=== PATIENT | male | born 1985 | race Hispanic/Latino ===

== ENCOUNTER 2017-07-29 07:05 | Emergency (ER) | payer MEDICARE ==
[~2017-07-29] VITALS: Ht 180.3 cm; Wt 61.2 kg
[2017-07-29] MEDS ORDERED: SODIUM CHLORIDE 0.9% 1000ML 1,000 ML IV STA (07:06)
[2017-07-29] MEDS ORDERED: MORPHINE SULFATE 4 MG/ML SYR IV STA (07:06)
[2017-07-29 07:41] LABS: BASOPHILS # (AUTO) 0.1 (0.0-0.1); BASOPHILS % 0.6 % (0.0-1.0); EOSINOPHILS % 0.3 % (0.0-6.0); HEMATOCRIT 44.7 % (38.2-49.6); HEMOGLOBIN 15.7 g/dL (14.0-18.0); LYMPHOCYTES # (AUTO) 1.5 (1.0-3.2); LYMPHOCYTES % 14.9 % (18.0-39.1); MEAN CORPUSCULAR HEMOGLOBIN 33.2 pg (28-32); MEAN CORPUSCULAR HGB CONC 35.1 g/dL (31-35); MEAN CORPUSCULAR VOLUME 94.5 fL (81-99); MONOCYTES # (AUTO) 1.9 (0.2-0.8); NEUTROPHILS # (AUTO) 6.8 (2.1-6.9); NEUTROPHILS % 65.9 % (38.7-80.0); PLATELET COUNT 186 x10e3/uL (140-360); RED BLOOD COUNT 4.73 x10e6/uL (4.3-5.7)
[2017-07-29 07:46] LABS: INR 0.96; PROTHROMBIN TIME 13.3 seconds (11.9-14.5)
[2017-07-29 07:47] LABS: PARTIAL THROMBOPLASTIN TIME 27.9 seconds (23.8-35.5)
[2017-07-29 07:57] LABS: ALANINE AMINOTRANSFERASE 18 IU/L (0-55); ALBUMIN 3.5 g/dL (3.5-5.0); ALBUMIN/GLOBULIN RATIO 1.2 (0.8-2.0); ALKALINE PHOSPHATASE 110 IU/L (40-150); ANION GAP 13.7 mmol/L (8-16); BLOOD UREA NITROGEN < 5 mg/dL (7-26); CALCIUM 9.2 mg/dL (8.4-10.2); CARBON DIOXIDE 27 mmol/L (22-29); CHLORIDE 101 mmol/L (98-107); CREATINE KINASE 33 IU/L (30-200); EST GLOMERULAR FILTRATION RATE > 60 ML/MIN (60-); GLUCOSE 108 mg/dL (74-118); MAGNESIUM 1.6 MG/DL (1.3-2.1); POTASSIUM 3.7 mmol/L (3.5-5.1); SODIUM 138 mmol/L (136-145)
--- NOTE | 2017-07-29 07:59 | Diagnostic Imaging Report ---
Exam: Head CT without contrast History: Headache Comparison studies: Head CT 10/24/2016 Technique: Axial images were obtained from the skull base to the vertex. Coronal and sagittal images reconstructed from the axial data. Intravenous contrast: None Findings: Scalp: No abnormalities. Bones: No fractures, blastic or lytic lesions. Brain sulci: Appropriate for age. Ventricles: Normal in size and configuration. No hydrocephalus. Extra-axial spaces: No masses, no fluid collection. Parenchyma: Incidental unchanged 3 mm calcification without surrounding edema or mass effect in the right lateral cerebellum is nonspecific but may be sequela of previous infection/inflammation. No other mass. No acute hemorrhage or acute cortical vascular insults. Sellar/suprasellar region: No abnormalities. Craniocervical junction: Patent foramen magnum. No Chiari one malformation. Incidental findings: Previously described nonspecific left lacrimal gland mass/enlargement has resolved. IMPRESSION: 1. No acute abnormalities. 2. Previously described left lacrimal gland mass/enlargement has resolved. 3. No other changes from the previous head CT of 10/24/2016. 4. Unchanged dystrophic right cerebellar calcification. Signed by: Dr. Gopi Murphy M.D. on 07/29/2017 7:55 AM
[2017-07-29 08:03] LABS: BUN/CREATININE RATIO 8 (6-25); TROPONIN I 0.007 ng/mL (0-0.300)
[2017-07-29] MEDS ORDERED: MORPHINE SULFATE 2 MG/ML SYR ONE (08:44)
[2017-07-29] MEDS ORDERED: CEFEPIME HCL 2 GM VIAL IV STA (09:15)
[2017-07-29] MEDS ORDERED: DEXAMETHASONE SOD PHOS 10 MG/1 ML VIAL IV ONE (09:15)
[2017-07-29] MEDS ORDERED: VANCOMYCIN 1GM/NS 250 ML 250 ML IV STA (09:15)
[2017-07-29] MEDS ORDERED: SODIUM CHLORIDE 0.9% 1000ML 1,000 ML IV SCH (10:45)
== END 2017-07-29 11:05 | disposition designated cancer center or children's hospital (05) ==
LOC: ER 07:05
DX: A41.9 Sepsis, unspecified organism (principal); R51 Headache; M62.838 Other muscle spasm
CPT/HCPCS: 36415; 70450; 80053; 82550; 82553; 83605; 83735; 84484; 85025; 85610; 85730; 87040; 87400; 99284; J0692; J1100; J2270; J3370; J7030

== ENCOUNTER 2018-05-18 03:15 | Observation (INO) | payer MEDICARE, OTHER ==
[~2018-05-18] VITALS: Ht 180.3 cm; Wt 71.0 kg
--- OUTSIDE RECORDS SUMMARY | 2018-05-18 03:18 | XMS REPORT | Clinical Summary ---
Author Author [facility] Address Unknown Phone Unavailable Care Team Providers Care Digital Sales Assistant Name Role Phone PCP Unavailable Allergies No Known Allergies Current Medications Prescription Sig. Disp. Refills Start End Date Status Date famotidine (PEPCID) 20 MG Take 1 tablet (20 mg 60 tablet 12/08/19 Active tablet total) by mouth 2 (two) 17 times daily. allopurinol (ZYLOPRIM) Take 1 tablet (100 mg 30 tablet 12/08/19 12/08/19 100 MG tablet total) by mouth daily. 17 18 metoprolol (LOPRESSOR) 25 Take 0.5 tablets (12.5 mg 30 tablet 12/08/19 12/08/19 MG tablet total) by mouth 2 (two) 17 18 times daily. 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 Transfer from OSH 11/05/2016 neutropenia + sepsis. Acute calculus cholecystitis s/p cholecystostomy tube placement (11/07/16). S/p L foot debridement (11/28/16).] Pancytopenia (HCC) 11/05/2016 Septic shock(785.52) 11/05/2016 Severe sepsis(995.92) 11/05/2016 Hypovolemic shock (HCC) 11/05/2016 Pancytopenia due to chemotherapy (HCC) 11/05/2016 Severe anemia 11/05/2016 Family History Medical History Relation Name Comments Cancer Cousin Alcohol abuse Father Hypertension Maternal Grandmother Hypertension Mother Cancer Paternal Aunt Relation Name Status Comments Cousin Father Maternal Grandmother Mother Paternal Aunt Social History Tobacco Use Types Packs/Day Years Used Date Never Smoker Smokeless Tobacco: Never Used Alcohol Use Drinks/Week oz/Week Comments No socially Sex Assigned at Date Recorded Not on file Last Filed Vital Signs Not on file Plan of Treatment Not on file Results Not on fileafter 05/17/2017
--- OUTSIDE RECORDS SUMMARY | 2018-05-18 03:18 | XMS REPORT | Clinical Summary ---
Author Author [facility] Organization [facility] Address Unknown Phone Unavailable Care Team Providers Care Auditor Supervisor Name Role Phone Asked, No Pcp PCP Unavailable Allergies No Known Allergies Current Medications Prescription Sig. Disp. Refills Start End Date Status Date famotidine (PEPCID) 20 MG Take 20 mg by mouth 2 12/08/19 Active tablet (two) times a day. 17 allopurinol (ZYLOPRIM) Take 100 mg by mouth 12/08/19 12/08/19 100 MG tablet daily. 17 18 metoprolol tartrate Take 12.5 mg by mouth 2 12/08/19 06/12/20 Discontin (LOPRESSOR) 25 mg tablet (two) times a day. 17 17 ued pregabalin (LYRICA) 150 Take 1 capsule (150 mg 42 capsule 0 06/12/20 06/26/20 MG capsule total) by mouth 3 (three) 17 17 times a day for 14 days. ondansetron ODT Take 1 tablet (8 mg 30 tablet 0 06/12/20 07/12/20 (ZOFRAN-ODT) 8 MG total) by mouth every 8 17 17 disintegrating tablet (eight) hours as needed for nausea or vomiting for up to 30 days. naloxegol (MOVANTIK) 12.5 Take 1 tablet (12.5 mg 30 tablet 0 06/12/20 07/12/20 mg tablet tablet total) by mouth daily 17 17 before breakfast for 30 days. methocarbamol (ROBAXIN) Take 1 tablet (500 mg 90 tablet 0 06/12/20 07/12/20 500 MG tablet total) by mouth 3 (three) 17 17 times a day for 30 days. lidocaine (LIDODERM) 5 % Place 1 patch on the skin 30 patch 0 06/12/20 07/12/20 daily for 30 days. Remove 17 17 & Discard patch within 12 hours or as directed by MD Active Problems Problem Noted Date Intractable pain 05/30/2017 Pancytopenia (HCC) 10/25/2016 ALL (acute lymphoblastic leukemia) (HCC) Encounters Date Type Specialty Care Team Description 06/16/2017 Documentation Hematology Hawa Shaikh MD 06/02/2017 Procedure Pass General Internal Medicine 06/02/2017 Procedure Pass General Internal Medicine 06/02/2017 Procedure Pass General Internal Medicine 06/02/2017 Procedure Pass General Internal Medicine 06/01/2017 Procedure Pass General Internal Medicine 06/01/2017 Procedure Pass General Internal Medicine 05/29/2017 [facility] Internal Medicine Rehrer, Altaf Abarca, Intractable pain (Primary - Encounter Channing Francisco MD Dx); 06/12/2017 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 Orders Only Hematology Kassie Powers MA Other specified diseases of blood and blood-forming organs (Primary Dx) after 05/17/2017 Social History Tobacco Use Types Packs/Day Years Used Date Never Assessed Sex Assigned at Date Recorded Not on file Last Filed Vital Signs Vital Sign Reading Time Taken Blood Pressure 96/69 06/12/2017 12:22 PM [employer] Pulse 68 06/12/2017 12:22 PM [employer] Temperature 37.1 C (98.7 F) 06/12/2017 12:22 PM [employer] Respiratory Rate 13 06/12/2017 12:22 PM [employer] Oxygen Saturation 97% 06/12/2017 12:22 PM [employer] Inhaled Oxygen - - Concentration Weight 59 kg (130 lb) 06/02/2017 8:21 PM [employer] Height 180.3 cm (5' 11") 05/29/2017 7:12 PM CDT Body Mass Index 18.13 06/02/2017 8:21 PM [employer] Plan of Treatment Health Maintenance Due Date Last Done Comments INFLUENZA VACCINE 02/23/2018 Procedures Procedure Name Priority Date/Time Associated Diagnosis Comments CELL COUNT AND Routine 06/08/2017 Results for this DIFFERENTIAL, BODY FLUID 5:35 PM [employer] procedure are in the results section. CRYSTAL ANALYSIS Routine 06/08/2017 Results for this 5:35 PM [employer] procedure are in the results section. FUNGUS SMEAR Routine 06/08/2017 Results for this 5:13 PM [employer] procedure are in the results section. GRAM STAIN Routine 06/08/2017 Results for this 5:13 PM [employer] procedure are in the results section. AFB STAIN Routine 06/08/2017 Results for this 5:13 PM [employer] procedure are in the results section. FUNGUS CULTURE Routine 06/08/2017 Results for this 5:13 PM [employer] procedure are in the results section. ANAEROBIC CULTURE Routine 06/08/2017 Results for this 5:13 PM [employer] procedure are in the results section. AFB CULTURE Routine 06/08/2017 Results for this 5:13 PM [employer] procedure are in the results section. AEROBIC CULTURE Routine 06/08/2017 Results for this 5:13 PM [employer] procedure are in the results section. IMAGE GUIDANCE ASPIRATION Routine 06/08/2017 Results for this 5:05 PM [employer] procedure are in the results section. US DUPLEX VENOUS LOWER Routine 06/04/2017 Results for this EXTREMITY LEFT 8:34 PM [employer] procedure are in the results section. HC COMPLETE BLD COUNT Routine 06/04/2017 Results for this W/AUTO DIFF 4:45 AM [employer] procedure are in the results section. ZZESTIMATED GFR Routine 06/04/2017 Results for this 4:00 AM [employer] procedure are in the results section. PHOSPHORUS LEVEL Routine 06/04/2017 Results for this 4:00 AM [employer] procedure are in the results section. MAGNESIUM LEVEL Routine 06/04/2017 Results for this 4:00 AM [employer] procedure are in the results section. BASIC METABOLIC PANEL Routine 06/04/2017 Results for this 4:00 AM [employer] procedure are in the results section. FLOW CYTOMETRY EVALUATION Routine 06/03/2017 Results for this 4:45 PM [employer] procedure are in the results section. GLUCOSE LEVEL, CSF Routine 06/03/2017 Results for this 4:45 PM [employer] procedure are in the results section. PROTEIN, CSF Routine 06/03/2017 Results for this 4:45 PM [employer] procedure are in the results section. CSF CELL COUNT WITH Routine 06/03/2017 Results for this DIFFERENTIAL 4:45 PM [employer] procedure are in the results section. GRAM STAIN Routine 06/03/2017 Results for this 4:45 PM [employer] procedure are in the results section. FUNGUS CULTURE Routine 06/03/2017 Results for this 4:45 PM [employer] procedure are in the results section. AFB CULTURE Routine 06/03/2017 Results for this 4:45 PM [employer] procedure are in the results section. CSF CULTURE Routine 06/03/2017 Results for this 4:45 PM [employer] procedure are in the results section. IR LUMBAR PUNCTURE Routine 06/03/2017 Results for this 3:14 PM [employer] procedure are in the results section. SEQUENCE BASED TYPING Routine 06/03/2017 Results for this 2:02 PM [employer] procedure are in the results section. HC COMPLETE BLD COUNT Routine 06/03/2017 Results for this W/AUTO DIFF 5:35 AM [employer] procedure are in the results section. ZZESTIMATED GFR Routine 06/03/2017 Results for this 4:00 AM [employer] procedure are in the results section. PHOSPHORUS LEVEL Routine 06/03/2017 Results for this 4:00 AM [employer] procedure are in the results section. MAGNESIUM LEVEL Routine 06/03/2017 Results for this 4:00 AM [employer] procedure are in the results section. BASIC METABOLIC PANEL Routine 06/03/2017 Results for this 4:00 AM [employer] procedure are in the results section. MRI LUMBAR SPINE W WO Routine 06/02/2017 Results for this CONTRAST 9:52 PM [employer] procedure are in the results section. MRI CERVICAL SPINE W WO Routine 06/02/2017 Results for this CONTRAST 9:51 PM [employer] procedure are in the results section. MRI BRAIN W WO CONTRAST Routine 06/02/2017 Results for this 9:51 PM [employer] procedure are in the results section. MRI THORACIC SPINE W WO Routine 06/02/2017 Results for this CONTRAST 9:34 PM [employer] procedure are in the results section. SURGICAL PATHOLOGY Routine 06/02/2017 Results for this REQUEST 5:10 PM [employer] procedure are in the results section. MRI LOWER EXTREMITY W WO Routine 06/01/2017 Results for this CONTRAST LEFT 7:50 PM [employer] procedure are in the results section. MRI UPPER EXTREMITY JOINT Routine 06/01/2017 Results for this W WO CONTRAST RIGHT 8:20 AM [employer] procedure are in the results section. HC COMPLETE BLD COUNT Routine 06/01/2017 Results for this W/AUTO DIFF 5:00 AM [employer] procedure are in the results section. ZZESTIMATED GFR Routine 06/01/2017 Results for this 4:00 AM [employer] procedure are in the results section. PHOSPHORUS LEVEL Routine 06/01/2017 Results for this 4:00 AM [employer] procedure are in the results section. MAGNESIUM LEVEL Routine 06/01/2017 Results for this 4:00 AM [employer] procedure are in the results section. BASIC METABOLIC PANEL Routine 06/01/2017 Results for this 4:00 AM [employer] procedure are in the results section. XR ANKLE 2 VW LEFT Routine 05/31/2017 Results for this 6:23 PM [employer] procedure are in the results section. XR SHOULDER 2+ VW RIGHT Routine 05/31/2017 Results for this 6:23 PM [employer] procedure are in the results section. SURGICAL PATHOLOGY Routine 05/31/2017 Results for this REQUEST 4:11 PM [employer] procedure are in the results section. BIOPSY BONE MARROW Routine 05/31/2017 Acute lymphoblastic Results for this 3:05 PM [employer] leukemia (ALL) in relapse procedure are in the results section. MISCELLANEOUS REFERRAL Routine 05/31/2017 Results for this TEST 2:55 PM [employer]IT[employer] procedure are in the results section. MISCELLANEOUS REFERRAL Routine 05/31/2017 Results for this TEST 2:55 PM H[employer] procedure are in the results section. FLOW CYTOMETRY EVALUATION Routine 05/31/2017 Results for this 2:55 PM [employer] procedure are in the results section. BONE MARROW TRAY Routine 05/31/2017 Results for this 2:55 PM [employer] procedure are in the results section. PERIPHERAL SMEAR Routine 05/31/2017 Results for this 5:00 AM [employer] procedure are in the results section. HC COMPLETE BLD COUNT Routine 05/31/2017 Results for this W/AUTO DIFF 5:00 AM H[employer]IES [employer] procedure are in the results section. ZZESTIMATED GFR Routine 05/31/2017 Results for this 4:00 AM [employer] procedure are in the results section. PHOSPHORUS LEVEL Routine 05/31/2017 Results for this 4:00 AM H[employer] procedure are in the results section. MAGNESIUM LEVEL Routine 05/31/2017 Results for this 4:00 AM H[employer] procedure are in the results section. BASIC METABOLIC PANEL Routine 05/31/2017 Results for this 4:00 AM [employer] procedure are in the results section. ZZESTIMATED GFR Routine 05/30/2017 Results for this 3:32 AM [employer] procedure are in the results section. IONIZED CALCIUM Routine 05/30/2017 Results for this 3:32 AM [employer] procedure are in the results section. URIC ACID LEVEL Routine 05/30/2017 Results for this 3:32 AM H[employer]IT[employer] procedure are in the results section. PHOSPHORUS LEVEL Routine 05/30/2017 Results for this 3:32 AM H[employer] procedure are in the results section. MAGNESIUM LEVEL Routine 05/30/2017 Results for this 3:32 AM HUM[employer]ITIES IN[employer] procedure are in the results section. TROPONIN Routine 05/30/2017 Results for this 3:32 AM HUM[employer]ITIES [employer] procedure are in the results section. COMPREHENSIVE METABOLIC Routine 05/30/2017 Results for this PANEL 3:32 AM HUM[employer]ITIES IN[employer] procedure are in the results section. HC COMPLETE BLD COUNT Routine 05/30/2017 Results for this W/AUTO DIFF 3:20 AM H[employer]ITIES IN[employer] procedure are in the results section. STREP SCREEN CULTURE Routine 05/29/2017 Results for this 11:14 PM CDT procedure are in the results section. GROUP A STREP, RAPID Routine 05/29/2017 Results for this ANTIGEN 11:14 PM CDT procedure are in the results section. RESPIRATORY PATHOGEN Routine 05/29/2017 Results for this PANEL 11:14 PM CDT procedure are in the results section. BLOOD CULTURE, AEROBIC & Routine 05/29/2017 Results for this ANAEROBIC 10:39 PM CDT procedure are in the results section. XR CHEST 1 VW PORTABLE STAT 05/29/2017 Results for this 10:23 PM CDT procedure are in the results section. BLOOD CULTURE, AEROBIC & Routine 05/29/2017 Results for this ANAEROBIC 10:00 PM CDT procedure are in the results section. ZZESTIMATED GFR STAT 05/29/2017 Results for this 9:00 PM CDT procedure are in the results section. TYPE AND SCREEN Routine 05/29/2017 Results for this 9:00 PM CDT procedure are in the results section. LACTIC ACID LEVEL STAT 05/29/2017 Results for this 9:00 PM CDT procedure are in the results section. COMPREHENSIVE METABOLIC STAT 05/29/2017 Results for this PANEL 9:00 PM CDT procedure are in the results section. PARTIAL THROMBOPLASTIN STAT 05/29/2017 Results for this TIME (PTT) 9:00 PM CDT procedure are in the results section. PROTHROMBIN TIME WITH INR STAT 05/29/2017 Results for this 9:00 PM CDT procedure are in the results section. HC COMPLETE BLD COUNT STAT 05/29/2017 Results for this W/AUTO DIFF 9:00 PM CDT procedure are in the results section. after 05/17/2017 Results * Crystal analysis (06/08/2017 5:35 PM) Crystal analysis specimen JointComment: RIGHT SHOULDER [facility] DEPARTMENT OF type PATHOLOGY AND GENOMIC MEDICINE Monosodium urate None seen None seen [facility] DEPARTMENT OF PATHOLOGY AND GENOMIC MEDICINE CPPD crystals None seen None seen [facility] DEPARTMENT OF PATHOLOGY AND GENOMIC MEDICINE Specimen Fluid Narrative Performed At RT SHOULDER JOINT [facility] DEPARTMENT OF PATHOLOGY AND GENOMIC MEDICINE Performing Organization Address City/[facility] Phone Number [facility] [place] [address] PATHOLOGY AND GENOMIC MEDICINE * Cell count and differential, body fluid (06/08/2017 5:35 PM) [facility] [place], [place] fluid type FootnoteComment: Right [facility] DEPARTMENT OF shoulder joint PATHOLOGY AND GENOMIC MEDICINE Color, fluid Pale yellow [facility] DEPARTMENT OF PATHOLOGY AND GENOMIC MEDICINE Appearance, fluid Hazy [facility] DEPARTMENT OF PATHOLOGY AND GENOMIC MEDICINE RBC, fluid SEE COMMENTComment: 2+ (500 - /CMM [facility] DEPARTMENT OF 10,000 RBC/CMM) PATHOLOGY AND GENOMIC MEDICINE Nucleated cells, fluid 14,300 /CMM [facility] DEPARTMENT OF PATHOLOGY AND GENOMIC MEDICINE Fluid mononuclear cell See Diff [facility] DEPARTMENT OF PATHOLOGY AND GENOMIC MEDICINE Neutrophils, fluid 87 % [facility] DEPARTMENT OF PATHOLOGY AND GENOMIC MEDICINE Lymphocytes, fluid 5 % [facility] DEPARTMENT OF PATHOLOGY AND GENOMIC MEDICINE Macrophages, fluid 8 % [facility] DEPARTMENT OF PATHOLOGY AND GENOMIC MEDICINE Specimen Fluid Narrative Performed At RT SHOULDER JOINT [facility] DEPARTMENT OF PATHOLOGY AND GENOMIC MEDICINE Performing Organization Address [facility]alscode Phone Number [facility] [place] [address] PATHOLOGY AND GENOMIC MEDICINE * Fungus smear (06/08/2017 5:13 PM) Fungus smear No fungi observed. [facility] DEPARTMENT OF Comment: PATHOLOGY AND Specimen Information GENOMIC MEDICINE Specimen Source: Fluid Specimen Site: Right shoulder Performing Organization Address [facility]alscomt Phone Number [facility] [place] [address] PATHOLOGY AND GENOMIC MEDICINE * AFB culture (06/08/2017 5:13 PM) Only the most recent of 2 results within the time period is included. AFB culture isolate No growth after [address] [facility] DEPARTMENT OF incubation. PATHOLOGY AND Comment: GENOMIC MEDICINE Specimen Information Specimen Source: Fluid Specimen Site: Right shoulder Performing Organization Address City/[facility]/Zipcode Phone Number [facility] [place] [address] PATHOLOGY AND GENOMIC MEDICINE * Aerobic culture (06/08/2017 5:13 PM) Aerobic culture isolate No growth after [address] [facility] DEPARTMENT OF Comment: PATHOLOGY AND Specimen Information GENOMIC MEDICINE Specimen Source: Fluid Specimen Site: Right shoulder Performing Organization Address City/[facility]/Zipcode Phone Number [facility] [place] [address] PATHOLOGY AND GENOMIC MEDICINE * Gram stain (06/08/2017 5:13 PM) Only the most recent of 2 results within the time period is included. Gram stain isolate Few WBC's [facility] DEPARTMENT OF No organisms seen PATHOLOGY AND Comment: GENOMIC MEDICINE Specimen Information Specimen Source: Fluid Specimen Site: Right shoulder Performing Organization Address City/[facility] Phone Number [facility] DEPARTMENT OF [address] [place] [address] PATHOLOGY AND GENOMIC MEDICINE * AFB stain (06/08/2017 5:13 PM) AFB stain No acid fast bacilli (AFB) [facility] DEPARTMENT OF seen. PATHOLOGY AND Comment: GENOMIC MEDICINE Specimen Information Specimen Source: Fluid Specimen Site: Right shoulder Performing Organization Address [facility] Phone Number [facility] [place] [address] PATHOLOGY AND GENOMIC MEDICINE * Fungus culture (06/08/2017 5:13 PM) Only the most recent of 2 results within the time period is included. Fungus culture isolate No growth after [address] [facility] DEPARTMENT OF incubation. PATHOLOGY AND Comment: GENOMIC MEDICINE Specimen Information Specimen Source: Fluid Specimen Site: Right shoulder Performing Organization Address [facility] Phone Number [facility] DEPARTMENT OF [address] [place] [address] PATHOLOGY AND GENOMIC MEDICINE * Anaerobic culture (06/08/2017 5:13 PM) Anaerobic culture isolate No anaerobic organisms [facility] DEPARTMENT OF isolated. PATHOLOGY AND Comment: GENOMIC MEDICINE Specimen Information Specimen Source: Fluid Specimen Site: Right shoulder Performing Organization Address [facility] Phone Number [facility] DEPARTMENT OF [address] [place] [address] PATHOLOGY AND GENOMIC MEDICINE * Image Guidance Aspiration (06/08/2017 5:05 PM) Narrative Performed At EXAMINATION:IMAGE GUIDANCE ASPIRATION [facility] CLINICAL HISTORY:Fluoroscopically guided aspiration of the right shoulder ruling out infection COMPARISON:None. IMPRESSION: After informed consent was obtained, patient was prepped and draped in usual sterile fashion. Under fluoroscopic guidance, a needle was placed into the right shoulder joint. A small amount of straw-colored fluid was aspirated and sent for requested laboratory tests. Patient tolerated the procedure well. Radiation exposure: [address] [facility]-[id number] Procedure Note Interface, Radiology Results Incoming - 06/08/2017 5:12 PM [employer]IT[employer] EXAMINATION: IMAGE GUIDANCE ASPIRATION CLINICAL HISTORY: Fluoroscopically guided aspiration of the right shoulder ruling out infection COMPARISON: None. IMPRESSION: After informed consent was obtained, patient was prepped and draped in usual sterile fashion. Under fluoroscopic guidance, a needle was placed into the right shoulder joint. A small amount of straw-colored fluid was aspirated and sent for requested laboratory tests. Patient tolerated the procedure well. Radiation exposure: [address] [facility]-[id number] Performing Organization Address City/State/Zipcode Phone Number [facility] [address] [place] [address] * PV duplex venous lower extremity (06/04/2017 8:34 PM) Narrative Performed At [facility] Vascular Ultrasound Laboratory Lower Extremity Venous Report [id number] [place] [address] Pat.Name:Lázaro MAHONEY.ID:[id number] .Date: 06/04/2017Refer.MD:ELIZA ABEL MD Exam Time: 8:08:00 PMStudy Type:LE Venous Height:71inDOBAge: 986,31Y Sex: MALESonogrphr: Dale Mata RVT Pat. Stat.:Inpatient Room:[facility] TapeVol: , CPT - 4: 40702 Echo Event ID:[id number] Order ID:[id number] Reason for Study:Hx. of acute lymphoblastic leukemia. Left leg pain and swelling. Race:C SUMMARY: DUPLEX SCAN OBSERVATIONS Deep VeinsSuperficial Veins RightLeft RightLeft EIVGSV (prox) Normal CFV Normal Normal (above knee) Femoral Normal GSV (dist)Normal Profunda Normal (below knee) Popliteal Normal PT (prox) NormalSSV PT (dist) Normal Peroneal Normal LEFT: There is normal compressibility with no evidence of echogenic material noted within the lumen of the visualized veins. Colorflow and Doppler signals are normal. PRELIMINARY FINDINGS 1. Normal venous duplex exam of the visualized veins. PHYSICIAN INTERPRETATION 1.Venous examination of the left lower extremity and right groin demonstrates no evidence of venous thrombosis. Signed 06/05/2017 06:54 AM Shaheen Stuart MD Procedure Note Interface, Radiology Results In - 06/05/2017 6:54 AM [facility] Vascular Ultrasound Laboratory Lower Extremity Venous Report [id number] [place] [address] Pat.Name: CODI MAHONEY Pat.ID: [id number] .Date: 06/04/2017 Refer.MD: ELIZA ABEL MD Exam Time: 8:08:00 PM Study Type:LE Venous Height: 71in Age: 2 1985,31Y Sex: MALE Sonogrphr: Dale Mata RVT Pat. Stat.:Inpatient Room: [address] Vol: VB, CPT - 4: 43107 Echo Event ID:[id number] Order ID: [id number] Reason for Study:Hx. of acute lymphoblastic leukemia. Left leg pain and swelling. Race: C SUMMARY: DUPLEX SCAN OBSERVATIONS Deep Veins Superficial Veins Right Left Right Left EIV GSV (prox) Normal CFV Normal Normal (above knee) Femoral Normal GSV (dist) Normal Profunda Normal (below knee) Popliteal Normal PT (prox) Normal SSV PT (dist) Normal Peroneal Normal LEFT: There is normal compressibility with no evidence of echogenic material noted within the lumen of the visualized veins. Colorflow and Doppler signals are normal. PRELIMINARY FINDINGS 1. Normal venous duplex exam of the visualized veins. PHYSICIAN INTERPRETATION 1. Venous examination of the left lower extremity and right groin demonstrates no evidence of venous thrombosis. Signed 06/05/2017 06:54 AM Shaheen Stuart MD Performing Organization Address City/State/Zipcode Phone Number [facility] [address] [place] [phone] * CBC with platelet and differential (06/04/2017 4:45 AM) Only the most recent of 6 results within the time period is included. WBC 3.39 (L) 4.50 - 11.00 k/uL [facility] DEPARTMENT OF PATHOLOGY AND GENOMIC MEDICINE RBC 4.04 (L) 4.40 - 6.00 m/uL [facility] DEPARTMENT OF PATHOLOGY AND GENOMIC MEDICINE HGB 12.8 (L) 14.0 - 18.0 g/dL [facility] DEPARTMENT OF PATHOLOGY AND GENOMIC MEDICINE HCT 38.4 (L) 41.0 - 51.0 % [facility] DEPARTMENT OF PATHOLOGY AND GENOMIC MEDICINE MCV 95.0 82.0 - 100.[address] [facility] DEPARTMENT OF PATHOLOGY AND GENOMIC MEDICINE MCH 31.7 27.0 - 34.[address] [facility] DEPARTMENT OF PATHOLOGY AND GENOMIC MEDICINE MCHC 33.3 31.0 - 37.0 g/dL [facility] DEPARTMENT OF PATHOLOGY AND GENOMIC MEDICINE RDW - SD 53.1 37.0 - 55.[address] [facility] DEPARTMENT OF PATHOLOGY AND GENOMIC MEDICINE MPV 11.5 8.8 - 13.[address] [facility] DEPARTMENT OF PATHOLOGY AND GENOMIC MEDICINE Platelet count 140 (L) 150 - 400 k/uL [facility] DEPARTMENT OF PATHOLOGY AND GENOMIC MEDICINE Nucleated RBC 0.00 /[address] [facility] DEPARTMENT OF PATHOLOGY AND GENOMIC MEDICINE Neutrophils 36.6 (L) 39.0 - 69.0 % [facility] DEPARTMENT OF PATHOLOGY AND GENOMIC MEDICINE Lymphocytes 44.8 25.0 - 45.0 % [facility] DEPARTMENT OF PATHOLOGY AND GENOMIC MEDICINE Monocytes 11.2 (H) 0.0 - 10.0 % [facility] DEPARTMENT OF PATHOLOGY AND GENOMIC MEDICINE Eosinophils 6.2 (H) 0.0 - 5.0 % [facility] [facility] DEPARTMENT OF PATHOLOGY AND GENOMIC MEDICINE Basophils 0.9 0.0 - 1.0 % [facility] DEPARTMENT OF PATHOLOGY AND GENOMIC MEDICINE Immature granulocytes 0.3Comment: "Immature 0.0 - 1.0 % [facility] DEPARTMENT OF granulocytes" (promyelocytes, PATHOLOGY AND myelocytes, metamyelocytes) [facility] MEDICINE Specimen Blood Performing Organization Address City/State/Zipcode Phone Number [address] [address] PATHOLOGY AND GENOMIC MEDICINE * Estimated GFR (06/04/2017 4:00 AM) Only the most recent of 6 results within the time period is included. GFR Non Af Amer >90 mL/min/1.[address] [facility] DEPARTMENT OF PATHOLOGY AND GENOMIC MEDICINE GFR Af Amer >90 mL/min/1.[address] [facility] DEPARTMENT OF Comment: PATHOLOGY AND Chronic kidney disease: <60 GENOMIC MEDICINE mL/min/1.73m2 Kidney failure: <15 mL/min/1.73m2 The estimated GFR is calculated from the IDMS-traceable Modification of Diet in Renal Disease Equation. The accuracy of the calculation is poor when the creatinine is normal. Calculated values >90 mL/min/1.73m2 are not reported. This equation has not been validated in children (<18 years), women, the elderly (>70 years), or ethnic groups other than Caucasians and Americans. Specimen Plasma specimen Performing Organization Address City/[facility] [place] [address] PATHOLOGY AND [facility] MEDICINE * Phosphorus level (06/04/2017 4:00 AM) Only the most recent of 5 results within the time period is included. Phosphorus 4.2 2.4 - 4.5 mg/dL [facility] DEPARTMENT OF PATHOLOGY AND [facility] MEDICINE Specimen Plasma specimen Performing Organization Address City/[facility] [place] [address] PATHOLOGY AND [facility] * Magnesium level (06/04/2017 4:00 AM) Only the most recent of 5 results within the time period is included. Magnesium 1.8 1.6 - 2.6 mg/dL [facility] DEPARTMENT OF PATHOLOGY AND [facility] MEDICINE Specimen Plasma specimen Performing Organization Address City/[facility] [place] [address] PATHOLOGY AND [facility] * Basic metabolic panel (06/04/2017 4:00 AM) Only the most recent of 4 results within the time period is included. Sodium 144 135 - 148 mEq/L [facility] DEPARTMENT OF PATHOLOGY AND GENOMIC MEDICINE Potassium 3.9 3.5 - 5.0 mEq/L [facility] DEPARTMENT OF PATHOLOGY AND GENOMIC MEDICINE Chloride 106 98 - 112 mEq/L [facility] DEPARTMENT OF PATHOLOGY AND GENOMIC MEDICINE CO2 27 24 - 31 mEq/L [facility] DEPARTMENT OF PATHOLOGY AND GENOMIC MEDICINE Anion gap 11 7 - 15 mEq/L [facility] DEPARTMENT OF Comment: PATHOLOGY AND Starting from October GENOMIC MEDICINE , anion gap calculation no longer incorporates potassium. Please note the change. BUN 8 6 - 20 mg/dL [facility] DEPARTMENT OF PATHOLOGY AND GENOMIC MEDICINE Creatinine 0.5 (L) 0.7 - 1.2 mg/dL [facility] DEPARTMENT OF PATHOLOGY AND GENOMIC MEDICINE Glucose 85 65 - 99 mg/dL [facility] DEPARTMENT OF PATHOLOGY AND GENOMIC MEDICINE Calcium 8.8 8.3 - 10.2 mg/dL [facility] DEPARTMENT OF PATHOLOGY AND GENOMIC MEDICINE Specimen Plasma specimen Performing Organization Address City/[facility] Phone Number [facility] DEPARTMENT [address] [address] PATHOLOGY AND GENOMIC MEDICINE * Flow cytometry evaluation (06/03/2017 4:45 PM) Only the most recent of 2 results within the time period is included. [facility] DEPARTMENT OF PATHOLOGY AND GENOMIC MEDICINE Flow cytometry evaluation See link below for PDF Lab [facility] DEPARTMENT OF Report PATHOLOGY AND GENOMIC MEDICINE Performing Organization Address [facility] Phone Number [facility] DEPARTMENT [address] [address] PATHOLOGY AND GENOMIC MEDICINE * CSF culture (06/03/2017 4:45 PM) CSF culture isolate Staphylococcus, coagulase [facility] DEPARTMENT OF negative PATHOLOGY AND Recovered in Broth only: GENOMIC MEDICINE susceptibility to follow (A) Comment: Specimen Information Specimen Source: CSF (Spinal Fluid) Specimen Site: No tube number noted Colorless Specimen Cerebrospinal fluid Organism Antibiotic Method Susceptibility Staphylococcus coagulase Clindamycin GISSELL <=0.5 mcg/mL: Susceptible negative Staphylococcus coagulase Erythromycin GISSELL <=0.5 mcg/mL: Susceptible negative Staphylococcus coagulase Linezolid GISSELL 2 mcg/mL: Susceptible negative Staphylococcus coagulase Minocycline GISSELL <=1 mcg/mL: Susceptible negative Staphylococcus coagulase Oxacillin GISSELL <=0.25 mcg/mL: negative Susceptible Staphylococcus coagulase Penicillin G GISSELL <=0.125 mcg/mL: negative Susceptible Staphylococcus coagulase Rifampin GISSELL <=0.5 mcg/mL: Susceptible negative Staphylococcus coagulase Tetracycline GISSELL <=0.5 mcg/mL: Susceptible negative Staphylococcus coagulase Vancomycin GISSELL 1 mcg/mL: Susceptible negative Staphylococcus coagulase Trimethoprim/Sulfamethoxa GISSELL <=0.5/9.5 mcg/mL: negative zole Susceptible Performing Organization Address [facility] Phone Number [facility] [place] [address] PATHOLOGY AND GENOMIC MEDICINE * CSF cell count with differential (06/03/2017 4:45 PM) Color, CSF Colorless [facility] DEPARTMENT OF PATHOLOGY AND GENOMIC MEDICINE Appearance, CSF Clear [facility] DEPARTMENT OF PATHOLOGY AND GENOMIC MEDICINE RBC, CSF 3 (H) 0 - 1 /CMM [facility] DEPARTMENT OF PATHOLOGY AND GENOMIC MEDICINE WBC, CSF 7 (H) 0 - 5 /CMM [facility] DEPARTMENT OF PATHOLOGY AND GENOMIC MEDICINE CSF mononuclear cell See Diff [facility] DEPARTMENT OF PATHOLOGY AND GENOMIC MEDICINE Lymphocytes, CSF 89 % [facility] DEPARTMENT OF PATHOLOGY AND GENOMIC MEDICINE Monocytes, CSF 11 % [facility] DEPARTMENT OF PATHOLOGY AND GENOMIC MEDICINE Specimen Cerebrospinal fluid Performing Organization Address City/[facility]/Zipcode Phone Number [facility] [place] [address] PATHOLOGY AND [facility] * Protein, CSF (06/03/2017 4:45 PM) Protein, CSF 30 15 - 45 mg/dL [facility] DEPARTMENT OF PATHOLOGY AND GENOMIC MEDICINE Specimen Cerebrospinal fluid Performing Organization Address City/[facility]/Zipcode [place] [address] PATHOLOGY AND [facility] * Glucose level, CSF (06/03/2017 4:45 PM) Glucose, CSF 49 40 - 70 mg/dL 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 Total fluoroscopy time was 13 seconds. 0 images were obtained although 3 images were stored during fluoroscopy to document the site of needle placement. Utilizing fluoroscopic guidance, a 22-gauge needle was placed into the subarachnoid space at the L3-4 level. Only 3 mL of cerebrospinal fluid could be withdrawn at this level. The needle was then placed into the subarachnoid space at the L4-5 level. A total of 15 mL of cerebrospinal fluid was withdrawn. 50 mg of cytarabine in 2.5 mm total normal saline was injected intrathecal as ordered by the referring physician and prepared by the pharmacy department. The needle was removed and the patient was bandaged in sterile fashion. There were no complications. The primary surgeon was Dr. Ferreira. There were no assistants. There was no significant blood loss. The patient was sent to the recovery room after the procedure and discharged back to the floor after he met discharge criteria. IMPRESSION: Successful fluoroscopic-guided lumbar puncture for intrathecal injection of chemotherapy for treatment of acute lymphoblastic leukemia. 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 Total fluoroscopy time was 13 seconds. 0 images were obtained although 3 images were stored during fluoroscopy to document the site of needle placement. Utilizing fluoroscopic guidance, a 22-gauge needle was placed into the subarachnoid space at the L3-4 level. Only 3 mL of cerebrospinal fluid could be withdrawn at this level. The needle was then placed into the subarachnoid space at the L4-5 level. A total of 15 mL of cerebrospinal fluid was withdrawn. 50 mg of cytarabine in 2.5 mm total normal saline was injected intrathecal as ordered by the referring physician and prepared by the pharmacy department. The needle was removed and the patient was bandaged in sterile fashion. There were no complications. The primary surgeon was Dr. Ferreira. There were no assistants. There was no significant blood loss. The patient was sent to the recovery room after the procedure and discharged back to the floor after he met discharge criteria. IMPRESSION: Successful fluoroscopic-guided lumbar puncture for intrathecal injection of chemotherapy for treatment of acute lymphoblastic leukemia. [facility]-[id number] Performing Organization Address City/State/Zipcode Phone Number [facility] [address] [place] [address] * Sequence based typing (06/03/2017 2:02 PM) [facility] DEPARTMENT OF PATHOLOGY AND GENOMIC MEDICINE Sequence based typing See link below for PDF Lab [facility] DEPARTMENT OF Report PATHOLOGY AND GENOMIC MEDICINE Performing Organization Address City/State/Zipcode Phone Number [facility] DEPARTMENT OF [address] [place] [address] PATHOLOGY AND GENOMIC MEDICINE * MRI Lumbar Spine W Wo Contrast (06/02/2017 9:52 PM) Narrative Performed At EXAMINATION:MRI LUMBAR SPINE W WO CONTRAST [facility] CLINICAL HISTORY:History of ALL ruling out leptomeningeal disease COMPARISON: MRI lumbar spine dated 06/25/2015. FINDINGS: Pre and postcontrast MRI lumbar spine is interpreted. Motion artifact degrades the postcontrast sequences. Lowest fully formed disc space is designated L5-S1. The conus terminates in a normal position and is normal in signal intensity. There is a mildly decreased T1 signal in the bone marrow which can be seen with reconversion. Vertebral heights preserved. L1-2 through L4-5: Unremarkable. L5-S1: Mild disc degenerative change with asymmetric disc bulge is most pronounced in the left. No abnormal intraspinal enhancement is identified within the limits of the study. IMPRESSION: Somewhat limited exam due to motion artifact. No abnormal leptomeningeal enhancement is seen. [facility]-[id number] Procedure Note Interface, Radiology Results Incoming - 06/02/2017 10:08 PM HUMANITIES INSTRUCTOR EXAMINATION: MRI LUMBAR SPINE W WO CONTRAST CLINICAL HISTORY: History of ALL ruling out leptomeningeal disease COMPARISON: MRI lumbar spine dated 06/25/2015. FINDINGS: Pre and postcontrast MRI lumbar spine is interpreted. Motion artifact degrades the postcontrast sequences. Lowest fully formed disc space is designated L5-S1. The conus terminates in a normal position and is normal in signal intensity. There is a mildly decreased T1 signal in the bone marrow which can be seen with reconversion. Vertebral heights preserved. L1-2 through L4-5: Unremarkable. L5-S1: Mild disc degenerative change with asymmetric disc bulge is most pronounced in the left. No abnormal intraspinal enhancement is identified within the limits of the study. IMPRESSION: Somewhat limited exam due to motion artifact. No abnormal leptomeningeal enhancement is seen. [facility]-[id number] Performing Organization Address City/State/Zipcode Phone Number [facility] [address] [place] [address] * MRI Cervical Spine W Wo Contrast (06/02/2017 9:51 PM) Narrative Performed At EXAMINATION:MRI CERVICAL SPINE W WO CONTRAST [facility] CLINICAL HISTORY:history of all r o leptomeningeal disease COMPARISON: None FINDINGS: Pre and postcontrast MRI of the cervical spine is interpreted. Motion degrades the exam. The cervical cord is normal in volume and signal intensity. There is mildly diminished T1 signal and bone marrow which can be seen with reconversion and myeloproliferative processes. No abnormal enhancement is seen. C2-3: Unremarkable C3-4: Unremarkable. C4-5: Unremarkable. C5-6: Unremarkable. C6-7: Unremarkable C7-T1: Unremarkable. No worrisome intraspinal enhancement is identified within the limits the study. IMPRESSION: Somewhat limited exam. No evidence of leptomeningeal disease is seen. [facility]-[id number] Procedure Note Interface, Radiology Results Incoming - 06/02/2017 9:57 PM HUMANITIES INSTRUCTOR EXAMINATION: MRI CERVICAL SPINE W WO CONTRAST CLINICAL HISTORY: history of all r o leptomeningeal disease COMPARISON: None FINDINGS: Pre and postcontrast MRI of the cervical spine is interpreted. Motion degrades the exam. The cervical cord is normal in volume and signal intensity. There is mildly diminished T1 signal and bone marrow which can be seen with reconversion and myeloproliferative processes. No abnormal enhancement is seen. C2-3: Unremarkable C3-4: Unremarkable. C4-5: Unremarkable. C5-6: Unremarkable. C6-7: Unremarkable C7-T1: Unremarkable. No worrisome intraspinal enhancement is identified within the limits the study. IMPRESSION: Somewhat limited exam. No evidence of leptomeningeal disease is seen. [facility]-[id number] Performing Organization Address City/State/Zipcode Phone Number [facility] [address] [place] [address] * MRI Brain W Wo Contrast (06/02/2017 9:51 PM) Addenda Addendum by Ho Funez MD on 06/02/2017 10:14 PM ADDENDUM #1 The postcontrast sequences are suboptimal due to poor enhancement. Repeat injection was not performed due to patient discomfort. Repeat postcontrast imaging may be considered. Narrative Performed At EXAMINATION:MRI BRAIN W WO CONTRAST [facility] CLINICAL HISTORY:history of all r o leptomeningeal disease COMPARISON: CT brain exam dated 01/11/2015. FINDINGS: Pre and postcontrast MRI of brain is interpreted. Diffusion imaging demonstrates no abnormal restricted diffusion. The brain is normal in morphology and in signal intensity. No abnormal parenchymal or leptomeningeal enhancement is seen. No extra-axial collection or mass effect is seen. No hemorrhage is identified. Major vascular flow-voids are preserved. IMPRESSION: Unremarkable MRI of the brain. [facility]-[id number] Procedure Note Interface, Radiology Results 06/02/2017 10:01 PM HUMANITIES INSTRUCTOR EXAMINATION: MRI BRAIN W WO CONTRAST CLINICAL HISTORY: history of all r o leptomeningeal disease COMPARISON: CT brain exam dated 01/11/2015. FINDINGS: Pre and postcontrast MRI of brain is interpreted. Diffusion imaging demonstrates no abnormal restricted diffusion. The brain is normal in morphology and in signal intensity. No abnormal parenchymal or leptomeningeal enhancement is seen. No extra-axial collection or mass effect is seen. No hemorrhage is identified. Major vascular flow-voids are preserved. IMPRESSION: Unremarkable MRI of the brain. [facility]-[id number] Performing Organization Address City/State/Zipcode Phone Number [facility] [address] [place] [address] * MRI Thoracic Spine W Wo Contrast (06/02/2017 9:34 PM) Narrative Performed At EXAMINATION:MRI THORACIC SPINE W WO CONTRAST [facility]:History of all r o leptomeningeal disease COMPARISON: MRI of the thoracic spine dated 05/24/2015. FINDINGS: Postcontrast MRI of the thoracic spine is interpreted. The thoracic cord is normal in volume and signal intensity. T1 signal in the bone marrow is slightly less than that seen previously which could be related reconversion of marrow. No abnormal enhancement is seen. No worrisome interspinal enhancement is identified. No cervical spondylosis is seen. No canal or foraminal stenosis is identified. IMPRESSION: Fairly unremarkable MRI of the thoracic spine. [facility]-[id number] Procedure Note Interface, Radiology Results 06/02/2017 9:42 PM HUMANITIES INSTRUCTOR EXAMINATION: MRI THORACIC SPINE W WO CONTRAST CLINICAL HISTORY: History of all r o leptomeningeal disease COMPARISON: MRI of the thoracic spine dated 05/24/2015. FINDINGS: Postcontrast MRI of the thoracic spine is interpreted. The thoracic cord is normal in volume and signal intensity. T1 signal in the bone marrow is slightly less than that seen previously which could be related reconversion of marrow. No abnormal enhancement is seen. No worrisome interspinal enhancement is identified. No cervical spondylosis is seen. No canal or foraminal stenosis is identified. IMPRESSION: Fairly unremarkable MRI of the thoracic spine. [facility]-[id number] Performing Organization Address City/State/Zipcode Phone Number [facility] [address] [place] [address] * Surgical pathology request (06/02/2017 5:10 PM) Only the most recent of 2 results within the time period is included. [facility] DEPARTMENT OF PATHOLOGY AND GENOMIC MEDICINE Surgical pathology report See link below for PDF Lab [facility] DEPARTMENT OF Report PATHOLOGY AND GENOMIC MEDICINE Performing Organization Address [facility] Phone Number [facility] DEPARTMENT OF [address] [place] [phone] PATHOLOGY AND GENOMIC MEDICINE * MRI Lower Extremity W Wo Contrast Left (06/01/2017 7:50 PM) Narrative Performed At [facility] EXAMINATION:MRI LOWER EXTREMITY W WO CONTRAST LEFT CLINICAL HISTORY:Evaluate for osteomyelitis. COMPARISON:None TECHNIQUE: Multiplanar, multisequence MR imaging examination of the left forefoot was performed without and with IV contrast. FINDINGS:No evidence of osteomyelitis, septic arthritis, or infectious tenosynovitis. Trace fluid in the first intermetatarsal bursa. Joint spaces are maintained. No degenerative changes. 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 Moderate dorsal subcutaneous edema and swelling. No fluid collection. IMPRESSION: No osteomyelitis. Please see above for other findings. [facility]-[id number] Procedure Note Interface, Radiology Results Incoming - 06/01/2017 8:54 PM HUMANITIES INSTRUCTOR EXAMINATION: MRI LOWER EXTREMITY W WO CONTRAST LEFT CLINICAL HISTORY: Evaluate for osteomyelitis. COMPARISON: None TECHNIQUE: Multiplanar, multisequence MR imaging examination of the left forefoot was performed without and with IV contrast. FINDINGS: No evidence of osteomyelitis, septic arthritis, or infectious tenosynovitis. Trace fluid in the first intermetatarsal bursa. Joint spaces are maintained. No degenerative changes. 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 Moderate dorsal subcutaneous edema and swelling. No fluid collection. IMPRESSION: No osteomyelitis. Please see above for other findings. [facility]-[id number] Performing Organization Address City/[facility]/Zipcode Phone Number [facility] [address] [place] [address] * MRI Upper Extremity Joint W Wo Contrast Right (06/01/2017 8:20 AM) Narrative Performed At EXAMINATION:MRI UPPER EXTREMITY JOINT W WO CONTRAST RIGHT [facility]:History of avascular necrosis. Shoulder pain. COMPARISON:Plain films May 31, 2017. TECHNIQUE: Multiplanar, multisequence MR imaging examination of the right shoulder was performed without and with IV contrast. FINDINGS:There is extensive avascular necrosis involving most of the articular surface of the humeral head with associated subchondral collapse. Marrow edema is observed in the devascularized fragment extending into the metaphysis. 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 Rotator cuff is intact, and there is normal muscle bulk and signal. Thinning and partial tearing of the intra-articular and extra-articular long head of the biceps tendon. Multifocal labral degeneration, fraying, and tearing. Posterior capsular sprain and partial tearing. Acromioclavicular joint is intact. Acromion is type I. No inferior displacement, downsloping, or os acromiale. No bursitis. Reactive joint effusion, capsulitis, and mild periarticular deep soft tissue edema. 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 Rotator cuff is intact. Multifocal degenerative labral tearing. Partial tearing of the long head of the biceps tendon. [facility]-[id number] Procedure Note Interface, Radiology Results [facility] - 06/01/2017 8:44 PM HUMANITIES INSTRUCTOR EXAMINATION: MRI UPPER EXTREMITY JOINT W WO CONTRAST RIGHT CLINICAL HISTORY: History of avascular necrosis. Shoulder pain. COMPARISON: Plain films May 31, 2017. TECHNIQUE: Multiplanar, multisequence MR imaging examination of the right shoulder was performed without and with IV contrast. FINDINGS: There is extensive avascular necrosis involving most of the articular surface of the humeral head with associated subchondral collapse. Marrow edema is observed in the devascularized fragment extending into the metaphysis. 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 Rotator cuff is intact, and there is normal muscle bulk and signal. Thinning and partial tearing of the intra-articular and extra-articular long head of the biceps tendon. Multifocal labral degeneration, fraying, and tearing. Posterior capsular sprain and partial tearing. Acromioclavicular joint is intact. Acromion is type I. No inferior displacement, downsloping, or os acromiale. No bursitis. Reactive joint effusion, capsulitis, and mild periarticular deep soft tissue edema. 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 Rotator cuff is intact. Multifocal degenerative labral tearing. Partial tearing of the long head of the biceps tendon. [facility]-[id number] Performing Organization Address [facility]/Zipcode Phone Number [facility] [address] [place] [address] * XR Ankle 2 Vw Left (05/31/2017 6:23 PM) Narrative Performed At EXAMINATION:XR ANKLE 2 VW LEFT [facility] CLINICAL HISTORY:Left ankle pain COMPARISON:None. IMPRESSION: There is no evidence of an acute fracture or dislocation. No suspicious focal lesion is present. No radiopaque foreign bodies are present [facility]-[id number] Procedure Note Interface, Radiology Results Incoming - 05/31/2017 6:36 PM HUMANITIES INSTRUCTOR EXAMINATION: XR ANKLE 2 VW LEFT CLINICAL HISTORY: Left ankle pain COMPARISON: None. IMPRESSION: There is no evidence of an acute fracture or dislocation. No suspicious focal lesion is present. No radiopaque foreign bodies are present [facility]-[id number] Performing Organization Address [facility] Phone Number [facility] [address] [place] [address] * XR Shoulder 2+ Vw Right (05/31/2017 6:23 PM) Narrative Performed At EXAMINATION:XR SHOULDER 2VW RIGHT [facility] CLINICAL HISTORY:Right shoulder pain COMPARISON:None available at this time. IMPRESSION: There is no evidence of acute fracture or dislocation. Mild remodeling of the humeral with some sclerosis. Avascular necrosis cannot entirely be excluded. Further characterization with MRI is recommended [facility]-[id number] Procedure Note Interface, Radiology Results Incoming - 05/31/2017 6:29 PM HUMANITIES INSTRUCTOR EXAMINATION: XR SHOULDER 2 VW RIGHT CLINICAL HISTORY: Right shoulder pain COMPARISON: None available at this time. IMPRESSION: There is no evidence of acute fracture or dislocation. Mild remodeling of the humeral with some sclerosis. Avascular necrosis cannot entirely be excluded. Further characterization with MRI is recommended [facility]-[id number] Performing Organization Address City/[facility]/Zipcode Phone Number [facility] [address] [place] [address] * Biopsy bone marrow (05/31/2017 3:05 PM) Narrative Performed At MAKSIM Hameed 05/31/20173:05 PM Biopsy bone marrow Date/Time: 05/31/2017 3:03 PM Performed by: LORRAINE BUTLER Authorized by: LORRAINE BUTLER Procedure: Procedure:Bone marrow aspirate and bone marrow biopsy Indications:Metastatic workup Consent: Consent obtained:Written Consent given by:Patient [place] protocol: Procedure explained and questions answered to patient or proxy's satisfaction: yes Relevant documents present and verified: yes Test results available and properly labeled: yes Required blood products, implants, devices and special equipment available: no Site/side marked: yes Patient identity confirmed:Verbally with patient Local anesthetic: Anesthesia method:Local infiltration (drug 1) Local anesthetic (drug 1):Lidocaine 2% w/o epi Anesthetic total (mL) (drug 1):10 Procedure details: Skin preparation:Skin prepped with povidone-iodine Preparation: Patient was prepped and draped in usual sterile fashion Location:Right Patient position:L lateral decubitus Aspirate needle info:Aspirate Number of attempts aspirate:1 Sample appearance:Spicules present Number of attempts biopsy:1 Tubes of marrow:1 Biopsy length (cm):3 Total volume:15 Specimen sent for:Peripheral smear, aspirate, clot, biopsy, FISH, cytogenics, cell surface markers and other (describe) (Flow for MRD) Cell surface markers:Leukemia panel FISH:Other (describe) (FISH for ALL) Post-procedure details: Site care:Site cleaned, pressure dressing applied and adhesive bandage applied Complications:None Comments: Procedure done at the right iliac crest.Patient tolerated fine. * Bone marrow tray (05/31/2017 2:55 PM) Bone marrow tray Done [facility] DEPARTMENT OF PATHOLOGY AND GENOMIC MEDICINE Specimen Fluid Performing Organization Address City/State/Zipcode Phone Number [facility] DEPARTMENT [address] [address] PATHOLOGY AND GENOMIC MEDICINE * Miscellaneous referral test (05/31/2017 2:55 PM) Only the most recent of 2 results within the time period is included. [facility] [place] [place] test name [facility] [place] [place] test result see note [facility] Comment: CHROMOSOME/FISH ANALYSIS ONCOLOGY Chromosome Analysis Indication: ALL Sample Type: BONE MARROW METHOD OF ANALYSIS:GTG-Banding RESULTS: 46,XY[20] INTERPRETATION : Normal male chromosome analysis with no clonal abnormalities observed. A Cancer Chromosomal Microarray Analysis (test code 9515) is also available to evaluate genomic aberrations that could be missed by conventional cytogenetic analysis. FISH ONCOLOGY ANALYSIS Method of Analysis: FISH FISH Nuclei examined: 1200 Results: NORMAL 6q23 (MYB): Deletion NOT detected 9p21 (CDKN2A): Deletion NOT detected t(9;22)(q34;q11.2) (ABL-ASS/BCR): Translocation NOT detected 11q23 (KMT2A): Gene rearangement NOT detected t(12;21)(p13;q22) (ETV6/RUNX1): Translocation NOT detected 14q32 (IGH): Gene rearrangement/translocation NOT detected INTERPRETATION : Negative FISH results for the above-named loci. Fluorescence in situ hybridization (FISH) studies were performed on this specimen using a panel of DNA probes designed to detect abnormalities commonly seen in ALL ([employer]). At least 200 hundred nuclei were analyzed for each probe. All probes scored within the normal range, i.e., the results were normal. ISCN: nuc bisi(MYB,CDKN2A,ASS-ABL,KMT2A,E TV6,IGH,RUNX1,BCR)x2[200] Test performed by: [facility] [address] [place] [address]. [place], [id number] Narrative Performed At [facility] Performing Organization Address City/State/Zipcode Phone Number [facility] [address] [place] [address] * Peripheral smear (05/31/2017 5:00 AM) Peripheral smear Done [facility] DEPARTMENT OF Comment: PATHOLOGY AND Peripheral smear is located in GENOMIC MEDICINE Hematology Laboratory, second floor of [facility]. Performing Organization Address City/State/[facility]code Phone Number [facility] [place] [address] PATHOLOGY AND GENOMIC MEDICINE * Troponin (05/30/2017 3:32 AM) Troponin <0.30 0.00 - 0.30 ng/mL [facility] DEPARTMENT OF Comment: PATHOLOGY AND 0.30 - 1.49 GENOMIC MEDICINE ng/mlMay indicate increased risk of acute coronary syndrome. >=1.5 ng/ml Consistent with acute myocardial infarction. The diagnostic value of a single normal or non-diagnostic result is questionable.Serial samples at 2-6 hour intervals are required to rule out acute myocardial injury. Specimen Plasma specimen Performing Organization Address City/[facility] [place] [address] PATHOLOGY AND [facility] * Uric acid level (05/30/2017 3:32 AM) Uric acid 5.8 3.4 - 7.0 mg/dL [facility] MEDICINE Specimen Plasma specimen Performing Organization Address City/[facility] [place] [address] PATHOLOGY AND [facility] * Ionized calcium (05/30/2017 3:32 AM) pH 7.47 [facility] DEPARTMENT OF PATHOLOGY AND GENOMIC MEDICINE Ionized calcium 1.15 1.11 - 1.32 mmol/L [facility] DEPARTMENT OF PATHOLOGY AND GENOMIC MEDICINE Specimen Plasma specimen Performing Organization Address [facility] [place] [address] PATHOLOGY AND [facility] MEDICINE * Comprehensive metabolic panel (05/30/2017 3:32 AM) Only the most recent of 2 results within the time period is included. Sodium 146 135 - 148 mEq/L [facility] DEPARTMENT OF PATHOLOGY AND GENOMIC MEDICINE Potassium 3.4 (L) 3.5 - 5.0 mEq/L [facility] DEPARTMENT OF PATHOLOGY AND GENOMIC MEDICINE Chloride 108 98 - 112 mEq/L [facility] DEPARTMENT OF PATHOLOGY AND GENOMIC MEDICINE CO2 24 24 - 31 mEq/L [facility] DEPARTMENT OF PATHOLOGY AND GENOMIC MEDICINE Anion gap 14 7 - 15 mEq/L [facility] DEPARTMENT OF Comment: PATHOLOGY AND Starting from October GENOMIC MEDICINE , anion gap calculation no longer incorporates potassium. Please note the change. BUN 18 6 - 20 mg/dL [facility] DEPARTMENT OF PATHOLOGY AND GENOMIC MEDICINE Creatinine 0.5 (L) 0.7 - 1.2 mg/dL [facility] DEPARTMENT OF PATHOLOGY AND GENOMIC MEDICINE Glucose 97 65 - 99 mg/dL [facility] DEPARTMENT OF PATHOLOGY AND GENOMIC MEDICINE Calcium 9.1 8.3 - 10.2 mg/dL [facility] DEPARTMENT OF PATHOLOGY AND GENOMIC MEDICINE Protein 6.0 (L) 6.3 - 8.3 g/dL [facility] DEPARTMENT OF Comment: PATHOLOGY AND [place] GENOMIC MEDICINE 4.6-7.0 g/dL 1 week 4.4-7.6 g/dL 7 months-1year 5.1-7.3 g/dL 1-2 years5.6-7 .5 g/dL >3 years6.0-8 .0 g/dL 18-150 6.3-8.3 g/dL Albumin 3.3 (L) 3.5 - 5.0 g/dL [facility] DEPARTMENT OF PATHOLOGY AND GENOMIC MEDICINE A/G ratio 1.2 0.7 - 3.8 [facility] DEPARTMENT OF PATHOLOGY AND GENOMIC MEDICINE Alkaline phosphatase 127 40 - 129 U/L [facility] DEPARTMENT OF PATHOLOGY AND GENOMIC MEDICINE AST 30 10 - 50 U/L [facility] DEPARTMENT OF PATHOLOGY AND GENOMIC MEDICINE ALT 26 5 - 50 U/L [facility] DEPARTMENT OF PATHOLOGY AND GENOMIC MEDICINE Total bilirubin 0.7 0.0 - 1.2 mg/dL [facility] DEPARTMENT OF PATHOLOGY AND GENOMIC MEDICINE Specimen Plasma specimen Performing Organization Address City/State/Zipcode Phone Number [facility] DEPARTMENT OF [address] [place] [address] PATHOLOGY AND GENOMIC MEDICINE * Respiratory pathogen panel (05/29/2017 11:14 PM) Respiratory pathogen Negative for all pathogens [facility] DEPARTMENT OF panel tested: PATHOLOGY AND Negative for Adenovirus GENOMIC MEDICINE Negative for Coronavirus HKU1 Negative for Coronavirus NL63 Negative for Coronavirus 229E Negative for Coronavirus OC43 Negative for Human Metapneumovirus Negative for Rhinovirus/Enterovirus Negative for Influenza A Negative for Influenza A/H1 Negative for Influenza A/H3 Negative for Influenza A/H1-2009 Negative for Influenza B Negative for Parainfluenza Virus 1 Negative for Parainfluenza Virus 2 Negative for Parainfluenza Virus 3 Negative for Parainfluenza Virus 4 Negative for Respiratory Syncytial Virus Negative for Bordetella pertussis Negative for Chlamydophila pneumoniae Negative for Mycoplasma pneumoniae This real-time PCR assay detects the presence of nucleic acids (RNA or DNA) for the respiratory pathogens listed. A result of "Not-detected" does not exclude the possibility of the presence of one or more pathogens at concentrations less than the detectable limits of the assay. Comment: Specimen Information Specimen Source: Nares Specimen Site: Left Specimen Nares - Left Performing Organization Address [facility] Phone Number [facility] [place] [address] PATHOLOGY AND GENOMIC MEDICINE * Group A strep, rapid antigen (05/29/2017 11:14 PM) Group A strep, rapid Negative for Group A [facility] DEPARTMENT OF antigen result Streptococcus antigen. PATHOLOGY AND Comment: GENOMIC MEDICINE Specimen Information Specimen Source: Throat Specimen Site: Not otherwise specified Specimen Throat - Not otherwise specified Performing Organization Address [facility]code Phone Number [facility] [place] [address] PATHOLOGY AND GENOMIC MEDICINE * Strep screen culture (05/29/2017 11:14 PM) Strep screen culture No beta hemolytic Streptococci [facility] DEPARTMENT OF isolate isolated PATHOLOGY AND Comment: GENOMIC MEDICINE Specimen Information Specimen Source: Throat Specimen Site: Not otherwise specified Specimen Throat - Not otherwise specified Performing Organization Address [facility]alscomt Phone Number [facility] [place] [address] PATHOLOGY AND GENOMIC MEDICINE * Blood culture, aerobic & anaerobic (05/29/2017 10:39 PM) Only the most recent of 2 results within the time period is included. Blood culture isolate No growth after [address] [facility] DEPARTMENT OF incubation. PATHOLOGY AND Comment: GENOMIC MEDICINE Specimen Information Specimen Source: Blood Specimen Site: Forearm, right Specimen Blood - Forearm, right Performing Organization Address [facility] Phone Number [facility] DEPARTMENT OF [address] [place] [address] PATHOLOGY AND GENOMIC MEDICINE * XR Chest 1 Vw Portable (05/29/2017 10:23 PM) Narrative Performed At EXAMINATION:XR CHEST 1 VW PORTABLE [facility] CLINICAL HISTORY:SHORTNESS OF BREATH COMPARISON:10/27/2016 IMPRESSION: No consolidations, effusions, or pneumothorax.Cardiomediastinal silhouette is within normal limits.No acute osseous abnormalities. [facility]-[id number] Procedure Note Interface, Radiology Results Incoming - 05/29/2017 10:37 PM CDT EXAMINATION: XR CHEST 1 VW PORTABLE CLINICAL HISTORY: SHORTNESS OF BREATH COMPARISON: 10/27/2016 IMPRESSION: No consolidations, effusions, or pneumothorax. Cardiomediastinal silhouette is within normal limits. No acute osseous abnormalities. [facility]-[id number] Performing Organization Address [facility]/Zipcode Phone Number [facility] [address] [place] [address] * Partial thromboplastin time, activated (05/29/2017 9:00 PM) PTT 28.8 23.0 - 36.[address] [facility] DEPARTMENT OF Comment: PATHOLOGY AND PTT therapeutic range for [facility] MED[facility] unfractionated heparin is 61.0-112.0 seconds which corresponds to Anti-Xa 0.3-0.7 U/ml. Specimen Blood Performing Organization Address [facility]als[facility] [place] [address] PATHOLOGY AND GENOMIC MEDICINE * Prothrombin time with INR (05/29/2017 9:00 PM) Prothrombin time 13.4 12.0 - 15.[address] [facility] DEPARTMENT OF PATHOLOGY AND GENOMIC MEDICINE INR 1.0 [facility] DEPARTMENT OF Comment: PATHOLOGY AND The International Normalized GENOMIC MEDICINE Ratio (INR) is a therapeutic monitoring tool for patients who are stable on oral anticoagulant therapy. An INR of 2.0-3.0 is suggested for deep vein thrombosis/pulmonary embolism. Specimen Blood Performing Organization Address [facility]als[facility] [place] [address] PATHOLOGY AND GENOMIC MEDICINE * Type and screen (05/29/2017 9:00 PM) ABO grouping B [facility] DEPARTMENT OF PATHOLOGY AND GENOMIC MEDICINE Rh type POS [facility] DEPARTMENT OF PATHOLOGY AND GENOMIC MEDICINE Antibody screen (gel) NEG [facility] DEPARTMENT OF PATHOLOGY AND GENOMIC MEDICINE Specimen Blood Performing Organization Address [facility]/Zipcode [place] [address] PATHOLOGY AND GENOMIC MEDICINE * Lactic acid level (05/29/2017 9:00 PM) Lactic acid 1.6 0.5 - 2.2 mmol/L [facility] DEPARTMENT OF PATHOLOGY AND GENOMIC MEDICINE Specimen Plasma specimen Performing Organization Address City/[facility]/Zipcode Phone Number [facility] [place] [address] PATHOLOGY AND GENOMIC MEDICINE after 05/17/2017 Insurance Payer Benefit Subscriber ID Type Phone Address Plan / Group MEDICARE MEDICARE xxxxxxxxxx Medicare [place], [place] PART A AND B
--- OUTSIDE RECORDS SUMMARY | 2018-05-18 03:21 | XMS REPORT ---
[facility] Address Unknown Phone Unavailable Care Team Providers Care Nurse Transplant Name Role Phone ILENE HUIZAR Unavailable Unavailable SUN ALAN Unavailable Unavailable Problems This patient has no known problems. Allergies, Adverse Reactions, Alerts This patient has no known allergies or adverse reactions. Medications This patient has no known medications. Encounters Start Date/Time End Date/Time Encounter Type Admission Type Attending [facility] [place] Facility Care Department Encounter ID 2017-02-13 22:59:49 2017-02-13 22:59:49 Emergency [facility] [id number] 2017-02-13 17:56:59 2017-02-13 17:56:59 Emergency [facility] [id number] 2017-02-13 16:34:09 2017-02-13 16:34:09 Emergency [facility] [id number] Results Test Description Test Time Test Comments Text Results Atomic Results Result Comments AFB CULTURE + SMEAR 2017-01-12 17:20:00 CULTURE (BEAKER) (test xwct=9850) No acid-fast bacilli isolated in 42 days AFB SMEAR (BEAKER) (test ajhp=014) No acid fast bacilli seen FUNGUS CULTURE + [id number] 03:18:00* Test Item Value Reference Range Comments CULTURE (BEAKER) (test heti=6781) No fungus isolated in 28 days FUNGUS SMEAR (BEAKER) (test faap=2225) No fungi seen FUNGUS CULTURE + [id number] 03:17:00* Test Item Value Reference Range Comments CULTURE (BEAKER) (test dokr=4352) No fungus isolated in 28 days FUNGUS SMEAR (BEAKER) (test odhp=6759) No fungi seen CBC W/PLT COUNT & AUTO [id number] 07:23:00* Test Item Value Reference Range Comments WHITE BLOOD CELL COUNT (BEAKER) (test vanq=782) 1.8 K/ L 4.0-10.0 RED BLOOD CELL COUNT (BEAKER) (test uwoc=769) 2.46 M/ L 4.20-5.80 HEMOGLOBIN (BEAKER) (test xhgy=177) 7.4 GM/DL 13.0-16.8 HEMATOCRIT (BEAKER) (test xfwb=934) 22.2 % 40.0-50.0 MEAN CORPUSCULAR VOLUME (BEAKER) (test pugr=030) 90.3 fL 82.0-98.0 MEAN CORPUSCULAR HEMOGLOBIN (BEAKER) (test apix=011) 30.2 pg 27.0-33.0 MEAN CORPUSCULAR HEMOGLOBIN CONC (BEAKER) (test jqxx=853) 33.4 GM/DL 32.0-36.0 RED CELL DISTRIBUTION WIDTH (BEAKER) (test rfwq=785) 20.7 % 10.3-14.2 PLATELET COUNT (BEAKER) (test bcuv=421) 102 K/CU MM 150-430 MEAN PLATELET VOLUME (BEAKER) (test izgc=490) 10.4 fL 6.5-10.5 NUCLEATED RED BLOOD CELLS (BEAKER) (test iwbm=265) 0 /100 WBC 0-0 NEUTROPHILS RELATIVE PERCENT (BEAKER) (test fgvq=346) 38 % LYMPHOCYTES RELATIVE PERCENT (BEAKER) (test inew=709) 59 % MONOCYTES RELATIVE PERCENT (BEAKER) (test buio=546) 0 % EOSINOPHILS RELATIVE PERCENT (BEAKER) (test ewvy=168) 2 % BASOPHILS RELATIVE PERCENT (BEAKER) (test huhl=297) 1 % NEUTROPHILS ABSOLUTE COUNT (BEAKER) (test vbvm=487) 0.67 K/ L 1.80-8.00 LYMPHOCYTES ABSOLUTE COUNT (BEAKER) (test udfy=903) 1.04 K/ L 1.48-4.50 MONOCYTES ABSOLUTE COUNT (BEAKER) (test htcl=729) 0.00 K/ L 0.00-1.30 EOSINOPHILS ABSOLUTE COUNT (BEAKER) (test jluf=216) 0.04 K/ L 0.00-0.50 BASOPHILS ABSOLUTE COUNT (BEAKER) (test fjnd=064) 0.02 K/ L 0.00-0.20 0.00(MANUAL DIFFERENTIAL)2016-12-08 07:23:00* Test Item Value Reference Range Comments TOTAL COUNTED (BEAKER) (test aqsk=6419) WBC MORPHOLOGY (BEAKER) (test srgc=536) Normal PLT MORPHOLOGY (BEAKER) (test kmgb=856) Normal POLYCHROMATOPHILLIC RBCS(BEAKER) (test nhnv=992) 1+ few BASIC METABOLIC [id number] 06:40:00* Test Item Value Reference Range Comments SODIUM (BEAKER) (test kcfe=658) 137 meq/L 136-145 POTASSIUM (BEAKER) (test verp=584) 3.7 meq/L 3.5-5.1 CHLORIDE (BEAKER) (test gwnp=890) 98 meq/L 98-107 CO2 (BEAKER) (test ovee=322) 28 meq/L 22-29 BLOOD UREA NITROGEN (BEAKER) (test qeov=216) 8 mg/dL 7-21 CREATININE (BEAKER) (test ezpk=192) 0.49 mg/dL 0.57-1.25 GLUCOSE RANDOM (BEAKER) (test frzm=523) 107 mg/dL 70-105 CALCIUM (BEAKER) (test cjwo=619) 9.4 mg/dL 8.4-10.2 EGFR (BEAKER) (test ckbp=6128) mL/min/1.73 sq m INSUFFICIENT CLINICAL DATA TO CALCULATE ESTIMATED GFR. [id number] 06:32:00* Test Item Value Reference Range Comments MAGNESIUM (BEAKER) (test anlu=248) 1.6 mg/dL 1.6-2.6 HEPATIC FUNCTION [id number] 06:32:00* Test Item Value Reference Range Comments TOTAL PROTEIN (BEAKER) (test gyyd=681) 6.2 gm/dL 6.0-8.3 ALBUMIN (BEAKER) (test asxm=2893) 3.2 g/dL 3.5-5.0 BILIRUBIN TOTAL (BEAKER) (test jhbz=074) 2.5 mg/dL 0.2-1.2 BILIRUBIN DIRECT (BEAKER) (test tlpe=406) 1.7 mg/dL 0.1-0.5 ALKALINE PHOSPHATASE (BEAKER) (test wyms=992) 163 U/L 40-150 AST (SGOT) (BEAKER) (test ulrv=401) 44 U/L 5-34 ALT (SGPT) (BEAKER) (test lpzp=934) 53 U/L 6-55 [id number] 06:13:00* Test Item Value Reference Range Comments PARTIAL THROMBOPLASTIN TIME (BEAKER) (test zfak=753) 37.4 seconds 22.5-36.0 CBC W/PLT COUNT & AUTO [id number] 07:35:00* Test Item Value Reference Range Comments WHITE BLOOD CELL COUNT (BEAKER) (test lsit=810) 2.0 K/ L 4.0-10.0 RED BLOOD CELL COUNT (BEAKER) (test dbhx=508) 2.44 M/ L 4.20-5.80 HEMOGLOBIN (BEAKER) (test ezln=890) 7.4 GM/DL 13.0-16.8 HEMATOCRIT (BEAKER) (test ydjz=017) 22.0 % 40.0-50.0 MEAN CORPUSCULAR VOLUME (BEAKER) (test fayb=456) 90.3 fL 82.0-98.0 MEAN CORPUSCULAR HEMOGLOBIN (BEAKER) (test quay=529) 30.3 pg 27.0-33.0 MEAN CORPUSCULAR HEMOGLOBIN CONC (BEAKER) (test vwlp=882) 33.5 GM/DL 32.0-36.0 RED CELL DISTRIBUTION WIDTH (BEAKER) (test wbqb=361) 20.7 % 10.3-14.2 PLATELET COUNT (BEAKER) (test ojzf=256) 88 K/CU MM 150-430 MEAN PLATELET VOLUME (BEAKER) (test jbyg=161) 10.3 fL 6.5-10.5 NUCLEATED RED BLOOD CELLS (BEAKER) (test zxtu=257) 0 /100 WBC 0-0 NEUTROPHILS RELATIVE PERCENT (BEAKER) (test lzoz=786) 35 % LYMPHOCYTES RELATIVE PERCENT (BEAKER) (test qnxg=312) 62 % MONOCYTES RELATIVE PERCENT (BEAKER) (test rzdz=569) 0 % EOSINOPHILS RELATIVE PERCENT (BEAKER) (test hnxs=530) 2 % BASOPHILS RELATIVE PERCENT (BEAKER) (test jest=351) 1 % NEUTROPHILS ABSOLUTE COUNT (BEAKER) (test jlpd=495) 0.68 K/ L 1.80-8.00 LYMPHOCYTES ABSOLUTE COUNT (BEAKER) (test pacr=226) 1.21 K/ L 1.48-4.50 MONOCYTES ABSOLUTE COUNT (BEAKER) (test lmim=461) 0.01 K/ L 0.00-1.30 EOSINOPHILS ABSOLUTE COUNT (BEAKER) (test tzgg=954) 0.04 K/ L 0.00-0.50 BASOPHILS ABSOLUTE COUNT (BEAKER) (test pcte=644) 0.02 K/ L 0.00-0.20 0.00(MANUAL DIFFERENTIAL)2016-12-07 07:35:00* Test Item Value Reference Range Comments TOTAL COUNTED (BEAKER) (test hikf=1232) [id number] 06:28:00* Test Item Value Reference Range Comments MAGNESIUM (BEAKER) (test ovdm=586) 1.8 mg/dL 1.6-2.6 HEPATIC FUNCTION [id number] 06:28:00* Test Item Value Reference Range Comments TOTAL PROTEIN (BEAKER) (test goly=870) 6.1 gm/dL 6.0-8.3 ALBUMIN (BEAKER) (test etji=5217) 3.3 g/dL 3.5-5.0 BILIRUBIN TOTAL (BEAKER) (test diuw=296) 2.6 mg/dL 0.2-1.2 BILIRUBIN DIRECT (BEAKER) (test tinl=376) 1.8 mg/dL 0.1-0.5 ALKALINE PHOSPHATASE (BEAKER) (test ripy=624) 150 U/L 40-150 AST (SGOT) (BEAKER) (test bcmz=684) 42 U/L 5-34 ALT (SGPT) (BEAKER) (test jkda=840) 50 U/L 6-55 Specimen slightly ictericBASIC METABOLIC [id number] 06:28:00* Test Item Value Reference Range Comments SODIUM (BEAKER) (test xudj=164) 137 meq/L 136-145 POTASSIUM (BEAKER) (test lsda=064) 3.8 meq/L 3.5-5.1 CHLORIDE (BEAKER) (test idcs=605) 99 meq/L 98-107 CO2 (BEAKER) (test ymmd=168) 27 meq/L 22-29 BLOOD UREA NITROGEN (BEAKER) (test xggu=340) 6 mg/dL 7-21 CREATININE (BEAKER) (test uzsl=410) 0.51 mg/dL 0.57-1.25 GLUCOSE RANDOM (BEAKER) (test aqti=543) 102 mg/dL 70-105 CALCIUM (BEAKER) (test ipyw=149) 9.4 mg/dL 8.4-10.2 EGFR (BEAKER) (test qfqp=7108) mL/min/1.73 sq m INSUFFICIENT CLINICAL DATA TO CALCULATE ESTIMATED GFR. Specimen slightly [id number] 06:14:00* Test Item Value Reference Range Comments PARTIAL THROMBOPLASTIN TIME (BEAKER) (test zljl=605) 39.9 seconds 22.5-36.0 FUNGUS CULTURE, BLOOD (ISOLATOR)2016-12-06 07:02:00* Test Item Value Reference Range Comments CULTURE (BEAKER) (test zqkw=1091) No fungus isolated BASIC METABOLIC [id number] 05:37:00* Test Item Value Reference Range Comments SODIUM (BEAKER) (test xswm=576) 136 meq/L 136-145 POTASSIUM (BEAKER) (test sjip=917) 3.8 meq/L 3.5-5.1 CHLORIDE (BEAKER) (test toqp=254) 98 meq/L 98-107 CO2 (BEAKER) (test qmzn=734) 28 meq/L 22-29 BLOOD UREA NITROGEN (BEAKER) (test mwml=640) 8 mg/dL 7-21 CREATININE (BEAKER) (test lleg=622) 0.53 mg/dL 0.57-1.25 GLUCOSE RANDOM (BEAKER) (test jxqz=496) 105 mg/dL 70-105 CALCIUM (BEAKER) (test boja=396) 9.5 mg/dL 8.4-10.2 EGFR (BEAKER) (test imks=8476) mL/min/1.73 sq m INSUFFICIENT CLINICAL DATA TO CALCULATE ESTIMATED GFR. Specimen slightly [id number] 05:27:00* Test Item Value Reference Range Comments MAGNESIUM (BEAKER) (test judl=146) 1.8 mg/dL 1.6-2.6 HEPATIC FUNCTION [id number] 05:27:00* Test Item Value Reference Range Comments TOTAL PROTEIN (BEAKER) (test ybfz=257) 6.3 gm/dL 6.0-8.3 ALBUMIN (BEAKER) (test fhhr=3262) 3.3 g/dL 3.5-5.0 BILIRUBIN TOTAL (BEAKER) (test fuxu=570) 2.8 mg/dL 0.2-1.2 BILIRUBIN DIRECT (BEAKER) (test etlw=932) 1.9 mg/dL 0.1-0.5 ALKALINE PHOSPHATASE (BEAKER) (test tpqh=722) 156 U/L 40-150 AST (SGOT) (BEAKER) (test tozh=253) 46 U/L 5-34 ALT (SGPT) (BEAKER) (test ulcv=636) 50 U/L 6-55 Specimen slightly ictericCBC W/PLT COUNT & AUTO [id number] 04:57:00 * Test Item Value Reference Range Comments WHITE BLOOD CELL COUNT (BEAKER) (test qhwh=055) 2.0 K/ L 4.0-10.0 RED BLOOD CELL COUNT (BEAKER) (test ghbd=957) 2.49 M/ L 4.20-5.80 HEMOGLOBIN (BEAKER) (test ducn=454) 7.7 GM/DL 13.0-16.8 HEMATOCRIT (BEAKER) (test cmye=955) 22.1 % 40.0-50.0 MEAN CORPUSCULAR VOLUME (BEAKER) (test yevh=157) 88.7 fL 82.0-98.0 MEAN CORPUSCULAR HEMOGLOBIN (BEAKER) (test kyif=292) 31.1 pg 27.0-33.0 MEAN CORPUSCULAR HEMOGLOBIN CONC (BEAKER) (test lkwg=490) 35.1 GM/DL 32.0-36.0 RED CELL DISTRIBUTION WIDTH (BEAKER) (test qbxm=201) 21.1 % 10.3-14.2 PLATELET COUNT (BEAKER) (test swwk=548) 85 K/CU MM 150-430 MEAN PLATELET VOLUME (BEAKER) (test kjob=610) 10.5 fL 6.5-10.5 NUCLEATED RED BLOOD CELLS (BEAKER) (test jxnf=406) 0 /100 WBC 0-0 NEUTROPHILS RELATIVE PERCENT (BEAKER) (test ifid=448) 36 % LYMPHOCYTES RELATIVE PERCENT (BEAKER) (test vyfq=330) 63 % MONOCYTES RELATIVE PERCENT (BEAKER) (test cxnr=732) 0 % EOSINOPHILS RELATIVE PERCENT (BEAKER) (test wnje=090) 1 % BASOPHILS RELATIVE PERCENT (BEAKER) (test dxpa=523) 0 % NEUTROPHILS ABSOLUTE COUNT (BEAKER) (test irtq=004) 0.73 K/ L 1.80-8.00 LYMPHOCYTES ABSOLUTE COUNT (BEAKER) (test xgdi=176) 1.28 K/ L 1.48-4.50 MONOCYTES ABSOLUTE COUNT (BEAKER) (test cgrx=253) 0.00 K/ L 0.00-1.30 EOSINOPHILS ABSOLUTE COUNT (BEAKER) (test mfia=494) 0.02 K/ L 0.00-0.50 BASOPHILS ABSOLUTE COUNT (BEAKER) (test vbgz=801) 0.00 K/ L 0.00-0.20 [id number] 04:52:00* Test Item Value Reference Range Comments PARTIAL THROMBOPLASTIN TIME (BEAKER) (test rrnz=491) 40.4 seconds 22.5-36.0 CBC W/PLT COUNT & AUTO [id number] 07:12:00* Test Item Value Reference Range Comments WHITE BLOOD CELL COUNT (BEAKER) (test weaj=380) 2.1 K/ L 4.0-10.0 RED BLOOD CELL COUNT (BEAKER) (test dvhx=169) 2.78 M/ L 4.20-5.80 HEMOGLOBIN (BEAKER) (test cuzq=312) 8.4 GM/DL 13.0-16.8 HEMATOCRIT (BEAKER) (test pofq=224) 25.0 % 40.0-50.0 MEAN CORPUSCULAR VOLUME (BEAKER) (test opvx=433) 90.1 fL 82.0-98.0 MEAN CORPUSCULAR HEMOGLOBIN (BEAKER) (test vccn=091) 30.4 pg 27.0-33.0 MEAN CORPUSCULAR HEMOGLOBIN CONC (BEAKER) (test wszm=964) 33.7 GM/DL 32.0-36.0 RED CELL DISTRIBUTION WIDTH (BEAKER) (test ysws=879) 21.0 % 10.3-14.2 PLATELET COUNT (BEAKER) (test jpui=600) 73 K/CU MM 150-430 MEAN PLATELET VOLUME (BEAKER) (test rvte=960) 11.0 fL 6.5-10.5 NUCLEATED RED BLOOD CELLS (BEAKER) (test ggeb=396) 0 /100 WBC 0-0 NEUTROPHILS RELATIVE PERCENT (BEAKER) (test vsjt=314) 42 % LYMPHOCYTES RELATIVE PERCENT (BEAKER) (test qbyd=838) 53 % MONOCYTES RELATIVE PERCENT (BEAKER) (test npou=709) 0 % EOSINOPHILS RELATIVE PERCENT (BEAKER) (test xqrz=010) 0 % BASOPHILS RELATIVE PERCENT (BEAKER) (test efkx=858) 5 % NEUTROPHILS ABSOLUTE COUNT (BEAKER) (test kcoa=290) 0.86 K/ L 1.80-8.00 LYMPHOCYTES ABSOLUTE COUNT (BEAKER) (test zhcl=398) 1.09 K/ L 1.48-4.50 MONOCYTES ABSOLUTE COUNT (BEAKER) (test eulm=697) 0.00 K/ L 0.00-1.30 EOSINOPHILS ABSOLUTE COUNT (BEAKER) (test vbya=751) 0.01 K/ L 0.00-0.50 BASOPHILS ABSOLUTE COUNT (BEAKER) (test htpc=523) 0.10 K/ L 0.00-0.20 0.00(MANUAL DIFFERENTIAL)2016-12-05 07:12:00* Test Item Value Reference Range Comments TOTAL COUNTED (BEAKER) (test lbcd=7579) WBC MORPHOLOGY (BEAKER) (test rric=961) Normal PLT MORPHOLOGY (BEAKER) (test sakh=322) Normal POLYCHROMATOPHILLIC RBCS(BEAKER) (test sjdi=215) 1+ few BASIC METABOLIC [id number] 05:44:00* Test Item Value Reference Range Comments SODIUM (BEAKER) (test xayj=896) 136 meq/L 136-145 POTASSIUM (BEAKER) (test uish=695) 4.4 meq/L 3.5-5.1 CHLORIDE (BEAKER) (test othy=224) 98 meq/L 98-107 CO2 (BEAKER) (test xmem=001) 26 meq/L 22-29 BLOOD UREA NITROGEN (BEAKER) (test jgst=374) 7 mg/dL 7-21 CREATININE (BEAKER) (test xgux=803) 0.55 mg/dL 0.57-1.25 GLUCOSE RANDOM (BEAKER) (test fkiy=744) 120 mg/dL 70-105 CALCIUM (BEAKER) (test hsov=797) 9.9 mg/dL 8.4-10.2 EGFR (BEAKER) (test cmio=8644) mL/min/1.73 sq m INSUFFICIENT CLINICAL DATA TO CALCULATE ESTIMATED GFR. Specimen slightly [id number] 05:39:00* Test Item Value Reference Range Comments PARTIAL THROMBOPLASTIN TIME (BEAKER) (test pvow=440) 31.4 seconds 22.5-36.0 [id number] 05:38:00* Test Item Value Reference Range Comments MAGNESIUM (BEAKER) (test dznh=435) 2.0 mg/dL 1.6-2.6 HEPATIC FUNCTION [id number] 05:38:00* Test Item Value Reference Range Comments TOTAL PROTEIN (BEAKER) (test mnqw=221) 6.5 gm/dL 6.0-8.3 ALBUMIN (BEAKER) (test vxih=2031) 3.4 g/dL 3.5-5.0 BILIRUBIN TOTAL (BEAKER) (test gsfm=884) 2.8 mg/dL 0.2-1.2 BILIRUBIN DIRECT (BEAKER) (test rjjl=894) 1.8 mg/dL 0.1-0.5 ALKALINE PHOSPHATASE (BEAKER) (test wngy=597) 143 U/L 40-150 AST (SGOT) (BEAKER) (test imcf=463) 38 U/L 5-34 ALT (SGPT) (BEAKER) (test ndgy=926) 49 U/L 6-55 Specimen slightly ictericCBC W/PLT COUNT & AUTO [id number] 07:53:00 * Test Item Value Reference Range Comments WHITE BLOOD CELL COUNT (BEAKER) (test lirl=125) 2.1 K/ L 4.0-10.0 RED BLOOD CELL COUNT (BEAKER) (test qkyl=880) 2.65 M/ L 4.20-5.80 HEMOGLOBIN (BEAKER) (test lnhw=132) 8.0 GM/DL 13.0-16.8 HEMATOCRIT (BEAKER) (test qmmz=399) 23.6 % 40.0-50.0 MEAN CORPUSCULAR VOLUME (BEAKER) (test mttt=435) 89.1 fL 82.0-98.0 MEAN CORPUSCULAR HEMOGLOBIN (BEAKER) (test muiv=811) 30.3 pg 27.0-33.0 MEAN CORPUSCULAR HEMOGLOBIN CONC (BEAKER) (test smvb=908) 34.0 GM/DL 32.0-36.0 RED CELL DISTRIBUTION WIDTH (BEAKER) (test yzfw=113) 19.7 % 10.3-14.2 PLATELET COUNT (BEAKER) (test najw=699) 66 K/CU MM 150-430 MEAN PLATELET VOLUME (BEAKER) (test ftxh=783) 10.5 fL 6.5-10.5 NUCLEATED RED BLOOD CELLS (BEAKER) (test oxml=862) 0 /100 WBC 0-0 NEUTROPHILS RELATIVE PERCENT (BEAKER) (test icpb=772) 38 % LYMPHOCYTES RELATIVE PERCENT (BEAKER) (test yuqg=435) 61 % MONOCYTES RELATIVE PERCENT (BEAKER) (test jjfx=018) 0 % EOSINOPHILS RELATIVE PERCENT (BEAKER) (test ypxn=062) 1 % BASOPHILS RELATIVE PERCENT (BEAKER) (test lczq=595) 0 % NEUTROPHILS ABSOLUTE COUNT (BEAKER) (test cyiw=998) 0.77 K/ L 1.80-8.00 LYMPHOCYTES ABSOLUTE COUNT (BEAKER) (test jbzf=245) 1.25 K/ L 1.48-4.50 MONOCYTES ABSOLUTE COUNT (BEAKER) (test jgwu=231) 0.01 K/ L 0.00-1.30 EOSINOPHILS ABSOLUTE COUNT (BEAKER) (test mxhg=061) 0.02 K/ L 0.00-0.50 BASOPHILS ABSOLUTE COUNT (BEAKER) (test uoly=074) 0.01 K/ L 0.00-0.20 0.00(MANUAL DIFFERENTIAL)2016-12-04 07:53:00* Test Item Value Reference Range Comments TOTAL COUNTED (BEAKER) (test klcw=8604) BASIC METABOLIC [id number] 04:37:00* Test Item Value Reference Range Comments SODIUM (BEAKER) (test zbmf=181) 135 meq/L 136-145 POTASSIUM (BEAKER) (test wryo=243) 4.2 meq/L 3.5-5.1 CHLORIDE (BEAKER) (test icei=086) 97 meq/L 98-107 CO2 (BEAKER) (test xlzo=899) 29 meq/L 22-29 BLOOD UREA NITROGEN (BEAKER) (test yomp=196) 11 mg/dL 7-21 CREATININE (BEAKER) (test zvrt=257) 0.55 mg/dL 0.57-1.25 GLUCOSE RANDOM (BEAKER) (test ycfa=890) 124 mg/dL 70-105 CALCIUM (BEAKER) (test mfqu=490) 9.1 mg/dL 8.4-10.2 EGFR (BEAKER) (test lrjz=8166) mL/min/1.73 sq m INSUFFICIENT CLINICAL DATA TO CALCULATE ESTIMATED GFR. Specimen slightly [id number] 04:35:00* Test Item Value Reference Range Comments MAGNESIUM (BEAKER) (test zidr=952) 2.0 mg/dL 1.6-2.6 HEPATIC FUNCTION [id number] 04:35:00* Test Item Value Reference Range Comments TOTAL PROTEIN (BEAKER) (test rlmd=468) 6.1 gm/dL 6.0-8.3 ALBUMIN (BEAKER) (test gwxm=8989) 3.3 g/dL 3.5-5.0 BILIRUBIN TOTAL (BEAKER) (test dnvk=821) 2.5 mg/dL 0.2-1.2 BILIRUBIN DIRECT (BEAKER) (test aqct=782) 1.8 mg/dL 0.1-0.5 ALKALINE PHOSPHATASE (BEAKER) (test zlkf=966) 145 U/L 40-150 AST (SGOT) (BEAKER) (test liea=298) 39 U/L 5-34 ALT (SGPT) (BEAKER) (test dnvg=020) 45 U/L 6-55 Specimen slightly [id number] 04:17:00* Test Item Value Reference Range Comments PARTIAL THROMBOPLASTIN TIME (BEAKER) (test vook=574) 43.6 seconds 22.5-36.0 BLOOD [id number] 15:50:00* Test Item Value Reference Range Comments CULTURE (BEAKER) (test jcxu=2906) No growth in 5 days BLOOD [id number] 15:50:00* Test Item Value Reference Range Comments CULTURE (BEAKER) (test wrta=7368) No growth in 5 days BASIC METABOLIC [id number] 05:42:00* Test Item Value Reference Range Comments SODIUM (BEAKER) (test xbtx=527) 136 meq/L 136-145 POTASSIUM (BEAKER) (test vfka=234) 3.9 meq/L 3.5-5.1 CHLORIDE (BEAKER) (test cdtk=879) 97 meq/L 98-107 CO2 (BEAKER) (test zsgb=520) 29 meq/L 22-29 BLOOD UREA NITROGEN (BEAKER) (test spgi=809) 9 mg/dL 7-21 CREATININE (BEAKER) (test ajir=170) 0.51 mg/dL 0.57-1.25 GLUCOSE RANDOM (BEAKER) (test qjuh=374) 121 mg/dL 70-105 CALCIUM (BEAKER) (test lzrz=017) 8.9 mg/dL 8.4-10.2 EGFR (BEAKER) (test jvmi=0410) mL/min/1.73 sq m INSUFFICIENT CLINICAL DATA TO CALCULATE ESTIMATED GFR. Specimen slightly ictericCBC W/PLT COUNT & AUTO [id number] 05:39:00 * Test Item Value Reference Range Comments WHITE BLOOD CELL COUNT (BEAKER) (test jzui=593) 1.9 K/ L 4.0-10.0 RED BLOOD CELL COUNT (BEAKER) (test irko=686) 2.58 M/ L 4.20-5.80 HEMOGLOBIN (BEAKER) (test eoar=627) 7.8 GM/DL 13.0-16.8 HEMATOCRIT (BEAKER) (test zzqi=421) 22.7 % 40.0-50.0 MEAN CORPUSCULAR VOLUME (BEAKER) (test phyg=571) 87.8 fL 82.0-98.0 MEAN CORPUSCULAR HEMOGLOBIN (BEAKER) (test cgdg=843) 30.3 pg 27.0-33.0 MEAN CORPUSCULAR HEMOGLOBIN CONC (BEAKER) (test otnx=273) 34.5 GM/DL 32.0-36.0 RED CELL DISTRIBUTION WIDTH (BEAKER) (test szzu=024) 20.6 % 10.3-14.2 PLATELET COUNT (BEAKER) (test hpoh=900) 56 K/CU MM 150-430 MEAN PLATELET VOLUME (BEAKER) (test sbzq=863) 10.5 fL 6.5-10.5 NUCLEATED RED BLOOD CELLS (BEAKER) (test gvnh=834) 0 /100 WBC 0-0 NEUTROPHILS RELATIVE PERCENT (BEAKER) (test mrcx=610) 42 % LYMPHOCYTES RELATIVE PERCENT (BEAKER) (test rrer=218) 54 % MONOCYTES RELATIVE PERCENT (BEAKER) (test xpdp=220) 0 % EOSINOPHILS RELATIVE PERCENT (BEAKER) (test mifk=331) 0 % BASOPHILS RELATIVE PERCENT (BEAKER) (test xpjk=939) 4 % NEUTROPHILS ABSOLUTE COUNT (BEAKER) (test awfn=087) 0.79 K/ L 1.80-8.00 LYMPHOCYTES ABSOLUTE COUNT (BEAKER) (test vhik=264) 1.01 K/ L 1.48-4.50 MONOCYTES ABSOLUTE COUNT (BEAKER) (test scep=641) 0.00 K/ L 0.00-1.30 EOSINOPHILS ABSOLUTE COUNT (BEAKER) (test jrmz=718) 0.01 K/ L 0.00-0.50 BASOPHILS ABSOLUTE COUNT (BEAKER) (test jcun=505) 0.08 K/ L 0.00-0.20 [id number] 05:36:00* Test Item Value Reference Range Comments MAGNESIUM (BEAKER) (test zdww=385) 2.0 mg/dL 1.6-2.6 HEPATIC FUNCTION [id number] 05:36:00* Test Item Value Reference Range Comments TOTAL PROTEIN (BEAKER) (test zszc=567) 5.9 gm/dL 6.0-8.3 ALBUMIN (BEAKER) (test wbsn=6329) 3.2 g/dL 3.5-5.0 BILIRUBIN TOTAL (BEAKER) (test wdme=565) 2.6 mg/dL 0.2-1.2 BILIRUBIN DIRECT (BEAKER) (test ciyp=543) 1.8 mg/dL 0.1-0.5 ALKALINE PHOSPHATASE (BEAKER) (test zvms=261) 132 U/L 40-150 AST (SGOT) (BEAKER) (test szyk=995) 41 U/L 5-34 ALT (SGPT) (BEAKER) (test uljg=415) 44 U/L 6-55 Specimen slightly [id number] 05:31:00* Test Item Value Reference Range Comments PARTIAL THROMBOPLASTIN TIME (BEAKER) (test gcow=106) 43.4 seconds 22.5-36.0 CBC W/PLT COUNT & AUTO [id number] 10:31:00* Test Item Value Reference Range Comments WHITE BLOOD CELL COUNT (BEAKER) (test fbwr=474) 1.8 K/ L 4.0-10.0 RED BLOOD CELL COUNT (BEAKER) (test ezad=190) 2.75 M/ L 4.20-5.80 HEMOGLOBIN (BEAKER) (test invr=313) 8.2 GM/DL 13.0-16.8 HEMATOCRIT (BEAKER) (test cwar=377) 24.5 % 40.0-50.0 MEAN CORPUSCULAR VOLUME (BEAKER) (test nten=882) 89.1 fL 82.0-98.0 MEAN CORPUSCULAR HEMOGLOBIN (BEAKER) (test cquk=517) 29.6 pg 27.0-33.0 MEAN CORPUSCULAR HEMOGLOBIN CONC (BEAKER) (test cjxo=397) 33.2 GM/DL 32.0-36.0 RED CELL DISTRIBUTION WIDTH (BEAKER) (test luwe=796) 19.8 % 10.3-14.2 PLATELET COUNT (BEAKER) (test ghgx=460) 50 K/CU MM 150-430 MEAN PLATELET VOLUME (BEAKER) (test rtml=935) 10.9 fL 6.5-10.5 NUCLEATED RED BLOOD CELLS (BEAKER) (test kyrf=757) 0 /100 WBC 0-0 0.00(MANUAL DIFFERENTIAL)2016-12-02 10:31:00* Test Item Value Reference Range Comments NEUTROPHILS - REL (DIFF) (BEAKER) (test iglp=3572) 30 % LYMPHOCYTES - REL (DIFF) (BEAKER) (test bikb=2913) 59 % BANDS - REL (DIFF) (BEAKER) (test qfbq=3266) 11 % 0-10 NEUTROPHILS - ABS (DIFF) (BEAKER) (test ulxe=3907) 0.54 K/ L 1.80-8.00 LYMPHOCYTES - ABS (DIFF) (BEAKER) (test zkug=8403) 1.06 K/ L 1.48-4.50 BANDS-ABS (DIFF) (BEAKER) (test eiij=9473) 0.2 K/ L 0.0-0.8 TOTAL COUNTED (BEAKER) (test xujt=6772) 100 BANDS + SEGMENTED NEUTROPHILS (BEAKER) (test mycu=8515) 0.74 WBC MORPHOLOGY (BEAKER) (test pgzo=208) Normal PLT MORPHOLOGY (BEAKER) (test xklo=157) Normal RBC MORPHOLOGY (BEAKER) (test ssxr=313) Normal BASIC METABOLIC [id number] 05:52:00* Test Item Value Reference Range Comments SODIUM (BEAKER) (test tewt=519) 136 meq/L 136-145 POTASSIUM (BEAKER) (test qics=575) 4.1 meq/L 3.5-5.1 CHLORIDE (BEAKER) (test ivxz=211) 102 meq/L 98-107 CO2 (BEAKER) (test fxqq=134) 23 meq/L 22-29 BLOOD UREA NITROGEN (BEAKER) (test sbds=726) 9 mg/dL 7-21 CREATININE (BEAKER) (test yiyp=684) 0.52 mg/dL 0.57-1.25 GLUCOSE RANDOM (BEAKER) (test sqtr=386) 118 mg/dL 70-105 CALCIUM (BEAKER) (test krar=335) 8.9 mg/dL 8.4-10.2 EGFR (BEAKER) (test vlll=3161) mL/min/1.73 sq m INSUFFICIENT CLINICAL DATA TO CALCULATE ESTIMATED GFR. Specimen slightly [id number] 05:51:00* Test Item Value Reference Range Comments MAGNESIUM (BEAKER) (test yygq=138) 1.8 mg/dL 1.6-2.6 HEPATIC FUNCTION [id number] 05:51:00* Test Item Value Reference Range Comments TOTAL PROTEIN (BEAKER) (test mlbp=916) 5.7 gm/dL 6.0-8.3 ALBUMIN (BEAKER) (test lumf=3353) 3.2 g/dL 3.5-5.0 BILIRUBIN TOTAL (BEAKER) (test pddb=289) 2.6 mg/dL 0.2-1.2 BILIRUBIN DIRECT (BEAKER) (test xiec=555) 1.8 mg/dL 0.1-0.5 ALKALINE PHOSPHATASE (BEAKER) (test tocz=490) 117 U/L 40-150 AST (SGOT) (BEAKER) (test tfjw=157) 30 U/L 5-34 ALT (SGPT) (BEAKER) (test snde=423) 36 U/L 6-55 Specimen slightly [id number] 05:28:00* Test Item Value Reference Range Comments PARTIAL THROMBOPLASTIN TIME (BEAKER) (test dgae=673) 29.9 seconds 22.5-36.0 CBC W/PLT COUNT & AUTO [id number] 06:53:00* Test Item Value Reference Range Comments WHITE BLOOD CELL COUNT (BEAKER) (test czmx=014) 1.6 K/ L 4.0-10.0 RED BLOOD CELL COUNT (BEAKER) (test aabl=659) 2.77 M/ L 4.20-5.80 HEMOGLOBIN (BEAKER) (test nytm=439) 8.0 GM/DL 13.0-16.8 HEMATOCRIT (BEAKER) (test gajq=209) 24.1 % 40.0-50.0 MEAN CORPUSCULAR VOLUME (BEAKER) (test vcjy=528) 87.2 fL 82.0-98.0 MEAN CORPUSCULAR HEMOGLOBIN (BEAKER) (test uulh=390) 29.0 pg 27.0-33.0 MEAN CORPUSCULAR HEMOGLOBIN CONC (BEAKER) (test pmfu=049) 33.2 GM/DL 32.0-36.0 RED CELL DISTRIBUTION WIDTH (BEAKER) (test vufs=004) 20.1 % 10.3-14.2 PLATELET COUNT (BEAKER) (test fhsb=359) 46 K/CU MM 150-430 MEAN PLATELET VOLUME (BEAKER) (test udya=311) 7.9 fL 6.5-10.5 NUCLEATED RED BLOOD CELLS (BEAKER) (test wcei=550) 0 /100 WBC 0-0 NEUTROPHILS RELATIVE PERCENT (BEAKER) (test hjhd=702) 37 % LYMPHOCYTES RELATIVE PERCENT (BEAKER) (test dixp=777) 61 % MONOCYTES RELATIVE PERCENT (BEAKER) (test vszc=150) 0 % EOSINOPHILS RELATIVE PERCENT (BEAKER) (test prqx=803) 1 % BASOPHILS RELATIVE PERCENT (BEAKER) (test dyjt=132) 1 % NEUTROPHILS ABSOLUTE COUNT (BEAKER) (test qxjk=678) 0.60 K/ L 1.80-8.00 LYMPHOCYTES ABSOLUTE COUNT (BEAKER) (test zfpk=389) 0.98 K/ L 1.48-4.50 MONOCYTES ABSOLUTE COUNT (BEAKER) (test hisi=100) 0.00 K/ L 0.00-1.30 EOSINOPHILS ABSOLUTE COUNT (BEAKER) (test wzzr=122) 0.01 K/ L 0.00-0.50 BASOPHILS ABSOLUTE COUNT (BEAKER) (test kiij=354) 0.02 K/ L 0.00-0.20 0.00(MANUAL DIFFERENTIAL)2016-12-01 06:53:00* Test Item Value Reference Range Comments TOTAL COUNTED (BEAKER) (test qlpc=2498) WBC MORPHOLOGY (BEAKER) (test quil=379) Normal PLT MORPHOLOGY (BEAKER) (test naof=953) Normal HYPOCHROMIA (BEAKER) (test nbmm=011) 1+ few POLYCHROMATOPHILLIC RBCS(BEAKER) (test nxua=499) 1+ few BASIC METABOLIC [id number] 05:31:00* Test Item Value Reference Range Comments SODIUM (BEAKER) (test zwhr=300) 139 meq/L 136-145 POTASSIUM (BEAKER) (test fskp=954) 3.7 meq/L 3.5-5.1 CHLORIDE (BEAKER) (test wyuc=654) 105 meq/L 98-107 CO2 (BEAKER) (test iupu=151) 25 meq/L 22-29 BLOOD UREA NITROGEN (BEAKER) (test kqyx=755) 10 mg/dL 7-21 CREATININE (BEAKER) (test bunf=546) 0.49 mg/dL 0.57-1.25 GLUCOSE RANDOM (BEAKER) (test akhm=614) 116 mg/dL 70-105 CALCIUM (BEAKER) (test tcwh=180) 9.1 mg/dL 8.4-10.2 EGFR (BEAKER) (test hpdc=3996) mL/min/1.73 sq m INSUFFICIENT CLINICAL DATA TO CALCULATE ESTIMATED GFR. Specimen slightly [id number] 05:24:00* Test Item Value Reference Range Comments MAGNESIUM (BEAKER) (test cnjh=970) 2.2 mg/dL 1.6-2.6 HEPATIC FUNCTION [id number] 05:24:00* Test Item Value Reference Range Comments TOTAL PROTEIN (BEAKER) (test qcgl=056) 5.7 gm/dL 6.0-8.3 ALBUMIN (BEAKER) (test zknn=5144) 3.2 g/dL 3.5-5.0 BILIRUBIN TOTAL (BEAKER) (test eidl=248) 2.5 mg/dL 0.2-1.2 BILIRUBIN DIRECT (BEAKER) (test vqkj=513) 1.8 mg/dL 0.1-0.5 ALKALINE PHOSPHATASE (BEAKER) (test wkub=538) 116 U/L 40-150 AST (SGOT) (BEAKER) (test mjue=501) 27 U/L 5-34 ALT (SGPT) (BEAKER) (test npga=932) 32 U/L 6-55 Specimen slightly [id number] 05:15:00* Test Item Value Reference Range Comments PARTIAL THROMBOPLASTIN TIME (BEAKER) (test lngj=068) 34.7 seconds 22.5-36.0 BLOOD [id number] 16:22:00* Test Item Value Reference Range Comments CULTURE (BEAKER) (test agjq=4325) No growth in 5 days BLOOD [id number] 16:22:00* Test Item Value Reference Range Comments CULTURE (BEAKER) (test ctjr=9917) No growth in 5 days BASIC METABOLIC [id number] 05:53:00* Test Item Value Reference Range Comments SODIUM (BEAKER) (test kehw=946) 137 meq/L 136-145 POTASSIUM (BEAKER) (test nrmb=498) 3.5 meq/L 3.5-5.1 CHLORIDE (BEAKER) (test uewx=460) 101 meq/L 98-107 CO2 (BEAKER) (test nzue=233) 26 meq/L 22-29 BLOOD UREA NITROGEN (BEAKER) (test ipxl=407) 6 mg/dL 7-21 CREATININE (BEAKER) (test czxn=155) 0.55 mg/dL 0.57-1.25 GLUCOSE RANDOM (BEAKER) (test gpio=364) 109 mg/dL 70-105 CALCIUM (BEAKER) (test cksn=156) 9.0 mg/dL 8.4-10.2 EGFR (BEAKER) (test ntgn=9052) mL/min/1.73 sq m INSUFFICIENT CLINICAL DATA TO CALCULATE ESTIMATED GFR. Specimen slightly ictericCREATINE KINASE (CK)2016-11-30 05:53:00* Test Item Value Reference Range Comments CREATINE KINASE TOTAL (BEAKER) (test bzet=065) 12 U/L 29-200 [id number] 05:52:00* Test Item Value Reference Range Comments MAGNESIUM (BEAKER) (test xaeu=086) 1.7 mg/dL 1.6-2.6 HEPATIC FUNCTION [id number] 05:52:00* Test Item Value Reference Range Comments TOTAL PROTEIN (BEAKER) (test auil=371) 5.8 gm/dL 6.0-8.3 ALBUMIN (BEAKER) (test tvpc=1155) 3.2 g/dL 3.5-5.0 BILIRUBIN TOTAL (BEAKER) (test tqsm=377) 3.0 mg/dL 0.2-1.2 BILIRUBIN DIRECT (BEAKER) (test dyvg=689) 2.2 mg/dL 0.1-0.5 ALKALINE PHOSPHATASE (BEAKER) (test bvfn=829) 109 U/L 40-150 AST (SGOT) (BEAKER) (test fhyk=942) 26 U/L 5-34 ALT (SGPT) (BEAKER) (test imwe=783) 29 U/L 6-55 Specimen slightly ictericCBC W/PLT COUNT & AUTO [id number] 05:45:00 * Test Item Value Reference Range Comments WHITE BLOOD CELL COUNT (BEAKER) (test kopg=942) 1.2 K/ L 4.0-10.0 RED BLOOD CELL COUNT (BEAKER) (test plei=804) 2.69 M/ L 4.20-5.80 HEMOGLOBIN (BEAKER) (test cndj=338) 8.2 GM/DL 13.0-16.8 HEMATOCRIT (BEAKER) (test jkrp=366) 23.7 % 40.0-50.0 MEAN CORPUSCULAR VOLUME (BEAKER) (test xmyw=710) 88.0 fL 82.0-98.0 MEAN CORPUSCULAR HEMOGLOBIN (BEAKER) (test jnem=959) 30.4 pg 27.0-33.0 MEAN CORPUSCULAR HEMOGLOBIN CONC (BEAKER) (test splp=256) 34.6 GM/DL 32.0-36.0 RED CELL DISTRIBUTION WIDTH (BEAKER) (test ojma=698) 19.6 % 10.3-14.2 PLATELET COUNT (BEAKER) (test yrdu=943) 41 K/CU MM 150-430 MEAN PLATELET VOLUME (BEAKER) (test mgqq=822) 10.9 fL 6.5-10.5 NUCLEATED RED BLOOD CELLS (BEAKER) (test npxh=621) 0 /100 WBC 0-0 NEUTROPHILS RELATIVE PERCENT (BEAKER) (test ntjk=794) 41 % LYMPHOCYTES RELATIVE PERCENT (BEAKER) (test hrwz=745) 57 % MONOCYTES RELATIVE PERCENT (BEAKER) (test duah=502) 0 % EOSINOPHILS RELATIVE PERCENT (BEAKER) (test bfvs=852) 1 % BASOPHILS RELATIVE PERCENT (BEAKER) (test zbak=000) 0 % NEUTROPHILS ABSOLUTE COUNT (BEAKER) (test qudk=294) 0.51 K/ L 1.80-8.00 LYMPHOCYTES ABSOLUTE COUNT (BEAKER) (test cytd=057) 0.71 K/ L 1.48-4.50 MONOCYTES ABSOLUTE COUNT (BEAKER) (test jzpz=778) 0.01 K/ L 0.00-1.30 EOSINOPHILS ABSOLUTE COUNT (BEAKER) (test dwbe=816) 0.01 K/ L 0.00-0.50 BASOPHILS ABSOLUTE COUNT (BEAKER) (test uady=312) 0.01 K/ L 0.00-0.20 0.00ANAEROBIC [id number] 05:45:00* Test Item Value Reference Range Comments CULTURE (BEAKER) (test hjfl=7508) No anaerobes isolated [id number] 05:17:00* Test Item Value Reference Range Comments PARTIAL THROMBOPLASTIN TIME (BEAKER) (test ziro=136) 41.6 seconds 22.5-36.0 CBC (HEMOGRAM ONLY)2016-11-29 17:37:00* Test Item Value Reference Range Comments WHITE BLOOD CELL COUNT (BEAKER) (test phmg=813) 1.2 K/ L 4.0-10.0 RED BLOOD CELL COUNT (BEAKER) (test ptmf=492) 2.77 M/ L 4.20-5.80 HEMOGLOBIN (BEAKER) (test gcqu=552) 8.4 GM/DL 13.0-16.8 HEMATOCRIT (BEAKER) (test gblw=198) 24.2 % 40.0-50.0 MEAN CORPUSCULAR VOLUME (BEAKER) (test ekuk=819) 87.6 fL 82.0-98.0 MEAN CORPUSCULAR HEMOGLOBIN (BEAKER) (test qphd=530) 30.3 pg 27.0-33.0 MEAN CORPUSCULAR HEMOGLOBIN CONC (BEAKER) (test ofcw=378) 34.6 GM/DL 32.0-36.0 RED CELL DISTRIBUTION WIDTH (BEAKER) (test lwpy=974) 19.3 % 10.3-14.2 PLATELET COUNT (BEAKER) (test ixjj=201) 39 K/CU MM 150-430 MEAN PLATELET VOLUME (BEAKER) (test pmwv=502) 11.6 fL 6.5-10.5 NUCLEATED RED BLOOD CELLS (BEAKER) (test zheg=711) 0 /100 WBC 0-0 0.00SURGICALLY OBTAINED CULTURE + GRAM [id number] 08:27:00* Test Item Value Reference Range Comments CULTURE (BEAKER) (test vadl=6357) No growth GRAM STAIN RESULT (BEAKER) (test qmyz=4063) 1+ WBCs GRAM STAIN RESULT (BEAKER) (test olmm=37842) No organisms seen CBC W/PLT COUNT & AUTO [id number] 05:50:00* Test Item Value Reference Range Comments WHITE BLOOD CELL COUNT (BEAKER) (test weji=290) 1.0 K/ L 4.0-10.0 RED BLOOD CELL COUNT (BEAKER) (test mwrv=134) 2.59 M/ L 4.20-5.80 HEMOGLOBIN (BEAKER) (test rfuv=615) 7.8 GM/DL 13.0-16.8 HEMATOCRIT (BEAKER) (test eoav=689) 22.4 % 40.0-50.0 MEAN CORPUSCULAR VOLUME (BEAKER) (test aftd=086) 86.6 fL 82.0-98.0 MEAN CORPUSCULAR HEMOGLOBIN (BEAKER) (test zmyi=422) 30.1 pg 27.0-33.0 MEAN CORPUSCULAR HEMOGLOBIN CONC (BEAKER) (test iosn=404) 34.8 GM/DL 32.0-36.0 RED CELL DISTRIBUTION WIDTH (BEAKER) (test vivy=025) 20.0 % 10.3-14.2 PLATELET COUNT (BEAKER) (test mnny=311) 38 K/CU MM 150-430 MEAN PLATELET VOLUME (BEAKER) (test ewsb=561) 11.2 fL 6.5-10.5 NUCLEATED RED BLOOD CELLS (BEAKER) (test fgoi=392) 0 /100 WBC 0-0 NEUTROPHILS RELATIVE PERCENT (BEAKER) (test zokr=621) 41 % LYMPHOCYTES RELATIVE PERCENT (BEAKER) (test zurv=117) 58 % MONOCYTES RELATIVE PERCENT (BEAKER) (test ywnv=400) 0 % EOSINOPHILS RELATIVE PERCENT (BEAKER) (test olss=011) 1 % BASOPHILS RELATIVE PERCENT (BEAKER) (test bxrp=977) 0 % NEUTROPHILS ABSOLUTE COUNT (BEAKER) (test cqfk=781) 0.42 K/ L 1.80-8.00 LYMPHOCYTES ABSOLUTE COUNT (BEAKER) (test ysrh=407) 0.60 K/ L 1.48-4.50 MONOCYTES ABSOLUTE COUNT (BEAKER) (test vmti=666) 0.00 K/ L 0.00-1.30 EOSINOPHILS ABSOLUTE COUNT (BEAKER) (test pwyb=560) 0.02 K/ L 0.00-0.50 BASOPHILS ABSOLUTE COUNT (BEAKER) (test eofe=104) 0.00 K/ L 0.00-0.20 0.00BASIC METABOLIC [id number] 05:41:00* Test Item Value Reference Range Comments SODIUM (BEAKER) (test kqac=772) 138 meq/L 136-145 POTASSIUM (BEAKER) (test shjv=658) 3.6 meq/L 3.5-5.1 CHLORIDE (BEAKER) (test krza=298) 102 meq/L 98-107 CO2 (BEAKER) (test pdda=012) 26 meq/L 22-29 BLOOD UREA NITROGEN (BEAKER) (test qqxo=062) 6 mg/dL 7-21 CREATININE (BEAKER) (test houj=307) 0.48 mg/dL 0.57-1.25 GLUCOSE RANDOM (BEAKER) (test efje=159) 112 mg/dL 70-105 CALCIUM (BEAKER) (test rkkg=402) 8.9 mg/dL 8.4-10.2 EGFR (BEAKER) (test kgxq=0312) mL/min/1.73 sq m INSUFFICIENT CLINICAL DATA TO CALCULATE ESTIMATED GFR. Specimen slightly [id number] 05:40:00* Test Item Value Reference Range Comments MAGNESIUM (BEAKER) (test eyrx=157) 1.7 mg/dL 1.6-2.6 HEPATIC FUNCTION [id number] 05:40:00* Test Item Value Reference Range Comments TOTAL PROTEIN (BEAKER) (test ekav=679) 5.6 gm/dL 6.0-8.3 ALBUMIN (BEAKER) (test rbvl=4435) 3.1 g/dL 3.5-5.0 BILIRUBIN TOTAL (BEAKER) (test hoql=061) 3.1 mg/dL 0.2-1.2 BILIRUBIN DIRECT (BEAKER) (test muek=038) 2.3 mg/dL 0.1-0.5 ALKALINE PHOSPHATASE (BEAKER) (test wgfo=137) 96 U/L 40-150 AST (SGOT) (BEAKER) (test grhq=419) 27 U/L 5-34 ALT (SGPT) (BEAKER) (test aape=303) 28 U/L 6-55 Specimen slightly [id number] 05:40:00* Test Item Value Reference Range Comments PARTIAL THROMBOPLASTIN TIME (BEAKER) (test swtc=157) 42.4 seconds 22.5-36.0 CBC (HEMOGRAM ONLY)2016-11-28 18:42:00* Test Item Value Reference Range Comments WHITE BLOOD CELL COUNT (BEAKER) (test tkig=943) 1.2 K/ L 4.0-10.0 RED BLOOD CELL COUNT (BEAKER) (test uuox=285) 2.59 M/ L 4.20-5.80 HEMOGLOBIN (BEAKER) (test yyzm=759) 7.7 GM/DL 13.0-16.8 HEMATOCRIT (BEAKER) (test uvco=555) 22.5 % 40.0-50.0 MEAN CORPUSCULAR VOLUME (BEAKER) (test ayzl=185) 86.9 fL 82.0-98.0 MEAN CORPUSCULAR HEMOGLOBIN (BEAKER) (test okhm=792) 29.7 pg 27.0-33.0 MEAN CORPUSCULAR HEMOGLOBIN CONC (BEAKER) (test ydrp=814) 34.2 GM/DL 32.0-36.0 RED CELL DISTRIBUTION WIDTH (BEAKER) (test johs=039) 20.4 % 10.3-14.2 PLATELET COUNT (BEAKER) (test mdfx=597) 37 K/CU MM 150-430 MEAN PLATELET VOLUME (BEAKER) (test epkw=571) 11.8 fL 6.5-10.5 NUCLEATED RED BLOOD CELLS (BEAKER) (test qaqe=898) 0 /100 WBC 0-0 0.00CBC W/PLT COUNT & AUTO [id number] 09:11:00* Test Item Value Reference Range Comments WHITE BLOOD CELL COUNT (BEAKER) (test ypmw=234) 1.2 K/ L 4.0-10.0 RED BLOOD CELL COUNT (BEAKER) (test zwmy=401) 2.54 M/ L 4.20-5.80 HEMOGLOBIN (BEAKER) (test scqh=639) 7.7 GM/DL 13.0-16.8 HEMATOCRIT (BEAKER) (test wjjt=182) 21.8 % 40.0-50.0 MEAN CORPUSCULAR VOLUME (BEAKER) (test sflj=371) 85.9 fL 82.0-98.0 MEAN CORPUSCULAR HEMOGLOBIN (BEAKER) (test mfgs=355) 30.3 pg 27.0-33.0 MEAN CORPUSCULAR HEMOGLOBIN CONC (BEAKER) (test rggc=580) 35.3 GM/DL 32.0-36.0 RED CELL DISTRIBUTION WIDTH (BEAKER) (test gxkv=359) 20.3 % 10.3-14.2 PLATELET COUNT (BEAKER) (test pujm=725) 34 K/CU MM 150-430 MEAN PLATELET VOLUME (BEAKER) (test ihjs=581) 11.1 fL 6.5-10.5 NUCLEATED RED BLOOD CELLS (BEAKER) (test cleu=681) 0 /100 WBC 0-0 NEUTROPHILS RELATIVE PERCENT (BEAKER) (test sqcf=897) 40 % LYMPHOCYTES RELATIVE PERCENT (BEAKER) (test asnx=205) 58 % MONOCYTES RELATIVE PERCENT (BEAKER) (test iiyd=295) 0 % EOSINOPHILS RELATIVE PERCENT (BEAKER) (test dyyf=351) 2 % BASOPHILS RELATIVE PERCENT (BEAKER) (test vxtz=543) 0 % NEUTROPHILS ABSOLUTE COUNT (BEAKER) (test poll=714) 0.47 K/ L 1.80-8.00 LYMPHOCYTES ABSOLUTE COUNT (BEAKER) (test uecb=764) 0.69 K/ L 1.48-4.50 MONOCYTES ABSOLUTE COUNT (BEAKER) (test itin=136) 0.00 K/ L 0.00-1.30 EOSINOPHILS ABSOLUTE COUNT (BEAKER) (test ibtx=794) 0.02 K/ L 0.00-0.50 BASOPHILS ABSOLUTE COUNT (BEAKER) (test hlub=132) 0.01 K/ L 0.00-0.20 0.00(MANUAL DIFFERENTIAL)2016-11-28 09:11:00* Test Item Value Reference Range Comments NEUTROPHILS - REL (DIFF) (BEAKER) (test meml=6315) 24 % LYMPHOCYTES - REL (DIFF) (BEAKER) (test gysw=4888) 58 % EOSINOPHILS - REL (DIFF) (BEAKER) (test bmqf=6749) 3 % BASOPHILS - REL (DIFF) (BEAKER) (test tjri=8773) 1 % BANDS - REL (DIFF) (BEAKER) (test qhdq=0435) 14 % 0-10 NEUTROPHILS - ABS (DIFF) (BEAKER) (test drsq=6058) 0.29 K/ L 1.80-8.00 LYMPHOCYTES - ABS (DIFF) (BEAKER) (test blgv=1784) 0.70 K/ L 1.48-4.50 EOSINOPHILS - ABS (DIFF) (BEAKER) (test qibq=8466) 0.04 K/ L 0.00-0.50 BASOPHILS - ABS (DIFF) (BEAKER) (test cokj=3417) 0.01 K/ L 0.00-0.20 BANDS-ABS (DIFF) (BEAKER) (test vdcl=4124) 0.2 K/ L 0.0-0.8 TOTAL COUNTED (BEAKER) (test nnek=4959) 100 BANDS + SEGMENTED NEUTROPHILS (BEAKER) (test svxy=5388) 0.46 WBC MORPHOLOGY (BEAKER) (test okkh=611) Normal GIANT PLATELETS (BEAKER) (test iqyz=940) Present SCHISTOCYTES (BEAKER) (test tefq=634) 1+ few ACANTHOCYTES (BEAKER) (test zunh=036) 1+ few ANISOCYTOSIS (BEAKER) (test edgm=037) 2+ moderate HYPOCHROMIA (BEAKER) (test owei=627) 3+ many MACROCYTES (BEAKER) (test kcwd=965) 2+ moderate MICROCYTES (BEAKER) (test wlwk=725) 1+ few OVALOCYTES (BEAKER) (test onkx=358) 1+ few POIKILOCYTES (BEAKER) (test mufs=413) 2+ moderate POLYCHROMATOPHILLIC RBCS(BEAKER) (test eifx=737) 1+ few BODY FLUID CULTURE + GRAM [id number] 08:18:00* Test Item Value Reference Range Comments CULTURE (BEAKER) (test vggn=9474) No growth GRAM STAIN RESULT (BEAKER) (test avgs=2252) 1+ WBCs GRAM STAIN RESULT (BEAKER) (test cyff=13730) No organisms seen BASIC METABOLIC [id number] 05:01:00* Test Item Value Reference Range Comments SODIUM (BEAKER) (test zajf=068) 137 meq/L 136-145 POTASSIUM (BEAKER) (test hacz=477) 3.3 meq/L 3.5-5.1 CHLORIDE (BEAKER) (test iobk=971) 101 meq/L 98-107 CO2 (BEAKER) (test qyvm=435) 26 meq/L 22-29 BLOOD UREA NITROGEN (BEAKER) (test igjz=568) 6 mg/dL 7-21 CREATININE (BEAKER) (test xkty=517) 0.50 mg/dL 0.57-1.25 GLUCOSE RANDOM (BEAKER) (test aqmx=779) 122 mg/dL 70-105 CALCIUM (BEAKER) (test uewv=159) 8.5 mg/dL 8.4-10.2 EGFR (BEAKER) (test bysw=7088) mL/min/1.73 sq m INSUFFICIENT CLINICAL DATA TO CALCULATE ESTIMATED GFR. Specimen slightly [id number] 04:59:00* Test Item Value Reference Range Comments MAGNESIUM (BEAKER) (test ttkk=721) 1.6 mg/dL 1.6-2.6 HEPATIC FUNCTION [id number] 04:59:00* Test Item Value Reference Range Comments TOTAL PROTEIN (BEAKER) (test oxaf=954) 5.3 gm/dL 6.0-8.3 ALBUMIN (BEAKER) (test uxce=9403) 2.9 g/dL 3.5-5.0 BILIRUBIN TOTAL (BEAKER) (test ismi=409) 3.1 mg/dL 0.2-1.2 BILIRUBIN DIRECT (BEAKER) (test gfcz=637) 2.3 mg/dL 0.1-0.5 ALKALINE PHOSPHATASE (BEAKER) (test uupb=187) 98 U/L 40-150 AST (SGOT) (BEAKER) (test hckf=580) 24 U/L 5-34 ALT (SGPT) (BEAKER) (test fpon=843) 25 U/L 6-55 Specimen slightly [id number] 04:29:00* Test Item Value Reference Range Comments PARTIAL THROMBOPLASTIN TIME (BEAKER) (test dnty=195) 39.3 seconds 22.5-36.0 CBC (HEMOGRAM ONLY)2016-11-27 16:21:00* Test Item Value Reference Range Comments WHITE BLOOD CELL COUNT (BEAKER) (test wiut=861) 1.2 K/ L 4.0-10.0 RED BLOOD CELL COUNT (BEAKER) (test rsgx=598) 2.54 M/ L 4.20-5.80 HEMOGLOBIN (BEAKER) (test yetd=087) 7.6 GM/DL 13.0-16.8 HEMATOCRIT (BEAKER) (test dmvb=040) 21.8 % 40.0-50.0 MEAN CORPUSCULAR VOLUME (BEAKER) (test jaxi=900) 86.1 fL 82.0-98.0 MEAN CORPUSCULAR HEMOGLOBIN (BEAKER) (test owdi=636) 29.8 pg 27.0-33.0 MEAN CORPUSCULAR HEMOGLOBIN CONC (BEAKER) (test eeoo=705) 34.6 GM/DL 32.0-36.0 RED CELL DISTRIBUTION WIDTH (BEAKER) (test cmjk=428) 20.2 % 10.3-14.2 PLATELET COUNT (BEAKER) (test rnuj=992) 30 K/CU MM 150-430 MEAN PLATELET VOLUME (BEAKER) (test hifs=032) 10.4 fL 6.5-10.5 NUCLEATED RED BLOOD CELLS (BEAKER) (test fikr=163) 0 /100 WBC 0-0 0.00BLOOD [id number] 15:38:00* Test Item Value Reference Range Comments CULTURE (BEAKER) (test gybl=1320) No growth in 5 days FLOW CYTOMETRY [id number] 15:11:00* Test Item Value Reference Range Comments FLOW CYTOMETRY RESULT POINTER (BEAKER) (test duys=5238) See Separate Report FLOW CYTOMETRY AP CASE # (BEAKER) (test ifac=4638) [id number] FLOW [id number] 13:54:00* Test Item Value Reference Range Comments LAB AP CPT CODE (BEAKER) (test rsaj=9998) [id number] CBC W/PLT COUNT & AUTO [id number] 09:42:00* Test Item Value Reference Range Comments WHITE BLOOD CELL COUNT (BEAKER) (test pqrg=646) 1.3 K/ L 4.0-10.0 RED BLOOD CELL COUNT (BEAKER) (test dpqq=519) 2.02 M/ L 4.20-5.80 HEMOGLOBIN (BEAKER) (test zckz=389) 6.6 GM/DL 13.0-16.8 HEMATOCRIT (BEAKER) (test isxz=676) 18.5 % 40.0-50.0 MEAN CORPUSCULAR VOLUME (BEAKER) (test iogi=312) 91.3 fL 82.0-98.0 MEAN CORPUSCULAR HEMOGLOBIN (BEAKER) (test xwwc=273) 32.8 pg 27.0-33.0 MEAN CORPUSCULAR HEMOGLOBIN CONC (BEAKER) (test sbxd=365) 35.9 GM/DL 32.0-36.0 RED CELL DISTRIBUTION WIDTH (BEAKER) (test jojq=343) 14.8 % 10.3-14.2 PLATELET COUNT (BEAKER) (test mjka=095) 31 K/CU MM 150-430 MEAN PLATELET VOLUME (BEAKER) (test lrwo=710) 10.2 fL 6.5-10.5 NUCLEATED RED BLOOD CELLS (BEAKER) (test otif=528) 0 /100 WBC 0-0 NEUTROPHILS RELATIVE PERCENT (BEAKER) (test ocvz=689) 38 % LYMPHOCYTES RELATIVE PERCENT (BEAKER) (test ximj=082) 61 % MONOCYTES RELATIVE PERCENT (BEAKER) (test dmsa=273) 0 % EOSINOPHILS RELATIVE PERCENT (BEAKER) (test gstz=061) 0 % BASOPHILS RELATIVE PERCENT (BEAKER) (test vzdu=873) 0 % NEUTROPHILS ABSOLUTE COUNT (BEAKER) (test ggum=021) 0.51 K/ L 1.80-8.00 LYMPHOCYTES ABSOLUTE COUNT (BEAKER) (test exzx=205) 0.81 K/ L 1.48-4.50 MONOCYTES ABSOLUTE COUNT (BEAKER) (test eccd=180) 0.00 K/ L 0.00-1.30 EOSINOPHILS ABSOLUTE COUNT (BEAKER) (test erhb=863) 0.01 K/ L 0.00-0.50 BASOPHILS ABSOLUTE COUNT (BEAKER) (test lhjo=288) 0.00 K/ L 0.00-0.20 0.00(MANUAL DIFFERENTIAL)2016-11-27 09:42:00* Test Item Value Reference Range Comments TOTAL COUNTED (BEAKER) (test rulf=2483) WBC MORPHOLOGY (BEAKER) (test jqww=286) Normal PLT MORPHOLOGY (BEAKER) (test vmxg=054) Normal RBC MORPHOLOGY (BEAKER) (test gpqj=173) Normal BASIC METABOLIC [id number] 03:36:00* Test Item Value Reference Range Comments SODIUM (BEAKER) (test zmjt=907) 132 meq/L 136-145 POTASSIUM (BEAKER) (test ioxv=934) 3.6 meq/L 3.5-5.1 CHLORIDE (BEAKER) (test rzsv=000) 101 meq/L 98-107 CO2 (BEAKER) (test wryn=562) 22 meq/L 22-29 BLOOD UREA NITROGEN (BEAKER) (test dzyg=865) 5 mg/dL 7-21 CREATININE (BEAKER) (test evcl=860) 0.53 mg/dL 0.57-1.25 GLUCOSE RANDOM (BEAKER) (test ltmk=949) 114 mg/dL 70-105 CALCIUM (BEAKER) (test xpeu=507) 8.0 mg/dL 8.4-10.2 EGFR (BEAKER) (test lrwt=6252) mL/min/1.73 sq m INSUFFICIENT CLINICAL DATA TO CALCULATE ESTIMATED GFR. Specimen slightly [id number] 03:01:00* Test Item Value Reference Range Comments MAGNESIUM (BEAKER) (test ldvo=626) 1.3 mg/dL 1.6-2.6 HEPATIC FUNCTION [id number] 03:01:00* Test Item Value Reference Range Comments TOTAL PROTEIN (BEAKER) (test iwev=550) 5.1 gm/dL 6.0-8.3 ALBUMIN (BEAKER) (test yget=4140) 2.8 g/dL 3.5-5.0 BILIRUBIN TOTAL (BEAKER) (test qxbx=690) 3.4 mg/dL 0.2-1.2 BILIRUBIN DIRECT (BEAKER) (test lqdq=329) 2.6 mg/dL 0.1-0.5 ALKALINE PHOSPHATASE (BEAKER) (test podp=772) 93 U/L 40-150 AST (SGOT) (BEAKER) (test hpsq=659) 21 U/L 5-34 ALT (SGPT) (BEAKER) (test xggc=280) 23 U/L 6-55 Specimen slightly [id number] 02:57:00* Test Item Value Reference Range Comments PARTIAL THROMBOPLASTIN TIME (BEAKER) (test foom=996) 26.2 seconds 22.5-36.0 LACTIC ACID, VENOUS, WHOLE [id number] 02:55:00* Test Item Value Reference Range Comments LACTATE BLOOD VENOUS (2) (BEAKER) (test yujb=2663) 1.1 mmol/L 0.5-2.2 Effective 11/27/2015: Units/Reference Range ChangeNew: 0.5-2.2 mmol/L Previous: 5 -20 mg/dLSpecimen slightly ictericBLOOD [id number] 15:10:00* Test Item Value Reference Range Comments CULTURE (BEAKER) (test lmeq=7656) No growth in 5 days CBC W/PLT COUNT & AUTO [id number] 07:19:00* Test Item Value Reference Range Comments WHITE BLOOD CELL COUNT (BEAKER) (test kxsy=903) 1.1 K/ L 4.0-10.0 RED BLOOD CELL COUNT (BEAKER) (test mxhd=430) 2.21 M/ L 4.20-5.80 HEMOGLOBIN (BEAKER) (test zfmq=324) 7.0 GM/DL 13.0-16.8 HEMATOCRIT (BEAKER) (test razs=563) 20.3 % 40.0-50.0 MEAN CORPUSCULAR VOLUME (BEAKER) (test kriw=113) 92.0 fL 82.0-98.0 MEAN CORPUSCULAR HEMOGLOBIN (BEAKER) (test tser=711) 31.7 pg 27.0-33.0 MEAN CORPUSCULAR HEMOGLOBIN CONC (BEAKER) (test tqtt=735) 34.4 GM/DL 32.0-36.0 RED CELL DISTRIBUTION WIDTH (BEAKER) (test rpmh=712) 14.3 % 10.3-14.2 PLATELET COUNT (BEAKER) (test yhqs=825) 32 K/CU MM 150-430 MEAN PLATELET VOLUME (BEAKER) (test skun=242) 10.3 fL 6.5-10.5 NUCLEATED RED BLOOD CELLS (BEAKER) (test scot=461) 0 /100 WBC 0-0 0.00(MANUAL DIFFERENTIAL)2016-11-26 07:19:00* Test Item Value Reference Range Comments NEUTROPHILS - REL (DIFF) (BEAKER) (test wglv=5370) 29 % LYMPHOCYTES - REL (DIFF) (BEAKER) (test qywj=0923) 67 % BANDS - REL (DIFF) (BEAKER) (test nhoq=8673) 4 % 0-10 NEUTROPHILS - ABS (DIFF) (BEAKER) (test kjky=7647) 0.32 K/ L 1.80-8.00 LYMPHOCYTES - ABS (DIFF) (BEAKER) (test eyvx=5678) 0.74 K/ L 1.48-4.50 BANDS-ABS (DIFF) (BEAKER) (test yjix=2197) 0.0 K/ L 0.0-0.8 TOTAL COUNTED (BEAKER) (test ejfd=8212) 100 BANDS + SEGMENTED NEUTROPHILS (BEAKER) (test ggel=7950) 0.36 WBC MORPHOLOGY (BEAKER) (test jrxe=835) Normal PLT MORPHOLOGY (BEAKER) (test pcbs=068) Normal POLYCHROMATOPHILLIC RBCS(BEAKER) (test lwaw=173) 1+ few BASIC METABOLIC [id number] 07:12:00* Test Item Value Reference Range Comments SODIUM (BEAKER) (test wiyf=053) 139 meq/L 136-145 POTASSIUM (BEAKER) (test brrv=363) 3.4 meq/L 3.5-5.1 CHLORIDE (BEAKER) (test thnk=117) 106 meq/L 98-107 CO2 (BEAKER) (test aifm=613) 21 meq/L 22-29 BLOOD UREA NITROGEN (BEAKER) (test lpyy=017) 8 mg/dL 7-21 CREATININE (BEAKER) (test ksob=732) 0.48 mg/dL 0.57-1.25 GLUCOSE RANDOM (BEAKER) (test ppst=048) 106 mg/dL 70-105 CALCIUM (BEAKER) (test lwtt=241) 8.5 mg/dL 8.4-10.2 EGFR (BEAKER) (test jrek=2203) mL/min/1.73 sq m INSUFFICIENT CLINICAL DATA TO CALCULATE ESTIMATED GFR. Specimen slightly [id number] 07:09:00* Test Item Value Reference Range Comments PHOSPHORUS (BEAKER) (test vkxl=744) 3.6 mg/dL 2.3-4.7 [id number] 07:09:00* Test Item Value Reference Range Comments MAGNESIUM (BEAKER) (test ihxf=000) 1.6 mg/dL 1.6-2.6 HEPATIC FUNCTION [id number] 07:09:00* Test Item Value Reference Range Comments TOTAL PROTEIN (BEAKER) (test ncxd=891) 5.6 gm/dL 6.0-8.3 ALBUMIN (BEAKER) (test lspc=9780) 3.1 g/dL 3.5-5.0 BILIRUBIN TOTAL (BEAKER) (test dtlt=765) 3.5 mg/dL 0.2-1.2 BILIRUBIN DIRECT (BEAKER) (test xgxu=062) 2.6 mg/dL 0.1-0.5 ALKALINE PHOSPHATASE (BEAKER) (test mzle=950) 122 U/L 40-150 AST (SGOT) (BEAKER) (test szfq=935) 21 U/L 5-34 ALT (SGPT) (BEAKER) (test ewbk=361) 26 U/L 6-55 Specimen slightly [id number] 06:44:00* Test Item Value Reference Range Comments PARTIAL THROMBOPLASTIN TIME (BEAKER) (test ocil=956) 39.4 seconds 22.5-36.0 PROTHROMBIN TIME/[id number] 06:40:00* Test Item Value Reference Range Comments PROTIME (BEAKER) (test zkex=054) 16.1 seconds 11.7-14.7 INR (BEAKER) (test uhvd=337) 1.3 <=5.9 RECOMMENDED COUMADIN/WARFARIN INR THERAPY RANGESSTANDARD DOSE: 2.0 - 3.0 Inclu chevy: PROPHYLAXIS for venous thrombosis, systemic embolization; TREATMENT for janny ous thrombosis and/or pulmonary embolus.HIGH RISK: Target INR is 2.5-3.5 for pat ients with mechanical heart valves.CBC (HEMOGRAM ONLY)2016-11-25 17:42:00* Test Item Value Reference Range Comments WHITE BLOOD CELL COUNT (BEAKER) (test vaoj=649) 1.1 K/ L 4.0-10.0 RED BLOOD CELL COUNT (BEAKER) (test joot=526) 2.24 M/ L 4.20-5.80 HEMOGLOBIN (BEAKER) (test mhsg=999) 7.5 GM/DL 13.0-16.8 HEMATOCRIT (BEAKER) (test uiif=850) 20.3 % 40.0-50.0 MEAN CORPUSCULAR VOLUME (BEAKER) (test uolf=018) 90.7 fL 82.0-98.0 MEAN CORPUSCULAR HEMOGLOBIN (BEAKER) (test yweg=598) 33.6 pg 27.0-33.0 MEAN CORPUSCULAR HEMOGLOBIN CONC (BEAKER) (test lzyu=964) 37.1 GM/DL 32.0-36.0 RED CELL DISTRIBUTION WIDTH (BEAKER) (test avxs=810) 14.8 % 10.3-14.2 PLATELET COUNT (BEAKER) (test uqmv=403) 28 K/CU MM 150-430 MEAN PLATELET VOLUME (BEAKER) (test tqfr=724) 6.6 fL 6.5-10.5 NUCLEATED RED BLOOD CELLS (BEAKER) (test yyzq=760) 0 /100 WBC 0-0 CBC W/PLT COUNT & AUTO [id number] 07:58:00* Test Item Value Reference Range Comments WHITE BLOOD CELL COUNT (BEAKER) (test milg=856) 1.3 K/ L 4.0-10.0 RED BLOOD CELL COUNT (BEAKER) (test kdwk=467) 2.27 M/ L 4.20-5.80 HEMOGLOBIN (BEAKER) (test cdtn=530) 7.7 GM/DL 13.0-16.8 HEMATOCRIT (BEAKER) (test agii=745) 20.5 % 40.0-50.0 MEAN CORPUSCULAR VOLUME (BEAKER) (test aewp=120) 90.4 fL 82.0-98.0 MEAN CORPUSCULAR HEMOGLOBIN (BEAKER) (test sikb=920) 33.8 pg 27.0-33.0 MEAN CORPUSCULAR HEMOGLOBIN CONC (BEAKER) (test lepe=003) 37.4 GM/DL 32.0-36.0 RED CELL DISTRIBUTION WIDTH (BEAKER) (test ymjj=371) 14.7 % 10.3-14.2 PLATELET COUNT (BEAKER) (test pvqh=280) 31 K/CU MM 150-430 MEAN PLATELET VOLUME (BEAKER) (test htwu=669) 10.5 fL 6.5-10.5 NUCLEATED RED BLOOD CELLS (BEAKER) (test wfmy=536) 0 /100 WBC 0-0 NEUTROPHILS RELATIVE PERCENT (BEAKER) (test xeum=343) 30 % LYMPHOCYTES RELATIVE PERCENT (BEAKER) (test lmjy=816) 69 % MONOCYTES RELATIVE PERCENT (BEAKER) (test anij=289) 0 % EOSINOPHILS RELATIVE PERCENT (BEAKER) (test ljlz=546) 1 % BASOPHILS RELATIVE PERCENT (BEAKER) (test nnot=273) 0 % NEUTROPHILS ABSOLUTE COUNT (BEAKER) (test cnfd=321) 0.38 K/ L 1.80-8.00 LYMPHOCYTES ABSOLUTE COUNT (BEAKER) (test epwl=751) 0.88 K/ L 1.48-4.50 MONOCYTES ABSOLUTE COUNT (BEAKER) (test ezhx=955) 0.00 K/ L 0.00-1.30 EOSINOPHILS ABSOLUTE COUNT (BEAKER) (test orgb=150) 0.01 K/ L 0.00-0.50 BASOPHILS ABSOLUTE COUNT (BEAKER) (test ajtv=665) 0.00 K/ L 0.00-0.20 0.00(MANUAL DIFFERENTIAL)2016-11-25 07:58:00* Test Item Value Reference Range Comments TOTAL COUNTED (BEAKER) (test kxfo=6449) [id number] 05:44:00* Test Item Value Reference Range Comments PHOSPHORUS (BEAKER) (test tqgd=960) 3.6 mg/dL 2.3-4.7 [id number] 05:44:00* Test Item Value Reference Range Comments MAGNESIUM (BEAKER) (test ntcn=096) 1.6 mg/dL 1.6-2.6 HEPATIC FUNCTION [id number] 05:44:00* Test Item Value Reference Range Comments TOTAL PROTEIN (BEAKER) (test igwe=574) 5.6 gm/dL 6.0-8.3 ALBUMIN (BEAKER) (test kwxo=8812) 3.1 g/dL 3.5-5.0 BILIRUBIN TOTAL (BEAKER) (test dahp=099) 4.5 mg/dL 0.2-1.2 BILIRUBIN DIRECT (BEAKER) (test ptmy=926) 3.5 mg/dL 0.1-0.5 ALKALINE PHOSPHATASE (BEAKER) (test udxq=034) 119 U/L 40-150 AST (SGOT) (BEAKER) (test snkz=819) 20 U/L 5-34 ALT (SGPT) (BEAKER) (test yqyu=680) 25 U/L 6-55 Specimen slightly ictericBASIC METABOLIC [id number] 05:44:00* Test Item Value Reference Range Comments SODIUM (BEAKER) (test hlmz=413) 135 meq/L 136-145 POTASSIUM (BEAKER) (test flhl=466) 3.6 meq/L 3.5-5.1 CHLORIDE (BEAKER) (test fciu=181) 104 meq/L 98-107 CO2 (BEAKER) (test lrlr=018) 19 meq/L 22-29 BLOOD UREA NITROGEN (BEAKER) (test utay=126) 10 mg/dL 7-21 CREATININE (BEAKER) (test hmsl=353) 0.53 mg/dL 0.57-1.25 GLUCOSE RANDOM (BEAKER) (test wpog=098) 103 mg/dL 70-105 CALCIUM (BEAKER) (test bjff=010) 8.4 mg/dL 8.4-10.2 EGFR (BEAKER) (test dupq=1940) mL/min/1.73 sq m INSUFFICIENT CLINICAL DATA TO CALCULATE ESTIMATED GFR. Specimen slightly [id number] 05:27:00* Test Item Value Reference Range Comments PARTIAL THROMBOPLASTIN TIME (BEAKER) (test dvkq=036) 36.5 seconds 22.5-36.0 PROTHROMBIN TIME/[id number] 05:26:00* Test Item Value Reference Range Comments PROTIME (BEAKER) (test ndwj=406) 16.2 seconds 11.7-14.7 INR (BEAKER) (test qxgu=759) 1.3 <=5.9 RECOMMENDED COUMADIN/WARFARIN INR THERAPY RANGESSTANDARD DOSE: 2.0 - 3.0 Inclu chevy: PROPHYLAXIS for venous thrombosis, systemic embolization; TREATMENT for janny ous thrombosis and/or pulmonary embolus.HIGH RISK: Target INR is 2.5-3.5 for pat ients with mechanical heart valves.CBC (HEMOGRAM ONLY)2016-11-24 17:35:00* Test Item Value Reference Range Comments WHITE BLOOD CELL COUNT (BEAKER) (test izvz=430) 1.0 K/ L 4.0-10.0 RED BLOOD CELL COUNT (BEAKER) (test gual=525) 2.54 M/ L 4.20-5.80 HEMOGLOBIN (BEAKER) (test bkdp=129) 8.1 GM/DL 13.0-16.8 HEMATOCRIT (BEAKER) (test auuf=065) 23.3 % 40.0-50.0 MEAN CORPUSCULAR VOLUME (BEAKER) (test xvth=456) 91.6 fL 82.0-98.0 MEAN CORPUSCULAR HEMOGLOBIN (BEAKER) (test iyhs=222) 31.7 pg 27.0-33.0 MEAN CORPUSCULAR HEMOGLOBIN CONC (BEAKER) (test qhdi=347) 34.6 GM/DL 32.0-36.0 RED CELL DISTRIBUTION WIDTH (BEAKER) (test rfad=653) 13.4 % 10.3-14.2 PLATELET COUNT (BEAKER) (test nuwp=258) 32 K/CU MM 150-430 MEAN PLATELET VOLUME (BEAKER) (test kzjc=611) 9.8 fL 6.5-10.5 NUCLEATED RED BLOOD CELLS (BEAKER) (test iqvq=086) 0 /100 WBC 0-0 0.00[facility] MARROW [id number] 16:00:00[facility] Marrow Pathology Report Case: [id number] Authorizing Provider: Marline Recinos MD Ordering Provider: Marline Recinos MD Ordering Location: [address] Collected: 11/16/2016 1145 Patholog ist: Blaire Dean Received: 11/16/2016 Aly Dan MD Specimens: A) - Bone Marrow B) - Bone Marrow C) - Bone Marrow This addendum is being issued to report results of cytogenetic and molecular studies:Cytogenetics- 46, XY[20]ALL FISH Panel- ABNORMAL: - 14q32 (IGH): Gene rearrangement/translocation detected- NORMAL: - 6q23 (MYB): Del etion not detected - 9p21 (CDKN2A): Deletion not detected - t(9;22)(q34;q11.2) (ABL-ASS/BCR): Translocation not detected - 11q23 (KMT2A): Gene rearrangement not detected - t(12;21)(p13;q22) (ETV6/RUNX1): Translocation not detected JAK2 V617F Mutation - Not detectedJAK2, EXON 12-14 Mutation- Not detectedBCR-ABL1 Tra nslocation t(9;22) by PCR - Test not performed; Sample exhausted BONE MARROW ASP IRATE, CLOT, AND DECALCIFIED BIOPSY:- 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 Cytogenetics, ALL-FISH panel, BCR-ABL by PCR and JAK2 studie s are pending; the results will be issued as an addendum report.The preliminary results were discussed with Dr. Pantoja by Dr. Shane on 11/17/2016.56407; 99594; 883 05 x 2; 15865; 49379; 41875; 75045 x 4B-lymphoblastic leukemiaBone marrowSpecime n A: Received as one unstained slice for Lucie's iron stain.Specimen B: Received in formalin labeled with the patient's information only is a 1.4 x 1.0 x 0.6 cm portion of clotted blood. The specimen is entirely submitted in cassette B1.Spec imen C: Received in formalin labeled with the patient's information only is a 1. 3 cm in length, sepulveda-white core of osseous tissue. The specimen is entirely subm itted in cassette C1 for decalcification. DB/ewBONE MARROW ASPIRATE:QUALITY:Aspi rate- Suboptimal Touch imprint- InadequateMARROW DIFFERENTIAL COUNT: Number of cells counted: 18502 % Lymphoblasts 1 % Promyelocytes 3 % Myelocytes/Metamyelo cytes 6 % Bands/Segmented granulocytes 1 % Eosinophils and precursors 0 % Bas ophils and precursors 45 % Erythroid precursors 15 % Lymphocytes 1 % Monocytes2 % Plasma cellsMyeloid: Erythroid Ratio: N/A Blasts: Increased, with high nu clear:cytoplasmic ratios, moderately dispersed chromatin, and cytoplasmic vacuol esErythropoiesis: Left shifted and complete maturation with occasional megalobla stoid change Myelopoiesis: Decreased with complet e maturation with occasional retention of primary granulesOther: Focal hemophago cytosis Megakaryocytes: Present and a ppear normalStainable iron is increased based on an iron stain performed on the aspirate smear. There are no ring sideroblasts identified. BONE MARROW BIOPSY:Bi opsy- AdequateClot- Inadequate (no spicules)Hypocellular marrow for age (50-60%) Cellular composition similar to aspirate smears and touch imprints. The biopsy shows clusters of immature cells with high N:C ratio and fine chromatin. Residu al trilineage hematopoiesis is present. Immunohistochemica l studies are performed with appropriate controls. The immature cells are positi ve for CD79a and CD34 and are negative for CD10 and TdT. The immature cells repr esent approximately 30% of the total cellularity. CD3 is positive in non-neoplas tic T-lymphocytes. Bony trabeculae: Unremarkab leStainable iron performed on the clot section is non-contributory due to lack o f spicules. PERIPHERAL BLOOD:RBCs: Normocytic WB Cs:Markedly decreased Plate lets: DecreasedThe following special studies were performed on this case and the interpretation is incorporated in the diagnostic report above: CD3, CD79a, CD34 , CD10, TdT (block C1).The immunohistochemistry test was developed and its perfo rmance characteristics determined by [facility], Pathology Lab oratory. It has not been cleared or approved by the U.S. Food and Drug Administr at[facility]. The FDA has determined that such clearance or approval is not necessary. The test is used for clinical purposes. It should not be regarded as investigati onal or for research. This laboratory is certified under the Clinical Laboratory Improvement Amendments of 1988 (CLIA-88) as qualified to perform high complexit y clinical laboratory testing.PERIPHERAL BLOOD SMEAR - HOLD [id number] 11:09:00* Test Item Value Reference Range Comments PERIPHERAL SMEAR SAVE (YANN) (test zqqo=3428) save [id number] 05:51:00* Test Item Value Reference Range Comments PARTIAL THROMBOPLASTIN TIME (BEAKER) (test ojpm=540) 36.7 seconds 22.5-36.0 PROTHROMBIN TIME/[id number] 05:50:00* Test Item Value Reference Range Comments PROTIME (BEAKER) (test ghfo=110) 15.5 seconds 11.7-14.7 INR (BEAKER) (test uzov=838) 1.2 <=5.9 RECOMMENDED COUMADIN/WARFARIN INR THERAPY RANGESSTANDARD DOSE: 2.0 - 3.0 Inclu chevy: PROPHYLAXIS for venous thrombosis, systemic embolization; TREATMENT for janny ous thrombosis and/or pulmonary embolus.HIGH RISK: Target INR is 2.5-3.5 for pat ients with mechanical heart valves.BASIC METABOLIC [id number] 05:30:00* Test Item Value Reference Range Comments SODIUM (BEAKER) (test wpns=962) 136 meq/L 136-145 POTASSIUM (BEAKER) (test wapn=186) 3.8 meq/L 3.5-5.1 CHLORIDE (BEAKER) (test sagb=565) 105 meq/L 98-107 CO2 (BEAKER) (test pjwt=306) 19 meq/L 22-29 BLOOD UREA NITROGEN (BEAKER) (test uwii=813) 8 mg/dL 7-21 CREATININE (BEAKER) (test dxls=673) 0.53 mg/dL 0.57-1.25 GLUCOSE RANDOM (BEAKER) (test yhkg=448) 96 mg/dL 70-105 CALCIUM (BEAKER) (test atnt=422) 8.6 mg/dL 8.4-10.2 EGFR (BEAKER) (test nmju=1349) mL/min/1.73 sq m INSUFFICIENT CLINICAL DATA TO CALCULATE ESTIMATED GFR. Specimen slightly [id number] 05:28:00* Test Item Value Reference Range Comments PHOSPHORUS (BEAKER) (test cljt=167) 3.7 mg/dL 2.3-4.7 [id number] 05:28:00* Test Item Value Reference Range Comments MAGNESIUM (BEAKER) (test yrpp=584) 1.6 mg/dL 1.6-2.6 HEPATIC FUNCTION [id number] 05:28:00* Test Item Value Reference Range Comments TOTAL PROTEIN (BEAKER) (test xprp=780) 5.8 gm/dL 6.0-8.3 ALBUMIN (BEAKER) (test capl=5914) 3.2 g/dL 3.5-5.0 BILIRUBIN TOTAL (BEAKER) (test shdu=499) 4.3 mg/dL 0.2-1.2 BILIRUBIN DIRECT (BEAKER) (test nlbm=705) 3.2 mg/dL 0.1-0.5 ALKALINE PHOSPHATASE (BEAKER) (test bjpn=167) 122 U/L 40-150 AST (SGOT) (BEAKER) (test gzls=209) 20 U/L 5-34 ALT (SGPT) (BEAKER) (test oypd=690) 23 U/L 6-55 Specimen slightly ictericCBC W/PLT COUNT & AUTO [id number] 05:27:00 * Test Item Value Reference Range Comments WHITE BLOOD CELL COUNT (BEAKER) (test rmpb=317) 1.1 K/ L 4.0-10.0 RED BLOOD CELL COUNT (BEAKER) (test ilni=519) 2.52 M/ L 4.20-5.80 HEMOGLOBIN (BEAKER) (test bcnd=375) 7.8 GM/DL 13.0-16.8 HEMATOCRIT (BEAKER) (test pxhh=454) 23.0 % 40.0-50.0 MEAN CORPUSCULAR VOLUME (BEAKER) (test deux=301) 91.0 fL 82.0-98.0 MEAN CORPUSCULAR HEMOGLOBIN (BEAKER) (test fnja=348) 30.8 pg 27.0-33.0 MEAN CORPUSCULAR HEMOGLOBIN CONC (BEAKER) (test fzpg=609) 33.9 GM/DL 32.0-36.0 RED CELL DISTRIBUTION WIDTH (BEAKER) (test ypcb=495) 13.4 % 10.3-14.2 PLATELET COUNT (BEAKER) (test uzha=741) 32 K/CU MM 150-430 MEAN PLATELET VOLUME (BEAKER) (test ixki=135) 10.4 fL 6.5-10.5 NUCLEATED RED BLOOD CELLS (BEAKER) (test giqa=877) 0 /100 WBC 0-0 NEUTROPHILS RELATIVE PERCENT (BEAKER) (test olac=598) 29 % LYMPHOCYTES RELATIVE PERCENT (BEAKER) (test cefp=496) 70 % MONOCYTES RELATIVE PERCENT (BEAKER) (test ufup=158) 0 % EOSINOPHILS RELATIVE PERCENT (BEAKER) (test zewv=722) 1 % BASOPHILS RELATIVE PERCENT (BEAKER) (test hfrv=517) 0 % NEUTROPHILS ABSOLUTE COUNT (BEAKER) (test ucuo=495) 0.31 K/ L 1.80-8.00 LYMPHOCYTES ABSOLUTE COUNT (BEAKER) (test caly=380) 0.73 K/ L 1.48-4.50 MONOCYTES ABSOLUTE COUNT (BEAKER) (test eatv=833) 0.00 K/ L 0.00-1.30 EOSINOPHILS ABSOLUTE COUNT (BEAKER) (test jzay=283) 0.01 K/ L 0.00-0.50 BASOPHILS ABSOLUTE COUNT (BEAKER) (test sxrx=336) 0.00 K/ L 0.00-0.20 0.00CBC (HEMOGRAM ONLY)2016-11-23 17:34:00* Test Item Value Reference Range Comments WHITE BLOOD CELL COUNT (BEAKER) (test yyiq=279) 1.0 K/ L 4.0-10.0 RED BLOOD CELL COUNT (BEAKER) (test tsxe=634) 2.47 M/ L 4.20-5.80 HEMOGLOBIN (BEAKER) (test dgrw=339) 7.8 GM/DL 13.0-16.8 HEMATOCRIT (BEAKER) (test eflb=546) 22.5 % 40.0-50.0 MEAN CORPUSCULAR VOLUME (BEAKER) (test ckop=755) 90.8 fL 82.0-98.0 MEAN CORPUSCULAR HEMOGLOBIN (BEAKER) (test lqnr=400) 31.4 pg 27.0-33.0 MEAN CORPUSCULAR HEMOGLOBIN CONC (BEAKER) (test utvl=669) 34.6 GM/DL 32.0-36.0 RED CELL DISTRIBUTION WIDTH (BEAKER) (test wzbu=077) 14.5 % 10.3-14.2 PLATELET COUNT (BEAKER) (test agzt=305) 30 K/CU MM 150-430 MEAN PLATELET VOLUME (BEAKER) (test eatb=592) 10.7 fL 6.5-10.5 NUCLEATED RED BLOOD CELLS (BEAKER) (test kqty=668) 0 /100 WBC 0-0 CBC W/PLT COUNT & AUTO [id number] 11:04:00* Test Item Value Reference Range Comments WHITE BLOOD CELL COUNT (BEAKER) (test hzcp=123) 0.8 K/ L 4.0-10.0 RED BLOOD CELL COUNT (BEAKER) (test bscn=418) 2.38 M/ L 4.20-5.80 HEMOGLOBIN (BEAKER) (test ufvb=958) 7.8 GM/DL 13.0-16.8 HEMATOCRIT (BEAKER) (test bobz=503) 21.4 % 40.0-50.0 MEAN CORPUSCULAR VOLUME (BEAKER) (test amxt=916) 90.1 fL 82.0-98.0 MEAN CORPUSCULAR HEMOGLOBIN (BEAKER) (test vtvl=991) 32.8 pg 27.0-33.0 MEAN CORPUSCULAR HEMOGLOBIN CONC (BEAKER) (test pzuq=849) 36.4 GM/DL 32.0-36.0 RED CELL DISTRIBUTION WIDTH (BEAKER) (test futp=547) 14.3 % 10.3-14.2 PLATELET COUNT (BEAKER) (test ibqa=094) 29 K/CU MM 150-430 MEAN PLATELET VOLUME (BEAKER) (test pvzw=567) 10.2 fL 6.5-10.5 NUCLEATED RED BLOOD CELLS (BEAKER) (test nndb=964) 0 /100 WBC 0-0 0.00(MANUAL DIFFERENTIAL)2016-11-23 11:04:00* Test Item Value Reference Range Comments NEUTROPHILS - REL (DIFF) (BEAKER) (test tuwi=6499) 25 % LYMPHOCYTES - REL (DIFF) (BEAKER) (test yixb=9234) 72 % BANDS - REL (DIFF) (BEAKER) (test yrok=5247) 3 % 0-10 NEUTROPHILS - ABS (DIFF) (BEAKER) (test ygce=2017) 0.20 K/ L 1.80-8.00 LYMPHOCYTES - ABS (DIFF) (BEAKER) (test pybz=5433) 0.58 K/ L 1.48-4.50 BANDS-ABS (DIFF) (BEAKER) (test jwrd=8506) 0.0 K/ L 0.0-0.8 TOTAL COUNTED (BEAKER) (test wqck=0714) 100 BANDS + SEGMENTED NEUTROPHILS (BEAKER) (test domk=1461) 0.22 PLT MORPHOLOGY (BEAKER) (test ltvu=268) Normal RBC MORPHOLOGY (BEAKER) (test wyel=354) Normal ATYPICAL LYMPHS(BEAKER) (test evsy=2048) Present URINE [id number] 09:00:00* Test Item Value Reference Range Comments CULTURE (BEAKER) (test tgsw=4939) No growth GRAM STAIN RESULT (BEAKER) (test csiq=8174) No WBCs GRAM STAIN RESULT (BEAKER) (test onhx=81026) No organisms seen HEPATIC FUNCTION [id number] 06:25:00* Test Item Value Reference Range Comments TOTAL PROTEIN (BEAKER) (test gbqz=703) 5.6 gm/dL 6.0-8.3 ALBUMIN (BEAKER) (test zfhv=7381) 3.1 g/dL 3.5-5.0 BILIRUBIN TOTAL (BEAKER) (test errm=098) 4.6 mg/dL 0.2-1.2 BILIRUBIN DIRECT (BEAKER) (test qfst=564) 3.4 mg/dL 0.1-0.5 ALKALINE PHOSPHATASE (BEAKER) (test uhud=819) 127 U/L 40-150 AST (SGOT) (BEAKER) (test buoh=938) 19 U/L 5-34 ALT (SGPT) (BEAKER) (test cpdh=592) 23 U/L 6-55 [id number] 05:40:00* Test Item Value Reference Range Comments MAGNESIUM (BEAKER) (test dafz=805) 1.5 mg/dL 1.6-2.6 BASIC METABOLIC [id number] 05:39:00* Test Item Value Reference Range Comments SODIUM (BEAKER) (test rjwh=014) 136 meq/L 136-145 POTASSIUM (BEAKER) (test umht=037) 3.8 meq/L 3.5-5.1 CHLORIDE (BEAKER) (test tolp=564) 107 meq/L 98-107 CO2 (BEAKER) (test ehne=019) 18 meq/L 22-29 BLOOD UREA NITROGEN (BEAKER) (test ylan=528) 8 mg/dL 7-21 CREATININE (BEAKER) (test mtvg=004) 0.52 mg/dL 0.57-1.25 GLUCOSE RANDOM (BEAKER) (test tpda=623) 96 mg/dL 70-105 CALCIUM (BEAKER) (test hdyq=172) 8.4 mg/dL 8.4-10.2 EGFR (BEAKER) (test cicb=4922) mL/min/1.73 sq m INSUFFICIENT CLINICAL DATA TO CALCULATE ESTIMATED GFR. [id number] 05:25:00* Test Item Value Reference Range Comments PHOSPHORUS (BEAKER) (test jeyd=727) 3.7 mg/dL 2.3-4.7 [id number] 04:45:00* Test Item Value Reference Range Comments PARTIAL THROMBOPLASTIN TIME (BEAKER) (test ffuf=232) 36.3 seconds 22.5-36.0 PROTHROMBIN TIME/[id number] 04:44:00* Test Item Value Reference Range Comments PROTIME (BEAKER) (test kpgw=686) 16.9 seconds 11.7-14.7 INR (BEAKER) (test qnzz=323) 1.4 <=5.9 RECOMMENDED COUMADIN/WARFARIN INR THERAPY RANGESSTANDARD DOSE: 2.0 - 3.0 Inclu chevy: PROPHYLAXIS for venous thrombosis, systemic embolization; TREATMENT for janny ous thrombosis and/or pulmonary embolus.HIGH RISK: Target INR is 2.5-3.5 for pat ients with mechanical heart valves.CBC (HEMOGRAM ONLY)2016-11-22 16:50:00* Test Item Value Reference Range Comments WHITE BLOOD CELL COUNT (BEAKER) (test xwdh=451) 0.9 K/ L 4.0-10.0 RED BLOOD CELL COUNT (BEAKER) (test ynoi=133) 2.51 M/ L 4.20-5.80 HEMOGLOBIN (BEAKER) (test vxkb=624) 7.8 GM/DL 13.0-16.8 HEMATOCRIT (BEAKER) (test hvmy=017) 22.8 % 40.0-50.0 MEAN CORPUSCULAR VOLUME (BEAKER) (test dlhb=810) 90.8 fL 82.0-98.0 MEAN CORPUSCULAR HEMOGLOBIN (BEAKER) (test febf=083) 31.2 pg 27.0-33.0 MEAN CORPUSCULAR HEMOGLOBIN CONC (BEAKER) (test unfz=477) 34.3 GM/DL 32.0-36.0 RED CELL DISTRIBUTION WIDTH (BEAKER) (test snni=883) 13.4 % 10.3-14.2 PLATELET COUNT (BEAKER) (test snuh=257) 31 K/CU MM 150-430 MEAN PLATELET VOLUME (BEAKER) (test qnct=179) 9.4 fL 6.5-10.5 NUCLEATED RED BLOOD CELLS (BEAKER) (test qoga=437) 0 /100 WBC 0-0 [id number] 10:14:00* Test Item Value Reference Range Comments POTASSIUM (BEAKER) (test iqku=349) 3.8 meq/L 3.5-5.1 [id number] 10:14:00* Test Item Value Reference Range Comments MAGNESIUM (BEAKER) (test dgdu=862) 1.8 mg/dL 1.6-2.6 [id number] 05:13:00* Test Item Value Reference Range Comments PHOSPHORUS (BEAKER) (test dree=421) 3.7 mg/dL 2.3-4.7 [id number] 05:13:00* Test Item Value Reference Range Comments MAGNESIUM (BEAKER) (test feoa=188) 1.7 mg/dL 1.6-2.6 HEPATIC FUNCTION [id number] 05:13:00* Test Item Value Reference Range Comments TOTAL PROTEIN (BEAKER) (test ebop=169) 5.7 gm/dL 6.0-8.3 ALBUMIN (BEAKER) (test wmba=6773) 3.1 g/dL 3.5-5.0 BILIRUBIN TOTAL (BEAKER) (test gnqx=331) 5.0 mg/dL 0.2-1.2 BILIRUBIN DIRECT (BEAKER) (test ibog=757) 3.7 mg/dL 0.1-0.5 ALKALINE PHOSPHATASE (BEAKER) (test plva=287) 121 U/L 40-150 AST (SGOT) (BEAKER) (test cwxz=835) 19 U/L 5-34 ALT (SGPT) (BEAKER) (test katf=954) 24 U/L 6-55 Specimen moderately ictericBASIC METABOLIC [id number] 05:13:00* Test Item Value Reference Range Comments SODIUM (BEAKER) (test nbvn=782) 133 meq/L 136-145 POTASSIUM (BEAKER) (test hfsj=939) 3.2 meq/L 3.5-5.1 CHLORIDE (BEAKER) (test rxxs=631) 104 meq/L 98-107 CO2 (BEAKER) (test ufve=998) 18 meq/L 22-29 BLOOD UREA NITROGEN (BEAKER) (test yvom=984) 8 mg/dL 7-21 CREATININE (BEAKER) (test jtmg=554) 0.52 mg/dL 0.57-1.25 GLUCOSE RANDOM (BEAKER) (test iohj=340) 96 mg/dL 70-105 CALCIUM (BEAKER) (test dpny=725) 8.5 mg/dL 8.4-10.2 EGFR (BEAKER) (test oemw=9297) mL/min/1.73 sq m INSUFFICIENT CLINICAL DATA TO CALCULATE ESTIMATED GFR. Specimen moderately ictericCBC W/PLT COUNT & AUTO [id number] 05:05:00* Test Item Value Reference Range Comments WHITE BLOOD CELL COUNT (BEAKER) (test gxrx=657) 0.9 K/ L 4.0-10.0 RED BLOOD CELL COUNT (BEAKER) (test eqqk=551) 2.47 M/ L 4.20-5.80 HEMOGLOBIN (BEAKER) (test sawz=045) 7.9 GM/DL 13.0-16.8 HEMATOCRIT (BEAKER) (test owlt=300) 22.1 % 40.0-50.0 MEAN CORPUSCULAR VOLUME (BEAKER) (test nlqg=732) 89.4 fL 82.0-98.0 MEAN CORPUSCULAR HEMOGLOBIN (BEAKER) (test mgmn=887) 32.0 pg 27.0-33.0 MEAN CORPUSCULAR HEMOGLOBIN CONC (BEAKER) (test fcib=701) 35.8 GM/DL 32.0-36.0 RED CELL DISTRIBUTION WIDTH (BEAKER) (test flrn=090) 13.9 % 10.3-14.2 PLATELET COUNT (BEAKER) (test jjld=000) 33 K/CU MM 150-430 MEAN PLATELET VOLUME (BEAKER) (test mfyu=075) 9.8 fL 6.5-10.5 NUCLEATED RED BLOOD CELLS (BEAKER) (test kjis=753) 0 /100 WBC 0-0 NEUTROPHILS RELATIVE PERCENT (BEAKER) (test kysx=617) 31 % LYMPHOCYTES RELATIVE PERCENT (BEAKER) (test uvfe=543) 68 % MONOCYTES RELATIVE PERCENT (BEAKER) (test tvll=708) 0 % EOSINOPHILS RELATIVE PERCENT (BEAKER) (test cshl=589) 1 % BASOPHILS RELATIVE PERCENT (BEAKER) (test ynqu=973) 0 % NEUTROPHILS ABSOLUTE COUNT (BEAKER) (test qaxd=516) 0.26 K/ L 1.80-8.00 LYMPHOCYTES ABSOLUTE COUNT (BEAKER) (test trfb=108) 0.59 K/ L 1.48-4.50 MONOCYTES ABSOLUTE COUNT (BEAKER) (test mgim=869) 0.00 K/ L 0.00-1.30 EOSINOPHILS ABSOLUTE COUNT (BEAKER) (test uwwh=372) 0.01 K/ L 0.00-0.50 BASOPHILS ABSOLUTE COUNT (BEAKER) (test mbyr=970) 0.00 K/ L 0.00-0.20 0.00PROTHROMBIN TIME/[id number] 04:57:00* Test Item Value Reference Range Comments PROTIME (BEAKER) (test uufi=396) 16.7 seconds 11.7-14.7 INR (BEAKER) (test ykbx=570) 1.4 <=5.9 RECOMMENDED COUMADIN/WARFARIN INR THERAPY RANGESSTANDARD DOSE: 2.0 - 3.0 Inclu chevy: PROPHYLAXIS for venous thrombosis, systemic embolization; TREATMENT for janny ous thrombosis and/or pulmonary embolus.HIGH RISK: Target INR is 2.5-3.5 for pat ients with mechanical heart valves.[id number] 04:53:00* Test Item Value Reference Range Comments PARTIAL THROMBOPLASTIN TIME (BEAKER) (test expd=109) 34.8 seconds 22.5-36.0 CBC (HEMOGRAM ONLY)2016-11-21 20:55:00* Test Item Value Reference Range Comments WHITE BLOOD CELL COUNT (BEAKER) (test pevc=193) 1.0 K/ L 4.0-10.0 RED BLOOD CELL COUNT (BEAKER) (test lsvs=575) 2.37 M/ L 4.20-5.80 HEMOGLOBIN (BEAKER) (test tkbs=332) 8.2 GM/DL 13.0-16.8 HEMATOCRIT (BEAKER) (test khrm=644) 21.5 % 40.0-50.0 MEAN CORPUSCULAR VOLUME (BEAKER) (test csdm=476) 90.5 fL 82.0-98.0 MEAN CORPUSCULAR HEMOGLOBIN (BEAKER) (test ohle=032) 34.7 pg 27.0-33.0 MEAN CORPUSCULAR HEMOGLOBIN CONC (BEAKER) (test jwur=003) 38.3 GM/DL 32.0-36.0 RED CELL DISTRIBUTION WIDTH (BEAKER) (test eckb=703) 12.9 % 10.3-14.2 PLATELET COUNT (BEAKER) (test yjlj=753) 34 K/CU MM 150-430 MEAN PLATELET VOLUME (BEAKER) (test rvcy=924) 9.4 fL 6.5-10.5 NUCLEATED RED BLOOD CELLS (BEAKER) (test uzat=172) 0 /100 WBC 0-0 0.000.610.000.000.000.00URINALYSIS W/ [id number] 13:03:00* Test Item Value Reference Range Comments COLOR (BEAKER) (test zrfi=140) Yellow CLARITY (BEAKER) (test yfhv=486) Clear SPECIFIC GRAVITY UA (BEAKER) (test rhmr=874) 1.003 1.001-1.035 PH UA (BEAKER) (test xllg=362) 5.0 5.0-8.0 PROTEIN UA (BEAKER) (test onfw=884) Negative Negative GLUCOSE UA (BEAKER) (test teoh=920) Negative Negative KETONES UA (BEAKER) (test utfx=639) Negative Negative BILIRUBIN UA (BEAKER) (test kpoc=201) Negative Negative BLOOD UA (BEAKER) (test yihm=763) Negative Negative NITRITE UA (BEAKER) (test spef=215) Negative Negative LEUKOCYTE ESTERASE UA (BEAKER) (test npjs=360) Negative Negative UROBILINOGEN UA (BEAKER) (test mlit=660) 0.2 mg/dL 0.2-1.0 RBC UA (BEAKER) (test twhe=489) 1 /HPF WBC UA (BEAKER) (test iveo=177) < /HPF BACTERIA (BEAKER) (test wysn=337) Rare SOURCE(BEAKER) (test hzhw=5904) Urine, Clean Catch BASIC METABOLIC [id number] 06:44:00* Test Item Value Reference Range Comments SODIUM (BEAKER) (test ntto=805) 132 meq/L 136-145 POTASSIUM (BEAKER) (test wszy=896) 3.5 meq/L 3.5-5.1 CHLORIDE (BEAKER) (test jbjh=558) 103 meq/L 98-107 CO2 (BEAKER) (test nmja=831) 18 meq/L 22-29 BLOOD UREA NITROGEN (BEAKER) (test gyxa=217) 10 mg/dL 7-21 CREATININE (BEAKER) (test zoei=357) 0.51 mg/dL 0.57-1.25 GLUCOSE RANDOM (BEAKER) (test itwq=259) 97 mg/dL 70-105 CALCIUM (BEAKER) (test zdea=478) 8.1 mg/dL 8.4-10.2 EGFR (BEAKER) (test rart=5103) mL/min/1.73 sq m INSUFFICIENT CLINICAL DATA TO CALCULATE ESTIMATED GFR. Specimen moderately [id number] 06:18:00* Test Item Value Reference Range Comments MAGNESIUM (BEAKER) (test dmlk=337) 1.6 mg/dL 1.6-2.6 HEPATIC FUNCTION [id number] 06:18:00* Test Item Value Reference Range Comments TOTAL PROTEIN (BEAKER) (test ocxj=726) 5.3 gm/dL 6.0-8.3 ALBUMIN (BEAKER) (test mzdf=6830) 2.9 g/dL 3.5-5.0 BILIRUBIN TOTAL (BEAKER) (test qftk=033) 5.4 mg/dL 0.2-1.2 BILIRUBIN DIRECT (BEAKER) (test umhn=628) 3.8 mg/dL 0.1-0.5 ALKALINE PHOSPHATASE (BEAKER) (test bary=550) 120 U/L 40-150 AST (SGOT) (BEAKER) (test ouhz=713) 20 U/L 5-34 ALT (SGPT) (BEAKER) (test iqxp=212) 23 U/L 6-55 Specimen moderately [id number] 06:15:00* Test Item Value Reference Range Comments PHOSPHORUS (BEAKER) (test yyqn=125) 3.2 mg/dL 2.3-4.7 Specimen slightly hemolyzed [id number] 06:09:00* Test Item Value Reference Range Comments PARTIAL THROMBOPLASTIN TIME (BEAKER) (test bpku=750) 33.4 seconds 22.5-36.0 PROTHROMBIN TIME/[id number] 06:08:00* Test Item Value Reference Range Comments PROTIME (BEAKER) (test tlae=042) 16.1 seconds 11.7-14.7 INR (BEAKER) (test wtoe=226) 1.3 <=5.9 RECOMMENDED COUMADIN/WARFARIN INR THERAPY RANGESSTANDARD DOSE: 2.0 - 3.0 Inclu chevy: PROPHYLAXIS for venous thrombosis, systemic embolization; TREATMENT for janny ous thrombosis and/or pulmonary embolus.HIGH RISK: Target INR is 2.5-3.5 for pat ients with mechanical heart valves.CBC W/PLT COUNT & AUTO [id number] 06:05:00* Test Item Value Reference Range Comments WHITE BLOOD CELL COUNT (BEAKER) (test qizx=595) 0.8 K/ L 4.0-10.0 RED BLOOD CELL COUNT (BEAKER) (test tqhf=655) 2.23 M/ L 4.20-5.80 HEMOGLOBIN (BEAKER) (test gmkd=054) 7.2 GM/DL 13.0-16.8 HEMATOCRIT (BEAKER) (test cbcv=925) 19.8 % 40.0-50.0 MEAN CORPUSCULAR VOLUME (BEAKER) (test kolh=205) 89.0 fL 82.0-98.0 MEAN CORPUSCULAR HEMOGLOBIN (BEAKER) (test pyrd=241) 32.1 pg 27.0-33.0 MEAN CORPUSCULAR HEMOGLOBIN CONC (BEAKER) (test zfkp=044) 36.1 GM/DL 32.0-36.0 RED CELL DISTRIBUTION WIDTH (BEAKER) (test ieud=717) 14.8 % 10.3-14.2 PLATELET COUNT (BEAKER) (test nmkw=493) 17 K/CU MM 150-430 MEAN PLATELET VOLUME (BEAKER) (test chmq=796) 11.7 fL 6.5-10.5 NUCLEATED RED BLOOD CELLS (BEAKER) (test zcjq=611) 0 /100 WBC 0-0 NEUTROPHILS RELATIVE PERCENT (BEAKER) (test zvms=564) 19 % LYMPHOCYTES RELATIVE PERCENT (BEAKER) (test luvx=749) 81 % MONOCYTES RELATIVE PERCENT (BEAKER) (test irry=470) 0 % EOSINOPHILS RELATIVE PERCENT (BEAKER) (test zfzy=251) 1 % BASOPHILS RELATIVE PERCENT (BEAKER) (test rucb=083) 0 % NEUTROPHILS ABSOLUTE COUNT (BEAKER) (test bogx=053) 0.15 K/ L 1.80-8.00 LYMPHOCYTES ABSOLUTE COUNT (BEAKER) (test kauu=908) 0.64 K/ L 1.48-4.50 MONOCYTES ABSOLUTE COUNT (BEAKER) (test veet=251) 0.00 K/ L 0.00-1.30 EOSINOPHILS ABSOLUTE COUNT (BEAKER) (test apcp=297) 0.01 K/ L 0.00-0.50 BASOPHILS ABSOLUTE COUNT (BEAKER) (test zxyk=521) 0.00 K/ L 0.00-0.20 0.00CBC (HEMOGRAM ONLY)2016-11-21 01:40:00* Test Item Value Reference Range Comments WHITE BLOOD CELL COUNT (BEAKER) (test bser=698) 1.1 K/ L 4.0-10.0 RED BLOOD CELL COUNT (BEAKER) (test irto=684) 2.39 M/ L 4.20-5.80 HEMOGLOBIN (BEAKER) (test lqmh=691) 7.4 GM/DL 13.0-16.8 HEMATOCRIT (BEAKER) (test uytu=327) 21.4 % 40.0-50.0 MEAN CORPUSCULAR VOLUME (BEAKER) (test bmwx=717) 89.4 fL 82.0-98.0 MEAN CORPUSCULAR HEMOGLOBIN (BEAKER) (test nzmr=605) 30.9 pg 27.0-33.0 MEAN CORPUSCULAR HEMOGLOBIN CONC (BEAKER) (test gsbp=132) 34.6 GM/DL 32.0-36.0 RED CELL DISTRIBUTION WIDTH (BEAKER) (test bwcx=574) 14.5 % 10.3-14.2 PLATELET COUNT (BEAKER) (test luoa=079) 18 K/CU MM 150-430 MEAN PLATELET VOLUME (BEAKER) (test zity=449) 11.6 fL 6.5-10.5 NUCLEATED RED BLOOD CELLS (BEAKER) (test fgmq=991) 0 /100 WBC 0-0 0.00FLOW CYTOMETRY [id number] 14:03:00* Test Item Value Reference Range Comments FLOW CYTOMETRY RESULT POINTER (BEAKER) (test fvru=4720) See Separate Report FLOW CYTOMETRY AP CASE # (BEAKER) (test vqxh=6742) [id number] CREATINE KINASE (CK)2016-11-20 13:45:00* Test Item Value Reference Range Comments CREATINE KINASE TOTAL (BEAKER) (test bngf=821) 13 U/L 29-200 CBC W/PLT COUNT & AUTO [id number] 07:43:00* Test Item Value Reference Range Comments WHITE BLOOD CELL COUNT (BEAKER) (test koag=143) 1.0 K/ L 4.0-10.0 RED BLOOD CELL COUNT (BEAKER) (test yodp=524) 2.51 M/ L 4.20-5.80 HEMOGLOBIN (BEAKER) (test rjjh=087) 8.0 GM/DL 13.0-16.8 HEMATOCRIT (BEAKER) (test ivpk=699) 22.4 % 40.0-50.0 MEAN CORPUSCULAR VOLUME (BEAKER) (test qwyj=489) 89.1 fL 82.0-98.0 MEAN CORPUSCULAR HEMOGLOBIN (BEAKER) (test jdux=244) 31.7 pg 27.0-33.0 MEAN CORPUSCULAR HEMOGLOBIN CONC (BEAKER) (test ajbz=587) 35.5 GM/DL 32.0-36.0 RED CELL DISTRIBUTION WIDTH (BEAKER) (test caft=376) 14.5 % 10.3-14.2 PLATELET COUNT (BEAKER) (test jwkp=613) 20 K/CU MM 150-430 MEAN PLATELET VOLUME (BEAKER) (test kyky=228) 10.8 fL 6.5-10.5 NUCLEATED RED BLOOD CELLS (BEAKER) (test dlba=041) 0 /100 WBC 0-0 0.000.900.000.000.000.00(MANUAL DIFFERENTIAL)2016-11-20 07:43:00* Test Item Value Reference Range Comments NEUTROPHILS - REL (DIFF) (BEAKER) (test devo=4944) 26 % LYMPHOCYTES - REL (DIFF) (BEAKER) (test pvio=1174) 69 % EOSINOPHILS - REL (DIFF) (BEAKER) (test jpye=3593) 1 % BANDS - REL (DIFF) (BEAKER) (test xxfw=6798) 4 % 0-10 NEUTROPHILS - ABS (DIFF) (BEAKER) (test gejz=3505) 0.26 K/ L 1.80-8.00 LYMPHOCYTES - ABS (DIFF) (BEAKER) (test wtsi=5666) 0.69 K/ L 1.48-4.50 EOSINOPHILS - ABS (DIFF) (BEAKER) (test vmnl=4915) 0.01 K/ L 0.00-0.50 BANDS-ABS (DIFF) (BEAKER) (test vtih=7894) 0.0 K/ L 0.0-0.8 TOTAL COUNTED (BEAKER) (test dahr=3642) 100 BANDS + SEGMENTED NEUTROPHILS (BEAKER) (test nmvj=0889) 0.30 PLT MORPHOLOGY (BEAKER) (test gmbp=293) Normal ATYPICAL LYMPHS(BEAKER) (test jnln=3610) Present POLYCHROMATOPHILLIC RBCS(BEAKER) (test lkcp=488) 2+ moderate BASIC METABOLIC [id number] 07:37:00* Test Item Value Reference Range Comments SODIUM (BEAKER) (test akuf=806) 135 meq/L 136-145 POTASSIUM (BEAKER) (test phkg=990) 3.5 meq/L 3.5-5.1 CHLORIDE (BEAKER) (test ggaj=175) 105 meq/L 98-107 CO2 (BEAKER) (test vtak=794) 18 meq/L 22-29 BLOOD UREA NITROGEN (BEAKER) (test rkhm=016) 12 mg/dL 7-21 CREATININE (BEAKER) (test akhe=306) 0.49 mg/dL 0.57-1.25 GLUCOSE RANDOM (BEAKER) (test wzyr=073) 103 mg/dL 70-105 CALCIUM (BEAKER) (test knxh=703) 8.4 mg/dL 8.4-10.2 EGFR (BEAKER) (test hebu=1607) mL/min/1.73 sq m INSUFFICIENT CLINICAL DATA TO CALCULATE ESTIMATED GFR. Specimen moderately [id number] 07:25:00* Test Item Value Reference Range Comments PHOSPHORUS (BEAKER) (test smrw=557) 3.8 mg/dL 2.3-4.7 [id number] 07:25:00* Test Item Value Reference Range Comments MAGNESIUM (BEAKER) (test kkzo=120) 1.9 mg/dL 1.6-2.6 HEPATIC FUNCTION [id number] 07:25:00* Test Item Value Reference Range Comments TOTAL PROTEIN (BEAKER) (test qscv=840) 5.6 gm/dL 6.0-8.3 ALBUMIN (BEAKER) (test uviu=7532) 3.1 g/dL 3.5-5.0 BILIRUBIN TOTAL (BEAKER) (test euls=182) 5.9 mg/dL 0.2-1.2 BILIRUBIN DIRECT (BEAKER) (test drwk=467) 4.3 mg/dL 0.1-0.5 ALKALINE PHOSPHATASE (BEAKER) (test evkc=233) 121 U/L 40-150 AST (SGOT) (BEAKER) (test ebxb=112) 16 U/L 5-34 ALT (SGPT) (BEAKER) (test zuzg=691) 23 U/L 6-55 Specimen moderately [id number] 07:13:00* Test Item Value Reference Range Comments PARTIAL THROMBOPLASTIN TIME (BEAKER) (test nhip=685) 32.0 seconds 22.5-36.0 PROTHROMBIN TIME/[id number] 07:12:00* Test Item Value Reference Range Comments PROTIME (BEAKER) (test ssqr=617) 16.2 seconds 11.7-14.7 INR (BEAKER) (test woda=723) 1.3 <=5.9 RECOMMENDED COUMADIN/WARFARIN INR THERAPY RANGESSTANDARD DOSE: 2.0 - 3.0 Inclu chevy: PROPHYLAXIS for venous thrombosis, systemic embolization; TREATMENT for janny ous thrombosis and/or pulmonary embolus.HIGH RISK: Target INR is 2.5-3.5 for pat ients with mechanical heart valves.CBC (HEMOGRAM ONLY)2016-11-19 18:01:00* Test Item Value Reference Range Comments WHITE BLOOD CELL COUNT (BEAKER) (test qjmp=488) 1.3 K/ L 4.0-10.0 RED BLOOD CELL COUNT (BEAKER) (test zxjp=769) 2.16 M/ L 4.20-5.80 HEMOGLOBIN (BEAKER) (test zgtm=970) 6.7 GM/DL 13.0-16.8 HEMATOCRIT (BEAKER) (test uhzh=448) 19.1 % 40.0-50.0 MEAN CORPUSCULAR VOLUME (BEAKER) (test uzcq=865) 88.6 fL 82.0-98.0 MEAN CORPUSCULAR HEMOGLOBIN (BEAKER) (test xfpd=383) 31.2 pg 27.0-33.0 MEAN CORPUSCULAR HEMOGLOBIN CONC (BEAKER) (test vbwz=521) 35.2 GM/DL 32.0-36.0 RED CELL DISTRIBUTION WIDTH (BEAKER) (test qtdv=359) 15.1 % 10.3-14.2 PLATELET COUNT (BEAKER) (test joqw=900) 21 K/CU MM 150-430 MEAN PLATELET VOLUME (BEAKER) (test lacs=743) 10.8 fL 6.5-10.5 NUCLEATED RED BLOOD CELLS (BEAKER) (test dwve=917) 0 /100 WBC 0-0 CBC W/PLT COUNT & AUTO [id number] 07:00:00* Test Item Value Reference Range Comments WHITE BLOOD CELL COUNT (BEAKER) (test wccz=181) 1.0 K/ L 4.0-10.0 RED BLOOD CELL COUNT (BEAKER) (test ckij=669) 2.21 M/ L 4.20-5.80 HEMOGLOBIN (BEAKER) (test fwbh=834) 7.1 GM/DL 13.0-16.8 HEMATOCRIT (BEAKER) (test snca=683) 19.6 % 40.0-50.0 MEAN CORPUSCULAR VOLUME (BEAKER) (test zzrd=926) 88.9 fL 82.0-98.0 MEAN CORPUSCULAR HEMOGLOBIN (BEAKER) (test tsyy=260) 32.1 pg 27.0-33.0 MEAN CORPUSCULAR HEMOGLOBIN CONC (BEAKER) (test qipw=128) 36.1 GM/DL 32.0-36.0 RED CELL DISTRIBUTION WIDTH (BEAKER) (test eeqq=077) 14.9 % 10.3-14.2 PLATELET COUNT (BEAKER) (test cfaq=182) 23 K/CU MM 150-430 MEAN PLATELET VOLUME (BEAKER) (test haro=869) 10.7 fL 6.5-10.5 NUCLEATED RED BLOOD CELLS (BEAKER) (test fsge=436) 0 /100 WBC 0-0 (MANUAL DIFFERENTIAL)2016-11-19 07:00:00* Test Item Value Reference Range Comments NEUTROPHILS - REL (DIFF) (BEAKER) (test xtfb=4123) 18 % LYMPHOCYTES - REL (DIFF) (BEAKER) (test fdvn=9586) 72 % BANDS - REL (DIFF) (BEAKER) (test spec=9648) 10 % 0-10 NEUTROPHILS - ABS (DIFF) (BEAKER) (test exox=9052) 0.18 K/ L 1.80-8.00 LYMPHOCYTES - ABS (DIFF) (BEAKER) (test gtul=1303) 0.72 K/ L 1.48-4.50 BANDS-ABS (DIFF) (BEAKER) (test mdwi=6164) 0.1 K/ L 0.0-0.8 TOTAL COUNTED (BEAKER) (test iuuh=5470) 100 BANDS + SEGMENTED NEUTROPHILS (BEAKER) (test afcq=9386) 0.28 PLT MORPHOLOGY (BEAKER) (test unps=616) Normal RBC MORPHOLOGY (BEAKER) (test sgxo=400) Normal ATYPICAL LYMPHS(BEAKER) (test uzmx=4349) Present BASIC METABOLIC [id number] 05:05:00* Test Item Value Reference Range Comments SODIUM (BEAKER) (test eqpu=852) 133 meq/L 136-145 POTASSIUM (BEAKER) (test lcma=946) 3.8 meq/L 3.5-5.1 CHLORIDE (BEAKER) (test duhn=630) 103 meq/L 98-107 CO2 (BEAKER) (test uobw=598) 20 meq/L 22-29 BLOOD UREA NITROGEN (BEAKER) (test hhfw=719) 10 mg/dL 7-21 CREATININE (BEAKER) (test cfig=679) 0.56 mg/dL 0.57-1.25 GLUCOSE RANDOM (BEAKER) (test ibft=799) 107 mg/dL 70-105 CALCIUM (BEAKER) (test fqtn=101) 8.4 mg/dL 8.4-10.2 EGFR (BEAKER) (test xssl=2328) mL/min/1.73 sq m INSUFFICIENT CLINICAL DATA TO CALCULATE ESTIMATED GFR. Specimen moderately [id number] 05:04:00* Test Item Value Reference Range Comments PHOSPHORUS (BEAKER) (test miqj=414) 3.7 mg/dL 2.3-4.7 [id number] 05:04:00* Test Item Value Reference Range Comments MAGNESIUM (BEAKER) (test ztpg=107) 1.7 mg/dL 1.6-2.6 HEPATIC FUNCTION [id number] 05:04:00* Test Item Value Reference Range Comments TOTAL PROTEIN (BEAKER) (test lkpl=159) 5.6 gm/dL 6.0-8.3 ALBUMIN (BEAKER) (test mzwz=0317) 3.1 g/dL 3.5-5.0 BILIRUBIN TOTAL (BEAKER) (test fmch=653) 6.9 mg/dL 0.2-1.2 BILIRUBIN DIRECT (BEAKER) (test eake=665) 5.0 mg/dL 0.1-0.5 ALKALINE PHOSPHATASE (BEAKER) (test tybl=267) 122 U/L 40-150 AST (SGOT) (BEAKER) (test tvhn=043) 18 U/L 5-34 ALT (SGPT) (BEAKER) (test pnjf=171) 24 U/L 6-55 Specimen moderately [id number] 04:50:00* Test Item Value Reference Range Comments PARTIAL THROMBOPLASTIN TIME (BEAKER) (test fsvw=609) 34.2 seconds 22.5-36.0 PROTHROMBIN TIME/[id number] 04:49:00* Test Item Value Reference Range Comments PROTIME (BEAKER) (test yidu=763) 15.7 seconds 11.7-14.7 INR (BEAKER) (test qzci=452) 1.3 <=5.9 RECOMMENDED COUMADIN/WARFARIN INR THERAPY RANGESSTANDARD DOSE: 2.0 - 3.0 Inclu chevy: PROPHYLAXIS for venous thrombosis, systemic embolization; TREATMENT for janny ous thrombosis and/or pulmonary embolus.HIGH RISK: Target INR is 2.5-3.5 for pat ients with mechanical heart valves.CBC W/PLT COUNT & AUTO [id number] 09:54:00* Test Item Value Reference Range Comments WHITE BLOOD CELL COUNT (BEAKER) (test fuij=465) 0.9 K/ L 4.0-10.0 RED BLOOD CELL COUNT (BEAKER) (test ithj=320) 2.41 M/ L 4.20-5.80 HEMOGLOBIN (BEAKER) (test rike=895) 7.5 GM/DL 13.0-16.8 HEMATOCRIT (BEAKER) (test ncct=737) 21.8 % 40.0-50.0 MEAN CORPUSCULAR VOLUME (BEAKER) (test xazw=132) 90.5 fL 82.0-98.0 MEAN CORPUSCULAR HEMOGLOBIN (BEAKER) (test vmgy=949) 31.3 pg 27.0-33.0 MEAN CORPUSCULAR HEMOGLOBIN CONC (BEAKER) (test urgx=910) 34.6 GM/DL 32.0-36.0 RED CELL DISTRIBUTION WIDTH (BEAKER) (test kikq=941) 14.5 % 10.3-14.2 PLATELET COUNT (BEAKER) (test fquy=263) 30 K/CU MM 150-430 MEAN PLATELET VOLUME (BEAKER) (test ijcn=961) 10.6 fL 6.5-10.5 NUCLEATED RED BLOOD CELLS (BEAKER) (test kmvv=758) 0 /100 WBC 0-0 0.00(MANUAL DIFFERENTIAL)2016-11-18 09:54:00* Test Item Value Reference Range Comments NEUTROPHILS - REL (DIFF) (BEAKER) (test jjnw=3615) 22 % LYMPHOCYTES - REL (DIFF) (BEAKER) (test pxoj=2456) 70 % BANDS - REL (DIFF) (BEAKER) (test fyua=8049) 8 % 0-10 NEUTROPHILS - ABS (DIFF) (BEAKER) (test ovsa=2361) 0.20 K/ L 1.80-8.00 LYMPHOCYTES - ABS (DIFF) (BEAKER) (test koyt=0961) 0.63 K/ L 1.48-4.50 BANDS-ABS (DIFF) (BEAKER) (test hwpq=2056) 0.1 K/ L 0.0-0.8 TOTAL COUNTED (BEAKER) (test olra=0254) 100 BANDS + SEGMENTED NEUTROPHILS (BEAKER) (test izuv=1023) 0.27 PLT MORPHOLOGY (BEAKER) (test qnhy=775) Normal RBC MORPHOLOGY (BEAKER) (test vmdj=646) Normal ATYPICAL LYMPHS(BEAKER) (test gzkb=9936) Present [id number] 07:11:00* Test Item Value Reference Range Comments PARTIAL THROMBOPLASTIN TIME (BEAKER) (test phkf=668) 34.0 seconds 22.5-36.0 [id number] 07:11:00* Test Item Value Reference Range Comments PHOSPHORUS (BEAKER) (test fujh=883) 3.6 mg/dL 2.3-4.7 [id number] 07:11:00* Test Item Value Reference Range Comments MAGNESIUM (BEAKER) (test gjys=538) 1.7 mg/dL 1.6-2.6 HEPATIC FUNCTION [id number] 07:11:00* Test Item Value Reference Range Comments TOTAL PROTEIN (BEAKER) (test ynez=917) 5.6 gm/dL 6.0-8.3 ALBUMIN (BEAKER) (test gpds=0301) 3.1 g/dL 3.5-5.0 BILIRUBIN TOTAL (BEAKER) (test lzns=519) 8.1 mg/dL 0.2-1.2 BILIRUBIN DIRECT (BEAKER) (test bfec=064) 6.1 mg/dL 0.1-0.5 ALKALINE PHOSPHATASE (BEAKER) (test zoju=439) 102 U/L 40-150 AST (SGOT) (BEAKER) (test mcpo=767) 14 U/L 5-34 ALT (SGPT) (BEAKER) (test fecl=033) 26 U/L 6-55 Specimen moderately ictericPROTHROMBIN TIME/[id number] 07:10:00* Test Item Value Reference Range Comments PROTIME (BEAKER) (test dvwa=060) 15.3 seconds 11.7-14.7 INR (BEAKER) (test eler=171) 1.2 <=5.9 RECOMMENDED COUMADIN/WARFARIN INR THERAPY RANGESSTANDARD DOSE: 2.0 - 3.0 Inclu chevy: PROPHYLAXIS for venous thrombosis, systemic embolization; TREATMENT for janny ous thrombosis and/or pulmonary embolus.HIGH RISK: Target INR is 2.5-3.5 for pat ients with mechanical heart valves.CBC (HEMOGRAM ONLY)2016-11-17 20:31:00* Test Item Value Reference Range Comments WHITE BLOOD CELL COUNT (BEAKER) (test zfjm=749) 0.9 K/ L 4.0-10.0 RED BLOOD CELL COUNT (BEAKER) (test wdyt=389) 2.42 M/ L 4.20-5.80 HEMOGLOBIN (BEAKER) (test jnrl=628) 7.6 GM/DL 13.0-16.8 HEMATOCRIT (BEAKER) (test mcby=743) 21.8 % 40.0-50.0 MEAN CORPUSCULAR VOLUME (BEAKER) (test ukhw=399) 90.2 fL 82.0-98.0 MEAN CORPUSCULAR HEMOGLOBIN (BEAKER) (test nzua=147) 31.4 pg 27.0-33.0 MEAN CORPUSCULAR HEMOGLOBIN CONC (BEAKER) (test kcdw=543) 34.8 GM/DL 32.0-36.0 RED CELL DISTRIBUTION WIDTH (BEAKER) (test mnwo=184) 14.5 % 10.3-14.2 PLATELET COUNT (BEAKER) (test umjk=537) 32 K/CU MM 150-430 MEAN PLATELET VOLUME (BEAKER) (test zybu=106) 10.2 fL 6.5-10.5 NUCLEATED RED BLOOD CELLS (BEAKER) (test lpef=393) 0 /100 WBC 0-0 BASIC METABOLIC [id number] 20:21:00* Test Item Value Reference Range Comments SODIUM (BEAKER) (test cgpl=123) 132 meq/L 136-145 POTASSIUM (BEAKER) (test impp=263) 3.7 meq/L 3.5-5.1 CHLORIDE (BEAKER) (test owds=821) 100 meq/L 98-107 CO2 (BEAKER) (test oeah=489) 19 meq/L 22-29 BLOOD UREA NITROGEN (BEAKER) (test erye=275) 12 mg/dL 7-21 CREATININE (BEAKER) (test bmdy=573) 0.58 mg/dL 0.57-1.25 GLUCOSE RANDOM (BEAKER) (test ezlz=862) 119 mg/dL 70-105 CALCIUM (BEAKER) (test ztfc=943) 8.2 mg/dL 8.4-10.2 EGFR (BEAKER) (test pkyb=9349) mL/min/1.73 sq m INSUFFICIENT CLINICAL DATA TO CALCULATE ESTIMATED GFR. Specimen moderately ictericCBC W/PLT COUNT & AUTO [id number] 14:49:00* Test Item Value Reference Range Comments WHITE BLOOD CELL COUNT (BEAKER) (test rkax=015) 0.9 K/ L 4.0-10.0 RED BLOOD CELL COUNT (BEAKER) (test iiha=844) 2.55 M/ L 4.20-5.80 HEMOGLOBIN (BEAKER) (test gzse=020) 7.9 GM/DL 13.0-16.8 HEMATOCRIT (BEAKER) (test aksw=580) 23.2 % 40.0-50.0 MEAN CORPUSCULAR VOLUME (BEAKER) (test oydl=514) 90.9 fL 82.0-98.0 MEAN CORPUSCULAR HEMOGLOBIN (BEAKER) (test tcth=666) 31.0 pg 27.0-33.0 MEAN CORPUSCULAR HEMOGLOBIN CONC (BEAKER) (test iofc=192) 34.1 GM/DL 32.0-36.0 RED CELL DISTRIBUTION WIDTH (BEAKER) (test oxao=378) 14.5 % 10.3-14.2 PLATELET COUNT (BEAKER) (test bmek=409) 35 K/CU MM 150-430 MEAN PLATELET VOLUME (BEAKER) (test sqjn=746) 10.2 fL 6.5-10.5 NUCLEATED RED BLOOD CELLS (BEAKER) (test frti=848) 0 /100 WBC 0-0 NEUTROPHILS RELATIVE PERCENT (BEAKER) (test zroc=151) 18 % LYMPHOCYTES RELATIVE PERCENT (BEAKER) (test gpox=762) 81 % MONOCYTES RELATIVE PERCENT (BEAKER) (test qmrj=622) 0 % EOSINOPHILS RELATIVE PERCENT (BEAKER) (test twog=756) 0 % BASOPHILS RELATIVE PERCENT (BEAKER) (test txaz=881) 1 % NEUTROPHILS ABSOLUTE COUNT (BEAKER) (test qjdr=587) 0.17 K/ L 1.80-8.00 LYMPHOCYTES ABSOLUTE COUNT (BEAKER) (test mjvr=849) 0.77 K/ L 1.48-4.50 MONOCYTES ABSOLUTE COUNT (BEAKER) (test yzqg=932) 0.00 K/ L 0.00-1.30 EOSINOPHILS ABSOLUTE COUNT (BEAKER) (test mqou=855) 0.00 K/ L 0.00-0.50 BASOPHILS ABSOLUTE COUNT (BEAKER) (test oprq=776) 0.01 K/ L 0.00-0.20 0.00(MANUAL DIFFERENTIAL)2016-11-17 14:49:00* Test Item Value Reference Range Comments NEUTROPHILS - REL (DIFF) (BEAKER) (test weqn=3767) 13 % LYMPHOCYTES - REL (DIFF) (BEAKER) (test qzbu=5102) 79 % BANDS - REL (DIFF) (BEAKER) (test jdjl=4785) 8 % 0-10 NEUTROPHILS - ABS (DIFF) (BEAKER) (test rqak=1827) 0.12 K/ L 1.80-8.00 LYMPHOCYTES - ABS (DIFF) (BEAKER) (test bnfk=3140) 0.71 K/ L 1.48-4.50 BANDS-ABS (DIFF) (BEAKER) (test yujb=4113) 0.1 K/ L 0.0-0.8 TOTAL COUNTED (BEAKER) (test hjhh=9032) 100 BANDS + SEGMENTED NEUTROPHILS (BEAKER) (test rtgu=5815) 0.19 PLT MORPHOLOGY (BEAKER) (test rnjl=528) Normal RBC MORPHOLOGY (BEAKER) (test fxdq=544) Normal ATYPICAL LYMPHS(BEAKER) (test nnjp=7466) Present FLOW [id number] 10:22:00* Test Item Value Reference Range Comments LAB AP CPT CODE (BEAKER) (test jubp=4324) [id number] HEPATIC FUNCTION [id number] 07:16:00* Test Item Value Reference Range Comments TOTAL PROTEIN (BEAKER) (test msmh=129) 5.6 gm/dL 6.0-8.3 ALBUMIN (BEAKER) (test jugf=9000) 3.0 g/dL 3.5-5.0 BILIRUBIN TOTAL (BEAKER) (test kndl=519) 9.2 mg/dL 0.2-1.2 BILIRUBIN DIRECT (BEAKER) (test jhfe=412) 7.2 mg/dL 0.1-0.5 ALKALINE PHOSPHATASE (BEAKER) (test bakc=128) 102 U/L 40-150 AST (SGOT) (BEAKER) (test sngj=565) 15 U/L 5-34 ALT (SGPT) (BEAKER) (test jdes=156) 27 U/L 6-55 Specimen moderately ictericBASIC METABOLIC [id number] 07:14:00* Test Item Value Reference Range Comments SODIUM (BEAKER) (test rhwx=715) 131 meq/L 136-145 POTASSIUM (BEAKER) (test ayqt=649) 4.2 meq/L 3.5-5.1 CHLORIDE (BEAKER) (test dhgk=743) 99 meq/L 98-107 CO2 (BEAKER) (test unaf=080) 21 meq/L 22-29 BLOOD UREA NITROGEN (BEAKER) (test epom=426) 12 mg/dL 7-21 CREATININE (BEAKER) (test veek=761) 0.50 mg/dL 0.57-1.25 GLUCOSE RANDOM (BEAKER) (test byzh=011) 96 mg/dL 70-105 CALCIUM (BEAKER) (test lron=531) 8.2 mg/dL 8.4-10.2 EGFR (BEAKER) (test tqjf=9925) mL/min/1.73 sq m INSUFFICIENT CLINICAL DATA TO CALCULATE ESTIMATED GFR. Specimen moderately [id number] 07:13:00* Test Item Value Reference Range Comments PHOSPHORUS (BEAKER) (test qppc=207) 3.8 mg/dL 2.3-4.7 [id number] 07:13:00* Test Item Value Reference Range Comments MAGNESIUM (BEAKER) (test nuoi=973) 1.6 mg/dL 1.6-2.6 PROTHROMBIN TIME/[id number] 06:39:00* Test Item Value Reference Range Comments PROTIME (BEAKER) (test xsdc=455) 14.8 seconds 11.7-14.7 INR (BEAKER) (test rkou=060) 1.2 <=5.9 RECOMMENDED COUMADIN/WARFARIN INR THERAPY RANGESSTANDARD DOSE: 2.0 - 3.0 Inclu chevy: PROPHYLAXIS for venous thrombosis, systemic embolization; TREATMENT for janny ous thrombosis and/or pulmonary embolus.HIGH RISK: Target INR is 2.5-3.5 for pat ients with mechanical heart valves.[id number] 06:39:00* Test Item Value Reference Range Comments FIBRINOGEN LEVEL (BEAKER) (test ycxz=130) 614 mg/dl 225-434 [id number] 06:39:00* Test Item Value Reference Range Comments PARTIAL THROMBOPLASTIN TIME (BEAKER) (test ojaq=510) 29.1 seconds 22.5-36.0 BASIC METABOLIC [id number] 21:10:00* Test Item Value Reference Range Comments SODIUM (BEAKER) (test jvoj=873) 132 meq/L 136-145 POTASSIUM (BEAKER) (test qsfz=668) 4.3 meq/L 3.5-5.1 CHLORIDE (BEAKER) (test hifj=349) 102 meq/L 98-107 CO2 (BEAKER) (test uwmm=976) 18 meq/L 22-29 BLOOD UREA NITROGEN (BEAKER) (test gzzp=853) 9 mg/dL 7-21 CREATININE (BEAKER) (test tdma=964) 0.52 mg/dL 0.57-1.25 GLUCOSE RANDOM (BEAKER) (test duxq=657) 97 mg/dL 70-105 CALCIUM (BEAKER) (test gcdm=632) 8.2 mg/dL 8.4-10.2 EGFR (BEAKER) (test jkqs=1906) mL/min/1.73 sq m INSUFFICIENT CLINICAL DATA TO CALCULATE ESTIMATED GFR. Specimen moderately ictericCBC (HEMOGRAM ONLY)2016-11-16 20:53:00* Test Item Value Reference Range Comments WHITE BLOOD CELL COUNT (BEAKER) (test henv=534) 0.9 K/ L 4.0-10.0 RED BLOOD CELL COUNT (BEAKER) (test eefn=669) 2.52 M/ L 4.20-5.80 HEMOGLOBIN (BEAKER) (test peed=841) 7.9 GM/DL 13.0-16.8 HEMATOCRIT (BEAKER) (test efdm=846) 22.8 % 40.0-50.0 MEAN CORPUSCULAR VOLUME (BEAKER) (test cbbp=483) 90.4 fL 82.0-98.0 MEAN CORPUSCULAR HEMOGLOBIN (BEAKER) (test qyhr=564) 31.2 pg 27.0-33.0 MEAN CORPUSCULAR HEMOGLOBIN CONC (BEAKER) (test euum=870) 34.5 GM/DL 32.0-36.0 RED CELL DISTRIBUTION WIDTH (BEAKER) (test syfr=238) 14.6 % 10.3-14.2 PLATELET COUNT (BEAKER) (test gbdb=971) 39 K/CU MM 150-430 MEAN PLATELET VOLUME (BEAKER) (test olrd=173) 9.1 fL 6.5-10.5 NUCLEATED RED BLOOD CELLS (BEAKER) (test qyxi=143) 0 /100 WBC 0-0 CBC (HEMOGRAM ONLY)2016-11-16 15:54:00* Test Item Value Reference Range Comments WHITE BLOOD CELL COUNT (BEAKER) (test vwpz=428) 0.6 K/ L 4.0-10.0 RED BLOOD CELL COUNT (BEAKER) (test vhbc=429) 2.44 M/ L 4.20-5.80 HEMOGLOBIN (BEAKER) (test minf=101) 7.6 GM/DL 13.0-16.8 HEMATOCRIT (BEAKER) (test uqup=793) 21.8 % 40.0-50.0 MEAN CORPUSCULAR VOLUME (BEAKER) (test sqvk=974) 89.1 fL 82.0-98.0 MEAN CORPUSCULAR HEMOGLOBIN (BEAKER) (test gmez=595) 31.0 pg 27.0-33.0 MEAN CORPUSCULAR HEMOGLOBIN CONC (BEAKER) (test vbxt=526) 34.8 GM/DL 32.0-36.0 RED CELL DISTRIBUTION WIDTH (BEAKER) (test ikzp=140) 15.6 % 10.3-14.2 PLATELET COUNT (BEAKER) (test bhrs=076) 41 K/CU MM 150-430 MEAN PLATELET VOLUME (BEAKER) (test xrdz=907) 9.2 fL 6.5-10.5 NUCLEATED RED BLOOD CELLS (BEAKER) (test opvq=150) 0 /100 WBC 0-0 0.000.670.000.000.850.000.000.000.00FLOW CYTOMETRY [id number] 13:00:00* Test Item Value Reference Range Comments FLOW CYTOMETRY RESULT POINTER (BEAKER) (test kmzd=6730) See Separate Report FLOW CYTOMETRY AP CASE # (BEAKER) (test xhun=2456) [id number] BONE MARROW PROCESS.2016-11-16 12:59:00* Test Item Value Reference Range Comments ANATOMIC CASE# (BEAKER) (test tbva=0679) [id number] ORDERED BY DOCTOR# (YANN) (test slog=6948) recinos PERFORMED BY DOCTOR# (YANN) (test vfzw=5829) erik CLOT RECEIVED? (BEAKER) (test czxt=9346) Yes BIOPSY RECEIVED? (BEAKER) (test vczg=0563) Yes CULTURE RECEIVED? (BEAKER) (test wobd=7647) No FLOW RECEIVED? (BEAKER) (test wlhw=8537) Hold CYTOGENICS? (BEAKER) (test hfda=7682) Hold MOLECULAR GENETICS? (BEAKER) (test durv=8598) Hold CBC W/PLT COUNT & AUTO [id number] 11:21:00* Test Item Value Reference Range Comments WHITE BLOOD CELL COUNT (BEAKER) (test xvcs=762) 0.6 K/ L 4.0-10.0 RED BLOOD CELL COUNT (BEAKER) (test cnok=203) 2.15 M/ L 4.20-5.80 HEMOGLOBIN (BEAKER) (test vhnz=067) 6.6 GM/DL 13.0-16.8 HEMATOCRIT (BEAKER) (test hsem=042) 19.1 % 40.0-50.0 MEAN CORPUSCULAR VOLUME (BEAKER) (test aurt=100) 89.1 fL 82.0-98.0 MEAN CORPUSCULAR HEMOGLOBIN (BEAKER) (test libg=367) 30.7 pg 27.0-33.0 MEAN CORPUSCULAR HEMOGLOBIN CONC (BEAKER) (test gthh=186) 34.4 GM/DL 32.0-36.0 RED CELL DISTRIBUTION WIDTH (BEAKER) (test feoq=131) 15.4 % 10.3-14.2 PLATELET COUNT (BEAKER) (test anib=159) 17 K/CU MM 150-430 MEAN PLATELET VOLUME (BEAKER) (test tzux=731) 10.1 fL 6.5-10.5 NUCLEATED RED BLOOD CELLS (BEAKER) (test tbje=289) 0 /100 WBC 0-0 0.00(MANUAL DIFFERENTIAL)2016-11-16 11:21:00* Test Item Value Reference Range Comments NEUTROPHILS - REL (DIFF) (BEAKER) (test eelw=3739) 27 % LYMPHOCYTES - REL (DIFF) (BEAKER) (test aoiv=9755) 68 % MONOCYTES - REL (DIFF) (BEAKER) (test lloz=1106) 1 % BANDS - REL (DIFF) (BEAKER) (test yxpt=5375) 4 % 0-10 NEUTROPHILS - ABS (DIFF) (BEAKER) (test przh=7817) 0.16 K/ L 1.80-8.00 LYMPHOCYTES - ABS (DIFF) (BEAKER) (test qefz=6072) 0.41 K/ L 1.48-4.50 MONOCYTES - ABS (DIFF) (BEAKER) (test lnhv=2152) 0.01 K/ L 0.00-1.30 BANDS-ABS (DIFF) (BEAKER) (test tbgg=4351) 0.0 K/ L 0.0-0.8 TOTAL COUNTED (BEAKER) (test olss=2418) 100 BANDS + SEGMENTED NEUTROPHILS (BEAKER) (test bqcp=2546) 0.19 PLT MORPHOLOGY (BEAKER) (test zama=213) Normal RBC MORPHOLOGY (BEAKER) (test wxnk=909) Normal ATYPICAL LYMPHS(BEAKER) (test ztcl=5428) Present BASIC METABOLIC [id number] 10:30:00* Test Item Value Reference Range Comments SODIUM (BEAKER) (test lznb=235) 138 meq/L 136-145 POTASSIUM (BEAKER) (test advw=627) 3.0 meq/L 3.5-5.1 CHLORIDE (BEAKER) (test sets=833) 112 meq/L 98-107 CO2 (BEAKER) (test lyez=171) 16 meq/L 22-29 BLOOD UREA NITROGEN (BEAKER) (test eglt=804) 9 mg/dL 7-21 CREATININE (BEAKER) (test rnxk=028) 0.41 mg/dL 0.57-1.25 GLUCOSE RANDOM (BEAKER) (test qrrb=299) 98 mg/dL 70-105 CALCIUM (BEAKER) (test tnsf=107) 6.4 mg/dL 8.4-10.2 EGFR (BEAKER) (test qwhi=1797) mL/min/1.73 sq m INSUFFICIENT CLINICAL DATA TO CALCULATE ESTIMATED GFR. Specimen moderately [id number] 05:24:00* Test Item Value Reference Range Comments MAGNESIUM (BEAKER) (test egvu=374) 1.0 mg/dL 1.6-2.6 [id number] 05:20:00* Test Item Value Reference Range Comments FIBRINOGEN LEVEL (BEAKER) (test jeyw=844) 466 mg/dl 225-434 [id number] 05:20:00* Test Item Value Reference Range Comments PARTIAL THROMBOPLASTIN TIME (BEAKER) (test fgsx=448) 32.6 seconds 22.5-36.0 PROTHROMBIN TIME/[id number] 05:19:00* Test Item Value Reference Range Comments PROTIME (BEAKER) (test qqng=029) 16.8 seconds 11.7-14.7 INR (BEAKER) (test ibqi=301) 1.4 <=5.9 RECOMMENDED COUMADIN/WARFARIN INR THERAPY RANGESSTANDARD DOSE: 2.0 - 3.0 Inclu chevy: PROPHYLAXIS for venous thrombosis, systemic embolization; TREATMENT for janny ous thrombosis and/or pulmonary embolus.HIGH RISK: Target INR is 2.5-3.5 for pat ients with mechanical heart valves.[id number] 05:16:00* Test Item Value Reference Range Comments PHOSPHORUS (BEAKER) (test ohxd=424) 2.2 mg/dL 2.3-4.7 HEPATIC FUNCTION [id number] 05:16:00* Test Item Value Reference Range Comments TOTAL PROTEIN (BEAKER) (test ugzt=134) 3.9 gm/dL 6.0-8.3 ALBUMIN (BEAKER) (test hoyp=6825) 2.1 g/dL 3.5-5.0 BILIRUBIN TOTAL (BEAKER) (test cpti=854) 9.2 mg/dL 0.2-1.2 BILIRUBIN DIRECT (BEAKER) (test huny=591) 7.0 mg/dL 0.1-0.5 ALKALINE PHOSPHATASE (BEAKER) (test lekh=739) 70 U/L 40-150 AST (SGOT) (BEAKER) (test zmig=652) 13 U/L 5-34 ALT (SGPT) (BEAKER) (test wfpd=614) 24 U/L 6-55 Specimen moderately ictericPOCT-GLUCOSE [id number] 20:43:00* Test Item Value Reference Range Comments POC-GLUCOSE METER (BEAKER) (test nfzz=8063) 137 mg/dL 70-110 TESTED AT [facility] [address] [facility] [address] BASIC METABOLIC [id number] 20:22:00* Test Item Value Reference Range Comments SODIUM (BEAKER) (test mtek=059) 136 meq/L 136-145 POTASSIUM (BEAKER) (test bcwh=675) 3.6 meq/L 3.5-5.1 CHLORIDE (BEAKER) (test gwyo=648) 103 meq/L 98-107 CO2 (BEAKER) (test qsgu=791) 23 meq/L 22-29 BLOOD UREA NITROGEN (BEAKER) (test walu=581) 8 mg/dL 7-21 CREATININE (BEAKER) (test cfti=933) 0.54 mg/dL 0.57-1.25 GLUCOSE RANDOM (BEAKER) (test boou=933) 117 mg/dL 70-105 CALCIUM (BEAKER) (test ztue=808) 8.0 mg/dL 8.4-10.2 EGFR (BEAKER) (test okls=4841) mL/min/1.73 sq m INSUFFICIENT CLINICAL DATA TO CALCULATE ESTIMATED GFR. Specimen markedly ictericCBC (HEMOGRAM ONLY)2016-11-15 20:07:00* Test Item Value Reference Range Comments WHITE BLOOD CELL COUNT (BEAKER) (test kzsj=625) 0.7 K/ L 4.0-10.0 RED BLOOD CELL COUNT (BEAKER) (test avuu=436) 2.64 M/ L 4.20-5.80 HEMOGLOBIN (BEAKER) (test tqda=189) 8.1 GM/DL 13.0-16.8 HEMATOCRIT (BEAKER) (test zpro=415) 23.3 % 40.0-50.0 MEAN CORPUSCULAR VOLUME (BEAKER) (test funo=353) 88.4 fL 82.0-98.0 MEAN CORPUSCULAR HEMOGLOBIN (BEAKER) (test mnqv=830) 30.5 pg 27.0-33.0 MEAN CORPUSCULAR HEMOGLOBIN CONC (BEAKER) (test kdph=612) 34.5 GM/DL 32.0-36.0 RED CELL DISTRIBUTION WIDTH (BEAKER) (test wwxd=216) 15.3 % 10.3-14.2 PLATELET COUNT (BEAKER) (test hjcb=210) 24 K/CU MM 150-430 MEAN PLATELET VOLUME (BEAKER) (test okms=749) 10.2 fL 6.5-10.5 NUCLEATED RED BLOOD CELLS (BEAKER) (test fvml=609) 0 /100 WBC 0-0 BLOOD [id number] 18:00:00* Test Item Value Reference Range Comments CULTURE (BEAKER) (test zhby=2688) No growth in 5 days BLOOD [id number] 18:00:00* Test Item Value Reference Range Comments CULTURE (BEAKER) (test ajvn=5422) No growth in 5 days POCT-GLUCOSE [id number] 17:37:00* Test Item Value Reference Range Comments POC-GLUCOSE METER (BEAKER) (test gtsr=5101) 113 mg/dL 70-110 TESTED AT [address] [address] CBC (HEMOGRAM ONLY)2016-11-15 13:34:00* Test Item Value Reference Range Comments WHITE BLOOD CELL COUNT (BEAKER) (test siwn=551) 0.5 K/ L 4.0-10.0 RED BLOOD CELL COUNT (BEAKER) (test ddee=015) 2.40 M/ L 4.20-5.80 HEMOGLOBIN (BEAKER) (test pdyr=067) 7.4 GM/DL 13.0-16.8 HEMATOCRIT (BEAKER) (test eukt=641) 21.5 % 40.0-50.0 MEAN CORPUSCULAR VOLUME (BEAKER) (test hpig=407) 89.7 fL 82.0-98.0 MEAN CORPUSCULAR HEMOGLOBIN (BEAKER) (test ggjv=357) 30.9 pg 27.0-33.0 MEAN CORPUSCULAR HEMOGLOBIN CONC (BEAKER) (test lgnr=352) 34.4 GM/DL 32.0-36.0 RED CELL DISTRIBUTION WIDTH (BEAKER) (test ngtq=297) 15.6 % 10.3-14.2 PLATELET COUNT (BEAKER) (test wvnl=593) 15 K/CU MM 150-430 MEAN PLATELET VOLUME (BEAKER) (test uiod=372) 11.3 fL 6.5-10.5 NUCLEATED RED BLOOD CELLS (BEAKER) (test dsvq=837) 0 /100 WBC 0-0 0.000.650.000.000.900.000.000.000.00POCT-GLUCOSE [id number] 13:19:00* Test Item Value Reference Range Comments POC-GLUCOSE METER (BEAKER) (test fodk=6899) 99 mg/dL 70-110 TESTED AT [address] [address] POCT-GLUCOSE [id number] 11:23:00* Test Item Value Reference Range Comments POC-GLUCOSE METER (BEAKER) (test mmpf=5038) 94 mg/dL 70-110 TESTED AT [address] [address] BASIC METABOLIC [id number] 09:39:00* Test Item Value Reference Range Comments SODIUM (BEAKER) (test vbgm=435) 135 meq/L 136-145 POTASSIUM (BEAKER) (test kwvm=553) 3.1 meq/L 3.5-5.1 CHLORIDE (BEAKER) (test hhhx=288) 106 meq/L 98-107 CO2 (BEAKER) (test btmv=604) 20 meq/L 22-29 BLOOD UREA NITROGEN (BEAKER) (test uudd=980) 6 mg/dL 7-21 CREATININE (BEAKER) (test xzkl=556) 0.45 mg/dL 0.57-1.25 GLUCOSE RANDOM (BEAKER) (test klws=698) 91 mg/dL 70-105 CALCIUM (BEAKER) (test tsha=082) 7.0 mg/dL 8.4-10.2 EGFR (BEAKER) (test ayae=1592) mL/min/1.73 sq m INSUFFICIENT CLINICAL DATA TO CALCULATE ESTIMATED GFR. Specimen markedly ictericPOCT-GLUCOSE [id number] 07:58:00* Test Item Value Reference Range Comments POC-GLUCOSE METER (BEAKER) (test ebgo=6639) 83 mg/dL 70-110 TESTED AT [address] [address] POCT-GLUCOSE [id number] 06:02:00* Test Item Value Reference Range Comments POC-GLUCOSE METER (BEAKER) (test oshf=6062) 89 mg/dL 70-110 TESTED AT [address] [address] [id number] 05:40:00* Test Item Value Reference Range Comments PHOSPHORUS (BEAKER) (test citk=936) 2.5 mg/dL 2.3-4.7 [id number] 05:40:00* Test Item Value Reference Range Comments MAGNESIUM (BEAKER) (test hawd=787) 1.7 mg/dL 1.6-2.6 HEPATIC FUNCTION [id number] 05:40:00* Test Item Value Reference Range Comments TOTAL PROTEIN (BEAKER) (test sjbz=392) 4.6 gm/dL 6.0-8.3 ALBUMIN (BEAKER) (test mmrq=8440) 2.5 g/dL 3.5-5.0 BILIRUBIN TOTAL (BEAKER) (test wwzm=919) 17.1 mg/dL 0.2-1.2 BILIRUBIN DIRECT (BEAKER) (test zksn=888) 12.2 mg/dL 0.1-0.5 ALKALINE PHOSPHATASE (BEAKER) (test eywm=324) 74 U/L 40-150 AST (SGOT) (BEAKER) (test ukfl=827) 10 U/L 5-34 ALT (SGPT) (BEAKER) (test jazj=778) 34 U/L 6-55 Specimen markedly ictericPROTHROMBIN TIME/[id number] 05:37:00* Test Item Value Reference Range Comments PROTIME (BEAKER) (test ezhs=585) 15.9 seconds 11.7-14.7 INR (BEAKER) (test pysy=784) 1.3 <=5.9 RECOMMENDED COUMADIN/WARFARIN INR THERAPY RANGESSTANDARD DOSE: 2.0 - 3.0 Inclu che[place]: PROPHYLAXIS for venous thrombosis, systemic embolization; TREATMENT for janny ous thrombosis and/or pulmonary embolus.HIGH RISK: Target INR is 2.5-3.5 for pat ients with mechanical heart valves.CBC W/PLT COUNT & AUTO [id number] 05:31:00* Test Item Value Reference Range Comments WHITE BLOOD CELL COUNT (BEAKER) (test fauc=582) 0.6 K/ L 4.0-10.0 RED BLOOD CELL COUNT (BEAKER) (test utcg=029) 2.63 M/ L 4.20-5.80 HEMOGLOBIN (BEAKER) (test tozk=324) 8.4 GM/DL 13.0-16.8 HEMATOCRIT (BEAKER) (test odov=563) 23.6 % 40.0-50.0 MEAN CORPUSCULAR VOLUME (BEAKER) (test xuzb=015) 89.8 fL 82.0-98.0 MEAN CORPUSCULAR HEMOGLOBIN (BEAKER) (test hejs=321) 31.9 pg 27.0-33.0 MEAN CORPUSCULAR HEMOGLOBIN CONC (BEAKER) (test bxnc=404) 35.6 GM/DL 32.0-36.0 RED CELL DISTRIBUTION WIDTH (BEAKER) (test qdwk=140) 15.4 % 10.3-14.2 PLATELET COUNT (BEAKER) (test xisc=479) 18 K/CU MM 150-430 MEAN PLATELET VOLUME (BEAKER) (test enas=284) 10.0 fL 6.5-10.5 NUCLEATED RED BLOOD CELLS (BEAKER) (test rrdg=543) 0 /100 WBC 0-0 NEUTROPHILS RELATIVE PERCENT (BEAKER) (test aojy=007) 26 % LYMPHOCYTES RELATIVE PERCENT (BEAKER) (test gypb=697) 74 % MONOCYTES RELATIVE PERCENT (BEAKER) (test vudg=535) 1 % EOSINOPHILS RELATIVE PERCENT (BEAKER) (test xhir=540) 0 % BASOPHILS RELATIVE PERCENT (BEAKER) (test yluc=885) 0 % NEUTROPHILS ABSOLUTE COUNT (BEAKER) (test jlwk=910) 0.16 K/ L 1.80-8.00 LYMPHOCYTES ABSOLUTE COUNT (BEAKER) (test eams=138) 0.46 K/ L 1.48-4.50 MONOCYTES ABSOLUTE COUNT (BEAKER) (test gyyh=003) 0.00 K/ L 0.00-1.30 EOSINOPHILS ABSOLUTE COUNT (BEAKER) (test bwjm=776) 0.00 K/ L 0.00-0.50 BASOPHILS ABSOLUTE COUNT (BEAKER) (test tcua=541) 0.00 K/ L 0.00-0.20 [id number] 05:30:00* Test Item Value Reference Range Comments FIBRINOGEN LEVEL (BEAKER) (test pboq=789) 608 mg/dl 225-434 [id number] 05:30:00* Test Item Value Reference Range Comments PARTIAL THROMBOPLASTIN TIME (BEAKER) (test wapg=178) 33.4 seconds 22.5-36.0 VANCOMYCIN LEVEL, [id number] 00:46:00* Test Item Value Reference Range Comments VANCOMYCIN TROUGH (BEAKER) (test gfip=335) 8.8 ug/mL 10.0-20.0 BASIC METABOLIC [id number] 00:08:00* Test Item Value Reference Range Comments SODIUM (BEAKER) (test gmrf=101) 133 meq/L 136-145 POTASSIUM (BEAKER) (test uoew=103) 3.5 meq/L 3.5-5.1 CHLORIDE (BEAKER) (test czva=815) 102 meq/L 98-107 CO2 (BEAKER) (test vjkb=546) 23 meq/L 22-29 BLOOD UREA NITROGEN (BEAKER) (test llsz=184) 7 mg/dL 7-21 CREATININE (BEAKER) (test kryn=793) 0.50 mg/dL 0.57-1.25 GLUCOSE RANDOM (BEAKER) (test xayp=699) 94 mg/dL 70-105 CALCIUM (BEAKER) (test gdss=062) 7.7 mg/dL 8.4-10.2 EGFR (BEAKER) (test fzoo=7007) mL/min/1.73 sq m INSUFFICIENT CLINICAL DATA TO CALCULATE ESTIMATED GFR. Specimen markedly ictericPOCT-GLUCOSE [id number] 00:01:00* Test Item Value Reference Range Comments POC-GLUCOSE METER (BEAKER) (test kndt=6569) 101 mg/dL 70-110 TESTED AT [facility] [address] [facility] [address] CBC (HEMOGRAM ONLY)2016-11-14 23:36:00* Test Item Value Reference Range Comments WHITE BLOOD CELL COUNT (BEAKER) (test voev=726) 0.6 K/ L 4.0-10.0 RED BLOOD CELL COUNT (BEAKER) (test qfut=844) 2.64 M/ L 4.20-5.80 HEMOGLOBIN (BEAKER) (test xsif=602) 8.1 GM/DL 13.0-16.8 HEMATOCRIT (BEAKER) (test eyhp=199) 23.7 % 40.0-50.0 MEAN CORPUSCULAR VOLUME (BEAKER) (test dysj=007) 89.9 fL 82.0-98.0 MEAN CORPUSCULAR HEMOGLOBIN (BEAKER) (test yrfu=826) 30.6 pg 27.0-33.0 MEAN CORPUSCULAR HEMOGLOBIN CONC (BEAKER) (test rkwd=733) 34.0 GM/DL 32.0-36.0 RED CELL DISTRIBUTION WIDTH (BEAKER) (test ccbp=019) 14.4 % 10.3-14.2 PLATELET COUNT (BEAKER) (test qjiq=601) 20 K/CU MM 150-430 MEAN PLATELET VOLUME (BEAKER) (test vvsl=346) 9.3 fL 6.5-10.5 NUCLEATED RED BLOOD CELLS (BEAKER) (test nyqr=076) 0 /100 WBC 0-0 0.00POCT-GLUCOSE [id number] 18:26:00* Test Item Value Reference Range Comments POC-GLUCOSE METER (BEAKER) (test egjk=6107) 110 mg/dL 70-110 TESTED AT [facility] [address] [facility] [address] CBC W/PLT COUNT & AUTO [id number] 09:15:00* Test Item Value Reference Range Comments WHITE BLOOD CELL COUNT (BEAKER) (test kowr=592) 0.5 K/ L 4.0-10.0 RED BLOOD CELL COUNT (BEAKER) (test jurm=421) 2.40 M/ L 4.20-5.80 HEMOGLOBIN (BEAKER) (test xkku=914) 7.0 GM/DL 13.0-16.8 HEMATOCRIT (BEAKER) (test hdhe=391) 21.6 % 40.0-50.0 MEAN CORPUSCULAR VOLUME (BEAKER) (test nkwt=811) 90.0 fL 82.0-98.0 MEAN CORPUSCULAR HEMOGLOBIN (BEAKER) (test dqvq=499) 29.3 pg 27.0-33.0 MEAN CORPUSCULAR HEMOGLOBIN CONC (BEAKER) (test ullo=860) 32.6 GM/DL 32.0-36.0 RED CELL DISTRIBUTION WIDTH (BEAKER) (test wsmk=162) 14.7 % 10.3-14.2 PLATELET COUNT (BEAKER) (test bhsq=876) 17 K/CU MM 150-430 MEAN PLATELET VOLUME (BEAKER) (test lzyf=481) 9.9 fL 6.5-10.5 NUCLEATED RED BLOOD CELLS (BEAKER) (test skay=837) 0 /100 WBC 0-0 0.00(MANUAL DIFFERENTIAL)2016-11-14 09:15:00* Test Item Value Reference Range Comments NEUTROPHILS - REL (DIFF) (BEAKER) (test ydae=5342) 17 % LYMPHOCYTES - REL (DIFF) (BEAKER) (test lsmt=6598) 69 % BANDS - REL (DIFF) (BEAKER) (test esvf=9975) 14 % 0-10 NEUTROPHILS - ABS (DIFF) (BEAKER) (test mfjn=3071) 0.09 K/ L 1.80-8.00 LYMPHOCYTES - ABS (DIFF) (BEAKER) (test cqoo=4447) 0.35 K/ L 1.48-4.50 BANDS-ABS (DIFF) (BEAKER) (test ghtq=0501) 0.1 K/ L 0.0-0.8 TOTAL COUNTED (BEAKER) (test btsc=0049) 100 BANDS + SEGMENTED NEUTROPHILS (BEAKER) (test bdhd=0272) 0.16 WBC MORPHOLOGY (BEAKER) (test gbop=847) Normal LARGE PLT(BEAKER) (test dhsz=8728) Present ACANTHOCYTES (BEAKER) (test yguk=406) 1+ few ANISOCYTOSIS (BEAKER) (test gpzv=406) 1+ few HYPOCHROMIA (BEAKER) (test ivys=594) 1+ few MACROCYTES (BEAKER) (test zzht=396) 1+ few OVALOCYTES (BEAKER) (test dnum=468) 1+ few POIKILOCYTES (BEAKER) (test zyml=770) 1+ few POCT-GLUCOSE [id number] 06:05:00* Test Item Value Reference Range Comments POC-GLUCOSE METER (BEAKER) (test bsim=9592) 89 mg/dL 70-110 TESTED AT [facility] [address] [facility] [address] [id number] 05:23:00* Test Item Value Reference Range Comments PHOSPHORUS (BEAKER) (test duwh=091) 3.1 mg/dL 2.3-4.7 [id number] 05:23:00* Test Item Value Reference Range Comments MAGNESIUM (BEAKER) (test tnxf=976) 1.4 mg/dL 1.6-2.6 HEPATIC FUNCTION [id number] 05:23:00* Test Item Value Reference Range Comments TOTAL PROTEIN (BEAKER) (test chuq=285) 4.4 gm/dL 6.0-8.3 ALBUMIN (BEAKER) (test tjkp=5124) 2.3 g/dL 3.5-5.0 BILIRUBIN TOTAL (BEAKER) (test lqrv=046) 16.2 mg/dL 0.2-1.2 BILIRUBIN DIRECT (BEAKER) (test jnyv=714) 12.5 mg/dL 0.1-0.5 ALKALINE PHOSPHATASE (BEAKER) (test rdmh=874) 70 U/L 40-150 AST (SGOT) (BEAKER) (test ezzx=868) 10 U/L 5-34 ALT (SGPT) (BEAKER) (test ntpl=040) 41 U/L 6-55 Specimen markedly [id number] 05:12:00* Test Item Value Reference Range Comments PARTIAL THROMBOPLASTIN TIME (BEAKER) (test pqkx=193) 34.5 seconds 22.5-36.0 PROTHROMBIN [id number] 05:11:00* Test Item Value Reference Range Comments PROTIME (BEAKER) (test zkhc=513) 16.7 seconds 11.7-14.7 INR (BEAKER) (test rktb=210) 1.4 <=5.9 RECOMMENDED COUMADIN/WARFARIN INR THERAPY RANGESSTANDARD DOSE: 2.0 - 3.0 Inclu [place]: PROPHYLAXIS for venous thrombosis, systemic embolization; TREATMENT for janny ous thrombosis and/or pulmonary embolus.HIGH RISK: Target INR is 2.5-3.5 for pat ients with mechanical heart valves.BASIC METABOLIC [id number] 02:37:00* Test Item Value Reference Range Comments SODIUM (BEAKER) (test yixx=277) 133 meq/L 136-145 POTASSIUM (BEAKER) (test cahr=113) 3.3 meq/L 3.5-5.1 CHLORIDE (BEAKER) (test vtkv=928) 99 meq/L 98-107 CO2 (BEAKER) (test ghof=430) 24 meq/L 22-29 BLOOD UREA NITROGEN (BEAKER) (test zfhm=027) 7 mg/dL 7-21 CREATININE (BEAKER) (test qetv=617) 0.52 mg/dL 0.57-1.25 GLUCOSE RANDOM (BEAKER) (test mehw=119) 99 mg/dL 70-105 CALCIUM (BEAKER) (test epjt=810) 7.6 mg/dL 8.4-10.2 EGFR (BEAKER) (test gkau=5540) mL/min/1.73 sq m INSUFFICIENT CLINICAL DATA TO CALCULATE ESTIMATED GFR. Specimen markedly ictericCBC (HEMOGRAM ONLY)2016-11-14 02:25:00* Test Item Value Reference Range Comments WHITE BLOOD CELL COUNT (BEAKER) (test xffq=413) 0.5 K/ L 4.0-10.0 RED BLOOD CELL COUNT (BEAKER) (test oezh=348) 2.44 M/ L 4.20-5.80 HEMOGLOBIN (BEAKER) (test ueej=837) 7.8 GM/DL 13.0-16.8 HEMATOCRIT (BEAKER) (test rrfy=486) 21.9 % 40.0-50.0 MEAN CORPUSCULAR VOLUME (BEAKER) (test yovc=676) 90.0 fL 82.0-98.0 MEAN CORPUSCULAR HEMOGLOBIN (BEAKER) (test tsdv=467) 31.9 pg 27.0-33.0 MEAN CORPUSCULAR HEMOGLOBIN CONC (BEAKER) (test gyyb=043) 35.5 GM/DL 32.0-36.0 RED CELL DISTRIBUTION WIDTH (BEAKER) (test ywcs=682) 15.5 % 10.3-14.2 PLATELET COUNT (BEAKER) (test kwgg=523) 17 K/CU MM 150-430 MEAN PLATELET VOLUME (BEAKER) (test qocz=258) 10.8 fL 6.5-10.5 NUCLEATED RED BLOOD CELLS (BEAKER) (test vtkw=784) 0 /100 WBC 0-0 0.00POCT-GLUCOSE [id number] 22:24:00* Test Item Value Reference Range Comments POC-GLUCOSE METER (BEAKER) (test qyif=1611) 138 mg/dL 70-110 TESTED AT [place] [id number] [facility] [address] POCT-GLUCOSE [id number] 18:00:00* Test Item Value Reference Range Comments POC-GLUCOSE METER ([facility]) (test jsdn=7114) 100 mg/dL 70-110 TESTED AT [address] [address] CBC (HEMOGRAM ONLY)2016-11-13 12:09:00* Test Item Value Reference Range Comments WHITE BLOOD CELL COUNT (BEAKER) (test iiwc=188) 0.4 K/ L 4.0-10.0 RED BLOOD CELL COUNT (BEAKER) (test cntd=387) 2.14 M/ L 4.20-5.80 HEMOGLOBIN (BEAKER) (test xigm=485) 7.0 GM/DL 13.0-16.8 HEMATOCRIT (BEAKER) (test htcg=296) 19.5 % 40.0-50.0 MEAN CORPUSCULAR VOLUME (BEAKER) (test puje=240) 91.2 fL 82.0-98.0 MEAN CORPUSCULAR HEMOGLOBIN (BEAKER) (test ibap=778) 32.8 pg 27.0-33.0 MEAN CORPUSCULAR HEMOGLOBIN CONC (BEAKER) (test gtvk=650) 35.9 GM/DL 32.0-36.0 RED CELL DISTRIBUTION WIDTH (BEAKER) (test pfgz=701) 15.0 % 10.3-14.2 PLATELET COUNT (BEAKER) (test wkzc=948) 13 K/CU MM 150-430 MEAN PLATELET VOLUME (BEAKER) (test jzzc=388) 10.8 fL 6.5-10.5 NUCLEATED RED BLOOD CELLS (BEAKER) (test pioy=409) 0 /100 WBC 0-0 0.00POCT-GLUCOSE [id number] 11:43:00* Test Item Value Reference Range Comments POC-GLUCOSE METER (BEAKER) (test vhaj=2089) 108 mg/dL 70-110 TESTED AT [facility] [address] [facility] [address] BASIC METABOLIC [id number] 08:33:00* Test Item Value Reference Range Comments SODIUM (BEAKER) (test uyyd=089) 129 meq/L 136-145 POTASSIUM (BEAKER) (test uhot=963) 4.3 meq/L 3.5-5.1 Specimen slightly hemolyzed CHLORIDE (BEAKER) (test ijpx=752) 98 meq/L 98-107 CO2 (BEAKER) (test etav=702) 23 meq/L 22-29 BLOOD UREA NITROGEN (BEAKER) (test vapn=753) 10 mg/dL 7-21 CREATININE (BEAKER) (test xgxm=365) 0.45 mg/dL 0.57-1.25 Specimen slightly hemolyzed GLUCOSE RANDOM (BEAKER) (test bslq=810) 110 mg/dL 70-105 CALCIUM (BEAKER) (test tcra=949) 7.5 mg/dL 8.4-10.2 EGFR (BEAKER) (test apae=8856) mL/min/1.73 sq m INSUFFICIENT CLINICAL DATA TO CALCULATE ESTIMATED GFR. Specimen markedly ictericCBC W/PLT COUNT & AUTO [id number] 08:15:00 * Test Item Value Reference Range Comments WHITE BLOOD CELL COUNT (BEAKER) (test cvca=771) 0.5 K/ L 4.0-10.0 RED BLOOD CELL COUNT (BEAKER) (test bovu=110) 2.39 M/ L 4.20-5.80 HEMOGLOBIN (BEAKER) (test wliw=290) 7.6 GM/DL 13.0-16.8 HEMATOCRIT (BEAKER) (test bvpj=392) 21.9 % 40.0-50.0 MEAN CORPUSCULAR VOLUME (BEAKER) (test biah=265) 91.7 fL 82.0-98.0 MEAN CORPUSCULAR HEMOGLOBIN (BEAKER) (test mnzp=294) 31.8 pg 27.0-33.0 MEAN CORPUSCULAR HEMOGLOBIN CONC (BEAKER) (test vaqe=310) 34.7 GM/DL 32.0-36.0 RED CELL DISTRIBUTION WIDTH (BEAKER) (test pgij=802) 15.3 % 10.3-14.2 PLATELET COUNT (BEAKER) (test jvnj=371) 17 K/CU MM 150-430 MEAN PLATELET VOLUME (BEAKER) (test lzbt=959) 10.2 fL 6.5-10.5 NUCLEATED RED BLOOD CELLS (BEAKER) (test jgtq=054) 0 /100 WBC 0-0 0.000.500.000.000.000.000.00(MANUAL DIFFERENTIAL)2016-11-13 08:15:00* Test Item Value Reference Range Comments NEUTROPHILS - REL (DIFF) (BEAKER) (test ebuw=1507) 6 % LYMPHOCYTES - REL (DIFF) (BEAKER) (test cpio=9057) 86 % BANDS - REL (DIFF) (BEAKER) (test ejnr=7524) 8 % 0-10 NEUTROPHILS - ABS (DIFF) (BEAKER) (test yrwx=0747) 0.03 K/ L 1.80-8.00 LYMPHOCYTES - ABS (DIFF) (BEAKER) (test xnkn=3578) 0.43 K/ L 1.48-4.50 BANDS-ABS (DIFF) (BEAKER) (test tqom=4075) 0.0 K/ L 0.0-0.8 TOTAL COUNTED (BEAKER) (test onwn=1646) 100 BANDS + SEGMENTED NEUTROPHILS (BEAKER) (test zljx=9837) 0.07 MANUAL NRBC PER 100 CELLS (BEAKER) (test ewas=4581) 1 /100 WBC 0-0 WBC MORPHOLOGY (BEAKER) (test rwhi=382) Normal PLT MORPHOLOGY (BEAKER) (test fklc=087) Normal OVALOCYTES (BEAKER) (test prhv=438) 1+ few POLYCHROMATOPHILLIC RBCS(BEAKER) (test yyhi=690) 1+ few POCT-GLUCOSE [id number] 07:58:00* Test Item Value Reference Range Comments POC-GLUCOSE METER (BEAKER) (test tufh=7231) 116 mg/dL 70-110 TESTED AT [facility] [address] [facility] [address] CREATINE KINASE (CK)2016-11-13 07:43:00* Test Item Value Reference Range Comments CREATINE KINASE TOTAL (BEAKER) (test fxsd=330) 49 U/L 29-200 [id number] 05:34:00* Test Item Value Reference Range Comments PHOSPHORUS (BEAKER) (test tzjm=265) 2.2 mg/dL 2.3-4.7 [id number] 05:34:00* Test Item Value Reference Range Comments MAGNESIUM (BEAKER) (test urfb=379) 1.4 mg/dL 1.6-2.6 HEPATIC FUNCTION [id number] 05:34:00* Test Item Value Reference Range Comments TOTAL PROTEIN (BEAKER) (test iagr=573) 4.6 gm/dL 6.0-8.3 ALBUMIN (BEAKER) (test zgmu=6548) 2.5 g/dL 3.5-5.0 BILIRUBIN TOTAL (BEAKER) (test xgiw=664) 18.1 mg/dL 0.2-1.2 BILIRUBIN DIRECT (BEAKER) (test flap=629) 13.0 mg/dL 0.1-0.5 ALKALINE PHOSPHATASE (BEAKER) (test evex=489) 69 U/L 40-150 AST (SGOT) (BEAKER) (test ovnx=310) 14 U/L 5-34 ALT (SGPT) (BEAKER) (test ktnl=496) 64 U/L 6-55 Specimen markedly [id number] 05:13:00* Test Item Value Reference Range Comments PARTIAL THROMBOPLASTIN TIME (BEAKER) (test fqby=491) 35.4 seconds 22.5-36.0 PROTHROMBIN TIME/[id number] 05:12:00* Test Item Value Reference Range Comments PROTIME (BEAKER) (test wrrh=699) 17.4 seconds 11.7-14.7 INR (BEAKER) (test nptf=443) 1.4 <=5.9 RECOMMENDED COUMADIN/WARFARIN INR THERAPY RANGESSTANDARD DOSE: 2.0 - 3.0 Inclu chevy: PROPHYLAXIS for venous thrombosis, systemic embolization; TREATMENT for janny ous thrombosis and/or pulmonary embolus.HIGH RISK: Target INR is 2.5-3.5 for pat ients with mechanical heart valves.BLOOD GAS, [id number] 04:45:00* Test Item Value Reference Range Comments PH ARTERIAL (BEAKER) (test lqqc=137) 7.53 7.35-7.45 PCO2 ARTERIAL (BEAKER) (test ozqs=386) 32 mmHg 35-45 PO2 ARTERIAL (BEAKER) (test bcdm=848) 83 mmHg 80-90 O2 SATURATION ARTERIAL (BEAKER) (test urii=172) 97.2 % 96.0-97.0 HCO3 ARTERIAL (BEAKER) (test xfzc=862) 26 mmol/L 21-29 BASE EXCESS ARTERIAL (BEAKER) (test aecd=384) 3.6 mmol/L -2.0-3.0 PATIENT TEMPERATURE (BEAKER) (test qtsr=7241) 37.0 C FIO2 (BEAKER) (test uugf=9824) 21.0 % POCT-GLUCOSE [id number] 21:32:00* Test Item Value Reference Range Comments POC-GLUCOSE METER (BEAKER) (test zjad=7066) 109 mg/dL 70-110 TESTED AT [address] [address] BASIC METABOLIC [id number] 21:25:00* Test Item Value Reference Range Comments SODIUM (BEAKER) (test rsaw=129) 133 meq/L 136-145 POTASSIUM (BEAKER) (test kkxw=346) 3.6 meq/L 3.5-5.1 CHLORIDE (BEAKER) (test jdqg=514) 99 meq/L 98-107 CO2 (BEAKER) (test dmsw=167) 25 meq/L 22-29 BLOOD UREA NITROGEN (BEAKER) (test valw=704) 8 mg/dL 7-21 CREATININE (BEAKER) (test jocb=700) 0.51 mg/dL 0.57-1.25 GLUCOSE RANDOM (BEAKER) (test ialn=560) 127 mg/dL 70-105 CALCIUM (BEAKER) (test jpjo=484) 8.1 mg/dL 8.4-10.2 EGFR (BEAKER) (test oqkx=8690) mL/min/1.73 sq m INSUFFICIENT CLINICAL DATA TO CALCULATE ESTIMATED GFR. Specimen markedly ictericVANCOMYCIN LEVEL, [id number] 21:01:00* Test Item Value Reference Range Comments VANCOMYCIN TROUGH (BEAKER) (test kxbt=177) 11.3 ug/mL 10.0-20.0 Please draw 30 mins prior to 4th vanc doseCBC (HEMOGRAM ONLY)2016-11-12 20:54:00 * Test Item Value Reference Range Comments WHITE BLOOD CELL COUNT (BEAKER) (test hqik=465) 0.4 K/ L 4.0-10.0 RED BLOOD CELL COUNT (BEAKER) (test cqze=003) 2.49 M/ L 4.20-5.80 HEMOGLOBIN (BEAKER) (test bvpg=428) 7.6 GM/DL 13.0-16.8 HEMATOCRIT (BEAKER) (test rwkv=492) 22.7 % 40.0-50.0 MEAN CORPUSCULAR VOLUME (BEAKER) (test zdlv=051) 91.2 fL 82.0-98.0 MEAN CORPUSCULAR HEMOGLOBIN (BEAKER) (test vqrx=650) 30.4 pg 27.0-33.0 MEAN CORPUSCULAR HEMOGLOBIN CONC (BEAKER) (test qzrn=089) 33.4 GM/DL 32.0-36.0 RED CELL DISTRIBUTION WIDTH (BEAKER) (test yiny=597) 14.2 % 10.3-14.2 PLATELET COUNT (BEAKER) (test gwwf=182) 20 K/CU MM 150-430 MEAN PLATELET VOLUME (BEAKER) (test pjjn=225) 9.1 fL 6.5-10.5 NUCLEATED RED BLOOD CELLS (BEAKER) (test bjvr=188) 0 /100 WBC 0-0 0.00POCT-GLUCOSE [id number] 17:50:00* Test Item Value Reference Range Comments POC-GLUCOSE METER (BEAKER) (test smbs=5223) 124 mg/dL 70-110 TESTED AT [facility] [address] [facility] [address] CBC (HEMOGRAM ONLY)2016-11-12 15:35:00* Test Item Value Reference Range Comments WHITE BLOOD CELL COUNT (BEAKER) (test gubt=779) 0.4 K/ L 4.0-10.0 RED BLOOD CELL COUNT (BEAKER) (test zyfo=430) 2.26 M/ L 4.20-5.80 HEMOGLOBIN (BEAKER) (test nvdp=999) 7.0 GM/DL 13.0-16.8 HEMATOCRIT (BEAKER) (test pwoo=000) 20.8 % 40.0-50.0 MEAN CORPUSCULAR VOLUME (BEAKER) (test kzio=125) 92.0 fL 82.0-98.0 MEAN CORPUSCULAR HEMOGLOBIN (BEAKER) (test rqbp=859) 31.1 pg 27.0-33.0 MEAN CORPUSCULAR HEMOGLOBIN CONC (BEAKER) (test nsfj=880) 33.7 GM/DL 32.0-36.0 RED CELL DISTRIBUTION WIDTH (BEAKER) (test etmb=706) 15.1 % 10.3-14.2 PLATELET COUNT (BEAKER) (test tlbs=066) 10 K/CU MM 150-430 MEAN PLATELET VOLUME (BEAKER) (test mewo=805) 11.0 fL 6.5-10.5 NUCLEATED RED BLOOD CELLS (BEAKER) (test vgcd=673) 0 /100 WBC 0-0 0.00HEPATIC FUNCTION [id number] 15:33:00* Test Item Value Reference Range Comments TOTAL PROTEIN (BEAKER) (test doqv=214) 3.9 gm/dL 6.0-8.3 ALBUMIN (BEAKER) (test efes=2686) 2.1 g/dL 3.5-5.0 BILIRUBIN TOTAL (BEAKER) (test qryo=762) 14.6 mg/dL 0.2-1.2 BILIRUBIN DIRECT (BEAKER) (test zcwk=057) 10.7 mg/dL 0.1-0.5 ALKALINE PHOSPHATASE (BEAKER) (test tjrw=127) 59 U/L 40-150 AST (SGOT) (BEAKER) (test ozys=500) 12 U/L 5-34 ALT (SGPT) (BEAKER) (test gkhq=261) 71 U/L 6-55 Specimen markedly ictericPOCT-GLUCOSE [id number] 12:00:00* Test Item Value Reference Range Comments POC-GLUCOSE METER (BEAKER) (test awyo=2266) 83 mg/dL 70-110 TESTED AT [facility] [address] [facility] [address] FLOW [id number] 10:47:00* Test Item Value Reference Range Comments LAB AP CPT CODE (BEAKER) (test xyil=0229) [address] CBC W/PLT COUNT & AUTO [id number] 09:38:00* Test Item Value Reference Range Comments WHITE BLOOD CELL COUNT (BEAKER) (test rdyr=361) 0.4 K/ L 4.0-10.0 RED BLOOD CELL COUNT (BEAKER) (test hrew=905) 2.31 M/ L 4.20-5.80 HEMOGLOBIN (BEAKER) (test fxqy=849) 7.2 GM/DL 13.0-16.8 HEMATOCRIT (BEAKER) (test rbbi=137) 21.1 % 40.0-50.0 MEAN CORPUSCULAR VOLUME (BEAKER) (test hajt=480) 91.4 fL 82.0-98.0 MEAN CORPUSCULAR HEMOGLOBIN (BEAKER) (test zhax=582) 31.1 pg 27.0-33.0 MEAN CORPUSCULAR HEMOGLOBIN CONC (BEAKER) (test ixjs=065) 34.0 GM/DL 32.0-36.0 RED CELL DISTRIBUTION WIDTH (BEAKER) (test brda=639) 14.6 % 10.3-14.2 PLATELET COUNT (BEAKER) (test ycfy=285) 11 K/CU MM 150-430 MEAN PLATELET VOLUME (BEAKER) (test iart=035) 11.4 fL 6.5-10.5 NUCLEATED RED BLOOD CELLS (BEAKER) (test veqy=257) 0 /100 WBC 0-0 0.000.600.000.000.000.000.00(MANUAL DIFFERENTIAL)2016-11-12 09:38:00* Test Item Value Reference Range Comments NEUTROPHILS - REL (DIFF) (BEAKER) (test dyra=7948) 4 % LYMPHOCYTES - REL (DIFF) (BEAKER) (test sxst=3296) 87 % BANDS - REL (DIFF) (BEAKER) (test rnyy=8206) 9 % 0-10 NEUTROPHILS - ABS (DIFF) (BEAKER) (test gyyl=4512) 0.02 K/ L 1.80-8.00 LYMPHOCYTES - ABS (DIFF) (BEAKER) (test zakg=4084) 0.35 K/ L 1.48-4.50 BANDS-ABS (DIFF) (BEAKER) (test xafc=6388) 0.0 K/ L 0.0-0.8 TOTAL COUNTED (BEAKER) (test ynqp=3162) 100 BANDS + SEGMENTED NEUTROPHILS (BEAKER) (test govn=5786) 0.05 WBC MORPHOLOGY (BEAKER) (test awwf=795) Normal PLT MORPHOLOGY (BEAKER) (test cbfk=754) Normal SCHISTOCYTES (BEAKER) (test brxa=727) 1+ few ANISOCYTOSIS (BEAKER) (test fuql=551) 1+ few OVALOCYTES (BEAKER) (test hdyg=670) 1+ few POLYCHROMATOPHILLIC RBCS(BEAKER) (test mmex=277) 1+ few TEAR DROP CELLS (BEAKER) (test ulty=376) 1+ few POCT-GLUCOSE [id number] 08:09:00* Test Item Value Reference Range Comments POC-GLUCOSE METER (BEAKER) (test efct=0530) 76 mg/dL 70-110 TESTED AT [address] [address] BASIC METABOLIC [id number] 07:30:00* Test Item Value Reference Range Comments SODIUM (BEAKER) (test yjre=141) 133 meq/L 136-145 POTASSIUM (BEAKER) (test nbll=437) 3.2 meq/L 3.5-5.1 CHLORIDE (BEAKER) (test nwow=329) 100 meq/L 98-107 CO2 (BEAKER) (test kilj=593) 23 meq/L 22-29 BLOOD UREA NITROGEN (BEAKER) (test yqrq=768) 8 mg/dL 7-21 CREATININE (BEAKER) (test euuw=327) 0.50 mg/dL 0.57-1.25 GLUCOSE RANDOM (BEAKER) (test uecn=816) 88 mg/dL 70-105 CALCIUM (BEAKER) (test aipt=647) 7.3 mg/dL 8.4-10.2 EGFR (BEAKER) (test gody=4573) mL/min/1.73 sq m INSUFFICIENT CLINICAL DATA TO CALCULATE ESTIMATED GFR. Specimen markedly [id number] 07:14:00* Test Item Value Reference Range Comments PHOSPHORUS (BEAKER) (test bopc=329) 2.4 mg/dL 2.3-4.7 [id number] 07:14:00* Test Item Value Reference Range Comments MAGNESIUM (BEAKER) (test lnpn=133) 1.3 mg/dL 1.6-2.6 PROTHROMBIN [id number] 06:48:00* Test Item Value Reference Range Comments PROTIME (BEAKER) (test ypkc=316) 24.1 seconds 11.7-14.7 INR (BEAKER) (test mmvo=536) 2.2 <=5.9 RECOMMENDED COUMADIN/WARFARIN INR THERAPY RANGESSTANDARD DOSE: 2.0 - 3.0 Inclu cehvy: PROPHYLAXIS for venous thrombosis, systemic embolization; TREATMENT for janny ous thrombosis and/or pulmonary embolus.HIGH RISK: Target INR is 2.5-3.5 for pat ients with mechanical heart valves.[id number] 06:48:00* Test Item Value Reference Range Comments PARTIAL THROMBOPLASTIN TIME (BEAKER) (test nvly=804) 38.3 seconds 22.5-36.0 BASIC METABOLIC [id number] 02:24:00* Test Item Value Reference Range Comments SODIUM (BEAKER) (test qfxj=205) 133 meq/L 136-145 POTASSIUM (BEAKER) (test bmkh=666) 3.3 meq/L 3.5-5.1 CHLORIDE (BEAKER) (test jrwm=185) 98 meq/L 98-107 CO2 (BEAKER) (test tzhd=127) 24 meq/L 22-29 BLOOD UREA NITROGEN (BEAKER) (test ogus=997) 9 mg/dL 7-21 CREATININE (BEAKER) (test haal=365) 0.55 mg/dL 0.57-1.25 GLUCOSE RANDOM (BEAKER) (test xsdu=257) 96 mg/dL 70-105 CALCIUM (BEAKER) (test orzj=863) 7.8 mg/dL 8.4-10.2 EGFR (BEAKER) (test dpep=9043) mL/min/1.73 sq m INSUFFICIENT CLINICAL DATA TO CALCULATE ESTIMATED GFR. Specimen markedly ictericCBC (HEMOGRAM ONLY)2016-11-12 01:55:00* Test Item Value Reference Range Comments WHITE BLOOD CELL COUNT (BEAKER) (test riqr=374) 0.4 K/ L 4.0-10.0 RED BLOOD CELL COUNT (BEAKER) (test zqud=183) 2.62 M/ L 4.20-5.80 HEMOGLOBIN (BEAKER) (test gwpd=218) 8.1 GM/DL 13.0-16.8 HEMATOCRIT (BEAKER) (test ogrs=967) 24.0 % 40.0-50.0 MEAN CORPUSCULAR VOLUME (BEAKER) (test dtfe=064) 91.8 fL 82.0-98.0 MEAN CORPUSCULAR HEMOGLOBIN (BEAKER) (test mrxc=362) 30.8 pg 27.0-33.0 MEAN CORPUSCULAR HEMOGLOBIN CONC (BEAKER) (test tmlw=923) 33.5 GM/DL 32.0-36.0 RED CELL DISTRIBUTION WIDTH (BEAKER) (test cdtn=964) 14.4 % 10.3-14.2 PLATELET COUNT (BEAKER) (test wwdt=476) 13 K/CU MM 150-430 MEAN PLATELET VOLUME (BEAKER) (test tsjy=938) 11.5 fL 6.5-10.5 NUCLEATED RED BLOOD CELLS (BEAKER) (test nqvn=802) 0 /100 WBC 0-0 0.00POCT-GLUCOSE [id number] 00:20:00* Test Item Value Reference Range Comments POC-GLUCOSE METER (BEAKER) (test gnda=0364) 101 mg/dL 70-110 TESTED AT [place] [id number] [facility] [address] BASIC METABOLIC [id number] 12:31:00* Test Item Value Reference Range Comments SODIUM (BEAKER) (test khko=740) 134 meq/L 136-145 POTASSIUM (BEAKER) (test rjfa=839) 3.7 meq/L 3.5-5.1 CHLORIDE (BEAKER) (test csph=269) 99 meq/L 98-107 CO2 (BEAKER) (test ffoi=690) 25 meq/L 22-29 BLOOD UREA NITROGEN (BEAKER) (test tajf=377) 11 mg/dL 7-21 CREATININE (BEAKER) (test eaih=402) 0.45 mg/dL 0.57-1.25 GLUCOSE RANDOM (BEAKER) (test umqh=062) 77 mg/dL 70-105 CALCIUM (BEAKER) (test cgox=462) 8.0 mg/dL 8.4-10.2 EGFR (BEAKER) (test krmf=5089) mL/min/1.73 sq m INSUFFICIENT CLINICAL DATA TO CALCULATE ESTIMATED GFR. Specimen markedly ictericHEPATIC FUNCTION [id number] 12:27:00* Test Item Value Reference Range Comments TOTAL PROTEIN (BEAKER) (test fgyd=405) 4.8 gm/dL 6.0-8.3 ALBUMIN (BEAKER) (test ccbh=2989) 2.5 g/dL 3.5-5.0 BILIRUBIN TOTAL (BEAKER) (test ityu=867) 14.5 mg/dL 0.2-1.2 BILIRUBIN DIRECT (BEAKER) (test oose=350) 10.6 mg/dL 0.1-0.5 ALKALINE PHOSPHATASE (BEAKER) (test wiin=923) 73 U/L 40-150 AST (SGOT) (BEAKER) (test lwnl=152) 11 U/L 5-34 ALT (SGPT) (BEAKER) (test hjvw=640) 130 U/L 6-55 Specimen markedly ictericBLOOD [id number] 12:02:00* Test Item Value Reference Range Comments CULTURE (BEAKER) (test otbc=8072) No growth in 5 days BLOOD [id number] 12:01:00* Test Item Value Reference Range Comments CULTURE (BEAKER) (test bksf=7923) No growth in 5 days VANCOMYCIN LEVEL, [id number] 11:49:00* Test Item Value Reference Range Comments VANCOMYCIN TROUGH (BEAKER) (test luuc=379) 2.6 ug/mL 10.0-20.0 CBC W/PLT COUNT & AUTO [id number] 11:18:00* Test Item Value Reference Range Comments WHITE BLOOD CELL COUNT (BEAKER) (test drkn=076) 0.3 K/ L 4.0-10.0 RED BLOOD CELL COUNT (BEAKER) (test imix=144) 2.42 M/ L 4.20-5.80 HEMOGLOBIN (BEAKER) (test jlby=465) 7.4 GM/DL 13.0-16.8 HEMATOCRIT (BEAKER) (test zhkq=572) 22.1 % 40.0-50.0 MEAN CORPUSCULAR VOLUME (BEAKER) (test ulxu=425) 91.2 fL 82.0-98.0 MEAN CORPUSCULAR HEMOGLOBIN (BEAKER) (test jrse=314) 30.7 pg 27.0-33.0 MEAN CORPUSCULAR HEMOGLOBIN CONC (BEAKER) (test apkx=254) 33.6 GM/DL 32.0-36.0 RED CELL DISTRIBUTION WIDTH (BEAKER) (test xial=716) 14.1 % 10.3-14.2 PLATELET COUNT (BEAKER) (test whaf=713) 24 K/CU MM 150-430 MEAN PLATELET VOLUME (BEAKER) (test sbzs=637) 9.3 fL 6.5-10.5 NUCLEATED RED BLOOD CELLS (BEAKER) (test yxha=424) 0 /100 WBC 0-0 0.00(MANUAL DIFFERENTIAL)2016-11-11 11:18:00* Test Item Value Reference Range Comments NEUTROPHILS - REL (DIFF) (BEAKER) (test dnpj=9474) 13 % LYMPHOCYTES - REL (DIFF) (BEAKER) (test yapy=1080) 77 % BANDS - REL (DIFF) (BEAKER) (test lydz=4994) 10 % 0-10 NEUTROPHILS - ABS (DIFF) (BEAKER) (test xunf=9038) 0.04 K/ L 1.80-8.00 LYMPHOCYTES - ABS (DIFF) (BEAKER) (test kkvh=9185) 0.23 K/ L 1.48-4.50 BANDS-ABS (DIFF) (BEAKER) (test xosa=5606) 0.0 K/ L 0.0-0.8 TOTAL COUNTED (BEAKER) (test mwea=5803) 100 BANDS + SEGMENTED NEUTROPHILS (BEAKER) (test bget=0824) 0.07 PLT MORPHOLOGY (BEAKER) (test gitu=028) Normal ATYPICAL LYMPHS(BEAKER) (test dkwy=7327) Present HYPOCHROMIA (BEAKER) (test xkcz=013) 1+ few POLYCHROMATOPHILLIC RBCS(BEAKER) (test ojcd=325) 1+ few CBC (HEMOGRAM ONLY)2016-11-11 11:02:00* Test Item Value Reference Range Comments WHITE BLOOD CELL COUNT (BEAKER) (test kkie=515) 0.4 K/ L 4.0-10.0 RED BLOOD CELL COUNT (BEAKER) (test zgjy=475) 2.55 M/ L 4.20-5.80 HEMOGLOBIN (BEAKER) (test owro=523) 7.8 GM/DL 13.0-16.8 HEMATOCRIT (BEAKER) (test ejxv=612) 23.4 % 40.0-50.0 MEAN CORPUSCULAR VOLUME (BEAKER) (test xmye=234) 91.9 fL 82.0-98.0 MEAN CORPUSCULAR HEMOGLOBIN (BEAKER) (test wcvp=950) 30.4 pg 27.0-33.0 MEAN CORPUSCULAR HEMOGLOBIN CONC (BEAKER) (test mygf=911) 33.1 GM/DL 32.0-36.0 RED CELL DISTRIBUTION WIDTH (BEAKER) (test rmiv=159) 14.4 % 10.3-14.2 PLATELET COUNT (BEAKER) (test bdvk=315) 24 K/CU MM 150-430 MEAN PLATELET VOLUME (BEAKER) (test sbsq=924) 9.5 fL 6.5-10.5 NUCLEATED RED BLOOD CELLS (BEAKER) (test bjac=202) 0 /100 WBC 0-0 0.000.500.000.000.000.000.00WOUND CULTURE + GRAM [id number] 07:13:00* Test Item Value Reference Range Comments CULTURE (BEAKER) (test efkd=3478) No growth GRAM STAIN RESULT (BEAKER) (test xopt=6139) <1+ WBCs GRAM STAIN RESULT (BEAKER) (test lekf=05390) <1+ gram positive cocci in pairs [id number] 05:03:00* Test Item Value Reference Range Comments PHOSPHORUS (BEAKER) (test qgdg=295) 3.4 mg/dL 2.3-4.7 [id number] 05:03:00* Test Item Value Reference Range Comments MAGNESIUM (BEAKER) (test hrjs=502) 1.4 mg/dL 1.6-2.6 [id number] 04:58:00* Test Item Value Reference Range Comments PARTIAL THROMBOPLASTIN TIME (BEAKER) (test jbuh=466) 36.0 seconds 22.5-36.0 PROTHROMBIN [id number] 04:57:00* Test Item Value Reference Range Comments PROTIME (BEAKER) (test offo=486) 21.4 seconds 11.7-14.7 INR (BEAKER) (test cfjq=635) 1.9 <=5.9 RECOMMENDED COUMADIN/WARFARIN INR THERAPY RANGESSTANDARD DOSE: 2.0 - 3.0 Inclu chevy: PROPHYLAXIS for venous thrombosis, systemic embolization; TREATMENT for janny ous thrombosis and/or pulmonary embolus.HIGH RISK: Target INR is 2.5-3.5 for pat ients with mechanical heart valves.POCT-GLUCOSE [id number] 00:14:00* Test Item Value Reference Range Comments POC-GLUCOSE METER (BEAKER) (test hfpa=8187) 99 mg/dL 70-110 TESTED AT [facility] [address] [facility] [address] BASIC METABOLIC [id number] 22:33:00* Test Item Value Reference Range Comments SODIUM (BEAKER) (test ruou=222) 133 meq/L 136-145 POTASSIUM (BEAKER) (test licf=740) 3.3 meq/L 3.5-5.1 CHLORIDE (BEAKER) (test noto=223) 94 meq/L 98-107 CO2 (BEAKER) (test hlig=738) 27 meq/L 22-29 BLOOD UREA NITROGEN (BEAKER) (test eojg=009) 14 mg/dL 7-21 CREATININE (BEAKER) (test xfnj=614) 0.57 mg/dL 0.57-1.25 GLUCOSE RANDOM (BEAKER) (test uezc=540) 107 mg/dL 70-105 CALCIUM (BEAKER) (test xxij=016) 8.0 mg/dL 8.4-10.2 EGFR (BEAKER) (test rrxl=4857) mL/min/1.73 sq m INSUFFICIENT CLINICAL DATA TO CALCULATE ESTIMATED GFR. Specimen [facility]2016-[facility]-10 22:29:00* Test Item Value Reference Range Comments WHITE BLOOD CELL COUNT (BEAKER) (test ggwf=157) 0.4 K/ L 4.0-10.0 RED BLOOD CELL COUNT (BEAKER) (test drvi=550) 2.74 M/ L 4.20-5.80 HEMOGLOBIN (BEAKER) (test jhfw=462) 8.6 GM/DL 13.0-16.8 HEMATOCRIT (BEAKER) (test salx=781) 24.9 % 40.0-50.0 MEAN CORPUSCULAR VOLUME (BEAKER) (test ecqf=600) 90.8 fL 82.0-98.0 MEAN CORPUSCULAR HEMOGLOBIN (BEAKER) (test xqsq=915) 31.3 pg 27.0-33.0 MEAN CORPUSCULAR HEMOGLOBIN CONC (BEAKER) (test qewz=058) 34.5 GM/DL 32.0-36.0 RED CELL DISTRIBUTION WIDTH (BEAKER) (test yjfd=372) 14.3 % 10.3-14.2 PLATELET COUNT (BEAKER) (test sltu=333) 32 K/CU MM 150-430 MEAN PLATELET VOLUME (BEAKER) (test mezl=209) 8.6 fL 6.5-10.5 NUCLEATED RED BLOOD CELLS (BEAKER) (test bujf=784) 0 /100 WBC 0-0 0.000.500.000.000.000.000.00POCT-GLUCOSE [id number] 19:06:00* Test Item Value Reference Range Comments POC-GLUCOSE METER (BEAKER) (test kqxi=3461) 103 mg/dL 70-110 TESTED AT [place] [id number] [facility] [address] CBC (HEMOGRAM ONLY)2016-11-10 14:33:00* Test Item Value Reference Range Comments WHITE BLOOD CELL COUNT (BEAKER) (test wxpl=614) 0.4 K/ L 4.0-10.0 RED BLOOD CELL COUNT (BEAKER) (test sukk=444) 2.64 M/ L 4.20-5.80 HEMOGLOBIN (BEAKER) (test bowy=876) 8.5 GM/DL 13.0-16.8 HEMATOCRIT (BEAKER) (test llff=543) 24.3 % 40.0-50.0 MEAN CORPUSCULAR VOLUME (BEAKER) (test fstr=953) 92.0 fL 82.0-98.0 MEAN CORPUSCULAR HEMOGLOBIN (BEAKER) (test ipat=223) 32.2 pg 27.0-33.0 MEAN CORPUSCULAR HEMOGLOBIN CONC (BEAKER) (test kery=817) 35.0 GM/DL 32.0-36.0 RED CELL DISTRIBUTION WIDTH (BEAKER) (test mzdi=131) 15.2 % 10.3-14.2 PLATELET COUNT (BEAKER) (test axep=425) 45 K/CU MM 150-430 MEAN PLATELET VOLUME (BEAKER) (test jtiu=197) 8.6 fL 6.5-10.5 NUCLEATED RED BLOOD CELLS (BEAKER) (test yzfa=887) 0 /100 WBC 0-0 0.00URINALYSIS W/ REFLEX URINE [id number] 13:09:00* Test Item Value Reference Range Comments COLOR (BEAKER) (test fvcr=941) Yellow CLARITY (BEAKER) (test eedf=519) Clear SPECIFIC GRAVITY UA (BEAKER) (test kvnt=766) 1.008 1.001-1.035 PH UA (BEAKER) (test kqul=367) 8.0 5.0-8.0 PROTEIN UA (BEAKER) (test azxb=212) 10 mg/dL Negative GLUCOSE UA (BEAKER) (test gotg=438) Negative Negative KETONES UA (BEAKER) (test bmzg=117) Negative Negative BILIRUBIN UA (BEAKER) (test fvap=029) Positive Negative BLOOD UA (BEAKER) (test jczv=818) Moderate Negative NITRITE UA (BEAKER) (test knfh=320) Negative Negative LEUKOCYTE ESTERASE UA (BEAKER) (test grpw=727) Negative Negative UROBILINOGEN UA (BEAKER) (test lsxj=140) 0.2 mg/dL 0.2-1.0 RBC UA (BEAKER) (test yhdv=628) 72 /HPF WBC UA (BEAKER) (test otzb=653) 0 /HPF BACTERIA (BEAKER) (test wvvc=362) Rare MUCUS (BEAKER) (test hyru=9865) Rare SOURCE(BEAKER) (test smlj=7309) POCT-GLUCOSE [id number] 12:17:00* Test Item Value Reference Range Comments POC-GLUCOSE METER (BEAKER) (test achy=7437) 111 mg/dL 70-110 TESTED AT [facility] [address] [facility] [address] BASIC METABOLIC [id number] 10:33:00* Test Item Value Reference Range Comments SODIUM (BEAKER) (test xxtu=077) 131 meq/L 136-145 POTASSIUM (BEAKER) (test wmqo=209) 3.7 meq/L 3.5-5.1 CHLORIDE (BEAKER) (test izaj=390) 93 meq/L 98-107 CO2 (BEAKER) (test iakg=614) 30 meq/L 22-29 BLOOD UREA NITROGEN (BEAKER) (test zufg=459) 15 mg/dL 7-21 CREATININE (BEAKER) (test jybl=103) 0.53 mg/dL 0.57-1.25 GLUCOSE RANDOM (BEAKER) (test vudd=268) 116 mg/dL 70-105 CALCIUM (BEAKER) (test ynxs=536) 7.9 mg/dL 8.4-10.2 EGFR (BEAKER) (test qthm=4225) mL/min/1.73 sq m INSUFFICIENT CLINICAL DATA TO CALCULATE ESTIMATED GFR. Specimen moderately ictericHEPATIC FUNCTION [id number] 10:25:00* Test Item Value Reference Range Comments TOTAL PROTEIN (BEAKER) (test njao=048) 4.8 gm/dL 6.0-8.3 ALBUMIN (BEAKER) (test tohz=5589) 2.5 g/dL 3.5-5.0 BILIRUBIN TOTAL (BEAKER) (test yvzj=346) 9.0 mg/dL 0.2-1.2 BILIRUBIN DIRECT (BEAKER) (test hvwb=017) 6.3 mg/dL 0.1-0.5 ALKALINE PHOSPHATASE (BEAKER) (test ewep=726) 80 U/L 40-150 AST (SGOT) (BEAKER) (test fwln=146) 11 U/L 5-34 ALT (SGPT) (BEAKER) (test jxwb=660) 245 U/L 6-55 Specimen moderately ictericCBC (HEMOGRAM ONLY)2016-11-10 09:57:00* Test Item Value Reference Range Comments WHITE BLOOD CELL COUNT (BEAKER) (test rdol=703) 0.3 K/ L 4.0-10.0 RED BLOOD CELL COUNT (BEAKER) (test eflh=613) 2.95 M/ L 4.20-5.80 HEMOGLOBIN (BEAKER) (test wqco=298) 9.1 GM/DL 13.0-16.8 HEMATOCRIT (BEAKER) (test lcph=517) 26.7 % 40.0-50.0 MEAN CORPUSCULAR VOLUME (BEAKER) (test gvto=188) 90.5 fL 82.0-98.0 MEAN CORPUSCULAR HEMOGLOBIN (BEAKER) (test ojri=108) 30.9 pg 27.0-33.0 MEAN CORPUSCULAR HEMOGLOBIN CONC (BEAKER) (test gohx=943) 34.2 GM/DL 32.0-36.0 RED CELL DISTRIBUTION WIDTH (BEAKER) (test oelf=386) 14.2 % 10.3-14.2 PLATELET COUNT (BEAKER) (test glht=559) 9 K/CU MM 150-430 MEAN PLATELET VOLUME (BEAKER) (test mrhx=545) 12.3 fL 6.5-10.5 NUCLEATED RED BLOOD CELLS (BEAKER) (test tzwa=344) 0 /100 WBC 0-0 0.000.600.000.000.000.000.00LACTIC ACID, VENOUS, WHOLE [id number] 09:52:00 * Test Item Value Reference Range Comments LACTATE BLOOD VENOUS (2) (BEAKER) (test ntjf=6970) 0.6 mmol/L 0.5-2.2 Effective 11/27/2015: Units/Reference Range ChangeNew: 0.5-2.2 mmol/L Previous: 5 -20 mg/dLSpecimen moderately ictericCBC W/PLT COUNT & AUTO DIFFERENTIAL 2016-11-10 07:25:00* Test Item Value Reference Range Comments WHITE BLOOD CELL COUNT (BEAKER) (test tgns=249) 0.2 K/ L 4.0-10.0 RED BLOOD CELL COUNT (BEAKER) (test ykeu=117) 3.14 M/ L 4.20-5.80 HEMOGLOBIN (BEAKER) (test rxlv=923) 9.3 GM/DL 13.0-16.8 HEMATOCRIT (BEAKER) (test irhw=078) 28.3 % 40.0-50.0 MEAN CORPUSCULAR VOLUME (BEAKER) (test kpla=549) 90.1 fL 82.0-98.0 MEAN CORPUSCULAR HEMOGLOBIN (BEAKER) (test uxsn=169) 29.7 pg 27.0-33.0 MEAN CORPUSCULAR HEMOGLOBIN CONC (BEAKER) (test jhdl=452) 33.0 GM/DL 32.0-36.0 RED CELL DISTRIBUTION WIDTH (BEAKER) (test degn=199) 14.1 % 10.3-14.2 PLATELET COUNT (BEAKER) (test rhux=151) 11 K/CU MM 150-430 MEAN PLATELET VOLUME (BEAKER) (test xdkp=908) 11.3 fL 6.5-10.5 NUCLEATED RED BLOOD CELLS (BEAKER) (test wxyc=541) 0 /100 WBC 0-0 NEUTROPHILS RELATIVE PERCENT (BEAKER) (test lrfi=690) 10 % LYMPHOCYTES RELATIVE PERCENT (BEAKER) (test zhqk=878) 89 % MONOCYTES RELATIVE PERCENT (BEAKER) (test dnvb=043) 0 % EOSINOPHILS RELATIVE PERCENT (BEAKER) (test bbtg=790) 1 % BASOPHILS RELATIVE PERCENT (BEAKER) (test eznm=677) 0 % NEUTROPHILS ABSOLUTE COUNT (BEAKER) (test kdsx=532) 0.02 K/ L 1.80-8.00 LYMPHOCYTES ABSOLUTE COUNT (BEAKER) (test clsz=705) 0.21 K/ L 1.48-4.50 MONOCYTES ABSOLUTE COUNT (BEAKER) (test ypnd=809) 0.00 K/ L 0.00-1.30 EOSINOPHILS ABSOLUTE COUNT (BEAKER) (test diop=514) 0.00 K/ L 0.00-0.50 BASOPHILS ABSOLUTE COUNT (BEAKER) (test aslk=504) 0.00 K/ L 0.00-0.20 0.000.900.000.000.000.000.00(MANUAL DIFFERENTIAL)2016-11-10 07:25:00* Test Item Value Reference Range Comments TOTAL COUNTED (BEAKER) (test jidt=5347) BLOOD GAS, [id number] 05:10:00* Test Item Value Reference Range Comments PH ARTERIAL (BEAKER) (test eyel=436) 7.55 7.35-7.45 PCO2 ARTERIAL (BEAKER) (test eheb=342) 42 mmHg 35-45 PO2 ARTERIAL (BEAKER) (test zjyl=843) 127 mmHg 80-90 O2 SATURATION ARTERIAL (BEAKER) (test kqpd=819) 98.8 % 96.0-97.0 HCO3 ARTERIAL (BEAKER) (test nwpc=133) 35 mmol/L 21-29 BASE EXCESS ARTERIAL (BEAKER) (test naqa=466) 11.9 mmol/L -2.0-3.0 PATIENT TEMPERATURE (BEAKER) (test ucly=4329) 37.8 C FIO2 (BEAKER) (test zhoc=8825) 28.0 % [id number] 04:24:00* Test Item Value Reference Range Comments PHOSPHORUS (BEAKER) (test dulm=679) 2.6 mg/dL 2.3-4.7 [id number] 04:24:00* Test Item Value Reference Range Comments MAGNESIUM (BEAKER) (test eqpi=409) 1.3 mg/dL 1.6-2.6 [id number] 04:21:00* Test Item Value Reference Range Comments PARTIAL THROMBOPLASTIN TIME (BEAKER) (test ptsn=941) 31.4 seconds 22.5-36.0 PROTHROMBIN TIME/[id number] 04:20:00* Test Item Value Reference Range Comments PROTIME (BEAKER) (test taez=169) 18.4 seconds 11.7-14.7 INR (BEAKER) (test afwi=932) 1.5 <=5.9 RECOMMENDED COUMADIN/WARFARIN INR THERAPY RANGESSTANDARD DOSE: 2.0 - 3.0 Inclu chevy: PROPHYLAXIS for venous thrombosis, systemic embolization; TREATMENT for janny ous thrombosis and/or pulmonary embolus.HIGH RISK: Target INR is 2.5-3.5 for pat ients with mechanical heart valves.[id number] 02:57:00* Test Item Value Reference Range Comments POTASSIUM (BEAKER) (test hfdg=860) 3.8 meq/L 3.5-5.1 Potassium level after a total of 80 MEQPOCT-GLUCOSE [id number] 22:13:00* Test Item Value Reference Range Comments POC-GLUCOSE METER (BEAKER) (test cjqh=7076) 132 mg/dL 70-110 TESTED AT [facility] [address] [facility] [address] BASIC METABOLIC [id number] 20:40:00* Test Item Value Reference Range Comments SODIUM (BEAKER) (test mwmd=571) 134 meq/L 136-145 POTASSIUM (BEAKER) (test wxki=380) 3.0 meq/L 3.5-5.1 CHLORIDE (BEAKER) (test yvgs=743) 91 meq/L 98-107 CO2 (BEAKER) (test jjlc=491) 32 meq/L 22-29 BLOOD UREA NITROGEN (BEAKER) (test whvm=693) 15 mg/dL 7-21 CREATININE (BEAKER) (test caer=678) 0.58 mg/dL 0.57-1.25 GLUCOSE RANDOM (BEAKER) (test fzsb=824) 213 mg/dL 70-105 CALCIUM (BEAKER) (test xkes=983) 8.9 mg/dL 8.4-10.2 EGFR (BEAKER) (test clok=5498) mL/min/1.73 sq m INSUFFICIENT CLINICAL DATA TO CALCULATE ESTIMATED GFR. Specimen moderately ictericCBC (HEMOGRAM ONLY)2016-11-09 20:16:00* Test Item Value Reference Range Comments WHITE BLOOD CELL COUNT (BEAKER) (test kwil=812) 0.5 K/ L 4.0-10.0 RED BLOOD CELL COUNT (BEAKER) (test brwa=795) 3.51 M/ L 4.20-5.80 HEMOGLOBIN (BEAKER) (test kbfi=272) 11.1 GM/DL 13.0-16.8 HEMATOCRIT (BEAKER) (test uaed=997) 32.1 % 40.0-50.0 MEAN CORPUSCULAR VOLUME (BEAKER) (test iuyv=157) 91.5 fL 82.0-98.0 MEAN CORPUSCULAR HEMOGLOBIN (BEAKER) (test qwzf=817) 31.7 pg 27.0-33.0 MEAN CORPUSCULAR HEMOGLOBIN CONC (BEAKER) (test vffz=467) 34.6 GM/DL 32.0-36.0 RED CELL DISTRIBUTION WIDTH (BEAKER) (test zzga=884) 15.3 % 10.3-14.2 PLATELET COUNT (BEAKER) (test xymf=738) 21 K/CU MM 150-430 MEAN PLATELET VOLUME (BEAKER) (test iezb=543) 9.9 fL 6.5-10.5 NUCLEATED RED BLOOD CELLS (BEAKER) (test jkbm=884) 0 /100 WBC 0-0 POCT-GLUCOSE [id number] 17:10:00* Test Item Value Reference Range Comments POC-GLUCOSE METER (BEAKER) (test hmns=2776) 133 mg/dL 70-110 TESTED AT [facility] [address] [facility] [address] CBC (HEMOGRAM ONLY)2016-11-09 12:27:00* Test Item Value Reference Range Comments WHITE BLOOD CELL COUNT (BEAKER) (test wdpd=645) 0.2 K/ L 4.0-10.0 RED BLOOD CELL COUNT (BEAKER) (test ggbq=944) 2.74 M/ L 4.20-5.80 HEMOGLOBIN (BEAKER) (test jpke=703) 8.7 GM/DL 13.0-16.8 HEMATOCRIT (BEAKER) (test lkzk=280) 24.7 % 40.0-50.0 MEAN CORPUSCULAR VOLUME (BEAKER) (test lkrn=548) 90.3 fL 82.0-98.0 MEAN CORPUSCULAR HEMOGLOBIN (BEAKER) (test swbp=302) 31.7 pg 27.0-33.0 MEAN CORPUSCULAR HEMOGLOBIN CONC (BEAKER) (test qsgg=035) 35.1 GM/DL 32.0-36.0 RED CELL DISTRIBUTION WIDTH (BEAKER) (test ihbb=176) 15.1 % 10.3-14.2 PLATELET COUNT (BEAKER) (test yhge=267) 12 K/CU MM 150-430 MEAN PLATELET VOLUME (BEAKER) (test gvam=273) 11.0 fL 6.5-10.5 NUCLEATED RED BLOOD CELLS (BEAKER) (test anzy=101) 0 /100 WBC 0-0 0.00BASIC METABOLIC [id number] 12:07:00* Test Item Value Reference Range Comments SODIUM (BEAKER) (test ujkt=179) 135 meq/L 136-145 POTASSIUM (BEAKER) (test zpgg=042) 3.5 meq/L 3.5-5.1 CHLORIDE (BEAKER) (test mlag=516) 95 meq/L 98-107 CO2 (BEAKER) (test bjmq=049) 31 meq/L 22-29 BLOOD UREA NITROGEN (BEAKER) (test nyuv=743) 16 mg/dL 7-21 CREATININE (BEAKER) (test nrku=161) 0.47 mg/dL 0.57-1.25 GLUCOSE RANDOM (BEAKER) (test evrk=175) 134 mg/dL 70-105 CALCIUM (BEAKER) (test qvqr=727) 8.0 mg/dL 8.4-10.2 EGFR (BEAKER) (test ctpg=5225) mL/min/1.73 sq m INSUFFICIENT CLINICAL DATA TO CALCULATE ESTIMATED GFR. Please check after completion of K replacement.Please check after completion of Mg replacement.Specimen moderately [id number] 12:06:00* Test Item Value Reference Range Comments MAGNESIUM (BEAKER) (test udfl=895) 2.2 mg/dL 1.6-2.6 Please check after completion of K replacement.Please check after completion of Mg replacement.POCT-GLUCOSE [id number] 11:48:00* Test Item Value Reference Range Comments POC-GLUCOSE METER (BEAKER) (test tmlz=2608) 153 mg/dL 70-110 TESTED AT [facility] [address] [facility] [address] KWAME ANTIGEN WITH REFLEX TO [id number] 11:00:00* Test Item Value Reference Range Comments KWAME ANTIGEN (BEAKER) (test ateu=5212) Negative CBC W/PLT COUNT & AUTO [id number] 08:27:00* Test Item Value Reference Range Comments WHITE BLOOD CELL COUNT (BEAKER) (test lfev=324) 0.2 K/ L 4.0-10.0 RED BLOOD CELL COUNT (BEAKER) (test uiwy=390) 2.55 M/ L 4.20-5.80 HEMOGLOBIN (BEAKER) (test gqca=921) 8.1 GM/DL 13.0-16.8 HEMATOCRIT (BEAKER) (test kydt=704) 23.1 % 40.0-50.0 MEAN CORPUSCULAR VOLUME (BEAKER) (test ornc=084) 90.3 fL 82.0-98.0 MEAN CORPUSCULAR HEMOGLOBIN (BEAKER) (test ensc=510) 31.8 pg 27.0-33.0 MEAN CORPUSCULAR HEMOGLOBIN CONC (BEAKER) (test ziez=310) 35.2 GM/DL 32.0-36.0 RED CELL DISTRIBUTION WIDTH (BEAKER) (test grrw=816) 15.1 % 10.3-14.2 PLATELET COUNT (BEAKER) (test nowg=639) 12 K/CU MM 150-430 MEAN PLATELET VOLUME (BEAKER) (test nwax=284) 9.1 fL 6.5-10.5 NUCLEATED RED BLOOD CELLS (BEAKER) (test kcqr=687) 0 /100 WBC 0-0 0.00(MANUAL DIFFERENTIAL)2016-11-09 08:27:00* Test Item Value Reference Range Comments NEUTROPHILS - REL (DIFF) (BEAKER) (test iuxw=3112) 23 % LYMPHOCYTES - REL (DIFF) (BEAKER) (test qmdp=1479) 69 % MONOCYTES - REL (DIFF) (BEAKER) (test inmj=6937) 1 % BANDS - REL (DIFF) (BEAKER) (test dzsf=9040) 7 % 0-10 NEUTROPHILS - ABS (DIFF) (BEAKER) (test mpjj=6522) 0.05 K/ L 1.80-8.00 LYMPHOCYTES - ABS (DIFF) (BEAKER) (test bkwp=2622) 0.14 K/ L 1.48-4.50 MONOCYTES - ABS (DIFF) (BEAKER) (test rvau=3175) 0.00 K/ L 0.00-1.30 BANDS-ABS (DIFF) (BEAKER) (test ufrm=4920) 0.0 K/ L 0.0-0.8 TOTAL COUNTED (BEAKER) (test yrwg=2474) 100 BANDS + SEGMENTED NEUTROPHILS (BEAKER) (test lhov=7629) 0.06 PLT MORPHOLOGY (BEAKER) (test ecmr=508) Normal RBC MORPHOLOGY (BEAKER) (test jyge=830) Normal ATYPICAL LYMPHS(BEAKER) (test qzpv=2203) Present POCT-GLUCOSE [id number] 07:27:00* Test Item Value Reference Range Comments POC-GLUCOSE METER (BEAKER) (test yyxp=6896) 169 mg/dL 70-110 TESTED AT [address] [address] COMPREHENSIVE METABOLIC [id number] 04:17:00* Test Item Value Reference Range Comments TOTAL PROTEIN (BEAKER) (test lvct=243) 4.6 gm/dL 6.0-8.3 ALBUMIN (BEAKER) (test tdbz=7479) 2.5 g/dL 3.5-5.0 ALKALINE PHOSPHATASE (BEAKER) (test gbws=013) 76 U/L 40-150 BILIRUBIN TOTAL (BEAKER) (test lgll=002) 5.3 mg/dL 0.2-1.2 SODIUM (BEAKER) (test qgyr=697) 135 meq/L 136-145 POTASSIUM (BEAKER) (test xxjw=746) 3.2 meq/L 3.5-5.1 CHLORIDE (BEAKER) (test jvcc=398) 96 meq/L 98-107 CO2 (BEAKER) (test ljxh=494) 32 meq/L 22-29 BLOOD UREA NITROGEN (BEAKER) (test fbrw=361) 17 mg/dL 7-21 CREATININE (BEAKER) (test cppr=957) 0.48 mg/dL 0.57-1.25 GLUCOSE RANDOM (BEAKER) (test wkxx=837) 172 mg/dL 70-105 CALCIUM (BEAKER) (test mhmp=167) 7.7 mg/dL 8.4-10.2 AST (SGOT) (BEAKER) (test mdxl=197) 32 U/L 5-34 ALT (SGPT) (BEAKER) (test nnmh=465) 502 U/L 6-55 EGFR (BEAKER) (test zocy=5759) mL/min/1.73 sq m INSUFFICIENT CLINICAL DATA TO CALCULATE ESTIMATED GFR. Specimen moderately [id number] 04:06:00* Test Item Value Reference Range Comments PHOSPHORUS (BEAKER) (test tmcl=135) 2.7 mg/dL 2.3-4.7 [id number] 04:06:00* Test Item Value Reference Range Comments MAGNESIUM (BEAKER) (test anvj=950) 1.4 mg/dL 1.6-2.6 PROTHROMBIN TIME/[id number] 03:46:00* Test Item Value Reference Range Comments PROTIME (BEAKER) (test revh=053) 19.5 seconds 11.7-14.7 INR (BEAKER) (test btur=971) 1.7 <=5.9 RECOMMENDED COUMADIN/WARFARIN INR THERAPY RANGESSTANDARD DOSE: 2.0 - 3.0 Inclu chevy: PROPHYLAXIS for venous thrombosis, systemic embolization; TREATMENT for janny ous thrombosis and/or pulmonary embolus.HIGH RISK: Target INR is 2.5-3.5 for pat ients with mechanical heart valves.[id number] 03:46:00* Test Item Value Reference Range Comments PARTIAL THROMBOPLASTIN TIME (BEAKER) (test mnil=963) 31.4 seconds 22.5-36.0 BASIC METABOLIC [id number] 22:34:00* Test Item Value Reference Range Comments SODIUM (BEAKER) (test tgqi=652) 135 meq/L 136-145 POTASSIUM (BEAKER) (test mcwr=607) 3.1 meq/L 3.5-5.1 CHLORIDE (BEAKER) (test wwxs=366) 96 meq/L 98-107 CO2 (BEAKER) (test epyb=149) 28 meq/L 22-29 BLOOD UREA NITROGEN (BEAKER) (test bolh=677) 18 mg/dL 7-21 CREATININE (BEAKER) (test oytv=365) 0.56 mg/dL 0.57-1.25 GLUCOSE RANDOM (BEAKER) (test gtju=934) 236 mg/dL 70-105 CALCIUM (BEAKER) (test nlaf=127) 7.8 mg/dL 8.4-10.2 EGFR (BEAKER) (test jqoj=7431) mL/min/1.73 sq m INSUFFICIENT CLINICAL DATA TO CALCULATE ESTIMATED GFR. Specimen moderately ictericCBC (HEMOGRAM ONLY)2016-11-08 22:13:00* Test Item Value Reference Range Comments WHITE BLOOD CELL COUNT (BEAKER) (test tiaj=993) 0.2 K/ L 4.0-10.0 RED BLOOD CELL COUNT (BEAKER) (test ynlz=880) 2.77 M/ L 4.20-5.80 HEMOGLOBIN (BEAKER) (test bjjd=099) 8.8 GM/DL 13.0-16.8 HEMATOCRIT (BEAKER) (test pfsg=203) 24.7 % 40.0-50.0 MEAN CORPUSCULAR VOLUME (BEAKER) (test mknq=495) 89.3 fL 82.0-98.0 MEAN CORPUSCULAR HEMOGLOBIN (BEAKER) (test cveo=861) 31.7 pg 27.0-33.0 MEAN CORPUSCULAR HEMOGLOBIN CONC (BEAKER) (test tqrk=514) 35.5 GM/DL 32.0-36.0 RED CELL DISTRIBUTION WIDTH (BEAKER) (test rlva=511) 14.4 % 10.3-14.2 PLATELET COUNT (BEAKER) (test gphf=327) 16 K/CU MM 150-430 MEAN PLATELET VOLUME (BEAKER) (test bfup=476) 9.4 fL 6.5-10.5 NUCLEATED RED BLOOD CELLS (BEAKER) (test rlcf=428) 0 /100 WBC 0-0 POCT-GLUCOSE [id number] 21:58:00* Test Item Value Reference Range Comments POC-GLUCOSE METER (BEAKER) (test qxbs=4575) 239 mg/dL 70-110 TESTED AT [address] [address] BASIC METABOLIC [id number] 17:27:00* Test Item Value Reference Range Comments SODIUM (BEAKER) (test rkym=747) 136 meq/L 136-145 POTASSIUM (BEAKER) (test angd=915) 3.3 meq/L 3.5-5.1 CHLORIDE (BEAKER) (test izqe=961) 98 meq/L 98-107 CO2 (BEAKER) (test bqox=527) 27 meq/L 22-29 BLOOD UREA NITROGEN (BEAKER) (test xras=595) 23 mg/dL 7-21 CREATININE (BEAKER) (test tbmv=744) 0.59 mg/dL 0.57-1.25 GLUCOSE RANDOM (BEAKER) (test stpw=776) 228 mg/dL 70-105 CALCIUM (BEAKER) (test rked=526) 8.0 mg/dL 8.4-10.2 EGFR (BEAKER) (test kkbk=5411) mL/min/1.73 sq m INSUFFICIENT CLINICAL DATA TO CALCULATE ESTIMATED GFR. Specimen slightly ictericPOCT-GLUCOSE [id number] 17:22:00* Test Item Value Reference Range Comments POC-GLUCOSE METER (BEAKER) (test zerv=6674) 266 mg/dL 70-110 TESTED AT [address] [address] CBC (HEMOGRAM ONLY)2016-11-08 17:00:00* Test Item Value Reference Range Comments WHITE BLOOD CELL COUNT (BEAKER) (test tobw=936) 0.2 K/ L 4.0-10.0 RED BLOOD CELL COUNT (BEAKER) (test fsrj=259) 2.74 M/ L 4.20-5.80 HEMOGLOBIN (BEAKER) (test zshs=919) 8.6 GM/DL 13.0-16.8 HEMATOCRIT (BEAKER) (test lscg=563) 24.7 % 40.0-50.0 MEAN CORPUSCULAR VOLUME (BEAKER) (test wvck=556) 90.0 fL 82.0-98.0 MEAN CORPUSCULAR HEMOGLOBIN (BEAKER) (test zutv=428) 31.4 pg 27.0-33.0 MEAN CORPUSCULAR HEMOGLOBIN CONC (BEAKER) (test bqhf=023) 34.9 GM/DL 32.0-36.0 RED CELL DISTRIBUTION WIDTH (BEAKER) (test grpv=639) 15.4 % 10.3-14.2 PLATELET COUNT (BEAKER) (test wuph=499) 23 K/CU MM 150-430 MEAN PLATELET VOLUME (BEAKER) (test ydig=701) 9.0 fL 6.5-10.5 NUCLEATED RED BLOOD CELLS (BEAKER) (test raep=264) 0 /100 WBC 0-0 0.00POCT-GLUCOSE [id number] 12:12:00* Test Item Value Reference Range Comments POC-GLUCOSE METER (BEAKER) (test nlhs=4722) 204 mg/dL 70-110 TESTED AT [facility] [address] [facility] [address] CBC W/PLT COUNT & AUTO [id number] 09:54:00* Test Item Value Reference Range Comments WHITE BLOOD CELL COUNT (BEAKER) (test diih=231) 0.2 K/ L 4.0-10.0 RED BLOOD CELL COUNT (BEAKER) (test hfkw=707) 2.44 M/ L 4.20-5.80 HEMOGLOBIN (BEAKER) (test plrm=114) 7.2 GM/DL 13.0-16.8 HEMATOCRIT (BEAKER) (test kuyt=543) 21.6 % 40.0-50.0 MEAN CORPUSCULAR VOLUME (BEAKER) (test lljf=280) 88.6 fL 82.0-98.0 MEAN CORPUSCULAR HEMOGLOBIN (BEAKER) (test bvho=845) 29.7 pg 27.0-33.0 MEAN CORPUSCULAR HEMOGLOBIN CONC (BEAKER) (test sgzy=826) 33.5 GM/DL 32.0-36.0 RED CELL DISTRIBUTION WIDTH (BEAKER) (test pdxc=230) 14.7 % 10.3-14.2 PLATELET COUNT (BEAKER) (test vdge=583) 26 K/CU MM 150-430 MEAN PLATELET VOLUME (BEAKER) (test xlvn=636) 8.7 fL 6.5-10.5 NUCLEATED RED BLOOD CELLS (BEAKER) (test dwai=513) 0 /100 WBC 0-0 0.00(MANUAL DIFFERENTIAL)2016-11-08 09:54:00* Test Item Value Reference Range Comments NEUTROPHILS - REL (DIFF) (BEAKER) (test fhvl=4055) 18 % LYMPHOCYTES - REL (DIFF) (BEAKER) (test ihji=3194) 74 % MONOCYTES - REL (DIFF) (BEAKER) (test zple=0969) 4 % BANDS - REL (DIFF) (BEAKER) (test whqe=9356) 4 % 0-10 NEUTROPHILS - ABS (DIFF) (BEAKER) (test mrny=0590) 0.04 K/ L 1.80-8.00 LYMPHOCYTES - ABS (DIFF) (BEAKER) (test nwmc=6074) 0.15 K/ L 1.48-4.50 MONOCYTES - ABS (DIFF) (BEAKER) (test itzs=8061) 0.01 K/ L 0.00-1.30 BANDS-ABS (DIFF) (BEAKER) (test eboy=6890) 0.0 K/ L 0.0-0.8 TOTAL COUNTED (BEAKER) (test fmul=7747) 100 BANDS + SEGMENTED NEUTROPHILS (BEAKER) (test qflq=9795) 0.04 WBC MORPHOLOGY (BEAKER) (test ydyv=589) Normal PLT MORPHOLOGY (BEAKER) (test para=013) Normal RBC MORPHOLOGY (BEAKER) (test pxdk=834) Normal VANCOMYCIN LEVEL, [id number] 09:37:00* Test Item Value Reference Range Comments VANCOMYCIN TROUGH (BEAKER) (test gupx=353) 9.0 ug/mL 10.0-20.0 URINE [id number] 08:33:00* Test Item Value Reference Range Comments CULTURE (BEAKER) (test csiu=9688) No growth POCT-GLUCOSE [id number] 08:24:00* Test Item Value Reference Range Comments POC-GLUCOSE METER (BEAKER) (test krqb=3423) 154 mg/dL 70-110 TESTED AT [facility] [address] [facility] [address] URINE [id number] 07:45:00* Test Item Value Reference Range Comments CULTURE (BEAKER) (test hgmk=6677) <10,000 col/mL skin mike [id number] 04:17:00* Test Item Value Reference Range Comments PHOSPHORUS (BEAKER) (test xwvk=986) 2.4 mg/dL 2.3-4.7 [id number] 04:17:00* Test Item Value Reference Range Comments MAGNESIUM (BEAKER) (test rmjn=526) 1.9 mg/dL 1.6-2.6 COMPREHENSIVE METABOLIC [id number] 04:17:00* Test Item Value Reference Range Comments TOTAL PROTEIN (BEAKER) (test sqvt=357) 4.7 gm/dL 6.0-8.3 ALBUMIN (BEAKER) (test bnyq=3665) 2.6 g/dL 3.5-5.0 ALKALINE PHOSPHATASE (BEAKER) (test zlry=449) 60 U/L 40-150 BILIRUBIN TOTAL (BEAKER) (test aafn=575) 2.8 mg/dL 0.2-1.2 SODIUM (BEAKER) (test bjhf=060) 135 meq/L 136-145 POTASSIUM (BEAKER) (test wzzl=722) 3.1 meq/L 3.5-5.1 CHLORIDE (BEAKER) (test mazb=494) 100 meq/L 98-107 CO2 (BEAKER) (test pdmr=911) 25 meq/L 22-29 BLOOD UREA NITROGEN (BEAKER) (test lezy=435) 25 mg/dL 7-21 CREATININE (BEAKER) (test tfcz=024) 0.55 mg/dL 0.57-1.25 GLUCOSE RANDOM (BEAKER) (test smit=148) 178 mg/dL 70-105 CALCIUM (BEAKER) (test cepq=683) 7.8 mg/dL 8.4-10.2 AST (SGOT) (BEAKER) (test rrkk=445) 141 U/L 5-34 ALT (SGPT) (BEAKER) (test exsi=304) 918 U/L 6-55 EGFR (BEAKER) (test eqqj=4471) mL/min/1.73 sq m INSUFFICIENT CLINICAL DATA TO CALCULATE ESTIMATED GFR. Specimen slightly ictericBLOOD GAS, [id number] 04:11:00* Test Item Value Reference Range Comments PH ARTERIAL (BEAKER) (test ulga=573) 7.52 7.35-7.45 PCO2 ARTERIAL (BEAKER) (test httj=698) 36 mmHg 35-45 PO2 ARTERIAL (BEAKER) (test abio=717) 157 mmHg 80-90 O2 SATURATION ARTERIAL (BEAKER) (test symc=630) 99.2 % 96.0-97.0 HCO3 ARTERIAL (BEAKER) (test aluv=462) 29 mmol/L 21-29 BASE EXCESS ARTERIAL (BEAKER) (test untv=264) 5.7 mmol/L -2.0-3.0 PATIENT TEMPERATURE (BEAKER) (test ecox=7254) 37.0 C FIO2 (BEAKER) (test khjq=8167) 40.0 % PROTHROMBIN [id number] 04:07:00* Test Item Value Reference Range Comments PROTIME (BEAKER) (test obrg=612) 19.7 seconds 11.7-14.7 INR (BEAKER) (test wkqk=892) 1.7 <=5.9 RECOMMENDED COUMADIN/WARFARIN INR THERAPY RANGESSTANDARD DOSE: 2.0 - 3.0 Inclu chevy: PROPHYLAXIS for venous thrombosis, systemic embolization; TREATMENT for janny ous thrombosis and/or pulmonary embolus.HIGH RISK: Target INR is 2.5-3.5 for pat ients with mechanical heart valves.[id number] 04:07:00* Test Item Value Reference Range Comments PARTIAL THROMBOPLASTIN TIME (BEAKER) (test uckv=616) 31.4 seconds 22.5-36.0 POCT-GLUCOSE [id number] 23:11:00* Test Item Value Reference Range Comments POC-GLUCOSE METER (BEAKER) (test gssc=3410) 160 mg/dL 70-110 TESTED AT [facility] [address] [facility] [address] CBC (HEMOGRAM ONLY)2016-11-07 19:57:00* Test Item Value Reference Range Comments WHITE BLOOD CELL COUNT (BEAKER) (test uwqu=435) 0.2 K/ L 4.0-10.0 RED BLOOD CELL COUNT (BEAKER) (test hjob=776) 2.59 M/ L 4.20-5.80 HEMOGLOBIN (BEAKER) (test rmyd=863) 7.9 GM/DL 13.0-16.8 HEMATOCRIT (BEAKER) (test qmwt=139) 22.9 % 40.0-50.0 MEAN CORPUSCULAR VOLUME (BEAKER) (test hohx=486) 88.2 fL 82.0-98.0 MEAN CORPUSCULAR HEMOGLOBIN (BEAKER) (test plho=088) 30.3 pg 27.0-33.0 MEAN CORPUSCULAR HEMOGLOBIN CONC (BEAKER) (test wdxr=223) 34.3 GM/DL 32.0-36.0 RED CELL DISTRIBUTION WIDTH (BEAKER) (test mrnq=271) 15.1 % 10.3-14.2 PLATELET COUNT (BEAKER) (test odbx=996) 33 K/CU MM 150-430 MEAN PLATELET VOLUME (BEAKER) (test wlzw=457) 7.7 fL 6.5-10.5 NUCLEATED RED BLOOD CELLS (BEAKER) (test mhfw=733) 0 /100 WBC 0-0 0.00CBC (HEMOGRAM ONLY)2016-11-07 12:09:00* Test Item Value Reference Range Comments WHITE BLOOD CELL COUNT (BEAKER) (test yojx=244) 0.5 K/ L 4.0-10.0 RED BLOOD CELL COUNT (BEAKER) (test ghva=298) 2.60 M/ L 4.20-5.80 HEMOGLOBIN (BEAKER) (test kqei=113) 7.9 GM/DL 13.0-16.8 HEMATOCRIT (BEAKER) (test phsl=492) 22.7 % 40.0-50.0 MEAN CORPUSCULAR VOLUME (BEAKER) (test fxpa=099) 87.5 fL 82.0-98.0 MEAN CORPUSCULAR HEMOGLOBIN (BEAKER) (test qbcx=564) 30.5 pg 27.0-33.0 MEAN CORPUSCULAR HEMOGLOBIN CONC (BEAKER) (test tebw=810) 34.9 GM/DL 32.0-36.0 RED CELL DISTRIBUTION WIDTH (BEAKER) (test jlsw=530) 15.0 % 10.3-14.2 PLATELET COUNT (BEAKER) (test hbuu=993) 44 K/CU MM 150-430 MEAN PLATELET VOLUME (BEAKER) (test zspz=073) 8.4 fL 6.5-10.5 NUCLEATED RED BLOOD CELLS (BEAKER) (test fgrn=903) 0 /100 WBC 0-0 0.00POCT-GLUCOSE [id number] 12:08:00* Test Item Value Reference Range Comments POC-GLUCOSE METER (BEAKER) (test wnlo=5531) 222 mg/dL 70-110 TESTED AT [facility] [address] [place] [address] [id number] 12:00:00* Test Item Value Reference Range Comments PARTIAL THROMBOPLASTIN TIME (BEAKER) (test wgcw=836) 31.4 seconds 22.5-36.0 PROTHROMBIN TIME/[id number] 11:59:00* Test Item Value Reference Range Comments PROTIME (BEAKER) (test xuuh=383) 19.4 seconds 11.7-14.7 INR (BEAKER) (test vbap=799) 1.6 <=5.9 RECOMMENDED COUMADIN/WARFARIN INR THERAPY RANGESSTANDARD DOSE: 2.0 - 3.0 Inclu chevy: PROPHYLAXIS for venous thrombosis, systemic embolization; TREATMENT for janny ous thrombosis and/or pulmonary embolus.HIGH RISK: Target INR is 2.5-3.5 for pat ients with mechanical heart valves.[id number] 11:59:00* Test Item Value Reference Range Comments FIBRINOGEN LEVEL (BEAKER) (test rqrv=097) 744 mg/dl 225-434 CBC W/PLT COUNT & AUTO [id number] 08:12:00* Test Item Value Reference Range Comments WHITE BLOOD CELL COUNT (BEAKER) (test gfno=499) 0.2 K/ L 4.0-10.0 RED BLOOD CELL COUNT (BEAKER) (test ugsv=231) 2.61 M/ L 4.20-5.80 HEMOGLOBIN (BEAKER) (test rxsn=197) 8.2 GM/DL 13.0-16.8 HEMATOCRIT (BEAKER) (test wdaf=013) 23.4 % 40.0-50.0 MEAN CORPUSCULAR VOLUME (BEAKER) (test cfxz=063) 89.5 fL 82.0-98.0 MEAN CORPUSCULAR HEMOGLOBIN (BEAKER) (test jnkl=935) 31.6 pg 27.0-33.0 MEAN CORPUSCULAR HEMOGLOBIN CONC (BEAKER) (test kryy=875) 35.2 GM/DL 32.0-36.0 RED CELL DISTRIBUTION WIDTH (BEAKER) (test mqkr=412) 16.3 % 10.3-14.2 PLATELET COUNT (BEAKER) (test qntp=522) 17 K/CU MM 150-430 MEAN PLATELET VOLUME (BEAKER) (test pglf=496) 8.5 fL 6.5-10.5 NUCLEATED RED BLOOD CELLS (BEAKER) (test jmjb=452) 0 /100 WBC 0-0 NEUTROPHILS RELATIVE PERCENT (BEAKER) (test bqbm=105) 17 % LYMPHOCYTES RELATIVE PERCENT (BEAKER) (test qnlz=232) 76 % MONOCYTES RELATIVE PERCENT (BEAKER) (test laho=444) 6 % EOSINOPHILS RELATIVE PERCENT (BEAKER) (test djnd=532) 1 % BASOPHILS RELATIVE PERCENT (BEAKER) (test lane=346) 0 % NEUTROPHILS ABSOLUTE COUNT (BEAKER) (test fdfe=060) 0.03 K/ L 1.80-8.00 LYMPHOCYTES ABSOLUTE COUNT (BEAKER) (test mgok=918) 0.12 K/ L 1.48-4.50 MONOCYTES ABSOLUTE COUNT (BEAKER) (test gaxl=402) 0.01 K/ L 0.00-1.30 EOSINOPHILS ABSOLUTE COUNT (BEAKER) (test bqnl=865) 0.00 K/ L 0.00-0.50 BASOPHILS ABSOLUTE COUNT (BEAKER) (test aqia=700) 0.00 K/ L 0.00-0.20 0.00(MANUAL DIFFERENTIAL)2016-11-07 08:12:00* Test Item Value Reference Range Comments TOTAL COUNTED (BEAKER) (test bjwe=2709) WBC MORPHOLOGY (BEAKER) (test uyvu=737) Normal PLT MORPHOLOGY (BEAKER) (test spbz=270) Normal HYPOCHROMIA (BEAKER) (test rfqk=998) 1+ few OVALOCYTES (BEAKER) (test bvjn=954) 1+ few POLYCHROMATOPHILLIC RBCS(BEAKER) (test ugkv=537) 1+ few CREATINE KINASE (CK)2016-11-07 05:21:00* Test Item Value Reference Range Comments CREATINE KINASE TOTAL (BEAKER) (test plmg=563) 575 U/L 29-200 [id number] 04:59:00* Test Item Value Reference Range Comments MAGNESIUM (BEAKER) (test rerm=538) 2.2 mg/dL 1.6-2.6 COMPREHENSIVE METABOLIC [id number] 04:55:00* Test Item Value Reference Range Comments TOTAL PROTEIN (BEAKER) (test ljex=309) 4.9 gm/dL 6.0-8.3 ALBUMIN (BEAKER) (test koax=9489) 2.7 g/dL 3.5-5.0 ALKALINE PHOSPHATASE (BEAKER) (test mhhf=117) 67 U/L 40-150 BILIRUBIN TOTAL (BEAKER) (test irvl=767) 2.4 mg/dL 0.2-1.2 SODIUM (BEAKER) (test joxa=842) 139 meq/L 136-145 POTASSIUM (BEAKER) (test bvsl=403) 3.6 meq/L 3.5-5.1 CHLORIDE (BEAKER) (test nyme=218) 106 meq/L 98-107 CO2 (BEAKER) (test fpcu=417) 21 meq/L 22-29 BLOOD UREA NITROGEN (BEAKER) (test bobr=924) 25 mg/dL 7-21 CREATININE (BEAKER) (test jhvv=455) 0.64 mg/dL 0.57-1.25 GLUCOSE RANDOM (BEAKER) (test cjhg=624) 175 mg/dL 70-105 CALCIUM (BEAKER) (test qtcy=196) 8.0 mg/dL 8.4-10.2 AST (SGOT) (BEAKER) (test pbqw=120) 705 U/L 5-34 ALT (SGPT) (BEAKER) (test hntp=628) 1467 U/L 6-55 EGFR (BEAKER) (test ljgs=5226) mL/min/1.73 sq m INSUFFICIENT CLINICAL DATA TO CALCULATE ESTIMATED GFR. [id number] 04:41:00* Test Item Value Reference Range Comments PHOSPHORUS (BEAKER) (test hloh=611) 1.9 mg/dL 2.3-4.7 BLOOD GAS, [id number] 04:29:00* Test Item Value Reference Range Comments PH ARTERIAL (BEAKER) (test sawj=613) 7.53 7.35-7.45 PCO2 ARTERIAL (BEAKER) (test cylh=020) 30 mmHg 35-45 PO2 ARTERIAL (BEAKER) (test gjwq=797) 162 mmHg 80-90 O2 SATURATION ARTERIAL (BEAKER) (test nbqq=838) 99.3 % 96.0-97.0 HCO3 ARTERIAL (BEAKER) (test ygze=269) 24 mmol/L 21-29 BASE EXCESS ARTERIAL (BEAKER) (test uiil=703) 1.9 mmol/L -2.0-3.0 PATIENT TEMPERATURE (BEAKER) (test igvi=9528) 37.0 C FIO2 (BEAKER) (test nxzt=5224) 40.0 % LACTIC ACID, VENOUS, WHOLE [id number] 04:19:00* Test Item Value Reference Range Comments LACTATE BLOOD VENOUS (2) (BEAKER) (test khqh=2253) 1.1 mmol/L 0.5-2.2 Effective 11/27/2015: Units/Reference Range ChangeNew: 0.5-2.2 mmol/L Previous: 5 -20 mg/dLSpecimen slightly ictericVANCOMYCIN LEVEL, [id number] 23:34:00* Test Item Value Reference Range Comments VANCOMYCIN TROUGH (BEAKER) (test hwor=810) 5.2 ug/mL 10.0-20.0 Draw 30 min prior to scheduled dose, HOLD if level > 20 mcg/mL, inform .POCT- GLUCOSE [id number] 22:24:00* Test Item Value Reference Range Comments POC-GLUCOSE METER (BEAKER) (test ejlo=8029) 147 mg/dL 70-110 TESTED AT [facility] [address] [facility] [id number] CBC (HEMOGRAM ONLY)2016-11-06 21:12:00* Test Item Value Reference Range Comments WHITE BLOOD CELL COUNT (BEAKER) (test prgk=579) 0.2 K/ L 4.0-10.0 RED BLOOD CELL COUNT (BEAKER) (test oycd=893) 2.58 M/ L 4.20-5.80 HEMOGLOBIN (BEAKER) (test nvod=175) 7.7 GM/DL 13.0-16.8 HEMATOCRIT (BEAKER) (test jmwu=187) 22.3 % 40.0-50.0 MEAN CORPUSCULAR VOLUME (BEAKER) (test gegj=562) 86.5 fL 82.0-98.0 MEAN CORPUSCULAR HEMOGLOBIN (BEAKER) (test mamk=849) 29.9 pg 27.0-33.0 MEAN CORPUSCULAR HEMOGLOBIN CONC (BEAKER) (test fncs=056) 34.5 GM/DL 32.0-36.0 RED CELL DISTRIBUTION WIDTH (BEAKER) (test ojsx=241) 15.1 % 10.3-14.2 PLATELET COUNT (BEAKER) (test mnjm=757) 25 K/CU MM 150-430 MEAN PLATELET VOLUME (BEAKER) (test ozwj=783) 8.3 fL 6.5-10.5 NUCLEATED RED BLOOD CELLS (BEAKER) (test plnr=207) 0 /100 WBC 0-0 0.000.500.000.000.000.000.00URINALYSIS W/ [id number] 17:29:00* Test Item Value Reference Range Comments COLOR (BEAKER) (test rktm=854) Yellow CLARITY (BEAKER) (test tcbg=984) Cloudy SPECIFIC GRAVITY UA (BEAKER) (test tpbu=908) 1.023 1.001-1.035 PH UA (BEAKER) (test gvjh=326) 6.0 5.0-8.0 PROTEIN UA (BEAKER) (test glyn=223) 70 mg/dL Negative GLUCOSE UA (BEAKER) (test dmoz=075) Negative Negative KETONES UA (BEAKER) (test hbfv=733) 20 mg/dL Negative BILIRUBIN UA (BEAKER) (test fzbb=426) Negative Negative BLOOD UA (BEAKER) (test lxtu=837) Moderate Negative NITRITE UA (BEAKER) (test kvyl=614) Negative Negative LEUKOCYTE ESTERASE UA (BEAKER) (test fpvf=169) Negative Negative UROBILINOGEN UA (BEAKER) (test losa=597) 0.2 mg/dL 0.2-1.0 RBC UA (BEAKER) (test nuoz=092) 0 /HPF WBC UA (BEAKER) (test boyx=282) 0 /HPF SQUAMOUS EPITHELIAL (BEAKER) (test pick=289) 2 /HPF SOURCE(BEAKER) (test lasu=6075) Urine, Rivas TROPONIN [id number] 17:19:00* Test Item Value Reference Range Comments TROPONIN I (BEAKER) (test hfhk=028) 1.21 ng/mL 0.00-0.03 Effective 06/12/2014: Reference Range ChangeNew: 0.00-0.03 Previous 0.00-0.15T roponin I (TnI) levels must be interpreted in the context of the presenting symp toms and the clinical findings. Elevated TnI levels indicate myocardial damage, but are not specific for ischemic heart disease. Elevated TnI levels are seen in patients with other cardiac conditions (including myocarditis and congestive he art failure), and slight TnI elevations occur in patients with other conditions, including sepsis, renal failure, acidosis, acute neurological disease, and pers istent tachyarrhythmia.POCT-GLUCOSE [id number] 17:15:00* Test Item Value Reference Range Comments POC-GLUCOSE METER (BEAKER) (test qvuu=8117) 203 mg/dL 70-110 TESTED AT [facility] [address] [facility] [address] CREATINE KINASE (CK), TOTAL AND [id number] 17:12:00* Test Item Value Reference Range Comments CREATINE KINASE TOTAL (BEAKER) (test pwqe=465) 771 U/L 29-200 CREATINE KINASE-MB (BEAKER) (test tbrz=755) 13.0 ng/mL 0.0-6.6 CREATINE KINASE-MB INDEX (BEAKER) (test spkc=060) 1.7 % Effective 06/12/2014: CK-MB Reference Range ChangeNew: 0.0-6.6 Previous: 0.0- 4.9CK-MB Reference Range:<6.7 Normal6.7-10.0 Borderline>10.0 Abnormal [id number] 17:06:00* Test Item Value Reference Range Comments LIPASE (BEAKER) (test irpk=106) 43 U/L 8-78 Specimen slightly ictericCOMPREHENSIVE METABOLIC [id number] 17:06:00* Test Item Value Reference Range Comments TOTAL PROTEIN (BEAKER) (test tkua=741) 5.0 gm/dL 6.0-8.3 ALBUMIN (BEAKER) (test vooj=0010) 2.7 g/dL 3.5-5.0 ALKALINE PHOSPHATASE (BEAKER) (test vqri=816) 62 U/L 40-150 BILIRUBIN TOTAL (BEAKER) (test xggz=095) 2.4 mg/dL 0.2-1.2 SODIUM (BEAKER) (test irvj=687) 136 meq/L 136-145 POTASSIUM (BEAKER) (test giax=951) 3.3 meq/L 3.5-5.1 CHLORIDE (BEAKER) (test mgux=491) 103 meq/L 98-107 CO2 (BEAKER) (test luce=088) 21 meq/L 22-29 BLOOD UREA NITROGEN (BEAKER) (test qitz=913) 32 mg/dL 7-21 CREATININE (BEAKER) (test kqcz=339) 0.67 mg/dL 0.57-1.25 GLUCOSE RANDOM (BEAKER) (test sezv=848) 195 mg/dL 70-105 CALCIUM (BEAKER) (test ocgd=609) 8.0 mg/dL 8.4-10.2 AST (SGOT) (BEAKER) (test szjf=466) 1422 U/L 5-34 ALT (SGPT) (BEAKER) (test eakp=177) 1799 U/L 6-55 EGFR (BEAKER) (test mixb=4113) mL/min/1.73 sq m INSUFFICIENT CLINICAL DATA TO CALCULATE ESTIMATED GFR. Specimen slightly ictericBLOOD GAS, [id number] 16:45:00* Test Item Value Reference Range Comments PH VENOUS (BEAKER) (test wqyb=170) 7.52 7.32-7.42 PCO2 VENOUS (BEAKER) (test ufam=126) 38 mmHg 41-51 PO2 VENOUS (BEAKER) (test dhqm=638) 29 mmHg 25-40 O2 SATURATION VENOUS (BEAKER) (test zdcp=618) 61.7 % 40.0-70.0 HCO3 VENOUS (BEAKER) (test uhnx=379) 30 mmol/L 21-29 BASE EXCESS VENOUS (BEAKER) (test pwro=401) 6.9 mmol/L -2.0-3.0 PATIENT TEMPERATURE (BEAKER) (test yzyy=3380) 37.0 C BLOOD GAS, [id number] 16:42:00* Test Item Value Reference Range Comments PH ARTERIAL (BEAKER) (test dxip=630) 7.56 7.35-7.45 PCO2 ARTERIAL (BEAKER) (test cjhc=137) 28 mmHg 35-45 PO2 ARTERIAL (BEAKER) (test jkhn=619) 96 mmHg 80-90 O2 SATURATION ARTERIAL (BEAKER) (test oxbg=842) 98.2 % 96.0-97.0 HCO3 ARTERIAL (BEAKER) (test yhln=807) 24 mmol/L 21-29 BASE EXCESS ARTERIAL (BEAKER) (test flvm=738) 1.9 mmol/L -2.0-3.0 PATIENT TEMPERATURE (BEAKER) (test efgo=9207) 37.0 C FIO2 (BEAKER) (test ybev=7374) 32.0 % POCT-GLUCOSE [id number] 12:37:00* Test Item Value Reference Range Comments POC-GLUCOSE METER (BEAKER) (test eowo=3456) 243 mg/dL 70-110 TESTED AT [facility] [address] [facility] [address] TROPONIN [id number] 10:27:00* Test Item Value Reference Range Comments TROPONIN I (BEAKER) (test iwsu=368) 2.01 ng/mL 0.00-0.03 Effective 06/12/2014: Reference Range ChangeNew: 0.00-0.03 Previous 0.00-0.15T roponin I (TnI) levels must be interpreted in the context of the presenting symp toms and the clinical findings. Elevated TnI levels indicate myocardial damage, but are not specific for ischemic heart disease. Elevated TnI levels are seen in patients with other cardiac conditions (including myocarditis and congestive he art failure), and slight TnI elevations occur in patients with other conditions, including sepsis, renal failure, acidosis, acute neurological disease, and pers istent tachyarrhythmia.CREATINE KINASE (CK), TOTAL AND [id number] 10:26:00* Test Item Value Reference Range Comments CREATINE KINASE TOTAL (BEAKER) (test hhlg=039) 821 U/L 29-200 CREATINE KINASE-MB (BEAKER) (test panp=690) 16.4 ng/mL 0.0-6.6 CREATINE KINASE-MB INDEX (BEAKER) (test fnlj=245) 2.0 % Effective 06/12/2014: CK-MB Reference Range ChangeNew: 0.0-6.6 Previous: 0.0- 4.9CK-MB Reference Range:<6.7 Normal6.7-10.0 Borderline>10.0 Abnormal CBC (HEMOGRAM ONLY)2016-11-06 09:52:00* Test Item Value Reference Range Comments WHITE BLOOD CELL COUNT (BEAKER) (test sprv=405) 0.2 K/ L 4.0-10.0 RED BLOOD CELL COUNT (BEAKER) (test aetu=902) 2.67 M/ L 4.20-5.80 HEMOGLOBIN (BEAKER) (test rdmo=655) 8.4 GM/DL 13.0-16.8 HEMATOCRIT (BEAKER) (test oinv=334) 23.6 % 40.0-50.0 MEAN CORPUSCULAR VOLUME (BEAKER) (test uvjn=462) 88.2 fL 82.0-98.0 MEAN CORPUSCULAR HEMOGLOBIN (BEAKER) (test ifeq=921) 31.6 pg 27.0-33.0 MEAN CORPUSCULAR HEMOGLOBIN CONC (BEAKER) (test bfeh=138) 35.8 GM/DL 32.0-36.0 RED CELL DISTRIBUTION WIDTH (BEAKER) (test mmoo=031) 16.0 % 10.3-14.2 PLATELET COUNT (BEAKER) (test okkp=118) 11 K/CU MM 150-430 MEAN PLATELET VOLUME (BEAKER) (test pjeh=803) 9.8 fL 6.5-10.5 NUCLEATED RED BLOOD CELLS (BEAKER) (test bymx=061) 0 /100 WBC 0-0 0.000.500.000.000.000.000.00LACTIC ACID, VENOUS, WHOLE [id number] 09:48:00 * Test Item Value Reference Range Comments LACTATE BLOOD VENOUS (2) (BEAKER) (test mivq=7215) 2.8 mmol/L 0.5-2.2 Effective 11/27/2015: Units/Reference Range ChangeNew: 0.5-2.2 mmol/L Previous: 5 -20 mg/dLSpecimen slightly ictericEQUAL MIX, NORMAL [id number] 09:30:00* Test Item Value Reference Range Comments PROTIME (BEAKER) (test bvjp=624) 27.4 seconds 11.7-14.7 PARTIAL THROMBOPLASTIN TIME (BEAKER) (test leej=978) 39.1 seconds 22.5-36.0 PT 1/1 MIX (BEAKER) (test neio=0851) 16.4 SECS 11.7-14.7 PTT 1/1 MIX (BEAKER) (test ggnz=1052) 41.3 SECS 22.5-36.0 BLOOD GAS, [id number] 06:07:00* Test Item Value Reference Range Comments PH ARTERIAL (BEAKER) (test ctjz=384) 7.39 7.35-7.45 PCO2 ARTERIAL (BEAKER) (test psdn=384) 22 mmHg 35-45 PO2 ARTERIAL (BEAKER) (test rcaf=858) 92 mmHg 80-90 O2 SATURATION ARTERIAL (BEAKER) (test jeqc=626) 97.2 % 96.0-97.0 HCO3 ARTERIAL (BEAKER) (test lyhp=239) 13 mmol/L 21-29 BASE EXCESS ARTERIAL (BEAKER) (test lcer=415) -10.3 mmol/L -2.0-3.0 PATIENT TEMPERATURE (BEAKER) (test vnmc=4534) 37.0 C FIO2 (BEAKER) (test vmsk=2503) 21.0 % [id number] 03:42:00* Test Item Value Reference Range Comments D-DIMER QUANTITATIVE (BEAKER) (test ipip=667) 3.35 MG/L FEU <0.50 Intended Use: The D-Dimer Assay can be used to aid in the diagnosis of Deep Vein Thrombosis (DVT) and Pulmonary Embolism Disease (PED).In patients with low pre- test probability, various studies concerning STA Liatest D-dimer test have repor shimon that with a cutoff value of 0.50 MG/L FEU, the Negative Predictive Value (KNIFE CHANGER V) regarding the exclusion of thrombosis is within 95-100% range.FIBRINOGEN 2016-11-06 03:40:00* Test Item Value Reference Range Comments FIBRINOGEN LEVEL (BEAKER) (test klrp=144) 791 mg/dl 225-434 COMPREHENSIVE METABOLIC [id number] 02:48:00* Test Item Value Reference Range Comments TOTAL PROTEIN (BEAKER) (test iejn=666) 5.2 gm/dL 6.0-8.3 ALBUMIN (BEAKER) (test cvop=2971) 2.9 g/dL 3.5-5.0 ALKALINE PHOSPHATASE (BEAKER) (test lruf=936) 66 U/L 40-150 BILIRUBIN TOTAL (BEAKER) (test hblk=420) 3.3 mg/dL 0.2-1.2 SODIUM (BEAKER) (test mgsu=138) 138 meq/L 136-145 POTASSIUM (BEAKER) (test kcda=237) 4.3 meq/L 3.5-5.1 CHLORIDE (BEAKER) (test mheq=773) 108 meq/L 98-107 CO2 (BEAKER) (test ekjb=271) 6 meq/L 22-29 BLOOD UREA NITROGEN (BEAKER) (test cbbe=977) 26 mg/dL 7-21 CREATININE (BEAKER) (test jixw=262) 0.88 mg/dL 0.57-1.25 GLUCOSE RANDOM (BEAKER) (test vfky=502) 211 mg/dL 70-105 CALCIUM (BEAKER) (test dspe=065) 7.9 mg/dL 8.4-10.2 AST (SGOT) (BEAKER) (test fgrv=222) 713 U/L 5-34 ALT (SGPT) (BEAKER) (test ocaq=766) 696 U/L 6-55 EGFR (BEAKER) (test lywx=2570) mL/min/1.73 sq m INSUFFICIENT CLINICAL DATA TO CALCULATE ESTIMATED GFR. Specimen slightly [id number] 02:45:00* Test Item Value Reference Range Comments PHOSPHORUS (BEAKER) (test wnga=202) 4.6 mg/dL 2.3-4.7 [id number] 02:45:00* Test Item Value Reference Range Comments MAGNESIUM (BEAKER) (test txre=072) 1.9 mg/dL 1.6-2.6 LACTIC ACID, VENOUS, WHOLE [id number] 02:41:00* Test Item Value Reference Range Comments LACTATE BLOOD VENOUS (2) (BEAKER) (test fbon=9679) 13.0 mmol/L 0.5-2.2 Effective 11/27/2015: Units/Reference Range ChangeNew: 0.5-2.2 mmol/L Previous: 5 -20 mg/dLSpecimen slightly ictericCBC W/PLT COUNT & AUTO [id number] 02:36:00* Test Item Value Reference Range Comments WHITE BLOOD CELL COUNT (BEAKER) (test aclq=927) 0.2 K/ L 4.0-10.0 RED BLOOD CELL COUNT (BEAKER) (test rrjb=559) 3.17 M/ L 4.20-5.80 HEMOGLOBIN (BEAKER) (test bvns=051) 9.6 GM/DL 13.0-16.8 HEMATOCRIT (BEAKER) (test wnyj=763) 28.5 % 40.0-50.0 MEAN CORPUSCULAR VOLUME (BEAKER) (test trod=264) 89.8 fL 82.0-98.0 MEAN CORPUSCULAR HEMOGLOBIN (BEAKER) (test awip=513) 30.2 pg 27.0-33.0 MEAN CORPUSCULAR HEMOGLOBIN CONC (BEAKER) (test cmsr=104) 33.6 GM/DL 32.0-36.0 RED CELL DISTRIBUTION WIDTH (BEAKER) (test rnrl=723) 15.5 % 10.3-14.2 PLATELET COUNT (BEAKER) (test nczj=611) 23 K/CU MM 150-430 MEAN PLATELET VOLUME (BEAKER) (test fwau=270) 9.5 fL 6.5-10.5 NUCLEATED RED BLOOD CELLS (BEAKER) (test eynp=150) 0 /100 WBC 0-0 NEUTROPHILS RELATIVE PERCENT (BEAKER) (test zkbu=794) 8 % LYMPHOCYTES RELATIVE PERCENT (BEAKER) (test urly=146) 90 % MONOCYTES RELATIVE PERCENT (BEAKER) (test wzmq=237) 1 % EOSINOPHILS RELATIVE PERCENT (BEAKER) (test mcrq=312) 1 % BASOPHILS RELATIVE PERCENT (BEAKER) (test lwjk=090) 0 % NEUTROPHILS ABSOLUTE COUNT (BEAKER) (test cljk=645) 0.01 K/ L 1.80-8.00 LYMPHOCYTES ABSOLUTE COUNT (BEAKER) (test fvfq=622) 0.15 K/ L 1.48-4.50 MONOCYTES ABSOLUTE COUNT (BEAKER) (test ajsm=438) 0.00 K/ L 0.00-1.30 EOSINOPHILS ABSOLUTE COUNT (BEAKER) (test epxy=294) 0.00 K/ L 0.00-0.50 BASOPHILS ABSOLUTE COUNT (BEAKER) (test dtct=217) 0.00 K/ L 0.00-0.20 0.00BLOOD GAS, [id number] 02:31:00* Test Item Value Reference Range Comments PH ARTERIAL (BEAKER) (test utwt=499) 7.28 7.35-7.45 PCO2 ARTERIAL (BEAKER) (test wjol=035) 14 mmHg 35-45 PO2 ARTERIAL (BEAKER) (test evoi=502) 93 mmHg 80-90 O2 SATURATION ARTERIAL (BEAKER) (test agcn=872) 96.5 % 96.0-97.0 HCO3 ARTERIAL (BEAKER) (test kyvw=882) 7 mmol/L 21-29 BASE EXCESS ARTERIAL (BEAKER) (test plyb=754) -18.1 mmol/L -2.0-3.0 PATIENT TEMPERATURE (BEAKER) (test gjwe=6616) 37.0 C FIO2 (BEAKER) (test udur=3557) 21.0 % [id number] 02:28:00* Test Item Value Reference Range Comments PARTIAL THROMBOPLASTIN TIME (BEAKER) (test czkd=142) 36.0 seconds 22.5-36.0 PROTHROMBIN TIME/[id number] 02:27:00* Test Item Value Reference Range Comments PROTIME (BEAKER) (test bddw=852) 26.9 seconds 11.7-14.7 INR (BEAKER) (test mkdq=453) 2.5 <=5.9 RECOMMENDED COUMADIN/WARFARIN INR THERAPY RANGESSTANDARD DOSE: 2.0 - 3.0 Inclu chevy: PROPHYLAXIS for venous thrombosis, systemic embolization; TREATMENT for janny ous thrombosis and/or pulmonary embolus.HIGH RISK: Target INR is 2.5-3.5 for pat ients with mechanical heart valves.CALCIUM, [id number] 02:24:00* Test Item Value Reference Range Comments CALCIUM IONIZED (BEAKER) (test ydma=588) 0.97 mmol/L 1.12-1.27 PH, BLOOD (BEAKER) (test habh=6931) 7.28 TROPONIN [id number] 00:50:00* Test Item Value Reference Range Comments TROPONIN I (BEAKER) (test znnk=364) 0.62 ng/mL 0.00-0.03 Effective 06/12/2014: Reference Range ChangeNew: 0.00-0.03 Previous 0.00-0.15T roponin I (TnI) levels must be interpreted in the context of the presenting symp toms and the clinical findings. Elevated TnI levels indicate myocardial damage, but are not specific for ischemic heart disease. Elevated TnI levels are seen in patients with other cardiac conditions (including myocarditis and congestive he art failure), and slight TnI elevations occur in patients with other conditions, including sepsis, renal failure, acidosis, acute neurological disease, and pers istent tachyarrhythmia.CREATINE KINASE (CK), TOTAL AND [id number] 00:47:00* Test Item Value Reference Range Comments CREATINE KINASE TOTAL (BEAKER) (test buyo=587) 550 U/L 29-200 CREATINE KINASE-MB (BEAKER) (test nuba=297) 6.7 ng/mL 0.0-6.6 CREATINE KINASE-MB INDEX (BEAKER) (test icht=617) 1.2 % Effective 06/12/2014: CK-MB Reference Range ChangeNew: 0.0-6.6 Previous: 0.0- 4.9CK-MB Reference Range:<6.7 Normal6.7-10.0 Borderline>10.0 Abnormal URIC [id number] 00:43:00* Test Item Value Reference Range Comments URIC ACID (BEAKER) (test jicq=660) 9.1 mg/dL 2.6-7.2 Specimen slightly ictericPOCT-GLUCOSE [id number] 22:32:00* Test Item Value Reference Range Comments POC-GLUCOSE METER (BEAKER) (test xbuz=5419) 143 mg/dL 70-110 TESTED AT [facility] [address] [facility] [address] LACTIC ACID, VENOUS, WHOLE [id number] 20:43:00* Test Item Value Reference Range Comments LACTATE BLOOD VENOUS (2) (BEAKER) (test izlz=9662) > mmol/L 0.5-2.2 Effective 11/27/2015: Units/Reference Range ChangeNew: 0.5-2.2 mmol/L Previous: 5 -20 mg/dLBLOOD GAS, [id number] 20:15:00* Test Item Value Reference Range Comments PH ARTERIAL (BEAKER) (test wbrh=070) 7.39 7.35-7.45 PCO2 ARTERIAL (BEAKER) (test myce=864) 13 mmHg 35-45 PO2 ARTERIAL (BEAKER) (test bicp=047) 110 mmHg 80-90 O2 SATURATION ARTERIAL (BEAKER) (test lwwi=654) 98.2 % 96.0-97.0 HCO3 ARTERIAL (BEAKER) (test sxlz=430) 8 mmol/L 21-29 BASE EXCESS ARTERIAL (BEAKER) (test tuxa=581) -15.7 mmol/L -2.0-3.0 PATIENT TEMPERATURE (BEAKER) (test hpzb=2120) 36.5 C FIO2 (BEAKER) (test cwme=4950) 21.0 % CBC (HEMOGRAM ONLY)2016-11-05 20:12:00* Test Item Value Reference Range Comments WHITE BLOOD CELL COUNT (BEAKER) (test osvm=843) 0.4 K/ L 4.0-10.0 RED BLOOD CELL COUNT (BEAKER) (test ubsi=704) 2.20 M/ L 4.20-5.80 HEMOGLOBIN (BEAKER) (test rcde=497) 7.0 GM/DL 13.0-16.8 HEMATOCRIT (BEAKER) (test jzei=088) 20.4 % 40.0-50.0 MEAN CORPUSCULAR VOLUME (BEAKER) (test kpgl=788) 92.7 fL 82.0-98.0 MEAN CORPUSCULAR HEMOGLOBIN (BEAKER) (test rgun=763) 31.7 pg 27.0-33.0 MEAN CORPUSCULAR HEMOGLOBIN CONC (BEAKER) (test ztxh=522) 34.2 GM/DL 32.0-36.0 RED CELL DISTRIBUTION WIDTH (BEAKER) (test sqff=199) 14.9 % 10.3-14.2 PLATELET COUNT (BEAKER) (test ckcv=781) 32 K/CU MM 150-430 MEAN PLATELET VOLUME (BEAKER) (test ctxa=976) 8.0 fL 6.5-10.5 NUCLEATED RED BLOOD CELLS (BEAKER) (test curj=786) 0 /100 WBC 0-0 0.000.500.000.000.000.000.00POCT-GLUCOSE [id number] 19:05:00* Test Item Value Reference Range Comments POC-GLUCOSE METER (BEAKER) (test aaba=2481) 126 mg/dL 70-110 TESTED AT [address] [address] LACTIC ACID, VENOUS, WHOLE [id number] 18:38:00* Test Item Value Reference Range Comments LACTATE BLOOD VENOUS (2) (BEAKER) (test xrew=7901) > mmol/L 0.5-2.2 Effective 11/27/2015: Units/Reference Range ChangeNew: 0.5-2.2 mmol/L Previous: 5 -20 mg/dLCBC W/PLT COUNT & AUTO [id number] 18:26:00* Test Item Value Reference Range Comments WHITE BLOOD CELL COUNT (BEAKER) (test kxmz=790) 0.2 K/ L 4.0-10.0 RED BLOOD CELL COUNT (BEAKER) (test pmar=002) 1.96 M/ L 4.20-5.80 HEMOGLOBIN (BEAKER) (test bhkk=704) 6.3 GM/DL 13.0-16.8 HEMATOCRIT (BEAKER) (test hxvb=053) 17.9 % 40.0-50.0 MEAN CORPUSCULAR VOLUME (BEAKER) (test jagp=247) 91.3 fL 82.0-98.0 MEAN CORPUSCULAR HEMOGLOBIN (BEAKER) (test gfwt=002) 32.2 pg 27.0-33.0 MEAN CORPUSCULAR HEMOGLOBIN CONC (BEAKER) (test eghc=293) 35.3 GM/DL 32.0-36.0 RED CELL DISTRIBUTION WIDTH (BEAKER) (test pgxd=332) 14.7 % 10.3-14.2 PLATELET COUNT (BEAKER) (test hvbm=236) 33 K/CU MM 150-430 MEAN PLATELET VOLUME (BEAKER) (test xmjo=934) 7.4 fL 6.5-10.5 NUCLEATED RED BLOOD CELLS (BEAKER) (test tohe=792) 0 /100 WBC 0-0 0.000.500.000.000.000.000.000.000.000.000.000.000.000.000.000.000.00(MANUAL DIFFERENTIAL)2016-11-05 18:26:00* Test Item Value Reference Range Comments NEUTROPHILS - REL (DIFF) (BEAKER) (test uptl=4337) 5 % LYMPHOCYTES - REL (DIFF) (BEAKER) (test akau=6143) 85 % MONOCYTES - REL (DIFF) (BEAKER) (test qtaw=2516) 10 % NEUTROPHILS - ABS (DIFF) (BEAKER) (test qodw=6097) 0.01 K/ L 1.80-8.00 LYMPHOCYTES - ABS (DIFF) (BEAKER) (test pbrk=6644) 0.17 K/ L 1.48-4.50 MONOCYTES - ABS (DIFF) (BEAKER) (test bwnt=0207) 0.02 K/ L 0.00-1.30 TOTAL COUNTED (BEAKER) (test bdts=3965) 20 WBC MORPHOLOGY (BEAKER) (test gtyf=332) Normal PLT MORPHOLOGY (BEAKER) (test wnln=200) Normal RBC MORPHOLOGY (BEAKER) (test qzfr=920) Normal BLOOD GAS, [id number] 17:04:00* Test Item Value Reference Range Comments PH ARTERIAL (BEAKER) (test eqgs=774) 7.57 7.35-7.45 PCO2 ARTERIAL (BEAKER) (test mulw=991) 24 mmHg 35-45 PO2 ARTERIAL (BEAKER) (test wvtw=082) 107 mmHg 80-90 O2 SATURATION ARTERIAL (BEAKER) (test gbyp=289) 98.6 % 96.0-97.0 HCO3 ARTERIAL (BEAKER) (test taed=280) 22 mmol/L 21-29 BASE EXCESS ARTERIAL (BEAKER) (test uapc=431) -0.3 mmol/L -2.0-3.0 PATIENT TEMPERATURE (BEAKER) (test wkpi=6956) 37.1 C FIO2 (BEAKER) (test poil=8860) 21.0 % TROPONIN [id number] 16:54:00* Test Item Value Reference Range Comments TROPONIN I (BEAKER) (test taag=085) 0.33 ng/mL 0.00-0.03 Effective 06/12/2014: Reference Range ChangeNew: 0.00-0.03 Previous 0.00-0.15T roponin I (TnI) levels must be interpreted in the context of the presenting symp toms and the clinical findings. Elevated TnI levels indicate myocardial damage, but are not specific for ischemic heart disease. Elevated TnI levels are seen in patients with other cardiac conditions (including myocarditis and congestive he art failure), and slight TnI elevations occur in patients with other conditions, including sepsis, renal failure, acidosis, acute neurological disease, and pers istent tachyarrhythmia.URINALYSIS W/ [id number] 16:52:00* Test Item Value Reference Range Comments COLOR (BEAKER) (test mnod=700) Yellow CLARITY (BEAKER) (test wozo=809) Cloudy SPECIFIC GRAVITY UA (BEAKER) (test qwgj=645) 1.026 1.001-1.035 PH UA (BEAKER) (test rewm=729) 5.5 5.0-8.0 PROTEIN UA (BEAKER) (test vdkr=952) 100 mg/dL Negative GLUCOSE UA (BEAKER) (test myxv=704) 50 mg/dL Negative KETONES UA (BEAKER) (test pqwv=315) 10 mg/dL Negative BILIRUBIN UA (BEAKER) (test tyqv=418) Negative Negative BLOOD UA (BEAKER) (test gyuw=973) Small Negative NITRITE UA (BEAKER) (test vmcd=194) Negative Negative LEUKOCYTE ESTERASE UA (BEAKER) (test myms=125) Negative Negative UROBILINOGEN UA (BEAKER) (test sdrq=490) 0.2 mg/dL 0.2-1.0 RBC UA (BEAKER) (test coab=191) 3 /HPF WBC UA (BEAKER) (test rvxl=727) 4 /HPF BACTERIA (BEAKER) (test cgkj=259) Many SQUAMOUS EPITHELIAL (BEAKER) (test xnld=981) 1 /HPF SOURCE(BEAKER) (test xtwm=5458) Urine, Rivas [id number] 16:52:00* Test Item Value Reference Range Comments PARTIAL THROMBOPLASTIN TIME (BEAKER) (test ghug=485) 39.7 seconds 22.5-36.0 CREATINE KINASE (CK), TOTAL AND [id number] 16:52:00* Test Item Value Reference Range Comments CREATINE KINASE TOTAL (BEAKER) (test snoi=224) 192 U/L 29-200 CREATINE KINASE-MB (BEAKER) (test futl=936) 1.0 ng/mL 0.0-6.6 CREATINE KINASE-MB INDEX (BEAKER) (test fgbl=381) 0.5 % Effective 06/12/2014: CK-MB Reference Range ChangeNew: 0.0-6.6 Previous: 0.0- 4.9CK-MB Reference Range:<6.7 Normal6.7-10.0 Borderline>10.0 Abnormal PROTHROMBIN TIME/[id number] 16:51:00* Test Item Value Reference Range Comments PROTIME (BEAKER) (test dlun=694) 21.0 seconds 11.7-14.7 INR (BEAKER) (test rfcr=076) 1.8 <=5.9 RECOMMENDED COUMADIN/WARFARIN INR THERAPY RANGESSTANDARD DOSE: 2.0 - 3.0 Inclu chevy: PROPHYLAXIS for venous thrombosis, systemic embolization; TREATMENT for janny ous thrombosis and/or pulmonary embolus.HIGH RISK: Target INR is 2.5-3.5 for pat ients with mechanical heart valves.[id number] 16:51:00* Test Item Value Reference Range Comments FIBRINOGEN LEVEL (BEAKER) (test lekb=714) 779 mg/dl 225-434 BASIC METABOLIC [id number] 16:47:00* Test Item Value Reference Range Comments SODIUM (BEAKER) (test vovh=815) 136 meq/L 136-145 POTASSIUM (BEAKER) (test bvft=442) 3.8 meq/L 3.5-5.1 CHLORIDE (BEAKER) (test xpdy=729) 102 meq/L 98-107 CO2 (BEAKER) (test gbop=738) 18 meq/L 22-29 BLOOD UREA NITROGEN (BEAKER) (test aciw=375) 33 mg/dL 7-21 CREATININE (BEAKER) (test waoq=043) 1.32 mg/dL 0.57-1.25 GLUCOSE RANDOM (BEAKER) (test xvpa=624) 154 mg/dL 70-105 CALCIUM (BEAKER) (test ztgz=589) 7.1 mg/dL 8.4-10.2 EGFR (BEAKER) (test drwx=8029) mL/min/1.73 sq m INSUFFICIENT CLINICAL DATA TO CALCULATE ESTIMATED GFR. [id number] 16:46:00* Test Item Value Reference Range Comments PHOSPHORUS (BEAKER) (test xkuf=463) 3.4 mg/dL 2.3-4.7 [id number] 16:46:00* Test Item Value Reference Range Comments MAGNESIUM (BEAKER) (test btuv=607) 1.6 mg/dL 1.6-2.6 HEPATIC FUNCTION [id number] 16:46:00* Test Item Value Reference Range Comments TOTAL PROTEIN (BEAKER) (test dhhx=861) 4.5 gm/dL 6.0-8.3 ALBUMIN (BEAKER) (test jyme=4379) 2.4 g/dL 3.5-5.0 BILIRUBIN TOTAL (BEAKER) (test chzj=741) 1.7 mg/dL 0.2-1.2 BILIRUBIN DIRECT (BEAKER) (test rcpp=205) 1.0 mg/dL 0.1-0.5 ALKALINE PHOSPHATASE (BEAKER) (test gzdu=830) 58 U/L 40-150 AST (SGOT) (BEAKER) (test flel=068) 21 U/L 5-34 ALT (SGPT) (BEAKER) (test kkte=759) 30 U/L 6-55 LACTIC ACID, VENOUS, WHOLE [id number] 16:39:00* Test Item Value Reference Range Comments LACTATE BLOOD VENOUS (2) (BEAKER) (test bhkf=1571) 7.9 mmol/L 0.5-2.2 Effective 11/27/2015: Units/Reference Range ChangeNew: 0.5-2.2 mmol/L Previous: 5 -20 mg/dLCT BRAIN WO [place] [address] Patient Name: CODI MAHONEY MR #: [id number] : 1985 Age/Sex: 31/M Req #: [id number] Adm Physician: Ordered by: ILENE HUIZAR MD Report #: [id number] Location: ER Room/Bed: Procedure: [id number] CT/CT BRAIN WO Exam Date: 07/29/17 Exam Time: 0720 REPORT STATUS: Signed Exam: Head CT without contrast History: Headache Comparison studies: Hea d CT 10/24/2016 Technique: Axial images were obtained from the skull base t o the vertex. Coronal and sagittal images reconstructed from the axial data. Intravenous contrast: None Findings: Scalp: No abnormalities. Bones : No fractures, blastic or lytic lesions. Brain sulci: Appropriate for age. Ventricles: Normal in size and configuration. No hydrocephalus. Extra-axial spaces: No masses, no fluid collection. Parenchyma: Incidental unchang ed 3 mm calcification without surrounding edema or mass effect in the right la teral cerebellum is nonspecific but may be sequela of previous infection/infla mmation. No other mass. No acute hemorrhage or acute cortical vascular insults . Sellar/suprasellar region: No abnormalities. Craniocervical junction: P atent foramen magnum. No Chiari one malformation. Incidental findings: P reviously described nonspecific left lacrimal gland mass/enlargement has resol sosa. IMPRESSION: 1. No acute abnormalities. 2. Previously describ ed left lacrimal gland mass/enlargement has resolved. 3. No other changes fro m the previous head CT of 10/24/2016. 4. Unchanged dystrophic right cerebellar calcification. Signed by: Dr. Domi Murphy M.D. on 07/29/2017 7:55 AM Dictated By: DOMI MURPHY MD [id number] Transcribed By: RUBÉN on 07/29/17 0755 COPY TO: ILENE RIOS MD
[2018-05-18] MEDS ORDERED: METHYLPREDNISOLONE SOD SUCC 125 MG/2ML VIAL IV STA (03:35)
[2018-05-18] MEDS ORDERED: FAMOTIDINE 20 MG/2 ML VIAL IV STA (03:35)
[2018-05-18] MEDS ORDERED: SODIUM CHLORIDE 0.9% 1000ML 1,000 ML IV STA ×2 (03:35→06:03)
[2018-05-18] MEDS ORDERED: DIPHENHYDRAMINE HCL INJ 50 MG/ML VIAL IV ONE (03:45)
[2018-05-18] MEDS ORDERED: ONDANSETRON HCL INJ 2 MG/ML VIAL IV STA (04:10)
[2018-05-18] MEDS ORDERED: HYDROMORPHONE 1MG/1ML INJ IV STA (04:10)
[2018-05-18] MEDS ORDERED: HYDROMORPHONE 2MG/ML 2 MG/ML ML IV ONE ×2 (04:15→05:45)
--- NOTE | 2018-05-18 04:51 | Diagnostic Imaging Report ---
CHEST SINGLE (PORTABLE), 05/18/2018 3:35 AM Technique: CHEST SINGLE (PORTABLE) Comparison: 10/24/2016 Clinical history: Tachycardia Findings: Lung apices are partially excluded. Otherwise unremarkable portable appearance of the cardiomediastinal silhouette, lungs, and pleural spaces. Partially imaged right humeral arthroplasty. Impression: 1. Lines/Tubes: None 2. No acute abnormality. Signed by: Dr Nelly Montgomery MD on 05/18/2018 4:45 AM
[2018-05-18 05:08] LABS: INR 0.84; PROTHROMBIN TIME 12.3 seconds (11.9-14.5)
[2018-05-18 05:26] LABS: ALANINE AMINOTRANSFERASE 16 IU/L (0-55); ALBUMIN 4.2 g/dL (3.5-5.0); ALBUMIN/GLOBULIN RATIO 1.4 (0.8-2.0); ALKALINE PHOSPHATASE 120 IU/L (40-150); ANION GAP 18.3 mmol/L (8-16); BLOOD UREA NITROGEN 13 mg/dL (7-26); BUN/CREATININE RATIO 18 (6-25); CALCIUM 10.4 mg/dL (8.4-10.2); CARBON DIOXIDE 25 mmol/L (22-29); CHLORIDE 99 mmol/L (98-107); CREATINE KINASE 34 IU/L (30-200); CREATININE, SERUM 0.71 mg/dL (0.72-1.25); EST GLOMERULAR FILTRATION RATE > 60 ML/MIN (60-); GLUCOSE 94 mg/dL (74-118); MAGNESIUM 2.6 MG/DL (1.3-2.1); POTASSIUM 4.3 mmol/L (3.5-5.1); SODIUM 138 mmol/L (136-145)
[2018-05-18] MEDS ORDERED: HYDROMORPHONE 2MG/ML 2 MG/ML ML ONE (05:48)
[2018-05-18 05:49] LABS: THYROID STIMULATING HORMONE 2.202 uIU/mL (0.350-4.940)
[2018-05-18 05:52] LABS: BASOPHILS # (AUTO) 0.1 (0.0-0.1); BASOPHILS % 0.9 % (0.0-1.0); EOSINOPHILS # (AUTO) 0.2 (0.0-0.4); EOSINOPHILS % 3.1 % (0.0-6.0); HEMATOCRIT 46.4 % (38.2-49.6); HEMOGLOBIN 16.6 g/dL (14.0-18.0); LYMPHOCYTES # (AUTO) 1.6 (1.0-3.2); LYMPHOCYTES % 29.3 % (18.0-39.1); MEAN CORPUSCULAR HEMOGLOBIN 31.1 pg (28-32); MEAN CORPUSCULAR HGB CONC 35.8 g/dL (31-35); MEAN CORPUSCULAR VOLUME 87.1 fL (81-99); MONOCYTES # (AUTO) 0.5 (0.2-0.8); MONOCYTES % 9.8 % (4.4-11.3); NEUTROPHILS # (AUTO) 3.1 (2.1-6.9); NEUTROPHILS % 56.4 % (38.7-80.0); PLATELET COUNT 188 x10e3/uL (140-360); RED BLOOD COUNT 5.33 x10e6/uL (4.3-5.7); RED CELL DISTRIBUTION WIDTH 14.1 % (11.7-14.4)
[2018-05-18] MEDS ORDERED: ENOXAPARIN SODIUM INJ 100 MG/ML SYR SC ONE (06:15)
[2018-05-18 06:45] LABS: ALANINE AMINOTRANSFERASE 12 IU/L (0-55); ALBUMIN 3.7 g/dL (3.5-5.0); ALBUMIN/GLOBULIN RATIO 1.8 (0.8-2.0); ALKALINE PHOSPHATASE 106 IU/L (40-150); ANION GAP 13.8 mmol/L (8-16); BLOOD UREA NITROGEN 12 mg/dL (7-26); BUN/CREATININE RATIO 19 (6-25); CALCIUM 9.4 mg/dL (8.4-10.2); CARBON DIOXIDE 24 mmol/L (22-29); CHLORIDE 105 mmol/L (98-107); CREATININE, SERUM 0.62 mg/dL (0.72-1.25); EST GLOMERULAR FILTRATION RATE > 60 ML/MIN (60-); GLUCOSE 109 mg/dL (74-118); POTASSIUM 3.8 mmol/L (3.5-5.1); SODIUM 139 mmol/L (136-145)
[2018-05-18] MEDS ORDERED: ONDANSETRON HCL INJ 2 MG/ML VIAL IV PRN (06:45)
--- OUTSIDE RECORDS SUMMARY | 2018-05-18 07:05 | XMS REPORT | Clinical Summary ---
Author Author [facility] Address Unknown Phone Unavailable Care Team Providers Care Flat Sorting Machine Clerk Name Role Phone PCP Unavailable Allergies No [...]
--- OUTSIDE RECORDS SUMMARY | 2018-05-18 07:05 | XMS REPORT | Clinical Summary ---
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13 06/02/2017 8:21 PM RACK LOADER Plan of Treatment Health Maintenance Due Date Last Done Comments INFLUENZA VACCINE 02/23/2018 Procedures Procedure Name Priority Date/Time Associated Diagnosis Comments CELL COUNT AND Routine 06/08/2017 Results for this DIFFERENTIAL, BODY FLUID 5:35 PM RACK LOADER procedure are in the results section. CRYSTAL ANALYSIS Routine 06/08/2017 Results for this 5:35 PM RACK LOADER procedure are in the results section. FUNGUS SMEAR Routine 06/08/2017 Results for this 5:13 PM RACK LOADER procedure are in the results section. GRAM STAIN Routine 06/08/2017 Results for this 5:13 PM RACK LOADER procedure are in the results section. AFB STAIN Routine 06/08/2017 Results for this 5:13 PM RACK LOADER procedure are in the results section. FUNGUS CULTURE Routine 06/08/2017 Results for this 5:13 PM RACK LOADER procedure are in the results section. ANAEROBIC CULTURE Routine 06/08/2017 Results for this 5:13 PM RACK LOADER procedure are in the results section. AFB CULTURE Routine 06/08/2017 Results for this 5:13 PM RACK LOADER procedure are in the results section. AEROBIC CULTURE Routine 06/08/2017 Results for this 5:13 PM RACK LOADER procedure are in the results section. IMAGE GUIDANCE ASPIRATION Routine 06/08/2017 Results for this 5:05 PM RACK LOADER procedure are in the results section. US DUPLEX VENOUS LOWER Routine 06/04/2017 Results for this EXTREMITY LEFT 8:34 PM RACK LOADER procedure are in the results section. HC COMPLETE BLD COUNT Routine 06/04/2017 Results for this W/AUTO DIFF 4:45 AM RACK LOADER procedure are in the results section. ZZESTIMATED GFR Routine 06/04/2017 Results for this 4:00 AM RACK LOADER procedure are in the results section. PHOSPHORUS LEVEL Routine 06/04/2017 Results for this 4:00 AM RACK LOADER procedure are in the results section. MAGNESIUM LEVEL Routine 06/04/2017 Results for this 4:00 AM RACK LOADER procedure are in the results section. BASIC METABOLIC PANEL Routine 06/04/2017 Results for this 4:00 AM RACK LOADER procedure are in the results section. FLOW CYTOMETRY EVALUATION Routine 06/03/2017 Results for this 4:45 PM RACK LOADER procedure are in the results section. GLUCOSE LEVEL, CSF Routine 06/03/2017 Results for this 4:45 PM RACK LOADER procedure are in the results section. PROTEIN, CSF Routine 06/03/2017 Results for this 4:45 PM RACK LOADER procedure are in the results section. CSF CELL COUNT WITH Routine 06/03/2017 Results for this DIFFERENTIAL 4:45 PM RACK LOADER procedure are in the results section. GRAM STAIN Routine 06/03/2017 Results for this 4:45 PM RACK LOADER procedure are in the results section. FUNGUS CULTURE Routine 06/03/2017 Results for this 4:45 PM RACK LOADER procedure are in the results section. AFB CULTURE Routine 06/03/2017 Results for this 4:45 PM RACK LOADER procedure are in the results section. CSF CULTURE Routine 06/03/2017 Results for this 4:45 PM RACK LOADER procedure are in the results section. IR LUMBAR PUNCTURE Routine 06/03/2017 Results for this 3:14 PM RACK LOADER procedure are in the results section. SEQUENCE BASED TYPING Routine 06/03/2017 Results for this 2:02 PM RACK LOADER procedure are in the results section. HC COMPLETE BLD COUNT Routine 06/03/2017 Results for this W/AUTO DIFF 5:35 AM RACK LOADER procedure are in the results section. ZZESTIMATED GFR Routine 06/03/2017 Results for this 4:00 AM RACK LOADER procedure are in the results section. PHOSPHORUS LEVEL Routine 06/03/2017 Results for this 4:00 AM RACK LOADER procedure are in the results section. MAGNESIUM LEVEL Routine 06/03/2017 Results for this 4:00 AM RACK LOADER procedure are in the results section. BASIC METABOLIC PANEL Routine 06/03/2017 Results for this 4:00 AM RACK LOADER procedure are in the results section. MRI LUMBAR SPINE W WO Routine 06/02/2017 Results for this CONTRAST 9:52 PM RACK LOADER procedure are in the results section. MRI CERVICAL SPINE W WO Routine 06/02/2017 Results for this CONTRAST 9:51 PM RACK LOADER procedure are in the results section. MRI BRAIN W WO CONTRAST Routine 06/02/2017 Results for this 9:51 PM RACK LOADER procedure are in the results section. MRI THORACIC SPINE W WO Routine 06/02/2017 Results for this CONTRAST 9:34 PM RACK LOADER procedure are in the results section. SURGICAL PATHOLOGY Routine 06/02/2017 Results for this REQUEST 5:10 PM RACK LOADER procedure are in the results section. MRI LOWER EXTREMITY W WO Routine 06/01/2017 Results for this CONTRAST LEFT 7:50 PM RACK LOADER procedure are in the results section. MRI UPPER EXTREMITY JOINT Routine 06/01/2017 Results for this W WO CONTRAST RIGHT 8:20 AM RACK LOADER procedure are in the results section. HC COMPLETE BLD COUNT Routine 06/01/2017 Results for this W/AUTO DIFF 5:00 AM RACK LOADER procedure are in the results section. ZZESTIMATED GFR Routine 06/01/2017 Results for this 4:00 AM RACK LOADER procedure are in the results section. PHOSPHORUS LEVEL Routine 06/01/2017 Results for this 4:00 AM RACK LOADER procedure are in the results section. MAGNESIUM LEVEL Routine 06/01/2017 Results for this 4:00 AM RACK LOADER procedure are in the results section. BASIC METABOLIC PANEL Routine 06/01/2017 Results for this 4:00 AM RACK LOADER procedure are in the results section. XR ANKLE 2 VW LEFT Routine 05/31/2017 Results for this 6:23 PM RACK LOADER procedure are in the results section. XR SHOULDER 2+ VW RIGHT Routine 05/31/2017 Results for this 6:23 PM RACK LOADER procedure are in the results section. SURGICAL PATHOLOGY Routine 05/31/2017 Results for this REQUEST 4:11 PM RACK LOADER procedure are in the results section. 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 MISCELLANEOUS REFERRAL Routine 05/31/2017 Results for this TEST 2:55 PM RACK LOADER procedure are in the results section. MISCELLANEOUS REFERRAL Routine 05/31/2017 Results for this TEST 2:55 PM RACK LOADER procedure are in the results section. FLOW CYTOMETRY EVALUATION Routine 05/31/2017 Results for this 2:55 PM RACK LOADER procedure are in the results section. BONE MARROW TRAY Routine 05/31/2017 Results for this 2:55 PM RACK LOADER procedure are in the results section. PERIPHERAL SMEAR Routine 05/31/2017 Results for this 5:00 AM RACK LOADER procedure are in the results section. HC COMPLETE BLD COUNT Routine 05/31/2017 Results for this W/AUTO DIFF 5:00 AM RACK LOADER procedure are in the results section. ZZESTIMATED GFR Routine 05/31/2017 Results for this 4:00 AM RACK LOADER procedure are in the results section. PHOSPHORUS LEVEL Routine 05/31/2017 Results for this 4:00 AM RACK LOADER procedure are in the results section. MAGNESIUM LEVEL Routine 05/31/2017 Results for this 4:00 AM RACK LOADER procedure are in the results section. BASIC METABOLIC PANEL Routine 05/31/2017 Results for this 4:00 AM RACK LOADER procedure are in the results section. ZZESTIMATED GFR Routine 05/30/2017 Results for this 3:32 AM RACK LOADER procedure are in the results section. IONIZED CALCIUM Routine 05/30/2017 Results for this 3:32 AM RACK LOADER procedure are in the results section. URIC ACID LEVEL Routine 05/30/2017 Results for this 3:32 AM RACK LOADER procedure are in the results section. PHOSPHORUS LEVEL Routine 05/30/2017 Results for this 3:32 AM RACK LOADER procedure are in the results section. MAGNESIUM LEVEL Routine 05/30/2017 Results for this 3:32 AM RACK LOADER procedure are in the results section. TROPONIN Routine 05/30/2017 Results for this 3:32 AM RACK LOADER procedure are in the results section. COMPREHENSIVE METABOLIC Routine 05/30/2017 Results for this PANEL 3:32 AM RACK LOADER procedure are in the results section. HC COMPLETE BLD COUNT Routine 05/30/2017 Results for this W/AUTO DIFF 3:20 AM RACK LOADER procedure are in the results section. STREP [...] PM) Crystal analysis specimen JointComment: RIGHT SHOULDER [facility] type PATHOLOGY AND GENOMIC MEDICINE Monosodium urate None seen None seen [facility] PATHOLOGY AND GENOMIC MEDICINE CPPD crystals None seen None seen [facility] PATHOLOGY AND GENOMIC MEDICINE Specimen Fluid Narrative Performed At RT SHOULDER JOINT [facility] OF PATHOLOGY AND GENOMIC MEDICINE Performing Organization Address City/[facility] Phone Number [facility] [place] [address] PATHOLOGY AND GENOMIC MEDICINE * Cell count and differential, body fluid (06/08/2017 5:35 PM) [facility] fluid type FootnoteComment: Right [facility] shoulder joint PATHOLOGY AND GENOMIC MEDICINE Color, fluid Pale yellow [facility] PATHOLOGY AND GENOMIC MEDICINE Appearance, fluid Hazy [facility] PATHOLOGY AND GENOMIC MEDICINE RBC, fluid SEE COMMENTComment: 2+ (500 - /CMM [facility] 10,000 RBC/CMM) PATHOLOGY AND GENOMIC MEDICINE Nucleated cells, fluid 14,300 /CMM [facility] PATHOLOGY AND GENOMIC MEDICINE Fluid mononuclear cell See Diff [facility] PATHOLOGY AND GENOMIC MEDICINE Neutrophils, fluid 87 % [facility] PATHOLOGY AND GENOMIC MEDICINE Lymphocytes, fluid 5 % [facility] PATHOLOGY AND GENOMIC MEDICINE Macrophages, fluid 8 % [facility] PATHOLOGY AND GENOMIC MEDICINE Specimen Fluid Narrative Performed At RT SHOULDER JOINT [facility] PATHOLOGY AND GENOMIC MEDICINE Performing Organization Address [facility] Phone Number [facility] [place] [address] PATHOLOGY AND GENOMIC MEDICINE * Fungus smear (06/08/2017 5:13 PM) Fungus smear No fungi observed. [facility] Comment: PATHOLOGY AND Specimen Information GENOMIC MEDICINE Specimen Source: Fluid Specimen Site: Right shoulder Performing Organization Address [facility] Phone Number [facility] [place] [address] PATHOLOGY AND GENOMIC MEDICINE * AFB culture (06/08/2017 5:13 PM) Only the most recent of 2 results within the time period is included. AFB culture isolate No growth after 6 weeks of [facility] incubation. PATHOLOGY AND Comment: GENOMIC MEDICINE Specimen Information Specimen Source: Fluid Specimen Site: Right shoulder Performing Organization Address City/[facility]/Zipcode Phone Number [facility] [place] [address] PATHOLOGY AND GENOMIC MEDICINE * Aerobic culture (06/08/2017 5:13 PM) Aerobic culture isolate No growth after 3 days. [facility] OF Comment: PATHOLOGY AND Specimen Information GENOMIC MEDICINE Specimen Source: Fluid Specimen Site: Right shoulder Performing Organization Address City/[facility]/Zipcode Phone Number [facility] [place] [address] PATHOLOGY AND GENOMIC MEDICINE * Gram stain (06/08/2017 5:13 PM) Only the most recent of 2 results within the time period is included. Gram stain isolate Few WBC's [facility] No organisms seen PATHOLOGY AND Comment: GENOMIC MEDICINE Specimen Information Specimen Source: Fluid Specimen Site: Right shoulder Performing Organization Address City/[facility] Phone Number [facility] [address] [place] [address] PATHOLOGY AND GENOMIC MEDICINE * AFB stain (06/08/2017 5:13 PM) AFB stain No acid fast bacilli (AFB) [facility] seen. PATHOLOGY AND Comment: GENOMIC MEDICINE Specimen Information Specimen Source: Fluid Specimen Site: Right shoulder Performing Organization Address [facility] Phone Number [facility] [place] [address] PATHOLOGY AND GENOMIC MEDICINE * Fungus culture (06/08/2017 5:13 PM) Only the most recent of 2 results within the time period is included. Fungus culture isolate No growth after 4 weeks of [facility] incubation. PATHOLOGY AND Comment: GENOMIC MEDICINE Specimen Information Specimen Source: Fluid Specimen Site: Right shoulder Performing Organization Address [facility] Phone Number [facility] OF [address] [place] [address] PATHOLOGY AND GENOMIC MEDICINE * Anaerobic culture (06/08/2017 5:13 PM) Anaerobic culture isolate No anaerobic organisms [facility] OF isolated. PATHOLOGY AND Comment: GENOMIC MEDICINE Specimen Information Specimen Source: Fluid Specimen Site: Right shoulder Performing Organization Address [facility] Phone Number [facility] OF [address] [place] [address] PATHOLOGY AND GENOMIC MEDICINE * Image Guidance [...] well. Radiation exposure: 6 mGy air kerma [facility]-[id number] Procedure Note Interface, Radiology Results Incoming - 06/08/2017 5:12 PM RACK LOADER EXAMINATION: IMAGE GUIDANCE ASPIRATION CLINICAL HISTORY: Fluoroscopically [...] well. Radiation exposure: 6 mGy air kerma [facility]-[id number] Performing Organization Address City/State/Zipcode Phone Number [facility] [address] [place] [address] * PV duplex venous lower extremity (06/04/2017 8:34 PM) Narrative Performed At [facility] Vascular Ultrasound Laboratory Lower Extremity Venous Report [address] [place] [address] Pat.Name:Lázaro MAHONEY.ID:[id number] .Date: 06/04/2017Refer.MD:ELIZA ABEL MD Exam Time: 8:08:00 PMStudy Type:LE Venous Height:71inDOBAge: 986,31Y Sex: MALESonogrphr: Dale Mata RVT Pat. Stat.:Inpatient Room:[facility] TapeVol: , CPT - 4: 29333 Echo Event ID:[id number] Order ID:[id number] Reason for Study:Hx. of acute lymphoblastic leukemia. [...] Radiology Results In - 06/05/2017 6:54 AM [facility] Vascular Ultrasound Laboratory Lower Extremity Venous Report [address] [place] [address] Pat.Name: CODI MAHONEY Pat.ID: [id number] .Date: 06/04/2017 Refer.MD: ELIZA ABEL MD Exam Time: 8:08:00 PM Study Type:LE Venous Height: 71in Age: 2 1985,31Y Sex: MALE Sonogrphr: Dale Mata RVT Pat. Stat.:Inpatient Room: [address] Vol: VB, CPT - 4: 70578 Echo Event ID:[id number] Order ID: [id number] Reason for Study:Hx. of acute lymphoblastic leukemia. [...] Performing Organization Address City/State/Zipcode Phone Number [facility] [address] [place] [phone] * CBC with platelet and differential (06/04/2017 4:45 AM) Only the most recent of 6 results within the time period is included. WBC 3.39 (L) 4.50 - 11.00 k/uL [facility] OF PATHOLOGY AND GENOMIC MEDICINE RBC 4.04 (L) 4.40 - 6.00 m/uL [facility] PATHOLOGY AND GENOMIC MEDICINE HGB 12.8 (L) 14.0 - 18.0 g/dL [facility] PATHOLOGY AND GENOMIC MEDICINE HCT 38.4 (L) 41.0 - 51.0 % [facility] OF PATHOLOGY AND GENOMIC MEDICINE MCV 95.0 82.0 - 100.0 fL [facility] OF PATHOLOGY AND GENOMIC MEDICINE MCH 31.7 27.0 - 34.0 pg [facility] OF PATHOLOGY AND GENOMIC MEDICINE MCHC 33.3 31.0 - 37.0 g/dL [facility] OF PATHOLOGY AND GENOMIC MEDICINE RDW - SD 53.1 37.0 - 55.0 fL [facility] OF PATHOLOGY AND GENOMIC MEDICINE MPV 11.5 8.8 - 13.2 fL [facility] OF PATHOLOGY AND GENOMIC MEDICINE Platelet count 140 (L) 150 - 400 k/uL [facility] OF PATHOLOGY AND GENOMIC MEDICINE Nucleated RBC 0.00 /100 WBC [facility] OF PATHOLOGY AND GENOMIC MEDICINE Neutrophils 36.6 (L) 39.0 - 69.0 % [facility] OF PATHOLOGY AND GENOMIC MEDICINE Lymphocytes 44.8 25.0 - 45.0 % [facility] OF PATHOLOGY AND GENOMIC MEDICINE Monocytes 11.2 (H) 0.0 - 10.0 % [facility] PATHOLOGY AND GENOMIC MEDICINE Eosinophils 6.2 (H) 0.0 - 5.0 % [facility] OF PATHOLOGY AND GENOMIC MEDICINE Basophils 0.9 0.0 - 1.0 % [facility] PATHOLOGY AND GENOMIC MEDICINE Immature granulocytes 0.3Comment: "Immature 0.0 - 1.0 % [facility] granulocytes" (promyelocytes, PATHOLOGY AND myelocytes, metamyelocytes) [facility] MEDICINE Specimen Blood Performing Organization Address City/State/Zipcode Phone Number [address] [address] PATHOLOGY AND GENOMIC MEDICINE * Estimated GFR (06/04/2017 4:00 AM) Only the most recent of 6 results within the time period is included. GFR Non Af Amer >90 mL/min/1.73 m2 [facility] OF PATHOLOGY AND GENOMIC MEDICINE GFR Af Amer >90 mL/min/1.73 m2 [facility] Comment: PATHOLOGY AND Chronic kidney [...] Americans. Specimen Plasma specimen Performing Organization Address City/[facility] [place] [address] PATHOLOGY AND [employer] MEDICINE * Phosphorus level (06/04/2017 4:00 AM) Only the most recent of 5 results within the time period is included. Phosphorus 4.2 2.4 - 4.5 mg/dL [facility] PATHOLOGY AND [employer] MEDICINE Specimen Plasma specimen Performing Organization Address City/[facility] [place] [address] PATHOLOGY AND [employer] [facility] * Magnesium level (06/04/2017 4:00 AM) Only the most recent of 5 results within the time period is included. Magnesium 1.8 1.6 - 2.6 mg/dL [facility] PATHOLOGY AND [employer] MEDICINE Specimen Plasma specimen Performing Organization Address City/[facility] [place] [address] PATHOLOGY AND [employer] [facility] * Basic metabolic panel (06/04/2017 4:00 AM) Only the most recent of 4 results within the time period is included. Sodium 144 135 - 148 mEq/L [facility] OF PATHOLOGY AND GENOMIC MEDICINE Potassium 3.9 3.5 - 5.0 mEq/L [facility] OF PATHOLOGY AND GENOMIC MEDICINE Chloride 106 98 - 112 mEq/L [facility] OF PATHOLOGY AND GENOMIC MEDICINE CO2 27 24 - 31 mEq/L [facility] OF PATHOLOGY AND GENOMIC MEDICINE Anion gap 11 7 - 15 mEq/L [facility] Comment: PATHOLOGY AND Starting from October GENOMIC MEDICINE , anion gap calculation no longer incorporates potassium. Please note the change. BUN 8 6 - 20 mg/dL [facility] OF PATHOLOGY AND GENOMIC MEDICINE Creatinine 0.5 (L) 0.7 - 1.2 mg/dL [facility] OF PATHOLOGY AND GENOMIC MEDICINE Glucose 85 65 - 99 mg/dL [facility] OF PATHOLOGY AND GENOMIC MEDICINE Calcium 8.8 8.3 - 10.2 mg/dL [facility] OF PATHOLOGY AND GENOMIC MEDICINE Specimen Plasma specimen Performing Organization Address City/[facility] Phone Number [facility] [address] [address] PATHOLOGY AND GENOMIC MEDICINE * Flow cytometry evaluation (06/03/2017 4:45 PM) Only the most recent of 2 results within the time period is included. [facility] PATHOLOGY AND GENOMIC MEDICINE Flow cytometry evaluation See link below for PDF Lab [facility] Report PATHOLOGY AND GENOMIC MEDICINE Performing Organization Address [facility] Phone Number [facility] [address] [address] PATHOLOGY AND GENOMIC MEDICINE * CSF culture (06/03/2017 4:45 PM) CSF culture isolate Staphylococcus, coagulase [facility] negative PATHOLOGY AND Recovered in [...] mcg/mL: negative zole Susceptible Performing Organization Address [facility] Phone Number [facility] [place] [address] PATHOLOGY AND GENOMIC MEDICINE * CSF cell count with differential (06/03/2017 4:45 PM) Color, CSF Colorless [facility] OF PATHOLOGY AND GENOMIC MEDICINE Appearance, CSF Clear [facility] OF PATHOLOGY AND GENOMIC MEDICINE RBC, CSF 3 (H) 0 - 1 /CMM [facility] OF PATHOLOGY AND GENOMIC MEDICINE WBC, CSF 7 (H) 0 - 5 /CMM [facility] PATHOLOGY AND GENOMIC MEDICINE CSF mononuclear cell See Diff [facility] OF PATHOLOGY AND GENOMIC MEDICINE Lymphocytes, CSF 89 % [facility] OF PATHOLOGY AND GENOMIC MEDICINE Monocytes, CSF 11 % [facility] OF PATHOLOGY AND GENOMIC MEDICINE Specimen Cerebrospinal fluid Performing Organization Address City/[facility]/Zipcode Phone Number [facility] [place] [address] PATHOLOGY AND [facility] * Protein, CSF (06/03/2017 4:45 PM) Protein, CSF 30 15 - 45 mg/dL [facility] OF PATHOLOGY AND GENOMIC MEDICINE Specimen Cerebrospinal fluid Performing Organization Address City/[facility]/[place] [address] PATHOLOGY AND [facility] * Glucose level, CSF (06/03/2017 4:45 PM) Glucose, CSF 49 40 - 70 mg/dL [facility] PATHOLOGY AND [employer] MEDICINE Specimen Cerebrospinal fluid Performing Organization Address City/[facility] [place] [address] PATHOLOGY [facility] * IR Lumbar Puncture by Radiology [...] chemotherapy for treatment of acute lymphoblastic leukemia. [facility]-[id number] Procedure Note Interface, Radiology Results Incoming - 06/03/2017 4:18 PM RACK LOADER EXAMINATION: IR LUMBAR PUNCTURE CLINICAL HISTORY: Intratechal [...] chemotherapy for treatment of acute lymphoblastic leukemia. [facility]-[id number] Performing Organization Address City/State/Zipcode Phone Number [facility] [address] [place] [address] * Sequence based typing (06/03/2017 2:02 PM) [facility] OF PATHOLOGY AND GENOMIC MEDICINE Sequence based typing See link below for PDF Lab [facility] OF Report PATHOLOGY AND GENOMIC MEDICINE Performing Organization Address City/State/Zipcode Phone Number [facility] OF [address] [place] [address] PATHOLOGY AND GENOMIC MEDICINE * MRI Lumbar [...] artifact. No abnormal leptomeningeal enhancement is seen. [facility]-[id number] Procedure Note Interface, Radiology Results Incoming - 06/02/2017 10:08 PM RACK LOADER EXAMINATION: MRI LUMBAR SPINE W WO CONTRAST [...] artifact. No abnormal leptomeningeal enhancement is seen. [facility]-[id number] Performing Organization Address City/State/Zipcode Phone Number [facility] [address] [place] [address] * MRI Cervical Spine W Wo Contrast [...] No evidence of leptomeningeal disease is seen. [facility]-[id number] Procedure Note Interface, Radiology Results Incoming - 06/02/2017 9:57 PM RACK LOADER EXAMINATION: MRI CERVICAL SPINE W WO CONTRAST [...] No evidence of leptomeningeal disease is seen. [facility]-[id number] Performing Organization Address City/State/Zipcode Phone Number [facility] [address] [place] [address] * MRI Brain W Wo Contrast (06/02/2017 9:51 PM) Addenda Addendum by Ho Funez MD on 06/02/2017 10:14 PM ADDENDUM #1 The postcontrast sequences are suboptimal due to poor enhancement. Repeat injection was not performed due to patient discomfort. Repeat postcontrast imaging may be considered. Narrative Performed At EXAMINATION:MRI BRAIN W WO CONTRAST [facility] CLINICAL HISTORY:history of all r o leptomeningeal [...] preserved. IMPRESSION: Unremarkable MRI of the brain. [facility]-[id number] Procedure Note Interface, Radiology Results 06/02/2017 10:01 PM RACK LOADER EXAMINATION: MRI BRAIN W WO CONTRAST CLINICAL [...] preserved. IMPRESSION: Unremarkable MRI of the brain. [facility]-[id number] Performing Organization Address City/State/Zipcode Phone Number [facility] [address] [place] [address] * MRI Thoracic Spine W Wo Contrast (06/02/2017 9:34 PM) Narrative Performed At EXAMINATION:MRI THORACIC SPINE W WO CONTRAST [facility]:History of all r o [...] Fairly unremarkable MRI of the thoracic spine. [facility]-[id number] Procedure Note Interface, Radiology Results 06/02/2017 9:42 PM RACK LOADER EXAMINATION: MRI THORACIC SPINE W WO CONTRAST [...] Fairly unremarkable MRI of the thoracic spine. [facility]-[id number] Performing Organization Address City/State/Zipcode Phone Number [facility] [address] [place] [address] * Surgical pathology request (06/02/2017 5:10 PM) Only the most recent of 2 results within the time period is included. [facility] DEPARTMENT OF PATHOLOGY AND GENOMIC MEDICINE Surgical pathology report See link below for PDF Lab [facility] DEPARTMENT OF Report PATHOLOGY AND GENOMIC MEDICINE Performing Organization Address [facility] Phone Number [facility] DEPARTMENT OF [address] [place] [address] PATHOLOGY AND GENOMIC MEDICINE * MRI Lower [...] osteomyelitis. Please see above for other findings. [facility]-[id number] Procedure Note Interface, Radiology Results Incoming - 06/01/2017 8:54 PM RACK LOADER EXAMINATION: MRI LOWER EXTREMITY W WO CONTRAST [...] osteomyelitis. Please see above for other findings. [facility]-[id number] Performing Organization Address City/[facility]/Zipcode Phone Number [facility] [address] [place] [address] * MRI Upper Extremity Joint W Wo Contrast Right (06/01/2017 8:20 AM) Narrative Performed At EXAMINATION:MRI UPPER EXTREMITY JOINT W WO CONTRAST RIGHT [facility] CLINICAL H[facility]ORY:History of avascular necrosis. Shoulder [...] the long head of the biceps tendon. [facility]-[id number] Procedure Note Interface, Radiology Results [facility] - 06/01/2017 8:44 PM RACK LOADER EXAMINATION: MRI UPPER EXTREMITY JOINT W WO [...] the long head of the biceps tendon. [facility]-[id number] Performing Organization Address [facility]/Zipcode Phone Number [facility] [address] [place] [address] * XR Ankle 2 Vw Left (05/31/2017 6:23 PM) Narrative Performed At EXAMINATION:XR ANKLE 2 VW LEFT [facility] CLINICAL HISTORY:Left ankle pain COMPARISON:None. IMPRESSION: There is no evidence of an acute fracture or dislocation. No suspicious focal lesion is present. 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 IMPRESSION: There is no evidence of an acute fracture or dislocation. No suspicious focal lesion is present. No radiopaque foreign bodies are present [facility]-[id number] Performing Organization Address [facility] Phone Number [facility] [address] [place] [address] * XR Shoulder 2+ Vw Right (05/31/2017 6:23 PM) Narrative Performed At EXAMINATION:XR SHOULDER 2VW RIGHT [facility] CLINICAL HISTORY:Right shoulder pain COMPARISON:None available at this time. IMPRESSION: There is no evidence of acute fracture or dislocation. Mild remodeling of the humeral with some sclerosis. Avascular necrosis cannot entirely be excluded. 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 IMPRESSION: There is no evidence of acute fracture or dislocation. Mild remodeling of the humeral with some sclerosis. Avascular necrosis cannot entirely be excluded. Further characterization with MRI is recommended [facility]-[id number] Performing Organization Address City/[facility]/Zipcode Phone Number [facility] [address] [place] [address] * Biopsy bone marrow (05/31/2017 3:05 PM) Narrative Performed At MAKSIM Hameed 05/31/20173:05 PM Biopsy bone marrow Date/Time: 05/31/2017 3:03 PM Performed by: LORRAINE BUTLER Authorized by: LORRAINE BUTLER Procedure: Procedure:Bone marrow aspirate and bone marrow biopsy Indications:Metastatic workup Consent: Consent obtained:Written Consent given by:Patient Mercer protocol: Procedure explained and questions answered to [...] (05/31/2017 2:55 PM) Bone marrow tray Done [facility] DEPARTMENT OF PATHOLOGY AND GENOMIC MEDICINE Specimen Fluid Performing Organization Address City/State/Zipcode Phone Number [facility] [address] [address] PATHOLOGY AND GENOMIC MEDICINE * Miscellaneous referral test (05/31/2017 2:55 PM) Only the most recent of 2 results within the time period is included. [facility] test name [facility] test result see note [facility] Comment: [...] to detect abnormalities commonly seen in ALL ([employer]!). At least 200 hundred nuclei were analyzed for each probe. All probes scored within the normal range, i.e., the results were normal. ISCN: nuc bisi(MYB,CDKN2A,ASS-ABL,KMT2A,E TV6,IGH,RUNX1,BCR)x2[200] Test performed by: [facility] [address] [place] [address]. [place], [id number] Narrative Performed At [facility] Performing Organization Address City/State/Zipcode Phone Number [facility] [address] [place] [address] * Peripheral smear (05/31/2017 5:00 AM) Peripheral smear Done [facility] DEPARTMENT OF Comment: PATHOLOGY AND Peripheral smear is located in GENOMIC MEDICINE Hematology Laboratory, second floor of [facility]. Performing Organization Address City/State/[facility] Phone Number [facility] [place] [address] PATHOLOGY AND GENOMIC MEDICINE * Troponin (05/30/2017 3:32 AM) Troponin <0.30 0.00 - 0.30 ng/mL [facility] DEPARTMENT OF Comment: PATHOLOGY AND 0.30 - 1.49 GENOMIC MEDICINE ng/mlMay indicate increased risk of acute coronary syndrome. >=1.5 ng/ml Consistent with acute myocardial infarction. The diagnostic value of a single normal or non-diagnostic result is questionable.Serial samples at 2-6 hour intervals are required to rule out acute myocardial injury. Specimen Plasma specimen Performing Organization Address City/[facility] [place] [address] PATHOLOGY AND [employer] [facility] * Uric acid level (05/30/2017 3:32 AM) Uric acid 5.8 3.4 - 7.0 mg/dL [facility] OF PATHOLOGY [facility] [employer] MEDICINE Specimen Plasma specimen Performing Organization Address City/[facility] [place] [address] PATHOLOGY AND [employer] [facility] * Ionized calcium (05/30/2017 3:32 AM) pH 7.47 [facility] DEPARTMENT OF PATHOLOGY AND GENOMIC MEDICINE Ionized calcium 1.15 1.11 - 1.32 mmol/L [facility] DEPARTMENT OF PATHOLOGY AND GENOMIC MEDICINE Specimen Plasma specimen Performing Organization Address [facility] [place] [address] PATHOLOGY AND [employer] MEDICINE * Comprehensive metabolic panel (05/30/2017 3:32 AM) Only the most recent of 2 results within the time period is included. Sodium 146 135 - 148 mEq/L [facility] DEPARTMENT OF PATHOLOGY AND GENOMIC MEDICINE Potassium 3.4 (L) 3.5 - 5.0 mEq/L [facility] DEPARTMENT OF PATHOLOGY AND GENOMIC MEDICINE Chloride 108 98 - 112 mEq/L [facility] DEPARTMENT OF PATHOLOGY AND GENOMIC MEDICINE CO2 24 24 - 31 mEq/L [facility] DEPARTMENT OF PATHOLOGY AND GENOMIC MEDICINE Anion gap 14 7 - 15 mEq/L [facility] DEPARTMENT OF Comment: PATHOLOGY AND Starting from October GENOMIC MEDICINE , anion gap calculation no longer incorporates potassium. Please note the change. BUN 18 6 - 20 mg/dL [facility] DEPARTMENT OF PATHOLOGY AND GENOMIC MEDICINE Creatinine 0.5 (L) 0.7 - 1.2 mg/dL [facility] DEPARTMENT OF PATHOLOGY AND GENOMIC MEDICINE Glucose 97 65 - 99 mg/dL [facility] DEPARTMENT OF PATHOLOGY AND GENOMIC MEDICINE Calcium 9.1 8.3 - 10.2 mg/dL [facility] DEPARTMENT OF PATHOLOGY AND GENOMIC MEDICINE Protein 6.0 (L) 6.3 - 8.3 g/dL [facility] DEPARTMENT OF Comment: PATHOLOGY AND [place] GENOMIC MEDICINE 4.6-7.0 g/dL 1 week 4.4-7.6 g/dL 7 months-1year 5.1-7.3 g/dL 1-2 years5.6-7 .5 g/dL >3 years6.0-8 .0 g/dL 18-150 6.3-8.3 g/dL Albumin 3.3 (L) 3.5 - 5.0 g/dL [facility] DEPARTMENT OF PATHOLOGY AND GENOMIC MEDICINE A/G ratio 1.2 0.7 - 3.8 [facility] DEPARTMENT OF PATHOLOGY AND GENOMIC MEDICINE Alkaline phosphatase 127 40 - 129 U/L [facility] DEPARTMENT OF PATHOLOGY AND GENOMIC MEDICINE AST 30 10 - 50 U/L [facility] DEPARTMENT OF PATHOLOGY AND GENOMIC MEDICINE ALT 26 5 - 50 U/L [facility] DEPARTMENT OF PATHOLOGY AND GENOMIC MEDICINE Total bilirubin 0.7 0.0 - 1.2 mg/dL [facility] DEPARTMENT OF PATHOLOGY AND GENOMIC MEDICINE Specimen Plasma specimen Performing Organization Address City/State/Zipcode Phone Number [facility] DEPARTMENT OF [address] [place] [address] PATHOLOGY AND GENOMIC MEDICINE * Respiratory pathogen panel (05/29/2017 11:14 PM) Respiratory pathogen Negative for all pathogens [facility] DEPARTMENT OF panel tested: PATHOLOGY AND Negative [...] Specimen Nares - Left Performing Organization Address [facility] Phone Number [facility] [place] [address] PATHOLOGY AND GENOMIC MEDICINE * Group A strep, rapid antigen (05/29/2017 11:14 PM) Group A strep, rapid Negative for Group A [facility] DEPARTMENT OF antigen result Streptococcus antigen. PATHOLOGY AND Comment: GENOMIC MEDICINE Specimen Information Specimen Source: Throat Specimen Site: Not otherwise specified Specimen Throat - Not otherwise specified Performing Organization Address [facility] Phone Number [facility] [place] [address] PATHOLOGY AND GENOMIC MEDICINE * Strep screen culture (05/29/2017 11:14 PM) Strep screen culture No beta hemolytic Streptococci [facility] DEPARTMENT OF isolate isolated PATHOLOGY AND Comment: GENOMIC MEDICINE Specimen Information Specimen Source: Throat Specimen Site: Not otherwise specified Specimen Throat - Not otherwise specified Performing Organization Address [facility] Phone Number [facility] [place] [address] PATHOLOGY AND GENOMIC MEDICINE * Blood culture, aerobic & anaerobic (05/29/2017 10:39 PM) Only the most recent of 2 results within the time period is included. Blood culture isolate No growth after 5 days of [facility] DEPARTMENT OF incubation. PATHOLOGY AND Comment: GENOMIC MEDICINE Specimen Information Specimen Source: Blood Specimen Site: Forearm, right Specimen Blood - Forearm, right Performing Organization Address [facility] Phone Number [facility] DEPARTMENT OF [address] [place] [address] PATHOLOGY AND GENOMIC MEDICINE * XR Chest 1 Vw Portable (05/29/2017 10:23 PM) Narrative Performed At EXAMINATION:XR CHEST 1 VW PORTABLE [facility] CLINICAL HISTORY:SHORTNESS OF BREATH COMPARISON:10/27/2016 IMPRESSION: No consolidations, effusions, or pneumothorax.Cardiomediastinal silhouette is within normal limits.No acute osseous abnormalities. [facility]-[id number] Procedure Note Interface, Radiology Results Incoming - 05/29/2017 10:37 PM CDT EXAMINATION: XR CHEST 1 VW PORTABLE CLINICAL HISTORY: SHORTNESS OF BREATH COMPARISON: 10/27/2016 IMPRESSION: No consolidations, effusions, or pneumothorax. Cardiomediastinal silhouette is within normal limits. No acute osseous abnormalities. [facility]-[id number] Performing Organization Address [facility]/Zipcode Phone Number [facility] [address] [place] [address] * Partial thromboplastin time, activated (05/29/2017 9:00 PM) PTT 28.8 23.0 - 36.0 sec [facility] DEPARTMENT OF Comment: PATHOLOGY AND PTT therapeutic range for [facility] MEDICINE unfractionated heparin is 61.0-112.0 seconds which corresponds to Anti-Xa 0.3-0.7 U/ml. Specimen Blood Performing Organization Address [facility] [place] [address] PATHOLOGY AND GENOMIC MEDICINE * Prothrombin time with INR (05/29/2017 9:00 PM) Prothrombin time 13.4 12.0 - 15.0 sec [facility] DEPARTMENT OF PATHOLOGY AND GENOMIC MEDICINE INR 1.0 [facility] DEPARTMENT OF Comment: PATHOLOGY AND The International Normalized GENOMIC MEDICINE Ratio (INR) is a therapeutic monitoring tool for patients who are stable on oral anticoagulant therapy. An INR of 2.0-3.0 is suggested for deep vein thrombosis/pulmonary embolism. Specimen Blood Performing Organization Address [facility] [place] [address] PATHOLOGY AND GENOMIC MEDICINE * Type and screen (05/29/2017 9:00 PM) ABO grouping B [facility] DEPARTMENT OF PATHOLOGY AND GENOMIC MEDICINE Rh type POS [facility] DEPARTMENT OF PATHOLOGY AND GENOMIC MEDICINE Antibody screen (gel) NEG [facility] DEPARTMENT OF PATHOLOGY AND GENOMIC MEDICINE Specimen Blood Performing Organization Address [facility]/[place] [address] PATHOLOGY AND GENOMIC MEDICINE * Lactic acid level (05/29/2017 9:00 PM) Lactic acid 1.6 0.5 - 2.2 mmol/L [facility] DEPARTMENT OF PATHOLOGY AND GENOMIC MEDICINE Specimen Plasma specimen Performing Organization Address City/[facility]/Zipcode Phone Number [facility] [place] [address] PATHOLOGY AND GENOMIC MEDICINE after 05/17/2017 Insurance Payer Benefit Subscriber ID Type Phone Address Plan / Group MEDICARE MEDICARE xxxxxxxxxx Medicare [place], [place] PART A AND B
[2018-05-18 07:40] LABS: CLARITY,URINE CLEAR (CLEAR); COLOR,URINE YELLOW (YELLOW)
[2018-05-18 07:41] LABS: BILIRUBIN,URINE NEGATIVE (NEGATIVE); KETONES,URINE NEGATIVE (NEGATIVE); LEUKOCYTE ESTERASE ,URINE NEGATIVE (NEGATIVE); NITRITE,URINE NEGATIVE (NEGATIVE); PROTEIN,URINE DIPSTICK NEGATIVE (NEGATIVE); URINE UROBILINOGEN 0.2 mg/dL (0.2 - 1)
[2018-05-18 07:45] LABS: EPITHELIAL CELLS,URINE RARE /LPF
[2018-05-18] MEDS: FAMOTIDINE 20 MG/2 ML VIAL IV SCH ×2 (09:48→17:23)
[2018-05-18] MEDS: PREDNISONE 20 MG TAB PO SCH (09:49)
[2018-05-18] MEDS: HYDROMORPHONE 2MG/ML 2 MG/ML ML IV PRN ×3 (09:50→22:21)
[2018-05-18] MEDS: SODIUM CHLORIDE 0.9% 1000ML 1,000 ML IV SCH ×2 (09:56→17:23)
--- NOTE | 2018-05-18 10:08 | Diagnostic Imaging Report ---
PROCEDURE: A single AP view of the chest. COMPARISON: None. INDICATIONS: PICC LINE PLACEMENT FINDINGS: Lines/tubes: Right sided approach PICC terminates at the cavoatrial junction. Left external jugular IV. Lungs: The lungs are well inflated and clear. There is no evidence of pneumonia or pulmonary edema. Pleura: There is no pleural effusion or pneumothorax. Heart and mediastinum: The heart and the mediastinum are unremarkable. Bones: No acute bony abnormality. Right humeral prosthesis present. IMPRESSION: 1. No acute cardiopulmonary disease. 2. Acceptable position of a right PICC. Karthik Mcintyre D.O. Dictated by: Karthik Mcintyre D.O. on 05/18/2018 at 10:16 Electronically approved by: Karthik Mcintyre D.O. on 05/18/2018 at 10:16
[2018-05-18 11:26] VITALS: BP 91/57
[2018-05-18] MEDS ORDERED: GABAPENTIN100 MG PO (12:09)
[2018-05-18 12:10] VITALS: BP 91/57
[2018-05-18] MEDS ORDERED: METHADONE HCL10 MG PO (12:10)
[2018-05-18] MEDS: DIPHENHYDRAMINE HCL INJ 50 MG/ML VIAL IV SCH ×3 (12:28→23:50)
[2018-05-18 13:00] VITALS: BP 91/57
[2018-05-18] MEDS ORDERED: IOPAMIDOL 370 MG/ML 200 ML INFUS..BTL INJ ONE (15:01)
[2018-05-18] MEDS ORDERED: SODIUM CHLORIDE 0.9% 50ML 50 ML ONE (15:01)
--- NOTE | 2018-05-18 15:28 | Diagnostic Imaging Report ---
EXAM: CTA Chest WITH contrast / Pulmonary Embolus Study INDICATION: COMPARISON: None. TECHNIQUE: Angiogram of the chest was obtained using a multidetector helical scanner after administration of IV contrast. Coronal and sagittal reformations were obtained. Pulmonary embolus protocol. IV CONTRAST: 100 mL Isovue-370 COMPLICATIONS: None RADIATION DOSE: Total DLP: 518 mGy*cm Estimated effective dose: (DLP x 0.015 x size factor) mSv CTDIvol has been reviewed. It is below the limits set by the Radiation Protocol Committee (RPC). Appropriate CT dose reduction techniques were utilized. FINDINGS: Lines and Tubes: Right PICC terminating SVC. Lower Neck: The visualized thyroid gland is grossly unremarkable with no suspicious or significant nodule identified. Heart and Great Vessels: The aorta and main pulmonary artery measure 27 and 31 mm. respectively. No significant pericardial effusion. No significant aortic vascular calcifications or dissection. No central pulmonary and was. Peripheral evaluation limited due to respiratory motion artifact, particularly in the lung bases. Lymph Nodes: No significant adenopathy. Lungs: No pneumothorax or pleural effusion. Dependent groundglass and linear opacities in the lung bases have the appearance of atelectasis. Moderate respiratory motion artifact. Trachea and central bronchi are unremarkable. Upper abdomen: Limited. No acute findings. Bones and Soft Tissues: No acute findings. IMPRESSION: 1. No central pulmonary and was. Peripheral evaluation nondiagnostic secondary to moderate respiratory motion artifact. 2. Groundglass opacities in the lung bases statistically represent atelectasis. 3. Images not available for interpretation until 1520 on 05/18/2018. Signed by: Dr. Kingsley Baeza MD on 05/18/2018 3:25 PM
[2018-05-18 15:49] LABS: CREATINE KINASE 33 IU/L (30-200)
[2018-05-18 16:28] VITALS: BP 97/58
[2018-05-18 20:00] VITALS: BP 97/53
[2018-05-18] MEDS: GABAPENTIN 100 MG CAP PO SCH (20:17)
--- NOTE | 2018-05-18 20:18 | History and Physical ---
PCP: At [facility]. CHIEF COMPLAINT: Rash. HISTORY OF PRESENT ILLNESS: Mr. Iqbal is a 32-year-old gentleman presenting with a diffuse petechial rash over his trunk and all 4 extremities for the last 24 hours or so after starting Augmentin 2 days ago for sore throat. REVIEW OF SYSTEMS: He denies fever, chills, or weight loss. He has had some sinus congestion and sore throat. He denies chest pain or palpitations. He denies shortness of breath, wheezing, or cough. He denies abdominal pain, nausea, vomiting, or melena. He denies dysuria or flank pain. He has generalized joint pain due to avascular necrosis in shoulders and hips. He denies bleeding or bruising. He denies headache, vertigo, or loss of consciousness. He denies depression, agitation, homicidal or suicidal ideation. PAST MEDICAL HISTORY: Significant for acute lymphoid leukemia diagnosed in 2011, initially treated, relapsed in 2014 with bleeding gums, was treated again, and recently relapsed and was treated at [facility] with an experimental protocol which he finished in November of 2017 and is considered to be in remission at this time. 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 He has a history of one shoulder being replaced, waiting on the other one, and Achilles tendon release. REGULAR MEDICATIONS: Include gabapentin 100 mg 3 times a day and methadone 10 mg q.6h. ALLERGIES: HE HAS NO KNOWN DRUG ALLERGIES. FAMILY HISTORY: Unremarkable. SOCIAL HISTORY: The patient is , but speaks good Malaysian. He does not smoke, drink, or use illegal drugs, and he is generally independently functioning. PHYSICAL EXAMINATION: PSYCHIATRIC: He is alert and oriented x3 with normal mood and affect. CONSTITUTIONAL: He has a normal body habitus, is in no acute distress. VITAL SIGNS: As follows: Blood pressure 91/57, pulse 101 and regular, respiratory rate 18, O2 sat 97% on room air, temperature 95.7. HEENT: His head is atraumatic. His eyes are anicteric with clear conjunctivae. Ears and nares are without erythema or discharge. Oropharynx is clear. NECK: Supple with no mass or thyromegaly. LYMPHATIC SYSTEM: He has no palpable cervical, axillary, or inguinal adenopathy. CARDIOVASCULAR SYSTEM: His heart has a regular rate and rhythm without murmur or extra heart sounds. He has no carotid bruit. He has no peripheral edema. He has palpable dorsal pedal pulses. RESPIRATORY: Lungs are clear to auscultation and percussion with normal respiratory effort. GASTROINTESTINAL: His abdomen is soft without organomegaly, masses, or tenderness. He has normal bowel sounds present. CUTANEOUS: His skin is warm and dry to touch. He has a diffuse petechial rash on his trunk and all extremities. He thinks that it has gotten better since last night. He also has a PICC line in the right arm at the antecubital fossa. MUSCULOSKELETAL: His joints are in normal alignment without erythema or swelling. He has no calf tenderness. NEUROLOGIC: Nonfocal with intact cranial nerves and no motor or sensory deficits. DIAGNOSTIC STUDIES: Chest x-ray shows no acute disease. CT of the chest is also negative. Strep screen was negative. His troponin is less than 0.001 x2. His TSH is 2.202. CBC shows a white count of 5.53 with a normal differential, hemoglobin 16.6, hematocrit 46.4, and platelet count 188,000. Coags are normal. Chemistry shows normal electrolytes, CO2 24, creatinine 0.62, BUN 12, glucose 109. Transaminases and alk phos are normal. Bilirubin slightly elevated at 1.3. IMPRESSIONS AND PLAN: 1. Drug randall, possibly related to amoxicillin. The patient received a stress dose of intravenous Solu-Medrol and then restarted on his p.o. prednisone, and also on intravenous Benadryl. 2. History of acute lymphoid leukemia. Will monitor blood counts and culture everything, throat, blood, and urine. 3. For prophylaxis, the patient will be on Pepcid for gastrointestinal prophylaxis. 4. For chronic pain control due to the avascular necrosis, the patient will be getting Dilaudid and methadone. Job#: [id number]
[2018-05-18 22:29] VITALS: BP 115/75
[2018-05-18 23:41] LABS: CREATINE KINASE 23 IU/L (30-200)
[2018-05-18] MEDS: METHADONE HCL 10 MG TAB PO SCH (23:50)
[2018-05-19] VITALS (7 sets, daily range): BP systolic 95–115; BP diastolic 51–75
[2018-05-19] MEDS: HYDROMORPHONE 2MG/ML 2 MG/ML ML IV PRN ×5 (01:30→20:25)
[2018-05-19 05:13] LABS: BASOPHILS % 0.2 % (0.0-1.0); EOSINOPHILS % 0.1 % (0.0-6.0); HEMATOCRIT 38.2 % (38.2-49.6); HEMOGLOBIN 13.2 g/dL (14.0-18.0); LYMPHOCYTES # (AUTO) 1.7 (1.0-3.2); LYMPHOCYTES % 17.3 % (18.0-39.1); MEAN CORPUSCULAR HEMOGLOBIN 30.8 pg (28-32); MEAN CORPUSCULAR HGB CONC 34.6 g/dL (31-35); MEAN CORPUSCULAR VOLUME 89.3 fL (81-99); NEUTROPHILS # (AUTO) 6.8 (2.1-6.9); NEUTROPHILS % 71.9 % (38.7-80.0); PLATELET COUNT 186 x10e3/uL (140-360); RED BLOOD COUNT 4.28 x10e6/uL (4.3-5.7); RED CELL DISTRIBUTION WIDTH 14.3 % (11.7-14.4)
[2018-05-19 05:36] LABS: ALANINE AMINOTRANSFERASE 19 IU/L (0-55); ALBUMIN 3.4 g/dL (3.5-5.0); ALBUMIN/GLOBULIN RATIO 1.7 (0.8-2.0); ALKALINE PHOSPHATASE 110 IU/L (40-150); ANION GAP 11.4 mmol/L (8-16); BLOOD UREA NITROGEN 11 mg/dL (7-26); BUN/CREATININE RATIO 19 (6-25); CALCIUM 9.3 mg/dL (8.4-10.2); CARBON DIOXIDE 27 mmol/L (22-29); CHLORIDE 102 mmol/L (98-107); CREATININE, SERUM 0.57 mg/dL (0.72-1.25); EST GLOMERULAR FILTRATION RATE > 60 ML/MIN (60-); GLUCOSE 102 mg/dL (74-118); POTASSIUM 3.4 mmol/L (3.5-5.1); SODIUM 137 mmol/L (136-145)
[2018-05-19] MEDS: METHADONE HCL 10 MG TAB PO SCH ×3 (05:44→17:11)
[2018-05-19] MEDS: DIPHENHYDRAMINE HCL INJ 50 MG/ML VIAL IV SCH ×3 (05:44→17:11)
[2018-05-19] MEDS: FAMOTIDINE 20 MG/2 ML VIAL IV SCH ×2 (08:10→16:33)
[2018-05-19] MEDS: PREDNISONE 20 MG TAB PO SCH (08:10)
[2018-05-19] MEDS: GABAPENTIN 100 MG CAP PO SCH ×3 (08:10→20:25)
[2018-05-19] MEDS ORDERED: POTASSIUM CHLORIDE 20 MEQ TAB CR PO STA (09:15)
[2018-05-19] MEDS ORDERED: HYDRALAZINE HCL 20 MG/ML VIAL IV PRN (09:30)
[2018-05-19] MEDS ORDERED: POTASSIUM CHLORIDE 20 MEQ TAB CR PO SCH (09:30)
[2018-05-19] MEDS ORDERED: ACETAMINOPHEN 325 MG TAB PO PRN (09:30)
[2018-05-20] VITALS: BP 98/55
[2018-05-20] MEDS: METHADONE HCL 10 MG TAB PO SCH ×3 (00:01→11:20)
[2018-05-20] MEDS: DIPHENHYDRAMINE HCL INJ 50 MG/ML VIAL IV SCH ×3 (00:01→11:20)
[2018-05-20 01:00] VITALS: BP 95/57
[2018-05-20] MEDS: HYDROMORPHONE 2MG/ML 2 MG/ML ML IV PRN ×2 (02:15→12:21)
[2018-05-20 04:45] LABS: BASOPHILS % 0.3 % (0.0-1.0); EOSINOPHILS # (AUTO) 0.1 (0.0-0.4); EOSINOPHILS % 0.6 % (0.0-6.0); HEMATOCRIT 36.4 % (38.2-49.6); HEMOGLOBIN 12.7 g/dL (14.0-18.0); LYMPHOCYTES # (AUTO) 2.2 (1.0-3.2); LYMPHOCYTES % 25.7 % (18.0-39.1); MEAN CORPUSCULAR HEMOGLOBIN 31.4 pg (28-32); MEAN CORPUSCULAR HGB CONC 34.9 g/dL (31-35); MEAN CORPUSCULAR VOLUME 89.9 fL (81-99); MONOCYTES # (AUTO) 0.8 (0.2-0.8); MONOCYTES % 8.7 % (4.4-11.3); NEUTROPHILS # (AUTO) 5.6 (2.1-6.9); NEUTROPHILS % 64.4 % (38.7-80.0); PLATELET COUNT 164 x10e3/uL (140-360); RED BLOOD COUNT 4.05 x10e6/uL (4.3-5.7); RED CELL DISTRIBUTION WIDTH 14.7 % (11.7-14.4)
[2018-05-20 04:56] LABS: ANION GAP 10.2 mmol/L (8-16); BLOOD UREA NITROGEN 11 mg/dL (7-26); BUN/CREATININE RATIO 18 (6-25); CALCIUM 8.9 mg/dL (8.4-10.2); CARBON DIOXIDE 29 mmol/L (22-29); CHLORIDE 105 mmol/L (98-107); CREATININE, SERUM 0.61 mg/dL (0.72-1.25); EST GLOMERULAR FILTRATION RATE > 60 ML/MIN (60-); GLUCOSE 102 mg/dL (74-118); MAGNESIUM 2.1 MG/DL (1.3-2.1); POTASSIUM 3.2 mmol/L (3.5-5.1); SODIUM 141 mmol/L (136-145)
[2018-05-20 05:00] VITALS: BP 87/55
[2018-05-20 07:30] VITALS: BP 93/50
[2018-05-20] MEDS: PREDNISONE 20 MG TAB PO SCH (08:53)
[2018-05-20] MEDS: FAMOTIDINE 20 MG/2 ML VIAL IV SCH (08:53)
[2018-05-20] MEDS: GABAPENTIN 100 MG CAP PO SCH (08:53)
--- NOTE | 2018-05-20 10:27 | Consultation ---
DATE OF CONSULTATION: May 20, 2018 Thank you, Dr. Klein, for this consultation. This is a 32-year-old gentleman with a past medical history including acute lymphoblastic lymphoma diagnosed in 2011 and treated at [facility]. The patient relapsed in 2014 and was involved in clinical trials. Last treatment was November 2017. He was in remission. He was not followed since November 2017. His course was complicated with avascular necrosis involving both shoulders and both hips. The patient currently on pain medication. He is currently in the hospital with diffuse petechial rash over his trunk and all 4 extremities. He was recently started on antibiotic of Augmentin for sore throat. He is kind of lethargic. At admission, he had blood work which shows hemoglobin 16, hematocrit 46, white cell count 5, and platelet count 188,000. Blood smear did not show any abnormal cells. His remaining workup included BUN and creatinine were normal. The patient is currently started on steroid treatment. His rash markedly improved. He feels much better. He is currently on pain medication and Benadryl. PAST MEDICAL HISTORY: Acute lymphoblastic leukemia, avascular necrosis of multiple joints. ALLERGIES: NKDA. MEDICATIONS: Reviewed. FAMILY HISTORY: Reviewed and noncontributory. SOCIAL HISTORY: No smoking, alcohol or drugs. REVIEW OF SYSTEMS: A 12-point review as in HPI. PHYSICAL EXAMINATION GENERAL: Alert, awake and communicative. HEENT: Normocephalic and atraumatic. Sclerae pink. Conjunctivae clear. NECK: Supple. CHEST: Decreased breath sounds at bases. CARDIOVASCULAR: Regular rate and rhythm. ABDOMEN: Soft and nontender. EXTREMITIES: No edema. SKIN: Few remaining rash. LABS AND IMAGING: Reviewed. ASSESSMENT AND PLAN: The patient with a history of multiple medical conditions. I am currently following for history of acute lymphoblastic leukemia. The patient currently in remission. He was treated and managed at [facility]. Last followup was November 2017. He was on clinical trials. At current, CBC and peripheral smear did not show any abnormal blood cells. Clinical condition is stable. RECOMMENDATIONS: Close observation. Drug skin reaction. The patient responded very well with steroids and Benadryl. Recommendation is continue current care. Will continue to manage. Will follow the patient closely. Job#: [id number] [place]
[2018-05-20] MEDS ORDERED: POTASSIUM CHLORIDE 20 MEQ TAB CR PO STA (10:34)
[2018-05-20] MEDS ORDERED: CIPRO500 MG PO (10:56)
[2018-05-20] MEDS ORDERED: BENADRYL25 M1 PO (10:56)
[2018-05-20 11:53] VITALS: BP 100/60
--- NOTE | 2018-05-20 15:28 | Consultation ---
DATE OF CONSULTATION: REASON FOR CONSULTATION: Skin rash, concern for drug reaction. This patient who is a very pleasant 33-year-old gentleman who has a history of acute lymphoid leukemia diagnosed in 2011 initially treated in 2014 with bleeding gums. He was treated again. He is followed by [facility]. Apparently, a few days ago had some sore throat. He was given Augmentin. He started to have a rash all over. The patient came to the hospital because he was concerned. I was asked to see him. The patient is currently laying in bed comfortably. PAST MEDICAL HISTORY: As above. PAST SURGICAL HISTORY: IV access. The patient has a history of acute lymphoid leukemia diagnosed in 2011, treated with relapse as mentioned above. 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 MEDICATION: Gabapentin at the present time. ALLERGIES: NKA. REVIEW OF SYSTEMS GENERAL: As per the patient, he is comfortable laying in bed. No complaints. HEENT: There is no headache, visual changes or hearing changes. GI: There is no nausea. No vomiting or diarrhea. CARDIAC: There is no arrhythmia. No seizure activity. All other systems within normal limits. PHYSICAL EXAMINATION GENERAL: He is currently alert and oriented. Does not seem to be in acute distress. VITALS: Stable. Afebrile. HEENT: Not icteric. NECK: Supple. CHEST: Clear. HEART: S1 and S2. No murmur. ABDOMEN: Soft. IMPRESSION: Diffuse rash, erythematous and papular, probably drug related. I recommend to discontinue antibiotic. The patient is clinically stable. If he has no more symptoms and no more fever, he can be discharged home with Benadryl. Job#: [id number] [place]
--- NOTE | 2018-05-20 18:32 | Discharge Summary ---
ADMISSION DIAGNOSES 1. Drug rash, possibly related to amoxicillin. 2. History of acute lymphoid leukemia. 3. Chronic pain. DISCHARGE DIAGNOSES 1. Drug rash, possibly related to amoxicillin. 2. History of acute lymphoid leukemia. 3. Chronic pain. 4. Ruled out group A streptococcus. 5. Hypokalemia. HISTORY: The patient has a history of acute lymphoid leukemia diagnosed in 2011. Initially treated and relapsed in 2014 with bleeding gums, and was treated again and recently relapsed, and was treated at [facility] with an experimental protocol, which he finished in November of 2011. Is considered to be in remission at this time. 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 He has a surgical history of 1 shoulder being replaced, waiting on the other, and Achilles tendon release. HOSPITAL COURSE: A 32-year-old male presents with diffuse petechial rash over his trunk and all 4 extremities over the last 24 hours after starting Augmentin 2 days ago for sore throat. On admission, the patient was started on IV prednisone and then switched to p.o. prednisone and IV Benadryl. The patient was resumed on Dilaudid and methadone for his chronic pain. Blood cultures were negative. Throat culture was negative. Urine culture came back for pseudomonas. Per ID, the patient can discharge home with Cipro. Per hematology, the patient is okay to discharge. After 2 days of p.o. prednisone and Benadryl, the patient is feeling much better. After discussing with Dr. Klein, the patient will discharge on 5 days of Cipro and Benadryl p.r.n. He will follow up with primary care in 1-2 weeks. The patient understands discharge instructions and agrees to the plan. DICTATED BY LORRAINE SCHROEDER NP KOMAL KLEIN MD Job#: [id number] [place]
== END 2018-05-20 14:00 | disposition home or self-care (01) ==
LOC: ER 03:15 → ERHOLD 07:02 → IMCU 10:15
PROVIDERS: ADMIT Internal Medicine; ATTEND Internal Medicine
DX: L27.0 Generalized skin eruption due to drugs and medicaments taken internally (principal); T36.0X5A Adverse effect of penicillins, initial encounter; R07.9 Chest pain, unspecified; C91.01 Acute lymphoblastic leukemia, in remission; R00.0 Tachycardia, unspecified; G89.4 Chronic pain syndrome; M87.112 Osteonecrosis due to drugs, left shoulder; M87.111 Osteonecrosis due to drugs, right shoulder; M87.188 Osteonecrosis due to drugs, other site; E87.6 Hypokalemia; B96.5 Pseudomonas (aeruginosa) (mallei) (pseudomallei) as the cause of diseases classified elsewhere
CPT/HCPCS: 36415 ×3; 36569 ×2; 71045 ×2; 71260; 80048; 80053 ×2; 81001; 82550; 82553; 83518; 83605; 83735 ×2; 84443; 84484; 85025 ×3; 85379; 85610; 85730; 86850; 86900; 87040; 87070; 87086; 87186; 93005; 93970; 99284; G0378 ×3; J1170 ×3; J1200 ×3; J1650; J2405; J2930; J7030; J7512 ×3; Q9967